=== PATIENT | female | born 1975 | race Caucasian/White ===

== ENCOUNTER 2020-10-08 09:12 | Emergency (ER) | payer MEDICAID, SELFPAY ==
[2020-10-08 09:17] VITALS: BP 125/98; PULSE 105; RESP 18; TEMP 36.8; O2SAT 99; BMI 40.7
--- NOTE | 2020-10-08 09:30 | ECG_ITS ---
Test Reason : CHEASTPAIN Blood Pressure : / mmHG Vent. Rate : 097 BPM Atrial Rate : 097 BPM P-R Int : 164 ms QRS Dur : 074 ms QT Int : 326 ms P-R-T Axes : 049 016 050 degrees QTc Int : 414 ms Artifact in tracing Normal sinus rhythm Low voltage QRS Cannot rule out Anterior infarct , age undetermined Abnormal ECG When compared with ECG of 10-FEB-2020 13:31, Due to poor quality, cannot compare Referred By: Maryjane Leigh Electronically Signed By:WALT HOFF
--- NOTE | 2020-10-08 09:30 | XR_ITS ---
EXAMINATION: XR CHEST CLINICAL INFORMATION: Chest pain. Shortness of breath. COMPARISON: Chest done on 02/10/2020. TECHNIQUE: Frontal view of the chest was obtained. FINDINGS: No significant abnormality is noted involving the heart, lungs, mediastinum, bony thorax or soft tissues. XR/XR chest 1V IMPRESSION: Unremarkable examination.
--- NOTE | 2020-10-08 09:37 | ED.GENADULT ---
HPI - General Adult General Chief complaint: General Medical Stated complaint: sob Time Seen by Provider: 10/08/20 09:18 History of Present Illness HPI narrative: 45-year-old female with a past medical history of CHF, COPD, depression, DM, mitral valve regurg presenting to the ED complaining of chest pressure radiating to left arm and jaw, worsening SOB, diarrhea x today. Also reports being lightheaded this morning, not at present. Denies fever, chills, nausea/vomiting, abdominal pain, LE edema, history of blood clots, sick contacts/recent travel Onset (ago): hour(s) Related Data Previous Rx's Medication Instructions Recorded albuterol sulfate 2 puff INHALATION Q4-6H PRN #6.7 g 10/08/20 albuterol sulfate 5 mg INHALATION Q4H PRN #30 ea 10/08/20 prednisone 40 mg PO DAILY 5 Days #10 tab 10/08/20 Allergies Allergy/AdvReac Type Severity Reaction Status Date / Time hernandez [CHERRIES] Allergy Severe ANGIOEDEMA Unverified 06/02/20 16:38 NSAIDS (Non-Steroidal Allergy Unknown NOT Unverified 06/02/20 16:38 Anti-Inflamma SUPPOSED [NSAIDS (NON-STEROIDAL TO TAKE ANTI-INFLAMMA] DUE TO LIVER DAMAGE IN THE PAST codeine [CODEINE] AdvReac Unknown N/V Unverified 06/02/20 16:38 From COMPAZINE Allergy Unknown LOCK JAW Uncoded 06/02/20 16:38 From TORADOL Allergy Unknown HIVES Uncoded 06/02/20 16:38 From ULTRAM Allergy Unknown SEIZURE Uncoded 06/02/20 16:38 Review of Systems Review of Systems: Constitutional: No Weight loss, No Fever, No Chills, No Night Sweats Cardiovascular: +Chest Pain, +SOB, +Dyspnea on Exertion, No Orthopnea, No Edema, No Palpitations Respiratory: +chronic Cough, No Sputum, +Wheezing, No Smoke Exposure Gastrointestinal: No Nausea, No Vomiting, + Diarrhea, No Constipation, No Abdominal pain, No Hematochezia, No Melena Genitourinary: No irregular bleeding, No Dysuria, No Urinary Frequency, No Hematuria Musculoskeletal: No joint pain, No Myalgias Skin: No Skin Lesions, No rash Neuro: No Weakness, No Numbness, + lightheadedness (resolved), No Headache Yes all other systems are reviewed and are negative [facility] Past Medical History Attestation statement: The following information was validated with the patient. Medical History (Updated 10/08/20 @ 14:49 by JOSE Campos) CHF (congestive heart failure) COPD (chronic obstructive pulmonary disease) Depression Diabetes Mitral valve regurgitation Social History Social History Alcohol intake: never Smoked in Last 30 Days: No Use of substances other than those prescribed or required for medical reasons: No Advance Directives: No Advance Directives Information Provided: No Physical Exam Vital Signs: Vital Signs: Last Vital Signs Temp 98.2 F 10/08/20 10:00 Pulse 89 10/08/20 14:21 Resp 18 10/08/20 10:00 BP 128/89 10/08/20 10:00 Pulse Ox 99 10/08/20 10:00 Body Mass Index 40.7 Const: General: cooperative, no acute distress, alert and awake Nutritional Appearance: underweight Orientation/consciousness: patient oriented x3 Limitations: no limitations HENMT: Head: Yes normal to inspection Ears: hearing grossly normal bilaterally General nose exam: Normal external nose present Face and sinus: Yes normal facial exam Eyes: General: appearance normal, both eyes and all related structures EOM: EOMs intact bilaterally Neck: Neck: Yes normal visual inspection and Yes no meningeal signs Resp: Effort & Inspection: normal respiratory effort Auscultation: wheezes expiratory wheezes and throughout and diminished lung sounds (bibasilar) Cardio: Rate: regular rate Heart sounds: S1 normal heart sound present and S2 normal heart sound present GI: Inspection: Yes normal to inspection Palpation (GI): Soft to palpation, nontender, no guarding and not rigid Skin: Rashes: no rashes Wounds: no wounds Neuro: General: patient oriented x3, tone normal and no meningeal signs Extrem: Other: no LE edema or calf ttp General: Yes normal to inspection Course Course Course Narrative: 1048- no leukocytosis, troponin negative, labs otherwise unremarkable. CXR unremarkable COVID-19 /RSV /negative 1248- on re-evaluation patient reports breathing is improved. Pending DuoNeb treatment and repeat troponin 1448--patient refusing repeat troponin. On re-evaluation still with end expiratory wheeze/coarse lung sounds. Would like to give additional DuoNeb however pt would like to sign out AMA. Risks discussed including . Patient has competency and is A&O x3 is capable making own decisions Medical Decision Making MDM Narrative Medical decision making narrative: 45-year-old female with a past medical history of CHF, COPD, depression, DM, mitral valve regurg presenting to the ED complaining of chest pressure radiating to left arm and jaw, worsening SOB, diarrhea x today. On exam mildly tachycardic, lungs with expiratory wheeze and decreased breath sounds bibasilar, abdomen soft/nontender, no LE edema. Concern for COPD exacerbation vs CHF vs viral syndrome/COVID-19. Rule pneumonia/ACS. Low concern for PE/dissection Low concern for severe sepsis at this time. Plan: EKG, labs, CXR, albuterol, magnesium, Decadron, re-evaluate. Lab Data Result diagrams: 10/08/20 10:02 10/08/20 10:02 Labs: Lab Results 10/08/20 10/08/20 10/08/20 Range/Units 10:01 10:01 10:02 WBC 8.4 (4.8-10.8) X10*3/uL RBC 4.79 (4.20-5.50) X10*6/uL Hgb 12.1 (12.0-16.0) g/dl Hct 38.9 (37-47) % MCV 81.2 (80-98) fL MCH 25.3 L (27.0-33.0) pg MCHC 31.1 (31.0-35.0) g/dl RDW 16.7 H (11.0-16.0) % Plt Count 278 (160-400) X10*3/uL MPV 10.8 (9.4-12.3) fL Immature Gran % (Auto) 0.2 (0.0-0.4) % Neut % (Auto) 66.8 (45-73) % Lymph % (Auto) 25.9 (20-40) % [place] % (Auto) 4.8 (2-11) % Eos % (Auto) 1.8 (0-4) % Baso % (Auto) 0.5 (0-2) % Lymph # (Auto) 2.2 (1.2-4.9) X10*3/uL [place] # (Auto) 0.4 (0.1-1.2) X10*3/uL Eos # (Auto) 0.2 (0.0-0.4) X10*3/uL Baso # (Auto) 0.0 (0.0-0.2) X10*3/uL Abs Immat Gran (auto) 0.02 (0.00-0.03) X10*3/uL Absolute Neuts (auto) 5.6 (2.0-8.3) X10*3/uL Absolute Nucleated RBC 0.000 (0.0-0.012) X10*3/uL Nucleated RBC % (auto) 0.0 (0.0-0.2) /100WBC PT (10.8-13.0) SEC INR (0.9-1.1) APTT (24.1-38.0) SEC Hold Blue Top Sodium (135-145) mmol/L Potassium (3.3-5.1) mmol/l Chloride (96-108) mmol/L Carbon Dioxide (22-29) mmol/L Anion Gap (12-20) BUN (9-16) mg/dL Creatinine (0.5-1.4) mg/dL Estim Creat Clear Calc Estimated GFR Random Glucose (60-115) mg/dL Calcium (8.4-10.2) mg/dL Magnesium (1.6-2.6) mg/dL Ferritin 8 L (10-250) ng/mL Total Bilirubin (0.0-1.0) mg/dL Direct Bilirubin (0.0-0.5) mg/dL AST (5-31) U/L ALT (0-31) U/L Alkaline Phosphatase (39-117) U/L Lactate Dehydrogenase (122-220) U/L Troponin I High Sens (<3.5-17.0) ng/L C-Reactive Protein (< or = 0.50) mg/dL B-Natriuretic Peptide (<100) pg/mL Total Protein (6.5-8.0) g/dL Albumin (3.5-5.0) g/dL Procalcitonin < 0.02 ng/mL Coronavirus (PCR) (Negative) Influenza Type A (PCR) (Negative) Influenza Type B (PCR) (Negative) RSV RNA Qual (PCR) (Negative) 10/08/20 10/08/20 10/08/20 Range/Units 10:02 10:02 10:02 WBC (4.8-10.8) X10*3/uL RBC (4.20-5.50) X10*6/uL Hgb (12.0-16.0) g/dl Hct (37-47) % MCV (80-98) fL MCH (27.0-33.0) pg MCHC (31.0-35.0) g/dl RDW (11.0-16.0) % Plt Count (160-400) X10*3/uL MPV (9.4-12.3) fL Immature Gran % (Auto) (0.0-0.4) % Neut % (Auto) (45-73) % Lymph % (Auto) (20-40) % [place] % (Auto) (2-11) % Eos % (Auto) (0-4) % Baso % (Auto) (0-2) % Lymph # (Auto) (1.2-4.9) X10*3/uL [place] # (Auto) (0.1-1.2) X10*3/uL Eos # (Auto) (0.0-0.4) X10*3/uL Baso # (Auto) (0.0-0.2) X10*3/uL Abs Immat Gran (auto) (0.00-0.03) X10*3/uL Absolute Neuts (auto) (2.0-8.3) X10*3/uL Absolute Nucleated RBC (0.0-0.012) X10*3/uL Nucleated RBC % (auto) (0.0-0.2) /100WBC PT 13.1 H (10.8-13.0) SEC INR 1.1 (0.9-1.1) APTT 31.4 (24.1-38.0) SEC Hold Blue Top SEE NOTE Sodium 136 (135-145) mmol/L Potassium 3.7 (3.3-5.1) mmol/l Chloride 97 (96-108) mmol/L Carbon Dioxide 29 (22-29) mmol/L Anion Gap 14 (12-20) BUN 7 L (9-16) mg/dL Creatinine 0.71 (0.5-1.4) mg/dL Estim Creat Clear Calc 113.1 Estimated GFR > 60 Random Glucose 153 H (60-115) mg/dL Calcium 9.0 (8.4-10.2) mg/dL Magnesium 1.9 (1.6-2.6) mg/dL Ferritin (10-250) ng/mL Total Bilirubin 0.2 (0.0-1.0) mg/dL Direct Bilirubin < 0.2 (0.0-0.5) mg/dL AST 14 (5-31) U/L ALT 9 (0-31) U/L Alkaline Phosphatase 110 (39-117) U/L Lactate Dehydrogenase (122-220) U/L Troponin I High Sens < 3.5 (<3.5-17.0) ng/L C-Reactive Protein (< or = 0.50) mg/dL B-Natriuretic Peptide < 10 (<100) pg/mL Total Protein 7.2 (6.5-8.0) g/dL Albumin 4.0 (3.5-5.0) g/dL Procalcitonin ng/mL Coronavirus (PCR) (Negative) Influenza Type A (PCR) (Negative) Influenza Type B (PCR) (Negative) RSV RNA Qual (PCR) (Negative) 10/08/20 10/08/20 Range/Units 10:02 10:02 WBC (4.8-10.8) X10*3/uL RBC (4.20-5.50) X10*6/uL Hgb (12.0-16.0) g/dl Hct (37-47) % MCV (80-98) fL MCH (27.0-33.0) pg MCHC (31.0-35.0) g/dl RDW (11.0-16.0) % Plt Count (160-400) X10*3/uL MPV (9.4-12.3) fL Immature Gran % (Auto) (0.0-0.4) % Neut % (Auto) (45-73) % Lymph % (Auto) (20-40) % [place] % (Auto) (2-11) % Eos % (Auto) (0-4) % Baso % (Auto) (0-2) % Lymph # (Auto) (1.2-4.9) X10*3/uL [place] # (Auto) (0.1-1.2) X10*3/uL Eos # (Auto) (0.0-0.4) X10*3/uL Baso # (Auto) (0.0-0.2) X10*3/uL Abs Immat Gran (auto) (0.00-0.03) X10*3/uL Absolute Neuts (auto) (2.0-8.3) X10*3/uL Absolute Nucleated RBC (0.0-0.012) X10*3/uL Nucleated RBC % (auto) (0.0-0.2) /100WBC PT (10.8-13.0) SEC INR (0.9-1.1) APTT (24.1-38.0) SEC Hold Blue Top Sodium (135-145) mmol/L Potassium (3.3-5.1) mmol/l Chloride (96-108) mmol/L Carbon Dioxide (22-29) mmol/L Anion Gap (12-20) BUN (9-16) mg/dL Creatinine (0.5-1.4) mg/dL Estim Creat Clear Calc Estimated GFR Random Glucose (60-115) mg/dL Calcium (8.4-10.2) mg/dL Magnesium (1.6-2.6) mg/dL Ferritin (10-250) ng/mL Total Bilirubin (0.0-1.0) mg/dL Direct Bilirubin (0.0-0.5) mg/dL AST (5-31) U/L ALT (0-31) U/L Alkaline Phosphatase (39-117) U/L Lactate Dehydrogenase 124 (122-220) U/L Troponin I High Sens (<3.5-17.0) ng/L C-Reactive Protein 2.02 H (< or = 0.50) mg/dL B-Natriuretic Peptide (<100) pg/mL Total Protein (6.5-8.0) g/dL Albumin (3.5-5.0) g/dL Procalcitonin ng/mL Coronavirus (PCR) NEGATIVE (Negative) Influenza Type A (PCR) NEGATIVE (Negative) Influenza Type B (PCR) NEGATIVE (Negative) RSV RNA Qual (PCR) NEGATIVE (Negative) Discharge Plan Discharge Clinical Impression: COPD (chronic obstructive pulmonary disease) Qualifiers: COPD type: unspecified COPD Qualified Code(s): J44.9 - Chronic obstructive pulmonary disease, unspecified Patient Disposition: Left Against Medical Advice Instructions: COPD (Chronic Obstructive Pulmonary Disease) (ED) Additional Instructions: Your having a COPD exacerbation. Her signing out against medical advice meaning would like to stay in the emergency department longer for breathing treatments and repeat blood work which are refusing. Make sure you take prescribed medications at home including the albuterol, your neb machine, and prednisone. Call your doctor for close follow-up. If her symptoms persist or worsen, you have constant worsening shortness of breath, chest pain, or fever return to the ED immediately Prescriptions: New albuterol sulfate 90 mcg/actuation HFA aerosol inhaler 2 puff inhalation Q4-6H PRN (Reason: shortness of breath or wheezing) Qty: 6.7 RF: 0 albuterol sulfate 2.5 mg/0.5 mL solution for nebulization 5 mg inhalation Q4H PRN (Reason: shortness of breath or wheezing) Qty: 30 RF: 0 prednisone 20 mg tablet 40 mg PO DAILY 5 Days Qty: 10 RF: 0 Referrals: Sridevi Lane MD [Primary Care Provider] - 2 days
[2020-10-08 10:00] VITALS: BP 128/89; PULSE 99; RESP 18; TEMP 36.8; O2SAT 99
[2020-10-08] MEDS: Acetaminophen 325 MG TABLET 650 MG PO (10:04)
[2020-10-08] MEDS: Magnesium Sulfate/H2O 2 GM/50 ML PIGGYBACK IV (10:04)
[2020-10-08] MEDS: Albuterol Sulfate 90 MCG 8 GM INHALER 4 PUFF INHALE (10:05)
[2020-10-08 10:10] LABS: MANUAL DIFF FLAG NO
[2020-10-08 10:16] LABS: Basophils Percent Auto 0.5 % (0-2); Eosinophils Absolute Auto 0.2 X10*3/uL (0.0-0.4); Eosinophils Percent Auto 1.8 % (0-4); Hematocrit 38.9 % (37-47); Hemoglobin 12.1 g/dl (12.0-16.0); Imm Gran Abs Auto 0.02 X10*3/uL (0.00-0.03); Imm Gran Pct Auto 0.2 % (0.0-0.4); Lymphocytes Absolute Auto 2.2 X10*3/uL (1.2-4.9); Lymphocytes Percent Auto 25.9 % (20-40); Mean Corpuscular HGB Conc 31.1 g/dl (31.0-35.0); Mean Corpuscular Hemoglobin 25.3 pg (27.0-33.0); Mean Corpuscular Volume 81.2 fL (80-98); Mean Platelet Volume 10.8 fL (9.4-12.3); Monocytes Absolute Auto 0.4 X10*3/uL (0.1-1.2); Monocytes Percent Auto 4.8 % (2-11); Neutrophils Absolute Auto 5.6 X10*3/uL (2.0-8.3); Neutrophils Percent Auto 66.8 % (45-73); Platelet Count 278 X10*3/uL (160-400); Red Blood Count 4.79 X10*6/uL (4.20-5.50); Red Cell Distribution Width 16.7 % (11.0-16.0); White Blood Count 8.4 X10*3/uL (4.8-10.8)
--- NOTE | 2020-10-08 10:22 | PC.NURSE ---
pt amb to br
[2020-10-08 10:24] LABS: INTERNATIONAL NORM RATIO 1.1 (0.9-1.1); Prothrombin Time 13.1 SEC (10.8-13.0)
[2020-10-08 10:27] LABS: Partial Thromboplastin Time 31.4 SEC (24.1-38.0)
[2020-10-08 10:42] LABS: C Reactive Protein 2.02 mg/dL (< or = 0.50); Lactate Dehydrogenase 124 U/L (122-220)
[2020-10-08 10:44] LABS: Alanine Aminotransferase 9 U/L (0-31); Alkaline Phosphatase 110 U/L (39-117); Anion Gap 14 (12-20); Aspartate Amino Transferase 14 U/L (5-31); Bilirubin Direct < 0.2 mg/dL (0.0-0.5); Bilirubin Total 0.2 mg/dL (0.0-1.0); Blood Urea Nitrogen 7 mg/dL (9-16); Carbon Dioxide 29 mmol/L (22-29); Chloride 97 mmol/L (96-108); Creatinine Clr Calc Pharmacy 113.1; Estimated Glomerular Filt Rate > 60; Glucose Random 153 mg/dL (60-115); Magnesium 1.9 mg/dL (1.6-2.6); Potassium 3.7 mmol/l (3.3-5.1); Sodium 136 mmol/L (135-145); Total Protein 7.2 g/dL (6.5-8.0)
[2020-10-08 10:47] LABS: B Type Natriuretic Peptide < 10 pg/mL (<100); Troponin-I High Sensitivity < 3.5 ng/L (<3.5-17.0)
[2020-10-08 11:01] LABS: Procalcitonin < 0.02 ng/mL
[2020-10-08 11:04] LABS: Ferritin 8 ng/mL (10-250)
[2020-10-08 11:21] LABS: Influenza A PCR NEGATIVE (Negative); Influenza B PCR NEGATIVE (Negative); Resp Syncy Virus RNA Qual PCR NEGATIVE (Negative); SARS COV2 PCR INHOUSE NEGATIVE (Negative)
[2020-10-08] MEDS: LORazepam 1 MG TABLET PO (13:04)
[2020-10-08] MEDS: Albuterol/Iprat 2.5/0.5MG 3 ML AMPUL.NEB INHALE (14:17)
[2020-10-08 14:21] VITALS: PULSE 89; O2SAT 96
--- NOTE | 2020-10-08 14:44 | PC.NURSE ---
pt refusing blood work and requesting to leave. pa aware
== END 2020-10-08 15:07 | disposition left against medical advice (07) ==
PROVIDERS: Physician Assistant; Emergency Provider Internal Medicine; PCP Internal Medicine
DX: R06.02 Shortness of breath (principal); J44.9 Chronic obstructive pulmonary disease, unspecified; R07.89 Other chest pain; Z79.899 Other long term (current) drug therapy; Z20.822 Contact with and (suspected) exposure to COVID-19
CPT/HCPCS: 0241U; 36415; 71045; 80048; 80076; 82728; 83615; 83735; 83880; 84145; 84484; 85025; 85610; 85730; 86140; 93005; 94640; 96365; 96366; 96375; 99284; J1100; J3475

== ENCOUNTER 2021-04-24 10:33 | Inpatient (IN) | payer OTHER, MEDICAID, SELFPAY ==
--- NOTE | 2021-04-24 11:08 | ED_ITS ---
HPI - Psych General Chief Complaint: Psychiatric Symptoms Stated Complaint: si Time Seen by Provider: 04/24/21 11:01 History of Present Illness HPI Narrative: 45-year-old female with a history of bipolar presents today with having suicidal ideation. Patient had plans of jumping in front of a car. Positive history of being on methadone. Last used heroin a week ago. Last used cocaine about a week ago. Patient had a history of bipolar. Did not take her medication the last month. Patient came in asking for help. Denies any alcohol use. Denies any chance of being . Patient received her COVID vaccine approximately 9 days prior no coughing or congestion or upper respiratory symptoms Related Data Previous Rx's Medication Instructions Recorded albuterol sulfate 2.5 mg/0.5 mL 5 mg INHALATION Q4H PRN #30 ea 10/08/20 solution for nebulization albuterol sulfate 90 mcg/actuation 2 puff INHALATION Q4-6H PRN #6.7 g 10/08/20 aerosol inhaler prednisone 20 mg tablet 40 mg PO DAILY 5 Days #10 tab 10/08/20 Allergies Allergy/AdvReac Type Severity Reaction Status Date / Time hernandez [CHERRIES] Allergy Severe ANGIOEDEMA Unverified 06/02/20 16:38 NSAIDS (Non-Steroidal Allergy Unknown NOT Unverified 06/02/20 16:38 Anti-Inflamma SUPPOSED [NSAIDS (NON-STEROIDAL TO TAKE ANTI-INFLAMMA] DUE TO LIVER DAMAGE IN THE PAST codeine [CODEINE] AdvReac Unknown N/V Unverified 06/02/20 16:38 From COMPAZINE Allergy Unknown LOCK JAW Uncoded 06/02/20 16:38 From TORADOL Allergy Unknown HIVES Uncoded 06/02/20 16:38 From ULTRAM Allergy Unknown SEIZURE Uncoded 06/02/20 16:38 Review of Systems Review of Systems: Constitutional: No Weight loss, No Fever, No Chills, No Night Sweats, No Fatigue, No Malaise ENT/Mouth: No Hearing loss, No Ear Pain, No Nasal Congestion, No Sinus Pain, No Hoarseness, No sore throat, No Rhinorrhea, No Swallowing Difficulty Eyes: No Eye Pain, No Swelling, No Redness, No Foreign Body, No Discharge, No Vision Changes Cardiovascular: No Chest Pain, No SOB, No Dyspnea on Exertion, No Orthopnea, No Edema, No Palpitations Respiratory: No Cough, No Sputum, No Wheezing, No Smoke Exposure, No Dyspnea Gastrointestinal: No Nausea, No Vomiting, No Diarrhea, No Constipation, No abdominal Pain, No Hematochezia, No Melena Genitourinary: no irregular bleeding, No Dysuria, No Urinary Frequency, No Hematuria, No Urinary Incontinence, No Urgency, No Flank Pain, No Urinary Flow Changes, No Hesitancy Musculoskeletal: No joint pain, No Myalgias, No Joint Swelling Skin: No Skin Lesions, No rash Neuro: No Weakness, No Numbness, No Paresthesias, No Loss of Consciousness, No Dizziness, No Headache Psych: No Anxiety/Panic, positive Depression, positive suicidal ideation, No Social Issues, Heme/Lymph: No Bruising, No Bleeding,No Lymphadenopathy Endocrine: No Polyuria, No Polydipsia, No Temperature Intolerance Yes all other systems are reviewed and are negative [facility] Past Medical History Attestation statement: The following information was validated with the patient. Medical History CHF (congestive heart failure) COPD (chronic obstructive pulmonary disease) Depression Diabetes Mitral valve regurgitation Social History Social History Alcohol intake: never Substance Use Type: Crack/Cocaine and Heroin Substance Use Frequency: Recent Binge Advance Directives: No Advance Directives Information Provided: No Patient : No Physical Exam Vital Signs: Vital Signs: Last Vital Signs Temp 98.3 F 04/24/21 15:18 Pulse 72 04/24/21 15:18 Resp 20 04/24/21 15:18 BP 114/59 L 04/24/21 15:18 Pulse Ox 98 04/24/21 15:18 Body Mass Index 36.0 Appearance: Alert. Oriented X3. No acute distress. Eyes: Pupils equal, round and reactive to light. ENT: Pharynx normal. Neck: Normal inspection. Neck supple. No lymph nodes noted. No crepitus CVS: Normal heart rate and rhythm. Pulses normal. Normal S1 and S2 Respiratory: No respiratory distress. Breath sounds normal. No Wheezing. No rales Abdomen: Soft and nontender. No rigidity. No distention. good BS x4 Skin: Skin warm and dry. Normal skin color. Normal skin turgor. Extremities: No lower extremity edema. Neurovascular intact to all extremities. No Lacerations. No Rash Neuro: Oriented X 3. No motor deficit. No sensory deficit. Moving all extermities. No slurred speech Course Course Course Narrative: Well-appearing no acute distress. Will get baseline labs. Will get BHN consult. MDM - Psych MDM Narrative Medical decision making narrative: Patient medically cleared awaiting crisis evaluation. Currently in stable condition. Lab Data Result diagrams: 04/24/21 12:23 04/24/21 12:23 Labs: Lab Results 04/24/21 04/24/21 04/24/21 Range/Units 12:23 12:23 12:23 WBC 9.4 (4.8-10.8) X10*3/uL RBC 4.43 (4.20-5.50) X10*6/uL Hgb 11.9 L (12.0-16.0) g/dl Hct 38.3 (37-47) % MCV 86.5 (80-98) fL MCH 26.9 L (27.0-33.0) pg MCHC 31.1 (31.0-35.0) g/dl RDW 15.6 (11.0-16.0) % Plt Count 310 (160-400) X10*3/uL MPV 11.5 (9.4-12.3) fL Immature Gran % (Auto) 0.1 (0.0-0.4) % Neut % (Auto) 60.8 (45-73) % Lymph % (Auto) 32.4 (20-40) % [place] % (Auto) 4.8 (2-11) % Eos % (Auto) 1.6 (0-4) % Baso % (Auto) 0.3 (0-2) % Lymph # (Auto) 3.0 (1.2-4.9) X10*3/uL [place] # (Auto) 0.5 (0.1-1.2) X10*3/uL Eos # (Auto) 0.2 (0.0-0.4) X10*3/uL Baso # (Auto) 0.0 (0.0-0.2) X10*3/uL Abs Immat Gran (auto) 0.01 (0.00-0.03) X10*3/uL Absolute Neuts (auto) 5.7 (2.0-8.3) X10*3/uL Absolute Nucleated RBC 0.000 (0.0-0.012) X10*3/uL Nucleated RBC % (auto) 0.0 (0.0-0.2) /100WBC Sodium 140 (135-145) mmol/L Potassium 4.3 (3.3-5.1) mmol/L Chloride 103 (96-108) mmol/L Carbon Dioxide 28 (22-29) mmol/L Anion Gap 13 (12-20) BUN 8 L (9-16) mg/dL Creatinine 0.72 (0.5-1.4) mg/dL Estim Creat Clear Calc 108.1 Estimated GFR > 60 Random Glucose 96 D (60-115) mg/dL Calcium 8.9 (8.4-10.2) mg/dL Urine Test (NEGATIVE) Urine Opiates Screen (Not Detect) Ur Barbiturates Screen (Not Detect) Ur Phencyclidine Scrn (Not Detect) Ur Amphetamines Screen (Not Detect) U Benzodiazepines Scrn (Not Detect) Urine Cocaine Screen (Not Detect) U Marijuana (THC) Screen (Not Detect) Ethyl Alcohol < 10 mg/dL 04/24/21 04/24/21 Range/Units 12:23 12:23 WBC (4.8-10.8) X10*3/uL RBC (4.20-5.50) X10*6/uL Hgb (12.0-16.0) g/dl Hct (37-47) % MCV (80-98) fL MCH (27.0-33.0) pg MCHC (31.0-35.0) g/dl RDW (11.0-16.0) % Plt Count (160-400) X10*3/uL MPV (9.4-12.3) fL Immature Gran % (Auto) (0.0-0.4) % Neut % (Auto) (45-73) % Lymph % (Auto) (20-40) % [place] % (Auto) (2-11) % Eos % (Auto) (0-4) % Baso % (Auto) (0-2) % Lymph # (Auto) (1.2-4.9) X10*3/uL [place] # (Auto) (0.1-1.2) X10*3/uL Eos # (Auto) (0.0-0.4) X10*3/uL Baso # (Auto) (0.0-0.2) X10*3/uL Abs Immat Gran (auto) (0.00-0.03) X10*3/uL Absolute Neuts (auto) (2.0-8.3) X10*3/uL Absolute Nucleated RBC (0.0-0.012) X10*3/uL Nucleated RBC % (auto) (0.0-0.2) /100WBC Sodium (135-145) mmol/L Potassium (3.3-5.1) mmol/L Chloride (96-108) mmol/L Carbon Dioxide (22-29) mmol/L Anion Gap (12-20) BUN (9-16) mg/dL Creatinine (0.5-1.4) mg/dL Estim Creat Clear Calc Estimated GFR Random Glucose (60-115) mg/dL Calcium (8.4-10.2) mg/dL Urine Test NEGATIVE (NEGATIVE) Urine Opiates Screen Not Detected (Not Detect) Ur Barbiturates Screen Not Detected (Not Detect) Ur Phencyclidine Scrn Not Detected (Not Detect) Ur Amphetamines Screen Not Detected (Not Detect) U Benzodiazepines Scrn Not Detected (Not Detect) Urine Cocaine Screen POSITIVE H (Not Detect) U Marijuana (THC) Screen POSITIVE H (Not Detect) Ethyl Alcohol mg/dL Discharge Plan Discharge Clinical Impression: Suicidal ideation Prescriptions: No Action albuterol sulfate 90 mcg/actuation HFA aerosol inhaler 2 puff inhalation Q4-6H PRN (Reason: shortness of breath or wheezing) Qty: 6.7 RF: 0 albuterol sulfate 2.5 mg/0.5 mL solution for nebulization 5 mg inhalation Q4H PRN (Reason: shortness of breath or wheezing) Qty: 30 RF: 0 prednisone 20 mg tablet 40 mg PO DAILY 5 Days Qty: 10 RF: 0
[2021-04-24 11:13] VITALS: BP 130/54; PULSE 68; RESP 16; TEMP 36.9; O2SAT 96; BMI 36.0
--- NOTE | 2021-04-24 11:23 | PC.NURSE ---
FAXED DOSE VERIFICATION FORM TO [facility] [phone]
[2021-04-24] MEDS: LORazepam 1 MG TABLET PO ×2 (11:44→16:36)
[2021-04-24 12:41] LABS: MANUAL DIFF FLAG NO
[2021-04-24 12:43] LABS: Basophils Percent Auto 0.3 % (0-2); Eosinophils Absolute Auto 0.2 X10*3/uL (0.0-0.4); Eosinophils Percent Auto 1.6 % (0-4); Hematocrit 38.3 % (37-47); Hemoglobin 11.9 g/dl (12.0-16.0); Imm Gran Abs Auto 0.01 X10*3/uL (0.00-0.03); Imm Gran Pct Auto 0.1 % (0.0-0.4); Lymphocytes Percent Auto 32.4 % (20-40); Mean Corpuscular HGB Conc 31.1 g/dl (31.0-35.0); Mean Corpuscular Hemoglobin 26.9 pg (27.0-33.0); Mean Corpuscular Volume 86.5 fL (80-98); Mean Platelet Volume 11.5 fL (9.4-12.3); Monocytes Absolute Auto 0.5 X10*3/uL (0.1-1.2); Monocytes Percent Auto 4.8 % (2-11); Neutrophils Absolute Auto 5.7 X10*3/uL (2.0-8.3); Neutrophils Percent Auto 60.8 % (45-73); Platelet Count 310 X10*3/uL (160-400); Red Blood Count 4.43 X10*6/uL (4.20-5.50); Red Cell Distribution Width 15.6 % (11.0-16.0); White Blood Count 9.4 X10*3/uL (4.8-10.8)
[2021-04-24 12:47] LABS: UPreg QC Valid YES; Urine Pregnancy NEGATIVE (NEGATIVE)
[2021-04-24 13:11] LABS: Ethanol < 10 mg/dL
[2021-04-24 13:12] LABS: Anion Gap 13 (12-20); Blood Urea Nitrogen 8 mg/dL (9-16); Calcium 8.9 mg/dL (8.4-10.2); Carbon Dioxide 28 mmol/L (22-29); Chloride 103 mmol/L (96-108); Creatinine Clr Calc Pharmacy 108.1; Estimated Glomerular Filt Rate > 60; Glucose Random 96 mg/dL (60-115); Potassium 4.3 mmol/L (3.3-5.1); Sodium 140 mmol/L (135-145)
[2021-04-24 13:32] LABS: Amphetamine Screen Urine Not Detected (Not Detect); Barbiturates, Urine Not Detected (Not Detect); Benzodiazepines Screen Urine Not Detected (Not Detect); Cannabinoid Screen Urine POSITIVE (Not Detect); Cocaine Screen Urine POSITIVE (Not Detect); Opiate Screen Urine Not Detected (Not Detect); Phencyclidine Screen Urine Not Detected (Not Detect)
[2021-04-24 15:18] VITALS: BP 114/59; PULSE 72; RESP 20; TEMP 36.8; O2SAT 98
--- NOTE | 2021-04-24 19:29 | MHC.CARE ---
Contacted [facility] triage, no referral received for crisis evaluation. Provided demographics, medical clearance info, and presenting problem by phone. They will call back with an ETA.
--- NOTE | 2021-04-24 20:49 | MHC.CARE ---
[facility] unable to send clinician until the morning. CARE team contacted [facility] crisis triage re: taking over evaluation. Triage will notify insurance. CARE team eval will be completed this evening.
[2021-04-24 22:00] VITALS: BP 116/68; PULSE 74; RESP 16
--- NOTE | 2021-04-24 23:00 | MHC.CARE ---
Attempted to meet with pt. Sleeping, wouldn't wake up, will try again in an hour.
--- NOTE | 2021-04-25 | ECG_ITS ---
Test Reason : MEDICAL CLEAR Blood Pressure : / mmHG Vent. Rate : 057 BPM Atrial Rate : 057 BPM P-R Int : 186 ms QRS Dur : 084 ms QT Int : 460 ms P-R-T Axes : 036 014 039 degrees QTc Int : 447 ms Sinus bradycardia Otherwise normal ECG When compared with ECG of 08-OCT-2020 09:20, Vent. rate has decreased BY 40 BPM Borderline criteria for Inferior infarct are no longer Present ST no longer depressed in Anterolateral leads T wave inversion no longer evident in Anterolateral leads Referred By: Hesham Shin Electronically Signed By:JOVANA HUFF MD
[2021-04-25] MEDS: LORazepam 0.5 MG TABLET 1 MG PO ×4 (00:27→21:28)
--- NOTE | 2021-04-25 00:29 | PC.NURSE ---
pt medicated as per emar for anxiety.
--- NOTE | 2021-04-25 00:54 | MHC.CARE ---
Eval completed. Plan is for inpt psych admission. Pt will remain in ED pending facility placement.
[2021-04-25 02:00] VITALS: BP 128/68; PULSE 81; RESP 16
--- NOTE | 2021-04-25 02:46 | PC.NURSE ---
PT SLEEPING WAKES TO VOICE. RESPIRATIONS EASY, N/L. SKIN W/D. WILL CONTINUE TO MONITOR PT.
[2021-04-25 06:00] VITALS: BP 126/72; PULSE 84; RESP 16
[2021-04-25] MEDS: LORazepam 1 MG TABLET 2 MG PO (06:32)
--- NOTE | 2021-04-25 06:33 | PC.NURSE ---
pt feeling anxious, pt medicated as per emar.
--- NOTE | 2021-04-25 07:39 | PC.NURSE ---
PATIENT CALLED [facility] AND GAVE PHONE TO SANG Cason RN. SANG SPOKE WITH WORKER ON PHONE AND TOOK DOWN DOSE VERIFICATION INFORMATION. SENT TO PHARMACY BY THIS RN.
[2021-04-25 10:11] VITALS: RESP 18
[2021-04-25 10:30] LABS: Influenza A PCR NEGATIVE (Negative); Influenza B PCR NEGATIVE (Negative); Resp Syncy Virus RNA Qual PCR NEGATIVE (Negative); SARS COV2 PCR INHOUSE NEGATIVE (Negative)
--- NOTE | 2021-04-25 10:37 | PM.PSYCN ---
History of Present Illness Date of Service: 04/25/2021 Chief Complaint: si Reason for Consult: Consult was requested by Care Team due to patient reporting active urges to self harm and increased anxiety. Requesting physician: Heidy Jama Sources of Information: patient interviewed, chart reviewed and crisis/core team assessment reviewed Additional Sources of Information: Consulted with Care Team HPI Narrative: Patient is a 45 y.o. female who carries a diagnosis of Bipolar II disorder, borderline personality disorder, and moderate opioid use disorder on MAT (methadone maintenance 85 mg). She self-presented to [facility] ED due to SI with plan, recent attempt to step in front of a moving vehicle yesterday, depression. Precipitating factors include that her PCP has taken her off her psych medications 1 month ago (due to stability?) and she has been feeling worse x 2 weeks. Also reports several friends have from substance overdose. She recently relapsed on opiates and cocaine 5-6 days ago after abstinence of 1.5 years. She has been on methadone maintenance x 4 yrs, denies current withdrawal sx. I evaluated the patient this morning and upon interview, she reports ?I want to ,? has active plan to hang herself if she leaves the hospital. She states her PCP was taking her off her psych meds due to her stability and that she has not had an inpatient psych admission since 2018, however she says ?I felt good because of my medications, what I was on was working fine.? Since being off the meds x 1 month she reports increased sx of bipolar depression including self isolating, feeling ?testy towards people,? poor sleep, and ?I couldn?t get my mind to slow down.? She reports hearing her own voice in her head telling herself to kill herself. Says she is ?javier if I slept 2 hours a night,? can fall asleep but does not stay asleep. Has increased sx of anxiety, ?I feel like everything is closing in on me.? Appetite is low. She has been taking PO Ativan PRN in the ED, says this is helping. However, she continues to feel restless and present with psychomotor agitation. Per pharmacy records, she was on gabapentin 800 mg TID, Vistaril 25 mg BID, remeron 15 mg QHS, and prazosin 3 mg QHS. Says she felt stable on this regimen since 2019. In the milieu, she states she is looking for things around her to self harm with although denies intent, feels safe in the ED. Past Psychiatric History: PPH: -Hx of multiple inpatient psych admissions, last at in 2017. [place] in 2018. -Most recent med management with remeron, prazosin, gabapentin, clonidine, lamictal -Reports she is on gabapentin for nerve damage in her feet Medical Evaluation Reviewed: Yes -PCP is Dr. Sridevi Lane. -past medical history of CHF, COPD, non-insulin dependent DM, mitral valve regurg Personal & Social History: -She shares an apartment with friends [facility] Medical History CHF (congestive heart failure) COPD (chronic obstructive pulmonary disease) Depression Diabetes Mitral valve regurgitation Substance History: -Hx of MAT, detox, and admission at residential substance use programs (last at [facility]). -Tox screen positive for cocaine and marijuana. Diagnostics Vital Signs (24Hr): Vital Signs - 24 hr 04/24/21 11:13 04/24/21 15:18 04/24/21 22:00 Temperature 98.5 F 98.3 F Pulse Rate 68 72 74 Respiratory Rate 16 20 16 Blood Pressure 130/54 L 114/59 L 116/68 Pulse Oximetry 96 98 04/25/21 02:00 04/25/21 06:00 04/25/21 10:11 Temperature Pulse Rate 81 84 Respiratory Rate 16 16 18 Blood Pressure 128/68 126/72 Pulse Oximetry Body Mass Index 36.0 Labs Results: 04/24/21 12:23 04/24/21 12:23 Labs: Laboratory Results - last 48 hr 04/24/21 04/24/21 04/24/21 12:23 12:23 12:23 WBC 9.4 RBC 4.43 Hgb 11.9 L Hct 38.3 MCV 86.5 MCH 26.9 L MCHC 31.1 RDW 15.6 Plt Count 310 MPV 11.5 Immature Gran % (Auto) 0.1 Neut % (Auto) 60.8 Lymph % (Auto) 32.4 [place] % (Auto) 4.8 Eos % (Auto) 1.6 Baso % (Auto) 0.3 Lymph # (Auto) 3.0 [place] # (Auto) 0.5 Eos # (Auto) 0.2 Baso # (Auto) 0.0 Abs Immat Gran (auto) 0.01 Absolute Neuts (auto) 5.7 Absolute Nucleated RBC 0.000 Nucleated RBC % (auto) 0.0 Sodium 140 Potassium 4.3 Chloride 103 Carbon Dioxide 28 Anion Gap 13 BUN 8 L Creatinine 0.72 Estim Creat Clear Calc 108.1 Estimated GFR > 60 Random Glucose 96 D Calcium 8.9 Urine Test Urine Opiates Screen Ur Barbiturates Screen Ur Phencyclidine Scrn Ur Amphetamines Screen U Benzodiazepines Scrn Urine Cocaine Screen U Marijuana (THC) Screen Ethyl Alcohol < 10 04/24/21 04/24/21 12:23 12:23 WBC RBC Hgb Hct MCV MCH MCHC RDW Plt Count MPV Immature Gran % (Auto) Neut % (Auto) Lymph % (Auto) [place] % (Auto) Eos % (Auto) Baso % (Auto) Lymph # (Auto) [place] # (Auto) Eos # (Auto) Baso # (Auto) Abs Immat Gran (auto) Absolute Neuts (auto) Absolute Nucleated RBC Nucleated RBC % (auto) Sodium Potassium Chloride Carbon Dioxide Anion Gap BUN Creatinine Estim Creat Clear Calc Estimated GFR Random Glucose Calcium Urine Test NEGATIVE Urine Opiates Screen Not Detected Ur Barbiturates Screen Not Detected Ur Phencyclidine Scrn Not Detected Ur Amphetamines Screen Not Detected U Benzodiazepines Scrn Not Detected Urine Cocaine Screen POSITIVE H U Marijuana (THC) Screen POSITIVE H Ethyl Alcohol Mental Status Exam Mental Status Exam Narrative: Unkempt appearance, in hospital gown, overweight. Good eye contact, attentive. No abnormal involuntary movements. Presents with psychomotor agitation, guarded but engageable. Non-pressured speech, spontaneous with regular rate and rhythm, normal volume and prosody. No prolonged speech latency or dysarthria. Mood is ?depressed,? affect is irritable. Endorses SI with plan and intent, denies recent SIB or HI upon inquiry. Denies A/VH or delusional thought content. Thoughts are coherent, organized. No known cognitive or memory impairment. Insight/ Judgment fair and adequate. Medications Medications Current Medications Generic Name Dose Route Start Last Admin Trade Name Freq PRN Reason Stop Dose Admin Lorazepam 1 mg 04/25/21 09:40 04/25/21 10:10 Lorazepam 0.5 Mg Tablet PO 1 mg Q6H PRN Administration anxiety Methadone HCl 80 mg 04/25/21 09:00 04/25/21 08:59 Methadone Hcl 1 Mg/0.1 Ml Oral.Conc PO 80 mg DAILY ADRIÁN Administration Allergies Allergies Allergy/AdvReac Type Severity Reaction Status Date / Time hernandez [CHERRIES] Allergy Severe ANGIOEDEMA Unverified 06/02/20 16:38 NSAIDS (Non-Steroidal Allergy Unknown NOT Unverified 06/02/20 16:38 Anti-Inflamma SUPPOSED [NSAIDS (NON-STEROIDAL TO TAKE ANTI-INFLAMMA] DUE TO LIVER DAMAGE IN THE PAST codeine [CODEINE] AdvReac Unknown N/V Unverified 06/02/20 16:38 From COMPAZINE Allergy Unknown LOCK JAW Uncoded 06/02/20 16:38 From TORADOL Allergy Unknown HIVES Uncoded 06/02/20 16:38 From ULTRAM Allergy Unknown SEIZURE Uncoded 06/02/20 16:38 Assessment & Plan Assessment & Plan (1) Suicidal ideation: Status: Acute Code(s): R45.851 - Suicidal ideations (2) Bipolar II disorder: Status: Acute Code(s): F31.81 - Bipolar II disorder Assessment and Plan: Patient is a 45 y.o. female who carries a diagnosis of Bipolar II disorder, borderline personality disorder, and moderate opioid use disorder on MAT (methadone maintenance 85 mg). She self-presented to [facility] ED due to SI, recent attempt to step in front of a moving vehicle yesterday, depression. She is voluntary for an inpatient psych admission and wants to re-start her OP psych meds to address her current urges for self harm, does not feel safe leaving the hospital due to active SI with plan and intent. -Continue monitoring medically. Patient is currently medically cleared. -Will re-start gabapentin 100 mg TID and vistaril 25 mg BID for sx of anxiety, agitation, reviewed with treating provider. -Patient cannot leave AGAINST MEDICAL ADVICE. -Care Team evaluation for bed search. ? Greater than 50% of the session was spent on counseling and/or coordination of care
[2021-04-25] MEDS: Gabapentin 100 MG CAPSULE PO ×2 (14:03→21:28)
--- NOTE | 2021-04-25 22:44 | PC.NURSE ---
Patient in bed appears sleeping, no distress observed/reported, med compliant, VSS, behavior pleasant and appropriate, patient accepted to [facility] awaiting transfer order, patient aware and signed CV, will continue to monitor.
[2021-04-26 00:57] VITALS: BP 106/58; PULSE 74; RESP 18; TEMP 35.7; O2SAT 97
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
[2021-04-26] MEDS: LORazepam 0.5 MG TABLET 1 MG PO (06:28)
[2021-04-26] MEDS: hydrOXYzine HCL 25 MG TABLET PO (08:14)
[2021-04-26] MEDS: Gabapentin 100 MG CAPSULE PO ×3 (08:28→21:03)
[2021-04-26] MEDS: diphenhydrAMINE HCL 25 MG TABLET PO (09:06)
[2021-04-26] MEDS: LORazepam 1 MG TABLET PO (09:06)
[2021-04-26] MEDS: HaloperidoL 0.5 MG TABLET 2.5 MG PO (09:09)
--- NOTE | 2021-04-26 09:46 | P.HPPS_ITS ---
HPI Chief Complaint: Depression Sources of Information: patient interviewed, chart reviewed and crisis/core team assessment reviewed HPI Subjective Notes: Constantino Warning, Conditional Voluntary and 3 Day Narrative: Patient seen on 04/26 Patient is a 45-year-old female who carries a diagnosis of bipolar disorder, PTSD, depression and substance use disorder, currently on methadone who presents for worsening depression with SI and the face of having been discontinued on her medications by outpatient physician. Patient reports that she has not been psychiatrically hospitalized for about 3 years. She also reports sobriety for the past 9 months. Patient says that on her past medication regimen she was doing overall okay and though she would have intermittent depression or passive SI, she was able to keep it at [place] and stay stable. Patient also lost 40 lb due to diet and exercise and has since cured herself of diabetes, coming off metformin and no longer has hypertension. Patient reports that her outpatient psychiatrist said she was doing so well that it was a good time to see how she would do off medications. Patient said that over a 2 month period, she was taken off Remeron, Lamictal, gabapentin, prazosin and Ativan. Patient said that she questioned how quickly she was coming off each of these medications thinking she should remain on at least 1, however she felt convinced to give this a try. Patient said that over the past 3 weeks once all meds were discontinued she started feeling increasingly depressed, isolating herself, barely eating, having much trouble sleeping though tired all the time, difficulty focusing or concentrating and with increasing thoughts of SI. Her depression was compounded by a psychosocial stressor of her grandmother dying 2 months ago and then to of her close friends dying from overdose in the past month. Patient anxiety worsened and she was plagued by worries all the time which also interfered with sleep. Patient said she called her provider on the phone but was told that this was likely just a discontinuation affect and she should stay the course. This past week, to cope with depression anxiety patient relapsed on both heroin and crack cocaine; she denies any alcohol use. Patient has suicidal ideation increased and she went outside to walk into traffic. Patient again called provider, got the it help desk associate a board of education secretary who reportedly did not believe patient was suicidal and discontinued conversation. Patient has the very strong protective factor of her 3 children and called 911 not willing to . She reports continued hopelessness and helplessness but wants to get better. She still has passive SI but no current intention or plans. Patient would like to be restarted on her Lamictal and mirtazapine; she understands her blood pressure is now on the low side so agrees to holding off from prazosin though this has helped her in the past with her nightmares. Patient asks for hydroxyzine 25 mg for anxiety. She was on gabapentin which is also been restarted though at a low dose. Of note, earlier this morning patient's methadone was not fully ordered and she got mad and upset and worried that her medications would continue to be delayed. She banged her head on the wall, which he says is the 1st time she ever did it and which she regrets, but saying she was so mad she had to do something. Patient has induration on her forehead; no loss of consciousness Past Psychiatric History: PPH: -Hx of multiple inpatient psych admissions, last at in 2017. [place] in 2018. -Most recent med management with remeron, prazosin, gabapentin, clonidine, lamictal -Reports she is on gabapentin for nerve damage in her feet Medical Evaluation Reviewed: Yes [facility] Medical History (Updated 04/27/21 @ 10:40 by Chace Willis MD) CHF (congestive heart failure) Chronic post-traumatic stress disorder (PTSD) Cocaine abuse COPD (chronic obstructive pulmonary disease) COPD (chronic obstructive pulmonary disease) Depression Depression Diabetes Mitral valve regurgitation Opioid use disorder Family History: Deferred Social History: Lives on her own Has 3 children Substance History: Cocaine and opiate abuse on methadone; sober for the past 9 months relapsed 1 time last week Trauma History: Patient endorses significant history of trauma but did not explain further Diagnostics Vital Signs (24Hr): Vital Signs - 24 hr 04/25/21 10:11 04/26/21 00:57 Temperature 96.3 F L Pulse Rate 74 Respiratory Rate 18 18 Blood Pressure 106/58 L Pulse Oximetry 97 Body Mass Index 36.0 Labs Results: 04/24/21 12:23 04/24/21 12:23 Labs: Laboratory Results - last 48 hr 04/24/21 04/24/21 04/24/21 12:23 12:23 12:23 WBC 9.4 RBC 4.43 Hgb 11.9 L Hct 38.3 MCV 86.5 MCH 26.9 L MCHC 31.1 RDW 15.6 Plt Count 310 MPV 11.5 Immature Gran % (Auto) 0.1 Neut % (Auto) 60.8 Lymph % (Auto) 32.4 [place] % (Auto) 4.8 Eos % (Auto) 1.6 Baso % (Auto) 0.3 Lymph # (Auto) 3.0 [place] # (Auto) 0.5 Eos # (Auto) 0.2 Baso # (Auto) 0.0 Abs Immat Gran (auto) 0.01 Absolute Neuts (auto) 5.7 Absolute Nucleated RBC 0.000 Nucleated RBC % (auto) 0.0 Sodium 140 Potassium 4.3 Chloride 103 Carbon Dioxide 28 Anion Gap 13 BUN 8 L Creatinine 0.72 Estim Creat Clear Calc 108.1 Estimated GFR > 60 Random Glucose 96 D Calcium 8.9 Urine Test Urine Opiates Screen Ur Barbiturates Screen Ur Phencyclidine Scrn Ur Amphetamines Screen U Benzodiazepines Scrn Urine Cocaine Screen U Marijuana (THC) Screen Ethyl Alcohol < 10 Coronavirus (PCR) Influenza Type A (PCR) Influenza Type B (PCR) RSV RNA Qual (PCR) 04/24/21 04/24/21 04/25/21 12:23 12:23 09:13 WBC RBC Hgb Hct MCV MCH MCHC RDW Plt Count MPV Immature Gran % (Auto) Neut % (Auto) Lymph % (Auto) [place] % (Auto) Eos % (Auto) Baso % (Auto) Lymph # (Auto) [place] # (Auto) Eos # (Auto) Baso # (Auto) Abs Immat Gran (auto) Absolute Neuts (auto) Absolute Nucleated RBC Nucleated RBC % (auto) Sodium Potassium Chloride Carbon Dioxide Anion Gap BUN Creatinine Estim Creat Clear Calc Estimated GFR Random Glucose Calcium Urine Test NEGATIVE Urine Opiates Screen Not Detected Ur Barbiturates Screen Not Detected Ur Phencyclidine Scrn Not Detected Ur Amphetamines Screen Not Detected U Benzodiazepines Scrn Not Detected Urine Cocaine Screen POSITIVE H U Marijuana (THC) Screen POSITIVE H Ethyl Alcohol Coronavirus (PCR) NEGATIVE Influenza Type A (PCR) NEGATIVE Influenza Type B (PCR) NEGATIVE RSV RNA Qual (PCR) NEGATIVE Meds/Allergies Meds Home Medications Acetaminophen (Acetaminophen 325 Mg Tablet) 650 mg PO Q6H PRN PRN Reason: Headache/Pain Mild Scale (1-3) Last Admin: 04/26/21 17:51 Dose: 650 mg Documented by: Al Hydroxide/Mg Hydroxide (Magnesium Hydrox/Alum Hydrox 30 Ml Oral.Susp) 30 ml PO Q6H PRN PRN Reason: Heartburn/Nausea Diphenhydramine HCl (Diphenhydramine Hcl 25 Mg Tablet) 50 mg PO Q4H PRN PRN Reason: agitation Last Admin: 04/27/21 08:57 Dose: 50 mg Documented by: Gabapentin (Gabapentin 100 Mg Capsule) 100 mg PO TID [facility] Last Admin: 04/27/21 08:58 Dose: 100 mg Documented by: Haloperidol (Haloperidol 5 Mg Tablet) 5 mg PO Q4H PRN PRN Reason: agitation Last Admin: 04/27/21 08:57 Dose: 5 mg Documented by: Hydroxyzine HCl (Hydroxyzine Hcl 25 Mg Tablet) 25 mg PO Q6H PRN PRN Reason: mild Anxiety Lamotrigine (Lamotrigine 25 Mg Tablet) 25 mg PO DAILY [facility] Last Admin: 04/27/21 08:57 Dose: 25 mg Documented by: Lorazepam (Lorazepam 1 Mg Tablet) 2 mg PO Q4H PRN PRN Reason: agitation Last Admin: 04/27/21 08:57 Dose: 2 mg Documented by: Lorazepam (Lorazepam 0.5 Mg Tablet) 0.5 mg PO BID PRN PRN Reason: moderate anxiety Last Admin: 04/27/21 06:06 Dose: 0.5 mg Documented by: Magnesium Hydroxide (Milk Of Magnesia 30 Ml Oral.Susp) 30 ml PO DAILY PRN PRN Reason: Constipation Methadone HCl (Methadone Hcl 1 Mg/0.1 Ml Oral.Conc) 85 mg PO DAILY [facility] Last Admin: 04/27/21 08:56 Dose: 85 mg Documented by: Mirtazapine (Mirtazapine 7.5 Mg Tablet) 7.5 mg PO BEDTIME [facility] Last Admin: 04/26/21 21:03 Dose: 7.5 mg Documented by: Allergies Allergies Allergy/AdvReac Type Severity Reaction Status Date / Time hernandez [CHERRIES] Allergy Severe ANGIOEDEMA Unverified 06/02/20 16:38 NSAIDS (Non-Steroidal Allergy Unknown NOT Unverified 06/02/20 16:38 Anti-Inflamma SUPPOSED [NSAIDS (NON-STEROIDAL TO TAKE ANTI-INFLAMMA] DUE TO LIVER DAMAGE IN THE PAST codeine [CODEINE] AdvReac Unknown N/V Unverified 06/02/20 16:38 From COMPAZINE Allergy Unknown LOCK JAW Uncoded 06/02/20 16:38 From TORADOL Allergy Unknown HIVES Uncoded 06/02/20 16:38 From ULTRAM Allergy Unknown SEIZURE Uncoded 06/02/20 16:38 Mental Status Exam Mental Status Exam Narrative: Pt is alert and oriented; behavior is cooperative, friendly; intermittently tearful; patient is not in distress; dressed in casual attire with adequate hygiene; mood is described as depressed and affect downcast and tearful; eye contact appropriate; Speech is normal rate, volume and prosody and not pressured; some psychomotor retardation present; thought process is organized, linear, logical and goal directed. Thought content is on getting back on medications; hopeless feelings and passive SI; otherwise TC relevant to perti nent topics and without any delusional content, paranoid ideations or grandiosity; no HI. There is no evidence of perceptual disturbance. ?Patients insight and judgment are impaired. Assessment & Plan Assessment & Plan (1) Bipolar II disorder: Status: Acute Code(s): F31.81 - Bipolar II disorder (2) Depression: Status: Acute Code(s): F32.9 - Major depressive disorder, single episode, unspecified (3) Chronic post-traumatic stress disorder (PTSD): Status: Acute Code(s): F43.12 - Post-traumatic stress disorder, chronic (4) Opioid use disorder: Status: Acute Code(s): F11.99 - Opioid use, unspecified with unspecified opioid-induced disorder (5) Cocaine abuse: Status: Acute Code(s): F14.10 - Cocaine abuse, uncomplicated (6) COPD (chronic obstructive pulmonary disease): Status: Acute Code(s): J44.9 - Chronic obstructive pulmonary disease, unspecified Assessment and Plan: Patient is a 45-year-old female who carries a diagnosis of bipolar disorder, PTSD, depression and substance use disorder, currently on methadone who presents for worsening depression with SI and the face of having been discontinued on her medications by outpatient physician. Patient reports that she has not been psychiatrically hospitalized for about 3 years and was stable on her past medication regimen of Lamictal, Remeron, prazosin, gabapentin, Ativan. Patient reports that she was tapered off all these medications within a 2 month period and subsequently became depressed and eventually relapsed, 1st time in 9 months. Patient is currently depressed with SI but remains passive and without intent or plans; patient's children remain strong protective factor. Patient questions her bipolar diagnosis and says that she was also diagnosed with borderline personality disorder which she thinks fits much more with her psychiatric history. Patient has PTSD symptoms of nightmares. Will explore further. At this time will leave diagnosis of bipolar 2 since she has carried this diagnosi s; will add depressive disorder unspecified and see if it is possible to rule out MDD versus bipolar depression during this admission. Will admit for safety and medication management. Patient is appropriate for admission and treatment; cannot be handled as an outpatient since she remains depressed with SI needing time to safely get back on medications. Of note, patient reports that she is no longer diabetic and that her most recent A1c is 5.6 down from 11.7 and that she was taken off metformin (intentional weight loss of 40 lb through diet and exercise). However patient says that she is normally on metoprolol 25 mg daily and Lasix 25 mg daily for hypertension. She is confused to better cardiac diagnosis saying that she was at 1st told she had CHF but then it seemed to change to mitral valve regurg. She is not sure she is supposed to be on cardiac medications. Will discuss with hospitalist. Currently blood pressure her and heart rate are within normal limits. Patient also has COPD. Patient reports that she is normally on atorvastatin 20 mg a day however this is not confirmed and med rec. Will get patient's lipid panel and decide from there. Plan: Patient on CV Q 15 minutes checks Medications not fully confirmed, at least not far enough back; will contact nursing to do further med reconciliation Will restart Lamictal 25 mg daily and titrate accordingly Will restart mirtazapine 7.5 mg and titrate to 50 mg; will consider going higher for depression Will restart hydroxyzine 25 mg a a p.r.n. Patient was restarted in ED on gabapentin 100 mg t.i.d. (patient says home dose was 800 mg q.i.d. and for neuropathy) Continue methadone Will had Ativan 0.5 mg b.i.d. p.r.n.. Ceo And President explained to patient that she will not be able to be discharged on this medication and will have to get back on this with her outpatient provider. Ceo And President hesitant to restart Ativan which patient says she was on 1 mg b.i.d.. She has been off this for a month and this medication can interfere with people struggle with PTSD symptoms and substance abuse issues. Reason for continued inpatient stay Substantial Risk for: rapid decompensation
[2021-04-26] MEDS: methADONE HCl 5 MG TABLET PO (11:40)
[2021-04-26] MEDS: Acetaminophen 325 MG TABLET 650 MG PO ×2 (11:47→17:51)
[2021-04-26] MEDS: lamoTRIgine 25 MG TABLET PO (15:12)
[2021-04-26 17:16] VITALS: BP 100/59; PULSE 73; RESP 18; TEMP 36.3; O2SAT 93
[2021-04-26] MEDS: LORazepam 0.5 MG TABLET PO (17:52)
[2021-04-26] MEDS: Mirtazapine 7.5 MG TABLET PO (21:03)
[2021-04-27 06:00] VITALS: BP 116/71; PULSE 76; RESP 12; TEMP 36.3; O2SAT 98
[2021-04-27] MEDS: LORazepam 0.5 MG TABLET PO ×2 (06:06→18:12)
[2021-04-27] MEDS: diphenhydrAMINE HCL 25 MG TABLET 50 MG PO (08:57)
[2021-04-27] MEDS: LORazepam 1 MG TABLET 2 MG PO (08:57)
[2021-04-27] MEDS: HaloperidoL 5 MG TABLET PO (08:57)
[2021-04-27] MEDS: lamoTRIgine 25 MG TABLET PO (08:57)
[2021-04-27] MEDS: Gabapentin 100 MG CAPSULE PO ×3 (08:58→20:52)
--- NOTE | 2021-04-27 13:09 | P.CONIM_ITS ---
History of Present Illness Data of Consult Service Date: 04/27/21 <Negin Dolan NP - Last Filed: 04/27/21 13:59> Requesting physician: Eris Olmedo <Negin Dolan NP - Last Filed: 04/27/21 13:59> Primary Care Provider: Sridevi Lane MD <Negin Dolan NP - Last Filed: 04/27/21 13:59> HPI Reason for consult: Medical consultation <Negin Dolan NP - Last Filed: 04/27/21 13:59> 45-year-old woman with history of CHF, COPD and hyperlipidemia admitted to for [facility]. Medical consultation was placed to to new admission. Patient has no complaints of chest pain, shortness of breath, nausea, vomiting, diarrhea, fever. She has no acute medical complaints. Her vital signs are stable, recent labs within acceptable limits. <Negin Dolan NP - Last Filed: 04/27/21 13:59> Review of Systems Review of Systems: Denies any recent fever chills or decrease in appetite respiratory denies any shortness of breath coverage production cardiovascular denies chest pain gastrointestinal denies any dysphagia abdominal pain nausea vomiting or diarrhea genitourinary denies any dysuria frequency or hematuria musculoskeletal denies any joint pain or swelling neuropsych denies any weakness or seizures all other systems reviewed are negative <Negin Dolan NP - Last Filed: 04/27/21 13:59> [facility] Medical History: Medical History (Updated 05/10/21 @ 00:02 by Khadra Tomlinson) CHF (congestive heart failure) Chronic post-traumatic stress disorder (PTSD) COPD (chronic obstructive pulmonary disease) Depression Diabetes Mitral valve regurgitation Opioid use disorder <Negin Dolan NP - Last Filed: 04/27/21 13:59> Pertinent family history: No cardiac disease <Negin Dolan NP - Last Filed: 04/27/21 13:59> Surgical History: Surgical History (Updated 04/27/21 @ 13:56 by Negin Dolan NP) H/O knee surgery History of appendectomy <Negin Dolan NP - Last Filed: 04/27/21 13:59> Social History: Social History Household Members: Friend(s) Household Members Other:: 4 Housing: House Do you presently have visiting nurse or other home services: No Alcohol intake: never Patient Tobacco Use Status: Current everyday Tobacco user Tobacco use type: Cigarette Cigarettes Per Day: 3 Years Smoked: 10 Smoked in Last 30 Days: Yes e-Cigarette/Vaping Use: Never Used Patient Interested in Nicotine Replacement: No Patient Given Instructions on How to Stop Smoking: Yes Date Education Initiated: 04/26/21 Second Hand Smoke Exposure: Yes Use of substances other than those prescribed or required for medical reasons: Yes Substance Use Type: Crack/Cocaine, Heroin and Marijuana Substance Use Frequency: Daily Last Used Substance: Days (ago) Last Used Substance Other:: a week ago Currently Displaying Signs/Symptoms of Drug Intoxication Withdrawal: No Any prior treatment program specific to substance use: Yes Have you been hit, kicked, punched, or otherwise hurt by someone within the past year? If so, by whom?: No Do you feel safe in your current relationship?: Yes Is there a partner from a previous relationship who is making you feel unsafe now?: No Are you made to feel afraid or neglected: No Spiritual Healthcare Practices: N/A Sabianism Healthcare Practices: bahai Cultural Healthcare Practices: N/A Advance Directives: Yes Advance Directives Information Provided: No Advance Directives on File: No Guardian: No Do you have thoughts of harming others: None Do you have a plan to hurt others: No Plan Recently lost weight without trying: Yes How much weight loss: 2-13 pounds Eating poorly because of decreased appetite: No Nutrition screen score: 3 Nutrition Risks: No Nutritional Risk Patient : No : No Poor oral hygiene: Yes service: No Sexual orientation: Did not discuss <Negin Dolan NP - Last Filed: 04/27/21 13:59> Meds Allergies/Adverse reactions: Allergies Allergy/AdvReac Type Severity Reaction Status Date / Time hernandez [CHERRIES] Allergy Severe ANGIOEDEMA Unverified 06/02/20 16:38 NSAIDS (Non-Steroidal Allergy Unknown NOT Unverified 06/02/20 16:38 Anti-Inflamma SUPPOSED [NSAIDS (NON-STEROIDAL TO TAKE ANTI-INFLAMMA] DUE TO LIVER DAMAGE IN THE PAST codeine [CODEINE] AdvReac Unknown N/V Unverified 06/02/20 16:38 From COMPAZINE Allergy Unknown LOCK JAW Uncoded 06/02/20 16:38 From TORADOL Allergy Unknown HIVES Uncoded 06/02/20 16:38 From ULTRAM Allergy Unknown SEIZURE Uncoded 06/02/20 16:38 <Negin Dolan HEAD CHAR FILTER TANK TENDER - Last Filed: 04/27/21 13:59> Active Medications: Current Medications Generic Name Dose Route Start Last Admin Trade Name Freq PRN Reason Stop Dose Admin Acetaminophen 650 mg 04/25/21 23:22 04/26/21 17:51 Acetaminophen 325 Mg Tablet PO 650 mg Q6H PRN Administration Headache/Pain Mild Scale (1-3) Al Hydroxide/Mg Hydroxide 30 ml 04/25/21 23:22 Magnesium Hydrox/Alum Hydrox 30 Ml Oral.Susp PO Q6H PRN Heartburn/Nausea Diphenhydramine HCl 50 mg 04/26/21 09:49 04/27/21 08:57 Diphenhydramine Hcl 25 Mg Tablet PO 50 mg Q4H PRN Administration agitation Gabapentin 100 mg 04/25/21 15:00 04/27/21 08:58 Gabapentin 100 Mg Capsule PO 100 mg TID ADRIÁN Administration Haloperidol 5 mg 04/26/21 09:49 04/27/21 08:57 Haloperidol 5 Mg Tablet PO 5 mg Q4H PRN Administration agitation Hydroxyzine HCl 25 mg 04/26/21 14:49 Hydroxyzine Hcl 25 Mg Tablet PO Q6H PRN mild Anxiety Lamotrigine 25 mg 04/27/21 09:00 04/27/21 08:57 Lamotrigine 25 Mg Tablet PO 25 mg DAILY ADRIÁN Administration Lorazepam 2 mg 04/26/21 09:49 04/27/21 08:57 Lorazepam 1 Mg Tablet PO 2 mg Q4H PRN Administration agitation Lorazepam 0.5 mg 04/26/21 14:47 04/27/21 06:06 Lorazepam 0.5 Mg Tablet PO 0.5 mg BID PRN Administration moderate anxiety Magnesium Hydroxide 30 ml 04/25/21 23:22 Milk Of Magnesia 30 Ml Oral.Susp PO DAILY PRN Constipation Methadone HCl 85 mg 04/27/21 09:00 04/27/21 08:56 Methadone Hcl 1 Mg/0.1 Ml Oral.Conc PO 85 mg DAILY ADRIÁN Administration Mirtazapine 7.5 mg 04/26/21 21:00 04/26/21 21:03 Mirtazapine 7.5 Mg Tablet PO 7.5 mg BEDTIME ADRIÁN Administration <Negin Dolan NP - Last Filed: 04/27/21 13:59> Physical Exam Vital Signs and Narrative: Vital Signs: Last Vital Signs Temp 97.4 F 04/27/21 06:00 Pulse 76 04/27/21 06:00 Resp 12 04/27/21 06:00 BP 116/71 04/27/21 06:00 Pulse Ox 98 04/27/21 06:00 Body Mass Index 36.0 <Negin Dolan NP - Last Filed: 04/27/21 13:59> Appearing in no acute distress head is normocephalic atraumatic eyes pupils are PERRLA sclera is anicteric mouth throat mucous membranes are intact and moist neck is supple no lymphadenopathy, no JVD noted lung sounds are clear to auscultation heart regular rate rhythm, clear S1, S2 positive bowel sounds, abdomen is soft, nontender neuro patient is alert x3, no focal deficits cranial nerves 2-12 are grossly intact without focal deficits <Negin Dolan NP - Last Filed: 04/27/21 13:59> Results Labs CBC and Chem 7: : 04/24/21 12:23 04/24/21 12:23 <Negin Dolan NP - Last Filed: 04/27/21 13:59> Assessment and Plan (1) COPD (chronic obstructive pulmonary disease): Status: Chronic <Negin Dolan NP - Last Filed: 04/27/21 13:59> 45 year old women admitted to for behavioral chanda. COPD. No excerbation albuterol as needed CHF. No exacerbation please complete med rec to continue her BB and lasix HLD please complete med rec to continue her statin Mental health management as per psychiatric team <Negin Dolan NP - Last Filed: 04/27/21 13:59>
--- NOTE | 2021-04-27 16:53 | HO.PSYCHPN ---
Subjective Subjective Date of Service: 04/27/21 Reason For Visit: Depression Interim History: Patient reports she remains depressed and continues to have intermittent passive SI though no plans or intention. She slept so-so last night time but have feels tired today and has been resting though she did go to to groups. Patient denies any medication side effects. She agrees to continue with current regimen and medication titration. Patient has no complaints and no requests. She has been in good behavioral control today Mental Status Exam Mental Status Exam Narrative: Pt is alert and oriented; behavior is cooperative, friendly; intermittently tearful;? patient is not in distress; dressed in casual attire with adequate hygiene; mood is described as depressed and affect downcast and tearful; eye contact appropriate; Speech is normal rate, volume and prosody and not pressured; some psychomotor retardation present; thought process is organized, linear, logical and goal directed. Thought content is on getting back on medications; hopeless feelings and passive SI; otherwise TC relevant to pertinent topics and without any delusional content, paranoid ideations or grandiosity; no HI. There is no evidence of perceptual disturbance. ?Patients insight and judgment are impaired. Diagnostics Vital Signs (24Hr): Vital Signs - 24 hr 04/26/21 17:16 04/27/21 06:00 Temperature 97.4 F 97.4 F Pulse Rate 73 76 Respiratory Rate 18 12 Blood Pressure 100/59 L 116/71 Pulse Oximetry 93 98 Body Mass Index 36.0 Labs Results: 04/24/21 12:23 04/24/21 12:23 Medications Medications Current Medications Generic Name Dose Route Start Last Admin Trade Name Melvinq PRN Reason Stop Dose Admin Acetaminophen 650 mg 04/25/21 23:22 04/26/21 17:51 Acetaminophen 325 Mg Tablet PO 650 mg Q6H PRN Administration Headache/Pain Mild Scale (1-3) Al Hydroxide/Mg Hydroxide 30 ml 04/25/21 23:22 Magnesium Hydrox/Alum Hydrox 30 Ml Oral.Susp PO Q6H PRN Heartburn/Nausea Diphenhydramine HCl 50 mg 04/26/21 09:49 04/27/21 08:57 Diphenhydramine Hcl 25 Mg Tablet PO 50 mg Q4H PRN Administration agitation Gabapentin 100 mg 04/25/21 15:00 04/27/21 15:02 Gabapentin 100 Mg Capsule PO 100 mg TID ADRIÁN Administration Haloperidol 5 mg 04/26/21 09:49 04/27/21 08:57 Haloperidol 5 Mg Tablet PO 5 mg Q4H PRN Administration agitation Hydroxyzine HCl 25 mg 04/26/21 14:49 Hydroxyzine Hcl 25 Mg Tablet PO Q6H PRN mild Anxiety Lamotrigine 25 mg 04/27/21 09:00 04/27/21 08:57 Lamotrigine 25 Mg Tablet PO 25 mg DAILY ADRIÁN Administration Lorazepam 2 mg 04/26/21 09:49 04/27/21 08:57 Lorazepam 1 Mg Tablet PO 2 mg Q4H PRN Administration agitation Lorazepam 0.5 mg 04/26/21 14:47 04/27/21 06:06 Lorazepam 0.5 Mg Tablet PO 0.5 mg BID PRN Administration moderate anxiety Magnesium Hydroxide 30 ml 04/25/21 23:22 Milk Of Magnesia 30 Ml Oral.Susp PO DAILY PRN Constipation Methadone HCl 85 mg 04/27/21 09:00 04/27/21 08:56 Methadone Hcl 1 Mg/0.1 Ml Oral.Conc PO 85 mg DAILY ADRIÁN Administration Mirtazapine 7.5 mg 04/26/21 21:00 04/26/21 21:03 Mirtazapine 7.5 Mg Tablet PO 7.5 mg BEDTIME ADRIÁN Administration Allergies Allergies Allergy/AdvReac Type Severity Reaction Status Date / Time hernandez [CHERRIES] Allergy Severe ANGIOEDEMA Unverified 06/02/20 16:38 NSAIDS (Non-Steroidal Allergy Unknown NOT Unverified 06/02/20 16:38 Anti-Inflamma SUPPOSED [NSAIDS (NON-STEROIDAL TO TAKE ANTI-INFLAMMA] DUE TO LIVER DAMAGE IN THE PAST codeine [CODEINE] AdvReac Unknown N/V Unverified 06/02/20 16:38 From COMPAZINE Allergy Unknown LOCK JAW Uncoded 06/02/20 16:38 From TORADOL Allergy Unknown HIVES Uncoded 06/02/20 16:38 From ULTRAM Allergy Unknown SEIZURE Uncoded 06/02/20 16:38 Assessment & Plan Assessment & Plan (1) COPD (chronic obstructive pulmonary disease): Status: Acute Code(s): J44.9 - Chronic obstructive pulmonary disease, unspecified Assessment and Plan: Patient is a 45-year-old female who carries a diagnosis of bipolar disorder, PTSD, depression and substance use disorder, currently on methadone who presents for worsening depression with SI and the face of having been discontinued on her medications by outpatient physician.? Patient reports that she has not been psychiatrically hospitalized for about 3 years and was stable on her past medication regimen of Lamictal, Remeron, prazosin, gabapentin, Ativan.? Patient reports that she was tapered off all these medications within a 2 month period and subsequently became depressed and eventually relapsed, 1st time in 9 months.? Patient is currently depressed with SI but remains passive and without intent or plans; patient's children remain strong protective factor.? Patient questions her bipolar diagnosis and says that she was also diagnosed with borderline personality disorder which she thinks fits much more with her psychiatric history.? Patient? has PTSD symptoms of nightmares.? Will explore further.? At this time will leave diagnosis of bipolar 2 since she has carried this diagnosis; will add depressive disorder unspecified and see if it is possible to rule out MDD versus bipolar depression during this? admission. Will admit for safety and medication management.? Patient is appropriate for admission and treatment; cannot be handled as an outpatient since she remains depressed with SI needing time to safely get back on medications. Of note, patient reports that she is no longer diabetic and that her most recent A1c is 5.6 down from 11.7 and that she was taken off metformin (intentional weight loss of 40 lb through diet and exercise).? However patient says that she is normally on metoprolol 25 mg daily and Lasix 25 mg daily for hypertension.? She is confused to better cardiac diagnosis saying that she was at 1st told she had CHF but then it seemed to change to mitral valve regurg.? She is not sure she is supposed to be on cardiac medications. Will discuss with hospitalist. Currently blood pressure her and heart rate are within normal limits.? Patient also has COPD.? Patient reports that she is normally on atorvastatin 20 mg a day however this is not confirmed and med rec.? Will get patient's lipid panel and decide from there. -pharmacy reports patient has not picked up beta-xiomy, Lasix or atorvastatin since August 2020; patient confirms that she has been off these medications for the past 7 months. Consulting with hospitalist about restarting given that blood pressure and heart rate are within normal limits. Ordered lipid panel to assess whether not patient needs atorvastatin Plan: Patient on CV Q 15 minutes checks Will hold off restarting metoprolol and Lasix given that BP and heart rate are within normal limits Lipid panel ordered pending tomorrow blood draw Will assess need for atorvastatin restarted Lamictal 25 mg daily and titrate accordingly restarted mirtazapine 7.5 mg and titrate to 50 mg; will consider going higher for depression restarted hydroxyzine 25 mg a a p.r.n. Patient was restarted in ED on gabapentin 100 mg t.i.d. (patient says home dose was 800 mg q.i.d. and for neuropathy) Continue methadone Will had Ativan 0.5 mg b.i.d. p.r.n..? Bottom Turning Lathe Turner explained to patient that she will not be able to be discharged on this medication and will have to get back on this with her outpatient provider.? Bottom Turning Lathe Turner hesitant to restart Ativan which patient says she was on 1 mg b.i.d..? She has been off this for a month and this medication can interfere with people struggle with PTSD symptoms and substance abuse issues. Greater than 50% of the session was spent on counseling and/or coordination of care Reason for contiued inpatient stay Substantial Risk for: rapid decompensation
[2021-04-27 18:00] VITALS: BP 112/54; PULSE 88; TEMP 36.1
[2021-04-27] MEDS: Mirtazapine 7.5 MG TABLET PO (20:52)
[2021-04-28 06:00] VITALS: BP 119/56; PULSE 84; RESP 18; TEMP 36.3; O2SAT 95
[2021-04-28] MEDS: LORazepam 1 MG TABLET 2 MG PO (06:40)
[2021-04-28] MEDS: Acetaminophen 325 MG TABLET 650 MG PO ×2 (06:40→14:33)
[2021-04-28] MEDS: diphenhydrAMINE HCL 25 MG TABLET 50 MG PO (06:40)
[2021-04-28] MEDS: HaloperidoL 5 MG TABLET PO (06:40)
[2021-04-28] MEDS: Gabapentin 100 MG CAPSULE PO ×3 (08:16→20:22)
[2021-04-28] MEDS: lamoTRIgine 25 MG TABLET PO (08:16)
[2021-04-28] MEDS: LORazepam 0.5 MG TABLET PO (14:33)
--- NOTE | 2021-04-28 17:29 | HO.PSYCHPN ---
Subjective Subjective Date of Service: 04/28/21 Reason For Visit: Depression Interim History: pt reports continued depression and intermittent though frequent SI. She denies any plans or intention and cites children as strongest protective factor, however thoughts are intrusive. She is having hard time sleeping due to intrusive roomate which she feels in compounding her depression. Asking for room change. Pt agrees to increase Remeron. She feels safe on unit. No med side-effects. Pt shared more about hx, how she typically helps others but leaves little room for receiving help herself. She know she needs to change this and is working on it. She disclosed her father committed suicide which is another reason she remains safe knowing the effect on children. Pt is future oriented and shared how she does groups at her methadone clinic which she'd like to do again. She also has a job pending at the [employer] this fall and wants to be stable as she's really looking forward to this. Mental Status Exam Mental Status Exam Narrative: Pt is alert and oriented; behavior is cooperative, friendly; intermittently tearful;? patient is not in distress; dressed in casual attire with adequate hygiene; mood is described as depressed and while affect can be smiling and at ease, several topics trigger transition into becoming downcast and tearful; eye contact appropriate; Speech is normal rate, volume and prosody and not pressured; some psychomotor retardation present; thought process is organized, linear, logical and goal directed. Thought content with intermittent SI, though no plans or intention; also on treatment; fighting off hopeless feelings; otherwise TC relevant to pertinent topics and without any delusional content, paranoid ideations or grandiosity; no HI. There is no evidence of perceptual disturbance. ?Patients insight and judgment are impaired but slowly improving. Diagnostics Vital Signs (24Hr): Vital Signs - 24 hr 04/27/21 18:00 04/28/21 06:00 Temperature 97.0 F 97.4 F Pulse Rate 88 84 Respiratory Rate 18 Blood Pressure 112/54 L 119/56 L Pulse Oximetry 95 Body Mass Index 36.0 Labs Results: 04/24/21 12:23 04/24/21 12:23 Medications Medications Current Medications Generic Name Dose Route Start Last Admin Trade Name Freq PRN Reason Stop Dose Admin Acetaminophen 650 mg 04/25/21 23:22 04/28/21 14:33 Acetaminophen 325 Mg Tablet PO 650 mg Q6H PRN Administration Headache/Pain Mild Scale (1-3) Al Hydroxide/Mg Hydroxide 30 ml 04/25/21 23:22 Magnesium Hydrox/Alum Hydrox 30 Ml Oral.Susp PO Q6H PRN Heartburn/Nausea Diphenhydramine HCl 50 mg 04/26/21 09:49 04/28/21 06:40 Diphenhydramine Hcl 25 Mg Tablet PO 50 mg Q4H PRN Administration agitation Gabapentin 100 mg 04/25/21 15:00 04/28/21 14:33 Gabapentin 100 Mg Capsule PO 100 mg TID ADRIÁN Administration Haloperidol 5 mg 04/26/21 09:49 04/28/21 06:40 Haloperidol 5 Mg Tablet PO 5 mg Q4H PRN Administration agitation Hydroxyzine HCl 25 mg 04/26/21 14:49 Hydroxyzine Hcl 25 Mg Tablet PO Q6H PRN mild Anxiety Lamotrigine 25 mg 04/27/21 09:00 04/28/21 08:16 Lamotrigine 25 Mg Tablet PO 25 mg DAILY ADRIÁN Administration Lorazepam 2 mg 04/26/21 09:49 04/28/21 06:40 Lorazepam 1 Mg Tablet PO 2 mg Q4H PRN Administration agitation Lorazepam 0.5 mg 04/26/21 14:47 04/28/21 14:33 Lorazepam 0.5 Mg Tablet PO 0.5 mg BID PRN Administration moderate anxiety Magnesium Hydroxide 30 ml 04/25/21 23:22 Milk Of Magnesia 30 Ml Oral.Susp PO DAILY PRN Constipation Methadone HCl 85 mg 04/27/21 09:00 04/28/21 08:16 Methadone Hcl 1 Mg/0.1 Ml Oral.Conc PO 85 mg DAILY ADRIÁN Administration Mirtazapine 15 mg 04/28/21 21:00 Mirtazapine 15 Mg Tablet PO BEDTIME ADRIÁN Allergies Allergies Allergy/AdvReac Type Severity Reaction Status Date / Time hernandez [CHERRIES] Allergy Severe ANGIOEDEMA Unverified 06/02/20 16:38 NSAIDS (Non-Steroidal Allergy Unknown NOT Unverified 06/02/20 16:38 Anti-Inflamma SUPPOSED [NSAIDS (NON-STEROIDAL TO TAKE ANTI-INFLAMMA] DUE TO LIVER DAMAGE IN THE PAST codeine [CODEINE] AdvReac Unknown N/V Unverified 06/02/20 16:38 From COMPAZINE Allergy Unknown LOCK JAW Uncoded 06/02/20 16:38 From TORADOL Allergy Unknown HIVES Uncoded 06/02/20 16:38 From ULTRAM Allergy Unknown SEIZURE Uncoded 06/02/20 16:38 Assessment & Plan Assessment & Plan (1) COPD (chronic obstructive pulmonary disease): Status: Acute Code(s): J44.9 - Chronic obstructive pulmonary disease, unspecified Assessment and Plan: Patient is a 45-year-old female who carries a diagnosis of bipolar disorder, PTSD, depression and substance use disorder, currently on methadone who presents for worsening depression with SI and the face of having been discontinued on her medications by outpatient physician.? Patient reports that she has not been psychiatrically hospitalized for about 3 years and was stable on her past medication regimen of Lamictal, Remeron, prazosin, gabapentin, Ativan.? Patient reports that she was tapered off all these medications within a 2 month period and subsequently became depressed and eventually relapsed, 1st time in 9 months.? Patient is currently depressed with SI but remains passive and without intent or plans; patient's children remain strong protective factor.? Patient questions her bipolar diagnosis and says that she was also diagnosed with borderline personality disorder which she thinks fits much more with her psychiatric history.? Patient? has PTSD symptoms of nightmares.? Will explore further.? At this time will leave diagnosis of bipolar 2 since she has carried this diagnosis; will add depressive disorder unspecified and see if it is possible to rule out MDD versus bipolar depression during this? admission. Will admit for safety and medication management.? Patient is appropriate for admission and treatment; cannot be handled as an outpatient since she remains depressed with SI needing time to safely get back on medications. Of note, patient reports that she is no longer diabetic and that her most recent A1c is 5.6 down from 11.7 and that she was taken off metformin (intentional weight loss of 40 lb through diet and exercise).? However patient says that she is normally on metoprolol 25 mg daily and Lasix 25 mg daily for hypertension.? She is confused to better cardiac diagnosis saying that she was at 1st told she had CHF but then it seemed to change to mitral valve regurg.? She is not sure she is supposed to be on cardiac medications. Will discuss with hospitalist. Currently blood pressure her and heart rate are within normal limits.? Patient also has COPD.? Patient reports that she is normally on atorvastatin 20 mg a day however this is not confirmed and med rec.? Will get patient's lipid panel and decide from there. -pharmacy reports patient has not picked up beta-xiomy, Lasix or atorvastatin since August 2020; patient confirms that she has been off these medications for the past 7 months. Thus, since currently hemodynamically stable, will defer to her PCP regarding these meds to which patient says she agrees. Ordered lipid panel to assess whether not patient needs atorvastatin Plan: Patient on CV Q 15 minutes checks Lipid panel ordered pending tomorrow blood draw Will assess need for atorvastatin restarted Lamictal 25 mg daily and titrate accordingly INCREASED mirtazapine 15 mg restarted hydroxyzine 25 mg a a p.r.n. Patient was restarted in ED on gabapentin 100 mg t.i.d. (patient says home dose was 800 mg q.i.d. and for neuropathy) Continue methadone Will had Ativan 0.5 mg b.i.d. p.r.n..? Casting Machine Adjuster explained to patient that she will not be able to be discharged on this medication and will have to get back on this with her outpatient provider.? Casting Machine Adjuster hesitant to restart Ativan which patient says she was on 1 mg b.i.d..? She has been off this for a month and this medication can interfere with people struggle with PTSD symptoms and substance abuse issues. Greater than 50% of the session was spent on counseling and/or coordination of care Reason for contiued inpatient stay Substantial Risk for: rapid decompensation
[2021-04-28 18:00] VITALS: RESP 16
[2021-04-28] MEDS: Mirtazapine 15 MG TABLET PO (20:22)
[2021-04-29 06:00] VITALS: BP 121/74; PULSE 92; RESP 18; TEMP 36.4; O2SAT 96
[2021-04-29] MEDS: LORazepam 1 MG TABLET 2 MG PO ×2 (06:06→20:19)
[2021-04-29] MEDS: diphenhydrAMINE HCL 25 MG TABLET 50 MG PO ×2 (06:08→20:19)
[2021-04-29] MEDS: HaloperidoL 5 MG TABLET PO ×2 (06:08→20:20)
[2021-04-29 08:16] LABS: Cholesterol 177 mg/dL; HDL Cholesterol 34 mg/dL; LDL Cholesterol Calculated 108 mg/dl; Triglycerides 175 mg/dL
[2021-04-29 08:27] LABS: Reflex LDLD? No
[2021-04-29] MEDS: lamoTRIgine 25 MG TABLET PO (08:43)
[2021-04-29] MEDS: Gabapentin 100 MG CAPSULE PO ×3 (08:43→20:17)
--- NOTE | 2021-04-29 11:01 | P.PNPSI_ITS ---
Subjective Subjective Date of Service: 04/29/21 Reason For Visit: Depression Interim History: Patient was seen in rounds today. She has been stable and generally doing well. She did have an outburst yesterday regarding medications but was able settled down and apologize for that afterwards. She has been social and interactive, attending groups. She is eating and sleeping adequately. No complaints were side effects. No changes were made today. Medication Compliance: Yes Side effects from medications: No Review of Systems Review of Systems Yes all other systems are reviewed and are negative Mental Status Exam Mental Status Exam Narrative: In today's visit she is alert, oriented and pleasant. Normal speech. Good eye contact. Appropriate affect. No SI/HI. No signs of psychosis. Cognitively intact. Judgment is intact Diagnostics Vital Signs (24Hr): Vital Signs - 24 hr 04/28/21 18:00 04/29/21 06:00 Temperature 97.6 F Pulse Rate 92 Respiratory Rate 16 18 Blood Pressure 121/74 Pulse Oximetry 96 Body Mass Index 36.0 Labs Results: 04/24/21 12:23 04/24/21 12:23 Labs: Laboratory Results - last 48 hr 04/29/21 07:35 Triglycerides 175 Cholesterol 177 LDL Cholesterol, Calc 108 HDL Cholesterol 34 Medications Medications Current Medications Generic Name Dose Route Start Last Admin Trade Name Freq PRN Reason Stop Dose Admin Acetaminophen 650 mg 04/25/21 23:22 04/28/21 14:33 Acetaminophen 325 Mg Tablet PO 650 mg Q6H PRN Administration Headache/Pain Mild Scale (1-3) Al Hydroxide/Mg Hydroxide 30 ml 04/25/21 23:22 Magnesium Hydrox/Alum Hydrox 30 Ml Oral.Susp PO Q6H PRN Heartburn/Nausea Diphenhydramine HCl 50 mg 04/26/21 09:49 04/29/21 06:08 Diphenhydramine Hcl 25 Mg Tablet PO 50 mg Q4H PRN Administration agitation Gabapentin 100 mg 04/25/21 15:00 04/29/21 08:43 Gabapentin 100 Mg Capsule PO 100 mg TID ADRIÁN Administration Haloperidol 5 mg 04/26/21 09:49 04/29/21 06:08 Haloperidol 5 Mg Tablet PO 5 mg Q4H PRN Administration agitation Hydroxyzine HCl 25 mg 04/26/21 14:49 Hydroxyzine Hcl 25 Mg Tablet PO Q6H PRN mild Anxiety Lamotrigine 25 mg 04/27/21 09:00 04/29/21 08:43 Lamotrigine 25 Mg Tablet PO 25 mg DAILY ADRIÁN Administration Lorazepam 2 mg 04/26/21 09:49 04/29/21 06:06 Lorazepam 1 Mg Tablet PO 2 mg Q4H PRN Administration agitation Lorazepam 0.5 mg 04/26/21 14:47 04/28/21 14:33 Lorazepam 0.5 Mg Tablet PO 0.5 mg BID PRN Administration moderate anxiety Magnesium Hydroxide 30 ml 04/25/21 23:22 Milk Of Magnesia 30 Ml Oral.Susp PO DAILY PRN Constipation Methadone HCl 85 mg 04/29/21 08:00 04/29/21 07:12 Methadone Hcl 1 Mg/0.1 Ml Oral.Conc PO 85 mg DAILY@0800 ADRIÁN Administration Mirtazapine 15 mg 04/28/21 21:00 04/28/21 20:22 Mirtazapine 15 Mg Tablet PO 15 mg BEDTIME ADRIÁN Administration Allergies Allergies Allergy/AdvReac Type Severity Reaction Status Date / Time hernandez [CHERRIES] Allergy Severe ANGIOEDEMA Unverified 06/02/20 16:38 NSAIDS (Non-Steroidal Allergy Unknown NOT Unverified 06/02/20 16:38 Anti-Inflamma SUPPOSED [NSAIDS (NON-STEROIDAL TO TAKE ANTI-INFLAMMA] DUE TO LIVER DAMAGE IN THE PAST codeine [CODEINE] AdvReac Unknown N/V Unverified 06/02/20 16:38 From COMPAZINE Allergy Unknown LOCK JAW Uncoded 06/02/20 16:38 From TORADOL Allergy Unknown HIVES Uncoded 06/02/20 16:38 From ULTRAM Allergy Unknown SEIZURE Uncoded 06/02/20 16:38 Assessment & Plan Assessment & Plan (1) COPD (chronic obstructive pulmonary disease): Status: Acute Code(s): J44.9 - Chronic obstructive pulmonary disease, unspecified Assessment and Plan: Patient is a 45-year-old female who carries a diagnosis of bipolar disorder, PTSD, depression and substance use disorder, currently on methadone who presents for worsening depression with SI and the face of having been discontinued on her medications by outpatient physician.? Patient reports that she has not been psychiatrically hospitalized for about 3 years and was stable on her past medication regimen of Lamictal, Remeron, prazosin, gabapentin, Ativan.? Patient reports that she was tapered off all these medications within a 2 month period and subsequently became depressed and eventually relapsed, 1st time in 9 months.? Patient is currently depressed with SI but remains passive and without intent or plans; patient's children remain strong protective factor.? Patient questions her bipolar diagnosis and says that she was also diagnosed with borderline personality disorder which she thinks fits much more with her psy chiatric history.? Patient? has PTSD symptoms of nightmares.? Will explore further.? At this time will leave diagnosis of bipolar 2 since she has carried this diagnosis; will add depressive disorder unspecified and see if it is possible to rule out MDD versus bipolar depression during this? admission. Continue current regimen and plans re Patient educated on: therapeutic strategies Reason for contiued inpatient stay Substantial Risk for: other
[2021-04-29 14:31] VITALS: BMI 39.7
[2021-04-29] MEDS: LORazepam 0.5 MG TABLET PO (15:20)
[2021-04-29] MEDS: Magnesium Hydrox/Alum Hydrox 30 ML ORAL.SUSP PO (16:21)
[2021-04-29] MEDS: hydrOXYzine HCL 25 MG TABLET PO (18:02)
[2021-04-29 20:04] VITALS: BP 106/53; PULSE 109; RESP 18; TEMP 36.8; O2SAT 95
[2021-04-29] MEDS: Mirtazapine 15 MG TABLET PO (20:17)
[2021-04-30 06:00] VITALS: BP 133/65; PULSE 88; RESP 16; TEMP 36.3; O2SAT 96
[2021-04-30] MEDS: Gabapentin 100 MG CAPSULE PO (08:18)
[2021-04-30] MEDS: lamoTRIgine 25 MG TABLET PO (08:18)
[2021-04-30] MEDS: Magnesium Hydrox/Alum Hydrox 30 ML ORAL.SUSP PO (08:38)
--- NOTE | 2021-04-30 09:09 | P.PNPSI_ITS ---
Subjective Subjective Date of Service: 04/30/21 Reason For Visit: Depression Subjective Notes: Conditional Voluntary Interim History: patient was seen in rounds today. She has been doing better and has been brighter and her affect. She is not eating as much. She is med compliant. She is working on her discharge. Her gabapentin was supposed to be increased which I will do to 300 mg t.i.d.. She denies any side effects. Eating and sleeping adequately. No other changes were made Medication Compliance: Yes Side effects from medications: No Review of Systems Review of Systems Yes all other systems are reviewed and are negative Mental Status Exam Mental Status Exam Narrative: in today's visit she is alert, oriented and pleasant. Normal speech. Good eye contact. Affect is appropriate and contained. No SI. No signs of psychosis. Cognitively intact. Judgment is intact Diagnostics Vital Signs (24Hr): Vital Signs - 24 hr 04/29/21 20:04 04/30/21 06:00 Temperature 98.3 F 97.4 F Pulse Rate 109 H 88 Respiratory Rate 18 16 Blood Pressure 106/53 L 133/65 Pulse Oximetry 95 96 Body Mass Index 39.7 Labs Results: 04/24/21 12:23 04/24/21 12:23 Labs: Laboratory Results - last 48 hr 04/29/21 07:35 Triglycerides 175 Cholesterol 177 LDL Cholesterol, Calc 108 HDL Cholesterol 34 Medications Medications Current Medications Generic Name Dose Route Start Last Admin Trade Name Freq PRN Reason Stop Dose Admin Acetaminophen 650 mg 04/25/21 23:22 04/28/21 14:33 Acetaminophen 325 Mg Tablet PO 650 mg Q6H PRN Administration Headache/Pain Mild Scale (1-3) Al Hydroxide/Mg Hydroxide 30 ml 04/25/21 23:22 04/30/21 08:38 Magnesium Hydrox/Alum Hydrox 30 Ml Oral.Susp PO 30 ml Q6H PRN Administration Heartburn/Nausea Diphenhydramine HCl 50 mg 04/26/21 09:49 04/29/21 20:19 Diphenhydramine Hcl 25 Mg Tablet PO 50 mg Q4H PRN Administration agitation Gabapentin 100 mg 04/25/21 15:00 04/30/21 08:18 Gabapentin 100 Mg Capsule PO 100 mg TID ADRIÁN Administration Haloperidol 5 mg 04/26/21 09:49 04/29/21 20:20 Haloperidol 5 Mg Tablet PO 5 mg Q4H PRN Administration agitation Hydroxyzine HCl 25 mg 04/26/21 14:49 04/29/21 18:02 Hydroxyzine Hcl 25 Mg Tablet PO 25 mg Q6H PRN Administration mild Anxiety Lamotrigine 25 mg 04/27/21 09:00 04/30/21 08:18 Lamotrigine 25 Mg Tablet PO 25 mg DAILY ADRIÁN Administration Lorazepam 2 mg 04/26/21 09:49 04/29/21 20:19 Lorazepam 1 Mg Tablet PO 2 mg Q4H PRN Administration agitation Lorazepam 0.5 mg 04/26/21 14:47 04/29/21 15:20 Lorazepam 0.5 Mg Tablet PO 0.5 mg BID PRN Administration moderate anxiety Magnesium Hydroxide 30 ml 04/25/21 23:22 Milk Of Magnesia 30 Ml Oral.Susp PO DAILY PRN Constipation Methadone HCl 85 mg 04/29/21 08:00 04/30/21 07:34 Methadone Hcl 1 Mg/0.1 Ml Oral.Conc PO 85 mg DAILY@0800 ADRIÁN Administration Mirtazapine 15 mg 04/28/21 21:00 04/29/21 20:17 Mirtazapine 15 Mg Tablet PO 15 mg BEDTIME ADRIÁN Administration Allergies Allergies Allergy/AdvReac Type Severity Reaction Status Date / Time hernandez [CHERRIES] Allergy Severe ANGIOEDEMA Unverified 06/02/20 16:38 NSAIDS (Non-Steroidal Allergy Unknown NOT Unverified 06/02/20 16:38 Anti-Inflamma SUPPOSED [NSAIDS (NON-STEROIDAL TO TAKE ANTI-INFLAMMA] DUE TO LIVER DAMAGE IN THE PAST codeine [CODEINE] AdvReac Unknown N/V Unverified 06/02/20 16:38 From COMPAZINE Allergy Unknown LOCK JAW Uncoded 06/02/20 16:38 From TORADOL Allergy Unknown HIVES Uncoded 06/02/20 16:38 From ULTRAM Allergy Unknown SEIZURE Uncoded 06/02/20 16:38 Assessment & Plan Assessment & Plan (1) COPD (chronic obstructive pulmonary disease): Status: Acute Code(s): J44.9 - Chronic obstructive pulmonary disease, unspecified Assessment and Plan: Patient is a 45-year-old female who carries a diagnosis of bipolar disorder, PTSD, depression and substance use disorder, currently on methadone who presents for worsening depression with SI and the face of having been discontinued on her medications by outpatient physician.? Patient reports that she has not been psychiatrically hospitalized for about 3 years and was stable on her past medication regimen of Lamictal, Remeron, prazosin, gabapentin, Ativan.? Patient reports that she was tapered off all these medications within a 2 month period and subsequently became depressed and eventually relapsed, 1st time in 9 months.? Patient is currently depressed with SI but remains passive and without intent or plans; patient's children remain strong protective factor.? Patient questions her bipolar diagnosis and says that she was also diagnosed with borderline personality disorder which she thinks fits much more with her psychiatric history.? Patient? has PTSD symptoms of nightmares.? Will explore further.? At this time will leave diagnosis of bipolar 2 since she has carried this diagnosis; will add depressive disorder unspecified and see if it is poss ible to rule out MDD versus bipolar depression during this? admission. Continue current regimen and plans Greater than 50% of the session was spent on counseling and/or coordination of care Reason for contiued inpatient stay Substantial Risk for: other
[2021-04-30] MEDS: LORazepam 0.5 MG TABLET PO ×2 (11:28→20:39)
[2021-04-30] MEDS: Acetaminophen 325 MG TABLET 650 MG PO (13:23)
[2021-04-30] MEDS: Gabapentin 300 MG CAPSULE PO ×2 (15:03→20:22)
[2021-04-30 18:00] VITALS: BP 100/56; PULSE 73; RESP 16; TEMP 36.2; O2SAT 95
[2021-04-30] MEDS: Mirtazapine 15 MG TABLET PO ×2 (20:22→20:28)
[2021-05-01 06:00] VITALS: BP 121/64; PULSE 85; RESP 16; TEMP 35.8; O2SAT 95
[2021-05-01] MEDS: LORazepam 0.5 MG TABLET PO ×2 (06:05→13:18)
[2021-05-01] MEDS: Gabapentin 300 MG CAPSULE PO ×3 (07:57→21:27)
[2021-05-01] MEDS: lamoTRIgine 25 MG TABLET PO (07:57)
[2021-05-01] MEDS: Acetaminophen 325 MG TABLET 650 MG PO (08:49)
--- NOTE | 2021-05-01 11:04 | P.PNPSI_ITS ---
Subjective Subjective Date of Service: 05/01/21 Reason For Visit: Depression Interim History: Patient reports that she is doing better. She says her depression is better and that although she still has intermittent SI, patient reports it is passive, not intense and able to be ignored. She says she feels that the medications are working well. She also reports that she is sleeping better and slept well last night; she also tells display card writer that she has not needed any PRNs for 2 days. Patient says she is feeling pretty ready to go home. Mental Status Exam Mental Status Exam Narrative: ?Pt is alert and oriented; behavior is cooperative, friendly, calm; patient is not in distress; dressed in casual attire with adequate hygiene; mood is described as better and affect congruent; eye contact appropriate; Speech is normal rate, volume and prosody and not pressured; no psychomotor retardation present; thought process is organized, linear, logical and goal directed. Though t content on discharge; and with baseline, chronic, intermittent SI, though no plans or intention and able to be ignored; no hopelessness; otherwise TC relevant to pertinent topics and without any delusional content, paranoid ideations or grandiosity; no HI. There is no evidence of perceptual disturbance. ?Patients insight and judgment appear intact. Diagnostics Vital Signs (24Hr): Vital Signs - 24 hr 04/30/21 18:00 05/01/21 06:00 Temperature 97.1 F 96.4 F L Pulse Rate 73 85 Respiratory Rate 16 16 Blood Pressure 100/56 L 121/64 Pulse Oximetry 95 95 Body Mass Index 39.7 Labs Results: 04/24/21 12:23 04/24/21 12:23 Labs: Lipids: WNL Laboratory Results - last 48 hr ? 04/29/21 ? 07:35 Triglycerides ?175 Cholesterol ?177 LDL Cholesterol, Calc ?108 HDL Cholesterol ?34 Medications Medications Current Medications Generic Name Dose Route Start Last Admin Trade Name Freq PRN Reason Stop Dose Admin Acetaminophen 650 mg 04/25/21 23:22 05/01/21 08:49 Acetaminophen 325 Mg Tablet PO 650 mg Q6H PRN Administration Headache/Pain Mild Scale (1-3) Al Hydroxide/Mg Hydroxide 30 ml 04/25/21 23:22 04/30/21 08:38 Magnesium Hydrox/Alum Hydrox 30 Ml Oral.Susp PO 30 ml Q6H PRN Administration Heartburn/Nausea Diphenhydramine HCl 50 mg 04/26/21 09:49 04/29/21 20:19 Diphenhydramine Hcl 25 Mg Tablet PO 50 mg Q4H PRN Administration agitation Gabapentin 300 mg 04/30/21 15:00 05/01/21 07:57 Gabapentin 300 Mg Capsule PO 300 mg TID ADRIÁN Administration Haloperidol 5 mg 04/26/21 09:49 04/29/21 20:20 Haloperidol 5 Mg Tablet PO 5 mg Q4H PRN Administration agitation Hydroxyzine HCl 25 mg 04/26/21 14:49 04/29/21 18:02 Hydroxyzine Hcl 25 Mg Tablet PO 25 mg Q6H PRN Administration mild Anxiety Lamotrigine 25 mg 04/27/21 09:00 05/01/21 07:57 Lamotrigine 25 Mg Tablet PO 25 mg DAILY ADRIÁN Administration Lorazepam 0.5 mg 04/26/21 14:47 05/01/21 06:05 Lorazepam 0.5 Mg Tablet PO 0.5 mg BID PRN Administration moderate anxiety Magnesium Hydroxide 30 ml 04/25/21 23:22 Milk Of Magnesia 30 Ml Oral.Susp PO DAILY PRN Constipation Methadone HCl 85 mg 05/02/21 06:00 Methadone Hcl 1 Mg/0.1 Ml Oral.Conc PO DAILY@0600 ADRIÁN Mirtazapine 15 mg 04/28/21 21:00 04/30/21 20:28 Mirtazapine 15 Mg Tablet PO 15 mg BEDTIME ADRIÁN Administration Allergies Allergies Allergy/AdvReac Type Severity Reaction Status Date / Time hernandez [CHERRIES] Allergy Severe ANGIOEDEMA Unverified 06/02/20 16:38 NSAIDS (Non-Steroidal Allergy Unknown NOT Unverified 06/02/20 16:38 Anti-Inflamma SUPPOSED [NSAIDS (NON-STEROIDAL TO TAKE ANTI-INFLAMMA] DUE TO LIVER DAMAGE IN THE PAST codeine [CODEINE] AdvReac Unknown N/V Unverified 06/02/20 16:38 From COMPAZINE Allergy Unknown LOCK JAW Uncoded 06/02/20 16:38 From TORADOL Allergy Unknown HIVES Uncoded 06/02/20 16:38 From ULTRAM Allergy Unknown SEIZURE Uncoded 06/02/20 16:38 Assessment & Plan Assessment & Plan (1) COPD (chronic obstructive pulmonary disease): Status: Acute Code(s): J44.9 - Chronic obstructive pulmonary disease, unspecified Assessment and Plan: IMPRESSION: Patient is a 45-year-old female who carries a diagnosis of bipolar disorder, PTSD, depression and substance use disorder, currently on methadone who presents for worsening depression with SI and the face of having been discontinued on her medications by outpatient physician.? Patient reports that she has not been psychiatrically hospitalized for about 3 years and was stable on her past medication regimen of Lamictal, Remeron, prazosin, gabapentin, Ativan.? Patient reports that she was tapered off all these medications within a 2 month period and subsequently became depressed and eventually relapsed, 1st time in 9 months.? Patient is currently depressed with SI but remains passive and without intent or plans; patient's children remain strong protective factor.? Patient questions her bipolar diagnosis and says that she was also diagnosed with borderline personality disorder which she thinks fits much more with her psych iatric history.? Patient? has PTSD symptoms of nightmares.? Will explore further.? At this time will leave diagnosis of bipolar 2 since she has carried this diagnosis; will add depressive disorder unspecified and see if it is possible to rule out MDD versus bipolar depression during this? admission. Of note, patient reports that she is no longer diabetic and that her most recent A1c is 5.6 down from 11.7 and that she was taken off metformin (intentional weight loss of 40 lb through diet and exercise).? However patient says that she is normally on metoprolol 25 mg daily and Lasix 25 mg daily for hypertension.? She is confused to better cardiac diagnosis saying that she was at 1st told she had CHF but then it seemed to change to mitral valve regurg.? She is not sure she is supposed to be on cardiac medications. Will discuss with hospitalist. Currently blood pressure her and heart rate are within normal limits.? Patient also has COPD.? Patient reports that she is used to be on atorvastatin 20 mg a day -pharmacy reports patient has not picked up beta-xiomy, Lasix or atorvastatin since August 2020; patient confirms that she has been off these medications for the past 7 months. Thus, since currently hemodynamically stable and off meds for 7 months,, will defer to her outpt PCP regarding these meds to which patient says she agrees. LIPIDS: Wnl; no need for statin Pt's depression abating, SI remains, but passive and at baseline. Will discuss dispo w/ SW and pt further; she needs prescriber Plan: Patient on CV Q 15 minutes checks Lipid panel ordered pending tomorrow blood draw Will assess need for atorvastatin Lamictal 25 mg daily and titrate accordingly INCREASED mirtazapine 15 mg restarted hydroxyzine 25 mg a a p.r.n. Patient was restarted in ED on gabapentin 100 mg t.i.d. (patient says home dose was 800 mg q.i.d. and for neuropathy) Continue methadone Will had Ativan 0.5 mg b.i.d. p.r.n..? Telephone Instrument Supervisor explained to patient that she will not be able to be discharged on this medication and will have to get back on this with her outpatient provider.? Telephone Instrument Supervisor hesitant to restart Ativan which patient says she was on 1 mg b.i.d..? She has been off this for a month and this medication can interfere with people struggle with PTSD symptoms and substance abuse issues. Greater than 50% of the session was spent on counseling and/or coordination of care Reason for contiued inpatient stay Substantial Risk for: other
[2021-05-01] MEDS: Magnesium Hydrox/Alum Hydrox 30 ML ORAL.SUSP PO (16:43)
[2021-05-01 17:52] VITALS: BP 130/59; PULSE 80
[2021-05-01] MEDS: cloNIDine HCL 0.1 MG TABLET PO (17:52)
[2021-05-01 18:00] VITALS: BP 128/58; PULSE 73; RESP 18; TEMP 36.2; O2SAT 97
[2021-05-01] MEDS: Mirtazapine 15 MG TABLET 30 MG PO (21:27)
[2021-05-02 06:00] VITALS: BP 138/83; PULSE 76; RESP 16; TEMP 35.9; O2SAT 97
[2021-05-02] MEDS: Gabapentin 300 MG CAPSULE PO (08:04)
[2021-05-02] MEDS: lamoTRIgine 25 MG TABLET PO (08:04)
--- NOTE | 2021-05-02 10:53 | P.DS_ITS ---
DS: Providers Provider Date of Service: 05/02/21 Date of admission: 04/25/21 23:23 Date of discharge: 05/02/21 Primary care physician: Sridevi Lane MD Attending physician on admission: Chace Willis Consults: 04/25/21 23:22 Consult to Hospitalist Routine Consulting Provider: Hospitalist Reason For Exam: admission Attending physician on discharge: Chace Willis DS: Diagnosis Discharge Diagnosis (1) Bipolar II disorder: Status: Chronic (2) Chronic post-traumatic stress disorder (PTSD): Status: Chronic (3) Opioid use disorder: Status: Chronic (4) Cocaine abuse: Status: Acute (5) COPD (chronic obstructive pulmonary disease): Status: Chronic DS: Medications Discharge Medications Home Medications: Previous Rx's Medication Instructions Recorded albuterol sulfate 2.5 mg/0.5 mL 5 mg INHALATION Q4H PRN #30 ea 10/08/20 solution for nebulization albuterol sulfate 90 mcg/actuation 2 puff INHALATION Q4-6H PRN 30 05/02/21 aerosol inhaler Days #6.7 g clonidine HCl 0.1 mg tablet 0.1 mg PO BID PRN 30 Days #60 tab 05/02/21 gabapentin 300 mg capsule 300 mg PO TID 30 Days #90 cap 05/02/21 lamotrigine 100 mg tablet 100 mg PO DAILY 30 Days #30 tab 05/02/21 (Lamictal) lamotrigine 25 mg tablet See Rx Instructions .ROUTE 05/02/21 .COMPLEX #36 tab methadone 10 mg/mL oral 85 mg PO DAILY@0600 #0 ml 05/02/21 concentrate (Methadose) mirtazapine 30 mg tablet (Remeron) 30 mg PO BEDTIME 30 Days #30 tab 05/02/21 Mental Status Exam Mental Status Exam Narrative: ?Pt is alert and oriented; behavior is cooperative, friendly, calm; patient is not in distress; dressed in casual attire with good hygiene; mood is described as good and affect congruent, bright; eye contact appropriate; Speech is normal rate, volume and prosody and not pressured; no psychomotor retardation present; thought process is organized, linear, logical and goal directed. Thought content on discharge; denies any SI or HI and feels optimistic; TC relevant to pertinent topics and without any delusional content, paranoid ideations or grandiosity; There is no evidence of perceptual disturbance. ?Patients insight and judgment are intact. Data Data Completed and Pending Completed studies during hospitalization [Text1]: 04/25/21 04/29/21 09:13 07:35 Triglycerides 175 Cholesterol 177 LDL Cholesterol, Calc 108 HDL Cholesterol 34 Coronavirus (PCR) NEGATIVE Influenza Type A (PCR) NEGATIVE Influenza Type B (PCR) NEGATIVE RSV RNA Qual (PCR) NEGATIVE DS: Summary Hospital Course Hospital Course: Patient is a 45-year-old female who carries a diagnosis of bipolar disorder, PTSD, depression and substance use disorder, currently on methadone who presents for worsening depression with SI and the face of having been discontinued on her medications by outpatient physician.? Patient reports that she has not been psychiatrically hospitalized for about 3 years and was stable on her past medication regimen of Lamictal, Remeron, prazosin, gabapentin, Ativan.? Patient reports that she was tapered off all these medications within a 2 month period and subsequently became depressed and eventually relapsed, 1st time in 9 months.? Patient is currently depressed with SI but remains passive and without intent or plans; patient's children remain strong protective factor.? Patient questions her bipolar diagnosis and says that she was also diagnosed with borderline personality disorder which she thinks fits much more with her psychiatric history.? Patient? has PTSD symptoms of nightmares.? On admission, patient was agitated banged her head on the wall, something she says she has never done before but felt extremely frustrated. This was superficial and patient sustained a minor induration. Patient was restarted on her mirtazapine and Lamictal saying that on these medications she had done overall well and though she was still have intermittent depression or anxiety, it was under overall control and she was able to function. Patient was also restarted on gabapentin which was left at 300 mg t.i.d., agreed that her outpatient provider could titrated further. Patient said she had trouble sleeping and would often get anxious on the unit and agreed to Ativan 0.5 mg b.i.d. p.r.n. for a short duration, understanding that this would not be continued on discharge. Patient's mood improved and all SI resolved. She was overall in good behavior and impulse control though she would sometimes get mildly agitated if her methadone dose was late from the pharmacy. Patient attended groups, was forthcoming in interviews and interacted appropriately with staff and peers. She approached her psychiatric illness w/ insight and demonstrate good judgment in terms of wanting to pursue treatment. Patient reported she was in a good mood and that all SI remained resolved, saying she was feeling safe, stable, with a noticeably brighter affect, and asked for discharge. She felt optimistic about staying sober and felt medications were helping. Patient was not in imminent risk for harm to self or others and her request for discharge honored. Medically: Of note, patient reports that she is no longer diabetic and that her most recent A1c is 5.6 down from 11.7 and that she was taken off metformin (intentional weight loss of 40 lb through diet and exercise).? She reported she used to be on metoprolol 25 mg daily and Lasix 25 mg daily for hypertension and unsure about her cardiac diagnosis saying her doctor her 1st told her she had CHF but then said she did not but rather had mitral valve regurg.? Currently blood pressure her and heart rate are within normal limits.? She used to be on atorvastatin however fasting lipid panel was within normal limits. Pharmacy reports patient has not picked up beta-xiomy, Lasix or atorvastatin since August 2020 andpatient confirms that she has been off these medications for the past 7 months. Thus, since currently hemodynamically stable and off meds for 7 months,, patient and underwriter agreed to defer to her outpt PCP regarding these meds. Time spent discussing smoking cessation with patient: 3 to 10 minutes Status at Discharge Functional status at discharge: independent ambulation Overall status at discharge: patient is back to baseline Time Spent with Patient Time attestation: Total time spent providing and/or coordinating discharge services: Discharge Plan Discharge Patient Disposition: Home, Self-Care Discharge Diagnosis: Bipolar Disorder, Type II, recurrent, most recent episode depressed in full remission Referrals: Clarita Pacheco (therapy) [Other] - 05/03/21 12:00 pm (This appointment is in-office) Alondra Simmons (psychiatry) [Other] - 06/01/21 10:40 am (This appointment is via Telehealth) Alondra Simmons (psychiatry) [Other] - 06/26/21 9:40 am (This appointment is via Telehealth) [facility] [Other] - 1 Week (The recovery center is open M-F from 9AM-5PM) [facility] [Other] - 1 Week (Please contact Melchor Pagan, Clinical Coordinator, at ext. [phone] to complete a phone intake for DBT group therapy options) [facility] ([facility])/ [facility] [Other] - 1 Week (The [facility] is open Saturday- 12-4PM. Please contact the program ahead of time as there is limited space available due to the pandemic) Sridevi Lane MD [Primary Care Provider] - 05/11/21 1:00 pm (TELEHEALTH VISIT) Discharge Medications: New clonidine HCl 0.1 mg Tablet 0.1 mg PO BID PRN (Reason: mild anxiety) 30 Days Qty: 60 RF: 0 lamotrigine 25 mg Tablet See Rx Instructions .ROUTE .COMPLEX Qty: 36 RF: 0 gabapentin 300 mg Capsule 300 mg PO TID 30 Days Qty: 90 RF: 0 methadone [Methadose] 10 mg/mL Concentrate 85 mg PO DAILY@0600 Qty: 0 RF: 0 mirtazapine [Remeron] 30 mg tablet 30 mg PO BEDTIME 30 Days Qty: 30 RF: 0 lamotrigine [Lamictal] 100 mg tablet 100 mg PO DAILY 30 Days Qty: 30 RF: 0 Continued albuterol sulfate 90 mcg/actuation HFA aerosol inhaler 2 puff inhalation Q4-6H PRN (Reason: shortness of breath or wheezing) 30 Days Qty: 6.7 RF: 0 albuterol sulfate 2.5 mg/0.5 mL solution for nebulization 5 mg inhalation Q4H PRN (Reason: shortness of breath or wheezing) Qty: 30 RF: 0 Discontinued methadone 5 mg/5 mL Syringe 85 mg PO DAILY RF: 0 prednisone 20 mg tablet 40 mg PO DAILY 5 Days Qty: 10 RF: 0 Discharge Orders: Discharge Order (Routine); Ordered 05/02/21 Ordered By: Chace Willis Diet: regular diet Activity on Discharge: As tolerated Stand Alone Forms: Patient Portal Discharge page, Community Support Care Plan Goals: Maintain mood and safe behaviors Take medications as prescribed Continue to pursue sobriety Practice coping skills Continue with outpatient providers and reach out to them as needed Health Concerns: Mood instability and behaviors Sobriety CHF history Plan of Treatment: Follow up with your PCP and psychiatric provider regarding above concerns Take medications as prescribed Assessment: Risk assessment at time of discharge:? Patient was interviewed prior to discharge and found to be fully oriented and without any SI or HI. Patient has insight and demonstrates good judgment in terms of wanting to pursue treatment. Patient is not in imminent risk of harm to self or others and has a safety plan that includes presenting to the closest ER or calling 911 if feeling unsafe.? Patient has been observed closely by nursing and unit staff throughout admission; on day of admission patient became dysregulated and superficially self-harmed but this quickly and fully resolved; otherwise, patient has not engaged in any behaviors that suggest dangerousness to self or others and has demonstrated appropriate behaviors and impulse control. Discharge Date/Time: 05/02/21 11:40
== END 2021-05-02 11:40 | disposition home or self-care (01) | DRG 753 ==
LOC: HO.ED 04-25 21:18 → HO.PM5 04-25 23:38
PROVIDERS: Physician Assistant Medical; Admitting Provider Psychiatry & Neurology Psychiatry; Emergency Provider Emergency Medicine Emergency Medical Services; PCP Internal Medicine; Visit Provider Psychiatry & Neurology Psychiatry
DX: F31.81 Bipolar II disorder (principal); R45.851 Suicidal ideations; F11.20 Opioid dependence, uncomplicated; F14.10 Cocaine abuse, uncomplicated; J44.9 Chronic obstructive pulmonary disease, unspecified; F43.12 Post-traumatic stress disorder, chronic; F17.210 Nicotine dependence, cigarettes, uncomplicated; Z71.6 Tobacco abuse counseling; Z20.822 Contact with and (suspected) exposure to COVID-19; Z88.5 Allergy status to narcotic agent; Z88.6 Allergy status to analgesic agent; Z79.899 Other long term (current) drug therapy
CPT/HCPCS: 0241U; 36415; 80048; 80061; 80307; 81025; 82077; 85025; 93005; 99285; Q0163

== ENCOUNTER 2021-07-25 15:54 | Emergency (ER) | payer MEDICAID, SELFPAY ==
--- NOTE | ~2021-07-25 | CT_ITS ---
EXAMINATION: CT ABDOMEN AND PELVIS WITHOUT CONTRAST CLINICAL INFORMATION: Left flank pain with history of kidney stones COMPARISON: CT abdomen pelvis 10/28/2016 TECHNIQUE: Multidetector volumetric imaging was performed from the superior aspect of the liver through the pubic symphysis. Sagittal and coronal reformatted images were obtained on the technologist's workstation. This CT examination was performed using dose optimization techniques as appropriate, variously including the following: *Automated exposure control *Adjustment of mA and/or kV according to patient size (this includes techniques or standardized protocols for targeted exams where dose is matched to indication/reason for exam; i.e. extremities or head) *Use of iterative reconstruction technique DLP: 970 mGy-cm FINDINGS: LUNG BASES: The visualized lung bases are unremarkable. LIVER, GALLBLADDER, AND BILIARY TREE: The liver is normal in size, shape, and attenuation. No focal hepatic lesion or biliary ductal dilatation is present. The gallbladder is unremarkable with no evidence of radiopaque gallstones, gallbladder wall thickening, or obvious pericholecystic inflammatory changes. PANCREAS: Unremarkable. SPLEEN: Unremarkable. ADRENAL GLANDS: 1.4 cm left adrenal nodules present that measures fat density consistent with a benign adenoma. No significant interval change when compared to the 2017 study. The right adrenal gland is normal. KIDNEYS AND URETERS: The kidneys are normal in size, shape, and attenuation. No hydronephrosis, hydroureter, or calculi seen. No perinephric stranding. BLADDER: Unremarkable. GASTROINTESTINAL TRACT: Colonic diverticular changes are present without diverticulitis. The small and large bowel are unremarkable. The appendix is none seen. ABDOMINAL WALL: No significant hernia is appreciated. LYMPH NODES: Normal. VASCULAR: Unremarkable. PELVIC VISCERA: An anteverted uterus is present. An abnormal adnexal mass or free intraperitoneal fluid is not seen. OSSEOUS STRUCTURES: Mild degenerative changes are present in the spine. There is a disc prosthesis with apparent fusion at L5-S1. 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 CT/CT abdomen pelvis wo con IMPRESSION: A cause for the patient's left flank pain is not found. No renal calculi are detected at this time. Stable 1.4 cm benign adrenal adenoma. Other incidental findings as described above including colonic diverticulosis and fusion at L5-S1.
[2021-07-25 16:04] VITALS: BP 124/74; PULSE 102; RESP 16; TEMP 36.3; O2SAT 97; BMI 36.0
[2021-07-25 16:21] LABS: Appearance Urine CLEAR; Color Urine YELLOW; Glucose Urine UA NEG (NEG); Leukocyte Esterase Urine 1+ (NEG); Nitrite Urine NEG (NEG); UACC Culture Trigger YES; Urine Blood TRACE (NEG); Urine Ketones NEG (NEG); Urine Protein NEG (NEG-TRACE)
[2021-07-25 16:29] LABS: Mucus Urine TRACE /LPF; Squamous Epithelial Cell Urine 3+ /LPF
[2021-07-25 16:30] LABS: Bacteria Urine 1+ /LPF
[2021-07-25 18:00] VITALS: BP 103/70; PULSE 87; RESP 16; TEMP 36.9; O2SAT 96
--- NOTE | 2021-07-25 18:07 | ED_ITS ---
HPI - Female Genitourinary General Chief complaint: Urogenital-Female Stated complaint: abd pain Time Seen by Provider: 07/25/21 18:07 Source: patient Mode of arrival: ambulatory Limitations: no limitations History of Present Illness HPI Narrative: Patient with history of kidney stones last one was 4 years ago had left ureteric stent comes here for pain in left flank area for last 5 days getting worse pain is sharp in character associated with nausea and vomiting no fever no chills no hematuria pain radiating from left flank to left lower abdomen Related Data Previous Rx's Medication Instructions Recorded albuterol sulfate 2.5 mg/0.5 mL 5 mg INHALATION Q4H PRN #30 ea 10/08/20 solution for nebulization albuterol sulfate 90 mcg/actuation 2 puff INHALATION Q4-6H PRN 30 05/02/21 aerosol inhaler Days #6.7 g clonidine HCl 0.1 mg tablet 0.1 mg PO BID PRN 30 Days #60 tab 05/02/21 gabapentin 300 mg capsule 300 mg PO TID 30 Days #90 cap 05/02/21 lamotrigine 100 mg tablet 100 mg PO DAILY 30 Days #30 tab 05/02/21 (Lamictal) lamotrigine 25 mg tablet See Rx Instructions .ROUTE 05/02/21 .COMPLEX #36 tab methadone 10 mg/mL oral 85 mg (8.5 mL) PO DAILY@0600 #0 ml 05/02/21 concentrate (Methadose) mirtazapine 30 mg tablet (Remeron) 30 mg PO BEDTIME 30 Days #30 tab 05/02/21 cyclobenzaprine 10 mg tablet 10 mg PO Q8H #20 tab 07/25/21 nitrofurantoin 100 mg PO BID 7 Days #14 cap 07/25/21 monohydrate/macrocrystals 100 mg capsule (Macrobid) phenazopyridine 200 mg tablet 200 mg PO TID PRN 2 Days #5 tab 07/25/21 (Pyridium) Allergies Allergy/AdvReac Type Severity Reaction Status Date / Time hernandez [CHERRIES] Allergy Severe ANGIOEDEMA Unverified 06/02/20 16:38 NSAIDS (Non-Steroidal Allergy Unknown NOT Unverified 06/02/20 16:38 Anti-Inflamma SUPPOSED [NSAIDS (NON-STEROIDAL TO TAKE ANTI-INFLAMMA] DUE TO LIVER DAMAGE IN THE PAST codeine [CODEINE] AdvReac Unknown N/V Unverified 06/02/20 16:38 From COMPAZINE Allergy Unknown LOCK JAW Uncoded 06/02/20 16:38 From TORADOL Allergy Unknown HIVES Uncoded 06/02/20 16:38 From ULTRAM Allergy Unknown SEIZURE Uncoded 06/02/20 16:38 Review of Systems Review of Systems: Yes all other systems are reviewed and are negative PMFSH Past Medical History Medical History CHF (congestive heart failure) Chronic post-traumatic stress disorder (PTSD) COPD (chronic obstructive pulmonary disease) Depression Diabetes Mitral valve regurgitation Opioid use disorder Surgical History H/O knee surgery History of appendectomy Social History Social History Household Members: Friend(s) Household Members Other:: 4 Housing: House Do you presently have visiting nurse or other home services: No Alcohol intake: never Patient Tobacco Use Status: Current everyday Tobacco user Tobacco use type: Cigarette Cigarettes Per Day: 3 Years Smoked: 10 e-Cigarette/Vaping Use: Never Used Second Hand Smoke Exposure: Yes Substance Use Type: Crack/Cocaine, Heroin and Marijuana Advance Directives: Yes Advance Directives Information Provided: Yes Advance Directives on File: No Patient : No service: No Sexual orientation: Did not discuss Physical Exam Vital Signs: Vital Signs: Last Vital Signs Temp 98.6 F 07/25/21 20:15 Pulse 74 07/25/21 20:15 Resp 18 07/25/21 20:15 BP 108/72 07/25/21 20:15 Pulse Ox 97 07/25/21 20:15 Body Mass Index 36.0 Appearance: Alert. Oriented X3. In mild distress Eyes: No pallor/ icterus ENT: Pharynx normal. Oral Mucosa moist Neck: Normal inspection. Neck supple. CVS: Normal heart rate and rhythm. Pulses normal. Respiratory: No respiratory distress. Equal air entry bilateral, no wheezing/rales/rhonchi Abdomen: Soft and nontender. Bowel sounds are present, no mass palpable, L CVA tenderness++ Skin: Skin warm and dry. Normal skin color. Normal skin turgor. Extremities: No lower extremity edema. No calf tenderness Neuro: Oriented X 3. MDM - Female Genitourinary MDM Narrative Medical decision making narrative: Patient had flank pain CT scan negative for any stones etiology not very clear elective musculoskeletal urine showed nitrite negative requested slightly positive patient has burning sensation when she pees will treat her as UTI although less likely. Will discharge patient home on Macrobid. Pyridium, patient already on methadone Lab Data Attestation: I reviewed the patient's lab results. Result diagrams: 07/25/21 18:45 07/25/21 18:45 Labs: Lab Results 07/25/21 07/25/21 07/25/21 Range/Units 16:09 18:45 18:45 WBC 11.1 H (4.8-10.8) X10*3/uL RBC 5.24 (4.20-5.50) X10*6/uL Hgb 14.2 (12.0-16.0) g/dl Hct 43.8 (37.0-47.0) % MCV 83.6 (80.0-98.0) fL MCH 27.1 (27.0-33.0) pg MCHC 32.4 (31.0-35.0) g/dl RDW 15.6 (11.0-16.0) % Plt Count 279 (160-400) X10*3/uL MPV 11.2 (9.4-12.3) fL Immature Gran % (Auto) 0.3 (0.0-0.4) % Neut % (Auto) 54.4 (45-73) % Lymph % (Auto) 37.7 (20-40) % [place] % (Auto) 5.7 (2-11) % Eos % (Auto) 1.5 (0-4) % Baso % (Auto) 0.4 (0-2) % Lymph # (Auto) 4.2 (1.2-4.9) X10*3/uL [place] # (Auto) 0.6 (0.1-1.2) X10*3/uL Eos # (Auto) 0.2 (0.0-0.4) X10*3/uL Baso # (Auto) 0.0 (0.0-0.2) X10*3/uL Abs Immat Gran (auto) 0.03 (0.00-0.03) X10*3/uL Absolute Neuts (auto) 6.0 (2.0-8.3) x10*3/uL Absolute Nucleated RBC 0.000 (0.0-0.012) X10*3/uL Nucleated RBC % (auto) 0.0 (0.0-0.2) /100WBC Sodium 137 (135-145) mmol/L Potassium 4.2 (3.3-5.1) mmol/L Chloride 100 (96-108) mmol/L Carbon Dioxide 29 (22-29) mmol/L Anion Gap 12 (12-20) BUN 10 (9-16) mg/dL Creatinine 0.77 (0.5-1.4) mg/dL Estim Creat Clear Calc 101.1 Estimated GFR > 60 Random Glucose 109 (60-115) mg/dL Calcium 9.3 (8.4-10.2) mg/dL Urine Color YELLOW Urine Appearance CLEAR Urine pH 6.0 (5.0-8.0) Ur Specific [place] 1.010 (1.005-1.025) Urine Protein NEG (NEG-TRACE) MG/DL Urine Glucose (UA) NEG (NEG) MG/DL Urine Ketones NEG (NEG) MG/DL Urine Blood TRACE (NEG) Urine Nitrite NEG (NEG) Ur Leukocyte Esterase 1+ H (NEG) Urine RBC 1-4 (0) /HPF Urine WBC 1-4 (0-4) /HPF Ur Squamous Epith Cells 3+ /LPF Urine Bacteria 1+ /LPF Urine Mucus TRACE /LPF Urine Yeast TRACE /HPF Discharge Plan Discharge Clinical Impression: Acute flank pain Patient Disposition: Home, Self-Care Instructions: Flank Pain (ED) Additional Instructions: Cause of your left flank pain is not found, the CT scan is negative for stone You might have mild UTI. Take antibiotics as advised Follow-up with your PCP if not better Continue methadone Flexeril for muscle relaxer Prescriptions: New cyclobenzaprine 10 mg tablet 10 mg PO Q8H Qty: 20 RF: 0 phenazopyridine [Pyridium] 200 mg tablet 200 mg PO TID PRN (Reason: pain) 2 Days Qty: 5 RF: 0 nitrofurantoin monohyd/m-cryst [Macrobid] 100 mg capsule 100 mg PO BID 7 Days Qty: 14 RF: 0 No Action clonidine HCl 0.1 mg Tablet 0.1 mg PO BID PRN (Reason: mild anxiety) 30 Days Qty: 60 RF: 0 lamotrigine 25 mg Tablet See Rx Instructions .ROUTE .COMPLEX Qty: 36 RF: 0 gabapentin 300 mg Capsule 300 mg PO TID 30 Days Qty: 90 RF: 0 methadone [Methadose] 10 mg/mL Concentrate 85 mg PO DAILY@0600 Qty: 0 RF: 0 mirtazapine [Remeron] 30 mg tablet 30 mg PO BEDTIME 30 Days Qty: 30 RF: 0 albuterol sulfate 90 mcg/actuation HFA aerosol inhaler 2 puff inhalation Q4-6H PRN (Reason: shortness of breath or wheezing) 30 Days Qty: 6.7 RF: 0 lamotrigine [Lamictal] 100 mg tablet 100 mg PO DAILY 30 Days Qty: 30 RF: 0 albuterol sulfate 2.5 mg/0.5 mL solution for nebulization 5 mg inhalation Q4H PRN (Reason: shortness of breath or wheezing) Qty: 30 RF: 0 Interventions: ED Discharge Assessment Last Done: 07/25/21 20:16 Discharge Date/Time: 07/25/21 20:17
[2021-07-25] MEDS: 0.9 % Sodium Chloride 1,000 ML 999 ML IVCONT (18:43)
[2021-07-25 18:48] LABS: MANUAL DIFF FLAG NO
[2021-07-25 18:49] LABS: Basophils Percent Auto 0.4 % (0-2); Eosinophils Absolute Auto 0.2 X10*3/uL (0.0-0.4); Eosinophils Percent Auto 1.5 % (0-4); Hematocrit 43.8 % (37.0-47.0); Hemoglobin 14.2 g/dl (12.0-16.0); Imm Gran Abs Auto 0.03 X10*3/uL (0.00-0.03); Imm Gran Pct Auto 0.3 % (0.0-0.4); Lymphocytes Absolute Auto 4.2 X10*3/uL (1.2-4.9); Lymphocytes Percent Auto 37.7 % (20-40); Mean Corpuscular HGB Conc 32.4 g/dl (31.0-35.0); Mean Corpuscular Hemoglobin 27.1 pg (27.0-33.0); Mean Corpuscular Volume 83.6 fL (80.0-98.0); Mean Platelet Volume 11.2 fL (9.4-12.3); Monocytes Absolute Auto 0.6 X10*3/uL (0.1-1.2); Monocytes Percent Auto 5.7 % (2-11); Neutrophils Percent Auto 54.4 % (45-73); Platelet Count 279 X10*3/uL (160-400); Red Blood Count 5.24 X10*6/uL (4.20-5.50); Red Cell Distribution Width 15.6 % (11.0-16.0); White Blood Count 11.1 X10*3/uL (4.8-10.8)
[2021-07-25] MEDS: Morphine Sulfate 4 MG/ML CARTRIDGE IVPUSH ×2 (18:49→20:11)
[2021-07-25] MEDS: ondansetron HCL 4 MG/2 ML VIAL IVPUSH (18:49)
[2021-07-25 19:10] LABS: Anion Gap 12 (12-20); Blood Urea Nitrogen 10 mg/dL (9-16); Calcium 9.3 mg/dL (8.4-10.2); Carbon Dioxide 29 mmol/L (22-29); Chloride 100 mmol/L (96-108); Creatinine Clr Calc Pharmacy 101.1; Estimated Glomerular Filt Rate > 60; Glucose Random 109 mg/dL (60-115); Potassium 4.2 mmol/L (3.3-5.1); Sodium 137 mmol/L (135-145)
[2021-07-25] MEDS: Nitrofurantoin Monohyd/M-Cryst 100 MG CAPSULE PO (20:10)
[2021-07-25] MEDS: Phenazopyridine HCL 200 MG TABLET PO (20:10)
[2021-07-25 20:15] VITALS: BP 108/72; PULSE 74; RESP 18; TEMP 37; O2SAT 97
== END 2021-07-25 20:17 | disposition home or self-care (01) ==
PROVIDERS: Emergency Provider Internal Medicine; PCP Internal Medicine
DX: R10.9 Unspecified abdominal pain (principal); R11.2 Nausea with vomiting, unspecified; E11.9 Type 2 diabetes mellitus without complications; F17.200 Nicotine dependence, unspecified, uncomplicated; F11.20 Opioid dependence, uncomplicated
CPT/HCPCS: 36415; 74176; 80048; 81001; 85025; 87086; 96361; 96374; 96375; 96376; 99284; J2270; J2405

== ENCOUNTER 2021-07-29 10:57 | Emergency (ER) | payer MEDICAID, SELFPAY ==
--- NOTE | ~2021-07-29 | CT_ITS ---
EXAMINATION: CT ABDOMEN AND PELVIS WITH CONTRAST CLINICAL INFORMATION: Left-sided flank pain. Vomiting. COMPARISON: CT abdomen pelvis 07/25/2021 TECHNIQUE: Multidetector volumetric images were obtained from the superior aspect of the liver through the pubic symphysis following administration 85 mL of Omnipaque 350 intravenous contrast. Sagittal and coronal reformatted images were obtained on the technologist's workstation. This CT examination was performed using dose optimization techniques as appropriate, variously including the following: *Automated exposure control *Adjustment of mA and/or kV according to patient size (this includes techniques or standardized protocols for targeted exams where dose is matched to indication/reason for exam; i.e. extremities or head) *Use of iterative reconstruction technique DLP: 1099 mGy-cm FINDINGS: Visualized lung bases demonstrate mild dependent atelectasis. The liver demonstrates normal size, contour and attenuation. The gallbladder is normal in appearance. Mild fatty atrophy of the pancreas. The spleen and right adrenal gland are unremarkable. Stable small left adrenal adenoma. Symmetrically sized kidneys. No renal calculi or hydronephrosis of either kidney. Small right renal cyst. The stomach is decompressed. Normal caliber loops of small and large bowel. Minimal colonic diverticulosis without CT evidence to suggest active diverticulitis. Mild colonic stool burden. Surgical changes in the right lower abdomen suggesting prior appendectomy. Normal caliber abdominal aorta. No retroperitoneal lymphadenopathy. The bladder is normal in appearance. Unremarkable CT appearance of the uterus. No gross free pelvic fluid. Shotty bilateral inguinal lymph nodes are unchanged. Similar postsurgical changes at the lumbosacral junction. CT/CT abdomen pelvis w con IMPRESSION: Stable CT imaging from [address] evidence for acute abnormality within the abdomen or pelvis.
[2021-07-29 11:01] VITALS: BP 121/77; PULSE 101; RESP 18; TEMP 37; O2SAT 99; BMI 36.0
--- NOTE | 2021-07-29 11:14 | ED.ABDPAIN ---
HPI - Abdominal Pain General Chief Complaint: Abdominal Pain Stated Complaint: UTI/vomiting Time Seen by Provider: 07/29/21 11:03 Source: patient Mode of arrival: ambulatory Limitations: no limitations History of Present Illness HPI narrative: 45 yo female here with pmh of COPD, PTSD, OUD on maintenance methadone, depression, renal colic here with complaints of left flank pain with radiation to left abdomen/groin x several days. Seen here 07/25 for similar and had labs, UA, CT A/P w/o contrast which showed ?UTI. Sent home on flexeril, macrobid and pyridium. Continued pain. Last night developed vomiting (6 episodes). No diarrhea, urinary symptoms, fevers, chills. Has irregular menses at baseline. Reviewed urine culture which shows mixed contamination. Related Data Previous Rx's Medication Instructions Recorded albuterol sulfate 2.5 mg/0.5 mL 5 mg INHALATION Q4H PRN #30 ea 10/08/20 solution for nebulization albuterol sulfate 90 mcg/actuation 2 puff INHALATION Q4-6H PRN 30 05/02/21 aerosol inhaler Days #6.7 g clonidine HCl 0.1 mg tablet 0.1 mg PO BID PRN 30 Days #60 tab 05/02/21 gabapentin 300 mg capsule 300 mg PO TID 30 Days #90 cap 05/02/21 lamotrigine 100 mg tablet 100 mg PO DAILY 30 Days #30 tab 05/02/21 (Lamictal) lamotrigine 25 mg tablet See Rx Instructions .ROUTE 05/02/21 .COMPLEX #36 tab methadone 10 mg/mL oral 85 mg (8.5 mL) PO DAILY@0600 #0 ml 05/02/21 concentrate (Methadose) mirtazapine 30 mg tablet (Remeron) 30 mg PO BEDTIME 30 Days #30 tab 05/02/21 cyclobenzaprine 10 mg tablet 10 mg PO Q8H #20 tab 07/25/21 nitrofurantoin 100 mg PO BID 7 Days #14 cap 07/25/21 monohydrate/macrocrystals 100 mg capsule (Macrobid) phenazopyridine 200 mg tablet 200 mg PO TID PRN 2 Days #5 tab 07/25/21 (Pyridium) lidocaine 5 % topical patch 1 patch TOPICAL DAILY #15 ea 07/29/21 (Lidoderm) methocarbamol 750 mg tablet 750 mg PO TID PRN #15 tab 07/29/21 Allergies Allergy/AdvReac Type Severity Reaction Status Date / Time hernandez [CHERRIES] Allergy Severe ANGIOEDEMA Verified 07/29/21 11:00 NSAIDS (Non-Steroidal Allergy Unknown NOT Verified 07/29/21 11:00 Anti-Inflamma SUPPOSED [NSAIDS (NON-STEROIDAL TO TAKE ANTI-INFLAMMA] DUE TO LIVER DAMAGE IN THE PAST codeine [CODEINE] AdvReac Unknown N/V Verified 07/29/21 11:00 From COMPAZINE Allergy Unknown LOCK JAW Uncoded 06/02/20 16:38 From TORADOL Allergy Unknown HIVES Uncoded 06/02/20 16:38 From ULTRAM Allergy Unknown SEIZURE Uncoded 06/02/20 16:38 Review of Systems Review of Systems Yes all other systems are reviewed and are negative Constitutional: Reports no additional constitutional complaints, Denies body ache(s), Denies chills, Denies fever(s), Denies headache(s) and Denies weakness Eyes: Reports no additional eye complaints and Denies change in vision Reports system reviewed and no additional complaints, except as documented, Denies dizziness, Denies headache(s), Denies nasal congestion, Denies nasal discharge and Denies neck pain Cardiovascular: Reports no additional cardiovascular complaints, Denies chest pain, Denies leg edema and Denies dyspnea Respiratory: Reports no additional respiratory complaints, Denies cough and Denies dyspnea Gastrointestinal: Reports no additional gastrointestinal complaints, Reports abdominal pain, Denies diarrhea, Reports nausea and Reports vomiting Genitourinary: Reports no additional female genitourinary complaints and Denies urinary incontinence Musculoskeletal: Reports no additional musculoskeletal complaints, Reports back pain, Denies arthralgias, Denies joint swelling, Denies neck pain, Denies numbness and Denies tingling Skin/Breast: Reports system reviewed and no additional complaints, except as docu and Denies rash Reports system reviewed and no additional complaints, except as documented, Denies Abnormal speech present, Denies dizziness, Denies headache(s), Denies numbness, Denies tingling and Denies weakness Physical Exam Vital Signs: Vital Signs: Last Vital Signs Temp 98.2 F 07/29/21 14:57 Pulse 80 07/29/21 14:57 Resp 18 07/29/21 14:57 BP 112/59 L 07/29/21 14:57 Pulse Ox 98 07/29/21 14:57 Body Mass Index 36.0 Const: General: cooperative, healthy appearing, comfortable and no acute distress Orientation/consciousness: patient oriented x3 Limitations: no limitations HENMT: Head: Yes normal to inspection Ears: hearing grossly normal bilaterally General nose exam: Normal external nose present Face and sinus: Yes normal facial exam Mouth: Normal oral and palatal mucosa present Throat: Yes posterior oropharynx normal Eyes: General: appearance normal, both eyes and all related structures Pupils: Equal, round and reactive pupils present Neck: Neck: Yes normal visual inspection Chest: Chest palpation & inspection: normal inspection of the chest Resp: Effort & Inspection: normal respiratory effort Auscultation: clear to auscultation bilaterally Cardio: Rate: regular rate Rhythm: regular rhythm Peripheral pulses: Peripheral pulses 2+ throughout GI: Inspection: Yes normal to inspection Palpation (GI): Soft to palpation and nontender Auscultation: normal bowel sounds : General: Yes CVA tenderness (mod left sided) Back/Spine/Pelvis: Other: Tenderness to lower lumbar soft tissue area with no midline tenderness. +palpable muscle spasm left lumbar Back: CVA tenderness (mod left sided) Skin: General skin exam: no rashes or lesions noted Neuro: General: patient oriented x3, no focal motor deficits and normal sensation to monofilament Cranial nerves: Yes Equal, round and reactive pupils present Cognition (Neuro): normal cognition Speech: No Abnormal speech present Gait exam (Neuro): Normal gait present Motor exam (neuro): 5/5 motor strength present throughout Extrem: General: Yes normal to inspection, Yes no pedal edema and Yes no calf tenderness Course Course Course Narrative: 45 yo female here with left flank pain with radiation to abdomen and groin since Saturday. Seen here 07/25 with unremarkable w/u with exception of mild UTI. Started on macrobid, flexeril, pyridium. Now continued pain more radiating to abdomen with vomiting since yesterday. On exam had mod CVA tenderness, also tenderness over left upper abdomen and left groin and palpable muscle spasm left lumbar soft tissue. Less likely renal colic with negative CT A/P several days ago. ?referred pain from lumbar spine. Urine culture shows contamination from several days ago. Will repeat labs, UA. Place PIV for antiemetic, analgesia, NSB. 1530-labs, UA, CT abdomen and pelvis with contrast are negative, patient is tolerating [facility]. She tells me she still has some mild pain but overall it is improved. Likely musculoskeletal. Reviewed worrisome signs and symptoms and when to return to the emergency department. Comfortable discharge home. MDM - Abdominal Pain MDM Narrative Medical decision making narrative: muscle spasm. pancreatitis Differential Diagnosis Differential diagnosis: Likely abdominal pain, calculus of kidney and renal colic Medical Records Attestation: I reviewed the patient's medical records. Lab Data Attestation: I reviewed the patient's lab results. Result diagrams: 07/29/21 11:48 07/29/21 11:48 Labs: Lab Results 07/29/21 07/29/21 07/29/21 Range/Units 11:48 11:48 11:48 WBC 7.7 (4.8-10.8) X10*3/uL RBC 4.80 (4.20-5.50) X10*6/uL Hgb 13.0 (12.0-16.0) g/dl Hct 40.5 (37.0-47.0) % MCV 84.4 (80.0-98.0) fL MCH 27.1 (27.0-33.0) pg MCHC 32.1 (31.0-35.0) g/dl RDW 15.2 (11.0-16.0) % Plt Count 225 (160-400) X10*3/uL MPV 10.9 (9.4-12.3) fL Immature Gran % (Auto) 0.1 (0.0-0.4) % Neut % (Auto) 54.1 (45-73) % Lymph % (Auto) 37.1 (20-40) % [place] % (Auto) 5.6 (2-11) % Eos % (Auto) 2.6 (0-4) % Baso % (Auto) 0.5 (0-2) % Lymph # (Auto) 2.9 (1.2-4.9) X10*3/uL [place] # (Auto) 0.4 (0.1-1.2) X10*3/uL Eos # (Auto) 0.2 (0.0-0.4) X10*3/uL Baso # (Auto) 0.0 (0.0-0.2) X10*3/uL Abs Immat Gran (auto) 0.01 (0.00-0.03) X10*3/uL Absolute Neuts (auto) 4.2 (2.0-8.3) x10*3/uL Absolute Nucleated RBC 0.000 (0.0-0.012) X10*3/uL Nucleated RBC % (auto) 0.0 (0.0-0.2) /100WBC Sodium 136 (135-145) mmol/L Potassium 3.6 (3.3-5.1) mmol/L Chloride 102 (96-108) mmol/L Carbon Dioxide 27 (22-29) mmol/L Anion Gap 11 L (12-20) BUN 6 L (9-16) mg/dL Creatinine 0.70 (0.5-1.4) mg/dL Estim Creat Clear Calc 111.2 Estimated GFR > 60 Random Glucose 113 (60-115) mg/dL Lactic Acid 1.8 (0.5-2.0) mmol/L Calcium 9.0 (8.4-10.2) mg/dL Total Bilirubin 0.2 (0.0-1.0) mg/dL Direct Bilirubin < 0.2 (0.0-0.5) mg/dL AST 14 (5-31) U/L ALT 9 (0-31) U/L Alkaline Phosphatase 80 D (39-117) U/L Total Protein 6.8 (6.5-8.0) g/dL Albumin 3.8 (3.5-5.0) g/dL Lipase 7 L (8-78) U/L Urine Color Urine Appearance Urine pH (5.0-8.0) Ur Specific [place] (1.005-1.025) Urine Protein (NEG-TRACE) MG/DL Urine Glucose (UA) (NEG) MG/DL Urine Ketones (NEG) MG/DL Urine Blood (NEG) Urine Nitrite (NEG) Ur Leukocyte Esterase (NEG) Urine RBC (0) /HPF Urine WBC (0-4) /HPF Ur Squamous Epith Cells /LPF Urine Bacteria /LPF Urine Test (NEGATIVE) 07/29/21 07/29/21 Range/Units 11:48 11:48 WBC (4.8-10.8) X10*3/uL RBC (4.20-5.50) X10*6/uL Hgb (12.0-16.0) g/dl Hct (37.0-47.0) % MCV (80.0-98.0) fL MCH (27.0-33.0) pg MCHC (31.0-35.0) g/dl RDW (11.0-16.0) % Plt Count (160-400) X10*3/uL MPV (9.4-12.3) fL Immature Gran % (Auto) (0.0-0.4) % Neut % (Auto) (45-73) % Lymph % (Auto) (20-40) % [place]ner % (Auto) (2-11) % Eos % (Auto) (0-4) % Baso % (Auto) (0-2) % Lymph # (Auto) (1.2-4.9) X10*3/uL [place] # (Auto) (0.1-1.2) X10*3/uL Eos # (Auto) (0.0-0.4) X10*3/uL Baso # (Auto) (0.0-0.2) X10*3/uL Abs Immat Gran (auto) (0.00-0.03) X10*3/uL Absolute Neuts (auto) (2.0-8.3) x10*3/uL Absolute Nucleated RBC (0.0-0.012) X10*3/uL Nucleated RBC % (auto) (0.0-0.2) /100WBC Sodium (135-145) mmol/L Potassium (3.3-5.1) mmol/L Chloride (96-108) mmol/L Carbon Dioxide (22-29) mmol/L Anion Gap (12-20) BUN (9-16) mg/dL Creatinine (0.5-1.4) mg/dL Estim Creat Clear Calc Estimated GFR Random Glucose (60-115) mg/dL Lactic Acid (0.5-2.0) mmol/L Calcium (8.4-10.2) mg/dL Total Bilirubin (0.0-1.0) mg/dL Direct Bilirubin (0.0-0.5) mg/dL AST (5-31) U/L ALT (0-31) U/L Alkaline Phosphatase (39-117) U/L Total Protein (6.5-8.0) g/dL Albumin (3.5-5.0) g/dL Lipase (8-78) U/L Urine Color YELLOW Urine Appearance CLEAR Urine pH 6.0 (5.0-8.0) Ur Specific [place] 1.020 (1.005-1.025) Urine Protein NEG (NEG-TRACE) MG/DL Urine Glucose (UA) NEG (NEG) MG/DL Urine Ketones NEG (NEG) MG/DL Urine Blood 2+ H (NEG) Urine Nitrite NEG (NEG) Ur Leukocyte Esterase NEG (NEG) Urine RBC 1-4 (0) /HPF Urine WBC 0 (0-4) /HPF Ur Squamous Epith Cells TRACE /LPF Urine Bacteria NONE /LPF Urine Test NEGATIVE (NEGATIVE) Imaging Data CT scan - abdomen: Attestation: I personally reviewed and interpreted this imaging study as follows: Radiologist's impression: FINDINGS: Visualized lung bases demonstrate mild dependent atelectasis. The liver demonstrates normal size, contour and attenuation. The gallbladder is normal in appearance. Mild fatty atrophy of the pancreas. The spleen and right adrenal gland are unremarkable. Stable small left adrenal adenoma. Symmetrically sized kidneys. No renal calculi or hydronephrosis of either kidney. Small right renal cyst. The stomach is decompressed. Normal caliber loops of small and large bowel. Minimal colonic diverticulosis without CT evidence to suggest active diverticulitis. Mild colonic stool burden. Surgical changes in the right lower abdomen suggesting prior appendectomy. Normal caliber abdominal aorta. No retroperitoneal lymphadenopathy. The bladder is normal in appearance. Unremarkable CT appearance of the uterus. No gross free pelvic fluid. Shotty bilateral inguinal lymph nodes are unchanged. Similar postsurgical changes at the lumbosacral junction. CT/CT abdomen pelvis w con IMPRESSION: Stable CT imaging from [address] evidence for acute abnormality within the abdomen or pelvis.? Discharge Plan Discharge Clinical Impression: Acute left flank pain Patient Disposition: Home, Self-Care Instructions: Flank Pain (ED) Additional Instructions: Your lab work, urine testing and CT scan all look normal. You do have some muscle spasms and a lot of this pain may be related to your back.\ Heat the area Gentle stretching Follow-up with primary care doctor Continue Tylenol Do not mix the Flexeril with the methocarbamol Prescriptions: New lidocaine [Lidoderm] 5 % adhesive patch,medicated 1 patch topical DAILY Qty: 15 RF: 0 methocarbamol 750 mg tablet 750 mg PO TID PRN (Reason: muscle spasm) Qty: 15 RF: 0 No Action clonidine HCl 0.1 mg Tablet 0.1 mg PO BID PRN (Reason: mild anxiety) 30 Days Qty: 60 RF: 0 lamotrigine 25 mg Tablet See Rx Instructions .ROUTE .COMPLEX Qty: 36 RF: 0 gabapentin 300 mg Capsule 300 mg PO TID 30 Days Qty: 90 RF: 0 methadone [Methadose] 10 mg/mL Concentrate 85 mg PO DAILY@0600 Qty: 0 RF: 0 mirtazapine [Remeron] 30 mg tablet 30 mg PO BEDTIME 30 Days Qty: 30 RF: 0 albuterol sulfate 90 mcg/actuation HFA aerosol inhaler 2 puff inhalation Q4-6H PRN (Reason: shortness of breath or wheezing) 30 Days Qty: 6.7 RF: 0 lamotrigine [Lamictal] 100 mg tablet 100 mg PO DAILY 30 Days Qty: 30 RF: 0 albuterol sulfate 2.5 mg/0.5 mL solution for nebulization 5 mg inhalation Q4H PRN (Reason: shortness of breath or wheezing) Qty: 30 RF: 0 cyclobenzaprine 10 mg tablet 10 mg PO Q8H Qty: 20 RF: 0 phenazopyridine [Pyridium] 200 mg tablet 200 mg PO TID PRN (Reason: pain) 2 Days Qty: 5 RF: 0 nitrofurantoin monohyd/m-cryst [Macrobid] 100 mg capsule 100 mg PO BID 7 Days Qty: 14 RF: 0 Referrals: Sridevi Lane MD [Primary Care Provider] - 2 days Interventions: ED Discharge Assessment Last Done: 07/29/21 15:25 Discharge Date/Time: 07/29/21 15:26 [facility] Past Medical History Attestation statement: The following information was validated with the patient. Source: old records reviewed and nursing notes reviewed Medical History CHF (congestive heart failure) Chronic post-traumatic stress disorder (PTSD) COPD (chronic obstructive pulmonary disease) Depression Diabetes Mitral valve regurgitation Opioid use disorder Surgical History H/O knee surgery History of appendectomy Social History Social History Household Members: Friend(s) Household Members Other:: 4 Housing: House Do you presently have visiting nurse or other home services: No Alcohol intake: unknown Patient Tobacco Use Status: Current everyday Tobacco user Tobacco use type: Cigarette Cigarettes Per Day: 3 Years Smoked: 10 e-Cigarette/Vaping Use: Never Used Second Hand Smoke Exposure: Yes Use of substances other than those prescribed or required for medical reasons: No Substance Use Type: Crack/Cocaine, Heroin and Marijuana Advance Directives: No Advance Directives Information Provided: No service: No Sexual orientation: Did not discuss
[2021-07-29] MEDS: Morphine Sulfate 4 MG/ML CARTRIDGE IVPUSH ×2 (11:42→13:39)
[2021-07-29] MEDS: ondansetron HCL 4 MG/2 ML VIAL IVPUSH (11:42)
[2021-07-29] MEDS: 0.9 % Sodium Chloride 1,000 ML 999 ML IV (11:42)
[2021-07-29 11:53] LABS: MANUAL DIFF FLAG NO
--- NOTE | 2021-07-29 11:53 | PC.NURSE ---
floating rn: iv placed, blood labs obtained and sent.
[2021-07-29 11:55] LABS: Appearance Urine CLEAR; Basophils Percent Auto 0.5 % (0-2); Color Urine YELLOW; Eosinophils Absolute Auto 0.2 X10*3/uL (0.0-0.4); Eosinophils Percent Auto 2.6 % (0-4); Glucose Urine UA NEG (NEG); Hematocrit 40.5 % (37.0-47.0); Imm Gran Abs Auto 0.01 X10*3/uL (0.00-0.03); Imm Gran Pct Auto 0.1 % (0.0-0.4); Leukocyte Esterase Urine NEG (NEG); Lymphocytes Absolute Auto 2.9 X10*3/uL (1.2-4.9); Lymphocytes Percent Auto 37.1 % (20-40); Mean Corpuscular HGB Conc 32.1 g/dl (31.0-35.0); Mean Corpuscular Hemoglobin 27.1 pg (27.0-33.0); Mean Corpuscular Volume 84.4 fL (80.0-98.0); Mean Platelet Volume 10.9 fL (9.4-12.3); Monocytes Absolute Auto 0.4 X10*3/uL (0.1-1.2); Monocytes Percent Auto 5.6 % (2-11); Neutrophils Absolute Auto 4.2 x10*3/uL (2.0-8.3); Neutrophils Percent Auto 54.1 % (45-73); Nitrite Urine NEG (NEG); Platelet Count 225 X10*3/uL (160-400); Red Cell Distribution Width 15.2 % (11.0-16.0); UACC Culture Trigger NO; Urine Blood 2+ (NEG); Urine Ketones NEG (NEG); Urine Protein NEG (NEG-TRACE); White Blood Count 7.7 X10*3/uL (4.8-10.8)
[2021-07-29 11:57] LABS: UPreg QC Valid YES; Urine Pregnancy NEGATIVE (NEGATIVE)
[2021-07-29 12:11] LABS: Lactic Acid 1.8 mmol/L (0.5-2.0)
[2021-07-29 12:17] LABS: Alanine Aminotransferase 9 U/L (0-31); Albumin Level 3.8 g/dL (3.5-5.0); Alkaline Phosphatase 80 U/L (39-117); Anion Gap 11 (12-20); Aspartate Amino Transferase 14 U/L (5-31); Bilirubin Direct < 0.2 mg/dL (0.0-0.5); Bilirubin Total 0.2 mg/dL (0.0-1.0); Blood Urea Nitrogen 6 mg/dL (9-16); Carbon Dioxide 27 mmol/L (22-29); Chloride 102 mmol/L (96-108); Creatinine Clr Calc Pharmacy 111.2; Estimated Glomerular Filt Rate > 60; Glucose Random 113 mg/dL (60-115); Lipase 7 U/L (8-78); Potassium 3.6 mmol/L (3.3-5.1); Sodium 136 mmol/L (135-145); Total Protein 6.8 g/dL (6.5-8.0)
[2021-07-29 12:28] LABS: WBC Urine 0 /HPF (0-4)
[2021-07-29 12:29] LABS: Squamous Epithelial Cell Urine TRACE /LPF
[2021-07-29] MEDS: iohexoL 350 MG/ML 100 ML INFUS..BTL IV (14:18)
[2021-07-29 14:57] VITALS: BP 112/59; PULSE 80; RESP 18; TEMP 36.8; O2SAT 98
== END 2021-07-29 15:26 | disposition home or self-care (01) ==
PROVIDERS: Nurse Practitioner Family; Emergency Provider Emergency Medicine Emergency Medical Services; PCP Internal Medicine
DX: R10.30 Lower abdominal pain, unspecified (principal); F17.210 Nicotine dependence, cigarettes, uncomplicated; Z71.6 Tobacco abuse counseling; Z79.899 Other long term (current) drug therapy
CPT/HCPCS: 36415; 74177; 80048; 80076; 81001; 81025; 83605; 83690; 85025; 96361; 96374; 96375; 96376; 99284; J2270; J2405; Q9967

== ENCOUNTER 2021-08-05 16:39 | Emergency (ER) | payer MEDICAID, SELFPAY ==
[2021-08-05 17:38] VITALS: BP 111/63; BP 120/66; PULSE 80; PULSE 85; RESP 16; TEMP 36.1; O2SAT 96; O2SAT 98; BMI 40.3
--- NOTE | 2021-08-05 17:38 | ED_ITS ---
HPI - Psych General Chief Complaint: Psychiatric Symptoms Stated Complaint: CRISIS Time Seen by Provider: 08/05/21 17:12 Source: patient and EMS Mode of arrival: EMS Limitations: no limitations History of Present Illness HPI Narrative: 45 y/o female with history of bipolar II, PTSD, opioid dependence on methadone since 2015, COPD who presents to the ER from home via EMS with worsening depression x1 week with racing thoughts and suicidal thoughts that got worse today. She reports the anniversary of her brother's was yesterday, he 5 years ago from an opioid overdose. She states this time of years [place] hard for her. She was recently hospitalized here in April, was started on multiple medications for depression that she did not continue after discharge because she does not have a psychiatrist or provider who will prescribe them. She states her PCP will give psych meds. She reports increase in sleep. she does not go anywhere but the methadone clinic and back to her house where she sits in her dark room. she has a therapist at the methadone clinic that she talks to once a week, she reports that therapist is worried about her. Patient reports a history of suicide attempt in 2006 where she tried to hang herself. Her boyfriend found her she was unconscious. She has the same plan this time but states she does not want herself. She is desperate to stop the racing thoughts. she denies any auditory or visual hallucinations. No homicidal thoughts. MD complaint: suicidal ideation, feels depressed and anxiety Duration: constant History of same: Yes Relieving factors: none Exacerbating factors: none Context: not taking psychiatric medications and significant life stressor Associated psychiatric symptoms: depression, suicidal ideation and racing thoughts Associated symptoms: headache and other ( Poor p.o. intake) If self harm: admits thoughts of self harm and has plan Related Data Home Medications Medication Instructions Recorded Confirmed methadone 10 mg/mL oral 90 mg PO DAILY@0730 08/05/21 concentrate (Methadose) Previous Rx's Medication Instructions Recorded albuterol sulfate 2.5 mg/0.5 mL 5 mg INHALATION Q4H PRN #30 ea 10/08/20 solution for nebulization albuterol sulfate 90 mcg/actuation 2 puff INHALATION Q4-6H PRN 30 05/02/21 aerosol inhaler Days #6.7 g clonidine HCl 0.1 mg tablet 0.1 mg PO BID PRN 30 Days #60 tab 05/02/21 gabapentin 300 mg capsule 300 mg PO TID 30 Days #90 cap 05/02/21 lamotrigine 100 mg tablet 100 mg PO DAILY 30 Days #30 tab 05/02/21 (Lamictal) lamotrigine 25 mg tablet See Rx Instructions .ROUTE 05/02/21 .COMPLEX #36 tab mirtazapine 30 mg tablet (Remeron) 30 mg PO BEDTIME 30 Days #30 tab 05/02/21 cyclobenzaprine 10 mg tablet 10 mg PO Q8H #20 tab 07/25/21 nitrofurantoin 100 mg PO BID 7 Days #14 cap 07/25/21 monohydrate/macrocrystals 100 mg capsule (Macrobid) phenazopyridine 200 mg tablet 200 mg PO TID PRN 2 Days #5 tab 07/25/21 (Pyridium) lidocaine 5 % topical patch 1 patch TOPICAL DAILY #15 ea 07/29/21 (Lidoderm) methocarbamol 750 mg tablet 750 mg PO TID PRN #15 tab 07/29/21 Allergies Allergy/AdvReac Type Severity Reaction Status Date / Time hernandez [CHERRIES] Allergy Severe ANGIOEDEMA Verified 07/29/21 11:00 NSAIDS (Non-Steroidal Allergy Unknown NOT Verified 07/29/21 11:00 Anti-Inflamma SUPPOSED [NSAIDS (NON-STEROIDAL TO TAKE ANTI-INFLAMMA] DUE TO LIVER DAMAGE IN THE PAST codeine [CODEINE] AdvReac Unknown N/V Verified 07/29/21 11:00 From COMPAZINE Allergy Unknown LOCK JAW Uncoded 06/02/20 16:38 From TORADOL Allergy Unknown HIVES Uncoded 06/02/20 16:38 From ULTRAM Allergy Unknown SEIZURE Uncoded 06/02/20 16:38 PMF Past Medical History Medical History CHF (congestive heart failure) Chronic post-traumatic stress disorder (PTSD) COPD (chronic obstructive pulmonary disease) Depression Diabetes Mitral valve regurgitation Opioid use disorder Surgical History H/O knee surgery History of appendectomy Social History Social History Household Members: Friend(s) Household Members Other:: 4 Housing: House Do you presently have visiting nurse or other home services: No Alcohol intake: unknown Patient Tobacco Use Status: Current everyday Tobacco user Tobacco use type: Cigarette Cigarettes Per Day: 3 Years Smoked: 10 e-Cigarette/Vaping Use: Never Used Second Hand Smoke Exposure: Yes Substance Use Type: Crack/Cocaine, Heroin and Marijuana Advance Directives: No Advance Directives Information Provided: Yes Patient : No service: No Sexual orientation: Did not discuss Physical Exam Vital Signs: Vital Signs: Last Vital Signs Temp 97 F 08/05/21 17:38 Pulse 85 08/05/21 17:38 Resp 16 08/05/21 17:38 BP 111/63 08/05/21 17:38 Pulse Ox 96 08/05/21 17:38 Body Mass Index 40.3 Course Course Course Narrative: 45 y/o female with history of bipolar, depression, COPD, hx suicide attempt in 2006, hx inpatient psych admit in April with similar pres entation presents with worsening depression and SI w/ plan. Will get metabolic workup, utox and have [facility]N see her. Anticipate inpatient level of care. Reevaluation(s) Reevaluation #1: Utox +fentanyl and marijuana. Labs otherwise unremarkable. Medically cleared at this time. Seen by CARE team who is recommending inpatient level of care. Physician observation started at 8:39pm. Patient placed in physician observation because patient is awaiting inpatient psych admission. At the time observation was started patient's vital signs were stable. Patient is alert and oriented. Neuro exam is non-focal. CV: RRR and lungs are clear. Will continue to monitor. MDM - Psych Lab Data Result diagrams: 08/05/21 17:13 08/05/21 17:13 Labs: Lab Results 08/05/21 08/05/21 08/05/21 Range/Units 17:13 17:13 17:13 WBC 9.2 (4.8-10.8) X10*3/uL RBC 4.97 (4.20-5.50) X10*6/uL Hgb 13.5 (12.0-16.0) g/dl Hct 41.4 (37.0-47.0) % MCV 83.3 (80.0-98.0) fL MCH 27.2 (27.0-33.0) pg MCHC 32.6 (31.0-35.0) g/dl RDW 15.4 (11.0-16.0) % Plt Count TNP MPV 12.1 (9.4-12.3) fL Immature Gran % (Auto) 0.3 (0.0-0.4) % Neut % (Auto) 64.9 (45-73) % Lymph % (Auto) 27.3 (20-40) % [place] % (Auto) 5.5 (2-11) % Eos % (Auto) 1.6 (0-4) % Baso % (Auto) 0.4 (0-2) % Lymph # (Auto) 2.5 (1.2-4.9) X10*3/uL [place] # (Auto) 0.5 (0.1-1.2) X10*3/uL Eos # (Auto) 0.2 (0.0-0.4) X10*3/uL Baso # (Auto) 0.0 (0.0-0.2) X10*3/uL Abs Immat Gran (auto) 0.03 (0.00-0.03) X10*3/uL Absolute Neuts (auto) 6.0 (2.0-8.3) x10*3/uL Absolute Nucleated RBC 0.000 (0.0-0.012) X10*3/uL Nucleated RBC % (auto) 0.0 (0.0-0.2) /100WBC Smear Tech's Comments VERIFIED Sodium 133 L (135-145) mmol/L Potassium 4.2 (3.3-5.1) mmol/L Chloride 102 (96-108) mmol/L Carbon Dioxide 21 L (22-29) mmol/L Anion Gap 14 (12-20) BUN 9 (9-16) mg/dL Creatinine 0.74 (0.5-1.4) mg/dL Estim Creat Clear Calc 103.9 Estimated GFR > 60 Random Glucose 136 H (60-115) mg/dL Calcium 8.9 (8.4-10.2) mg/dL Magnesium 1.9 (1.6-2.6) mg/dL Total Bilirubin 0.3 (0.0-1.0) mg/dL Direct Bilirubin < 0.2 (0.0-0.5) mg/dL AST 13 (5-31) U/L ALT 9 (0-31) U/L Alkaline Phosphatase 88 (39-117) U/L Total Protein 7.2 (6.5-8.0) g/dL Albumin 4.0 (3.5-5.0) g/dL Urine Color Urine Appearance Urine pH (5.0-8.0) Ur Specific [place] (1.005-1.025) Urine Protein (NEG-TRACE) MG/DL Urine Glucose (UA) (NEG) MG/DL Urine Ketones (NEG) MG/DL Urine Blood (NEG) Urine Nitrite (NEG) Ur Leukocyte Esterase (NEG) Urine RBC (0) /HPF Urine WBC (0-4) /HPF Ur Squamous Epith Cells /LPF Urine Bacteria /LPF Urine Mucus /LPF Urine Opiates Screen (Not Detect) Urine Fentanyl Screen (Not Detect) Ur Barbiturates Screen (Not Detect) Ur Phencyclidine Scrn (Not Detect) Ur Amphetamines Screen (Not Detect) U Benzodiazepines Scrn (Not Detect) Urine Cocaine Screen (Not Detect) U Marijuana (THC) Screen (Not Detect) Ethyl Alcohol < 10 mg/dL COVID-19 ([facility]) (Negative) COVID-19 Clin Com 08/05/21 08/05/21 08/05/21 Range/Units 17:31 18:17 18:17 WBC (4.8-10.8) X10*3/uL RBC (4.20-5.50) X10*6/uL Hgb (12.0-16.0) g/dl Hct (37.0-47.0) % MCV (80.0-98.0) fL MCH (27.0-33.0) pg MCHC (31.0-35.0) g/dl RDW (11.0-16.0) % Plt Count MPV (9.4-12.3) fL Immature Gran % (Auto) (0.0-0.4) % Neut % (Auto) (45-73) % Lymph % (Auto) (20-40) % [place] % (Auto) (2-11) % Eos % (Auto) (0-4) % Baso % (Auto) (0-2) % Lymph # (Auto) (1.2-4.9) X10*3/uL [place] # (Auto) (0.1-1.2) X10*3/uL Eos # (Auto) (0.0-0.4) X10*3/uL Baso # (Auto) (0.0-0.2) X10*3/uL Abs Immat Gran (auto) (0.00-0.03) X10*3/uL Absolute Neuts (auto) (2.0-8.3) x10*3/uL Absolute Nucleated RBC (0.0-0.012) X10*3/uL Nucleated RBC % (auto) (0.0-0.2) /100WBC Smear Tech's Comments Sodium (135-145) mmol/L Potassium (3.3-5.1) mmol/L Chloride (96-108) mmol/L Carbon Dioxide (22-29) mmol/L Anion Gap (12-20) BUN (9-16) mg/dL Creatinine (0.5-1.4) mg/dL Estim Creat Clear Calc Estimated GFR Random Glucose (60-115) mg/dL Calcium (8.4-10.2) mg/dL Magnesium (1.6-2.6) mg/dL Total Bilirubin (0.0-1.0) mg/dL Direct Bilirubin (0.0-0.5) mg/dL AST (5-31) U/L ALT (0-31) U/L Alkaline Phosphatase (39-117) U/L Total Protein (6.5-8.0) g/dL Albumin (3.5-5.0) g/dL Urine Color YELLOW Urine Appearance HAZY Urine pH 6.0 (5.0-8.0) Ur Specific [place] >= 1.030 H (1.005-1.025) Urine Protein NEG (NEG-TRACE) MG/DL Urine Glucose (UA) NEG (NEG) MG/DL Urine Ketones NEG (NEG) MG/DL Urine Blood 2+ H (NEG) Urine Nitrite NEG (NEG) Ur Leukocyte Esterase NEG (NEG) Urine RBC 5-9 H (0) /HPF Urine WBC 0-2 (0-4) /HPF Ur Squamous Epith Cells 2+ /LPF Urine Bacteria TRACE /LPF Urine Mucus TRACE /LPF Urine Opiates Screen Not Detected (Not Detect) Urine Fentanyl Screen POSITIVE H (Not Detect) Ur Barbiturates Screen Not Detected (Not Detect) Ur Phencyclidine Scrn Not Detected (Not Detect) Ur Amphetamines Screen Not Detected (Not Detect) U Benzodiazepines Scrn Not Detected (Not Detect) Urine Cocaine Screen Not Detected (Not Detect) U Marijuana (THC) Screen POSITIVE H (Not Detect) Ethyl Alcohol mg/dL COVID-19 ([facility]) Negative (Negative) COVID-19 Clin Com See Note Critical Care Time Critical Care Time Critical Care Time: No Discharge Plan Discharge Clinical Impression: Suicidal ideation, Bipolar II disorder Prescriptions: No Action clonidine HCl 0.1 mg Tablet 0.1 mg PO BID PRN (Reason: mild anxiety) 30 Days Qty: 60 RF: 0 lamotrigine 25 mg Tablet See Rx Instructions .ROUTE .COMPLEX Qty: 36 RF: 0 gabapentin 300 mg Capsule 300 mg PO TID 30 Days Qty: 90 RF: 0 mirtazapine [Remeron] 30 mg tablet 30 mg PO BEDTIME 30 Days Qty: 30 RF: 0 albuterol sulfate 90 mcg/actuation HFA aerosol inhaler 2 puff inhalation Q4-6H PRN (Reason: shortness of breath or wheezing) 30 Days Qty: 6.7 RF: 0 lamotrigine [Lamictal] 100 mg tablet 100 mg PO DAILY 30 Days Qty: 30 RF: 0 albuterol sulfate 2.5 mg/0.5 mL solution for nebulization 5 mg inhalation Q4H PRN (Reason: shortness of breath or wheezing) Qty: 30 RF: 0 methadone [Methadose] 10 mg/mL concentrate 90 mg PO DAILY@0730 RF: 0 cyclobenzaprine 10 mg tablet 10 mg PO Q8H Qty: 20 RF: 0 phenazopyridine [Pyridium] 200 mg tablet 200 mg PO TID PRN (Reason: pain) 2 Days Qty: 5 RF: 0 nitrofurantoin monohyd/m-cryst [Macrobid] 100 mg capsule 100 mg PO BID 7 Days Qty: 14 RF: 0 lidocaine [Lidoderm] 5 % adhesive patch,medicated 1 patch topical DAILY Qty: 15 RF: 0 methocarbamol 750 mg tablet 750 mg PO TID PRN (Reason: muscle spasm) Qty: 15 RF: 0
[2021-08-05 17:55] LABS: COVID-19 Test Negative (Negative); IDNOW Serial# 08D9AD1C
[2021-08-05] MEDS: LORazepam 1 MG TABLET PO ×2 (18:14→22:51)
[2021-08-05 18:30] LABS: Appearance Urine HAZY; Color Urine YELLOW; Glucose Urine UA NEG (NEG); Leukocyte Esterase Urine NEG (NEG); Nitrite Urine NEG (NEG); Specific Gravity - Urine >= 1.030 (1.005-1.025); UACC Culture Trigger NO; Urine Blood 2+ (NEG); Urine Ketones NEG (NEG); Urine Protein NEG (NEG-TRACE)
[2021-08-05 18:35] LABS: Ethanol < 10 mg/dL
[2021-08-05 18:41] LABS: Alanine Aminotransferase 9 U/L (0-31); Alkaline Phosphatase 88 U/L (39-117); Anion Gap 14 (12-20); Aspartate Amino Transferase 13 U/L (5-31); Bilirubin Direct < 0.2 mg/dL (0.0-0.5); Bilirubin Total 0.3 mg/dL (0.0-1.0); Blood Urea Nitrogen 9 mg/dL (9-16); Calcium 8.9 mg/dL (8.4-10.2); Carbon Dioxide 21 mmol/L (22-29); Chloride 102 mmol/L (96-108); Creatinine Clr Calc Pharmacy 103.9; Estimated Glomerular Filt Rate > 60; Glucose Random 136 mg/dL (60-115); Magnesium 1.9 mg/dL (1.6-2.6); Potassium 4.2 mmol/L (3.3-5.1); Sodium 133 mmol/L (135-145); Total Protein 7.2 g/dL (6.5-8.0)
[2021-08-05 18:45] LABS: Basophils Percent Auto 0.4 % (0-2); Eosinophils Absolute Auto 0.2 X10*3/uL (0.0-0.4); Eosinophils Percent Auto 1.6 % (0-4); Hematocrit 41.4 % (37.0-47.0); Hemoglobin 13.5 g/dl (12.0-16.0); Imm Gran Abs Auto 0.03 X10*3/uL (0.00-0.03); Imm Gran Pct Auto 0.3 % (0.0-0.4); Lymphocytes Absolute Auto 2.5 X10*3/uL (1.2-4.9); Lymphocytes Percent Auto 27.3 % (20-40); MANUAL DIFF FLAG SCAN; Mean Corpuscular HGB Conc 32.6 g/dl (31.0-35.0); Mean Corpuscular Hemoglobin 27.2 pg (27.0-33.0); Mean Corpuscular Volume 83.3 fL (80.0-98.0); Mean Platelet Volume 12.1 fL (9.4-12.3); Monocytes Absolute Auto 0.5 X10*3/uL (0.1-1.2); Monocytes Percent Auto 5.5 % (2-11); Neutrophils Percent Auto 64.9 % (45-73); PLT CLUMP 1; Red Blood Count 4.97 X10*6/uL (4.20-5.50); Red Cell Distribution Width 15.4 % (11.0-16.0); SCAN SMEAR FLAG 1
[2021-08-05 18:45] LABS: Bacteria Urine TRACE /LPF; Mucus Urine TRACE /LPF; Squamous Epithelial Cell Urine 2+ /LPF; WBC Urine 0-2 /HPF (0-4)
[2021-08-05 18:48] LABS: White Blood Count 9.2 X10*3/uL (4.8-10.8)
[2021-08-05 18:50] LABS: Amphetamine Screen Urine Not Detected (Not Detect); Barbiturates, Urine Not Detected (Not Detect); Benzodiazepines Screen Urine Not Detected (Not Detect); Cannabinoid Screen Urine POSITIVE (Not Detect); Cocaine Screen Urine Not Detected (Not Detect); Fentanyl, urine POSITIVE (Not Detect); Opiate Screen Urine Not Detected (Not Detect); Phencyclidine Screen Urine Not Detected (Not Detect)
[2021-08-05 19:14] LABS: SLIDE REVIEW VERIFIED
[2021-08-05 22:14] VITALS: BP 124/73; PULSE 82; RESP 20; TEMP 36.1; O2SAT 97
--- NOTE | 2021-08-06 05:45 | PC.NURSE ---
Patient slept through the night, no distress observed/reported, behavior appropriate, med rec not done patient is off her medication for over 2 months, patient's disposition is section 12 inpatient bed search per care team, med compliant VSS, will continue to monitor.
[2021-08-06 05:56] VITALS: BP 100/61; PULSE 77; RESP 18; TEMP 36.5; O2SAT 94
--- NOTE | 2021-08-06 06:14 | PC.NURSE ---
Methadone dose verified/faxed to pharmacy/med rec updated/pending providers approval
[2021-08-06] MEDS: methADONE HCl 20 MG/2 ML ORAL.CONC 90 MG PO (06:52)
--- NOTE | 2021-08-06 07:26 | PC.NURSE ---
patient appears to remain at rest at present, respirations are even and unlabored patient appears in no distress
[2021-08-06] MEDS: LORazepam 1 MG TABLET PO ×2 (07:56→18:38)
[2021-08-06 09:32] VITALS: BP 122/80; PULSE 73; RESP 16; TEMP 36.6; O2SAT 95
--- NOTE | 2021-08-06 15:25 | MHC.CARE ---
Pt evaluated by CARE team on 08/05. Disposition for inpatient psychiatric admission, sect 12a signed by t/w and placed in pt's chart. Re-assessed this afternoon, continues to meet medical necessity for admission. Bedsearch exhausted, to be continued tomorrow.
[2021-08-07 00:50] VITALS: RESP 18
--- NOTE | 2021-08-07 05:25 | PC.NURSE ---
Patient slept through the night, no distress observed/reported, remained in her through out the shift, disposition is section 12 inpatient bed search, will continue to monitor.
[2021-08-07 06:17] VITALS: BP 121/74; PULSE 85; RESP 16; TEMP 36.6; O2SAT 96
[2021-08-07] MEDS: LORazepam 1 MG TABLET PO ×2 (06:28→15:57)
--- NOTE | 2021-08-07 07:44 | PC.NURSE ---
patient appeared to remain asleep at beginning of shift respirations are even and unlabored, patient appears in no distress
[2021-08-07] MEDS: methADONE HCl 20 MG/2 ML ORAL.CONC 90 MG PO (08:21)
[2021-08-07 15:46] VITALS: BP 105/64; PULSE 73; RESP 18; TEMP 36.5; O2SAT 94
--- NOTE | 2021-08-07 16:16 | PC.NURSE ---
Pt alert and oriented x4, calm and cooperative. Pt denies pain. Pt ambulating without issues. Pt states she is anxious for the drive for transport, medicated per MD orders. Pt left ER with transport without issues.
== END 2021-08-07 16:18 ==
PROVIDERS: Emergency Medicine; Physician Assistant; Emergency Provider Emergency Medicine Emergency Medical Services
DX: F31.81 Bipolar II disorder (principal); R45.851 Suicidal ideations; R45.1 Restlessness and agitation; Z20.822 Contact with and (suspected) exposure to COVID-19; R51.9 Headache, unspecified; F43.12 Post-traumatic stress disorder, chronic; F11.20 Opioid dependence, uncomplicated; Z91.51 Personal history of suicidal behavior; Z91.19 Patient's noncompliance with other medical treatment and regimen
CPT/HCPCS: 36415; 80048; 80076; 80307; 81001; 82077; 83735; 85025; 87635; 99285

== ENCOUNTER 2021-10-26 14:26 | Inpatient (IN) | payer MEDICAID, OTHER, SELFPAY ==
--- NOTE | ~2021-10-26 | US_ITS ---
EXAMINATION: US SOFT TISSUE CLINICAL INFORMATION: Palpable mass over the left back/flank. COMPARISON: Previous CT of the abdomen and pelvis July 2021 TECHNIQUE: Ultrasound of the soft tissues is performed with high- frequency oneill-scale imaging and color Doppler. FINDINGS: There are 2 solid iso to hypoechoic lesions just deep to the skin in the area of palpable abnormality. These measure 3.5 x 1.3 x 1.8 cm and 1.3 x 1.1 x 1.7 cm. These appear avascular and most likely represent lipomas. US/US soft tiss head and/or neck IMPRESSION: Palpable abnormality likely corresponds to 2 lipomas.
--- NOTE | ~2021-10-26 | XR_ITS ---
EXAMINATION: XR CHEST CLINICAL INFORMATION: SOB. COMPARISON: Chest 10/08/2020 TECHNIQUE: Frontal view of the chest was obtained. FINDINGS: No significant abnormality is noted involving the heart, lungs, mediastinum, bony thorax or soft tissues. XR/XR chest 1V IMPRESSION: Unremarkable chest examination.
[2021-10-26 14:26] VITALS: BP 118/74; PULSE 114; O2SAT 97
[2021-10-26 14:34] VITALS: BP 117/68; PULSE 110; RESP 18; TEMP 36.8; O2SAT 95
[2021-10-26 14:38] VITALS: BP 117/68; PULSE 110; RESP 16; TEMP 36.8; O2SAT 95; BMI 37.8
[2021-10-26 15:15] LABS: Amphetamine Screen Urine Not Detected (Not Detect); Barbiturates, Urine Not Detected (Not Detect); Benzodiazepines Screen Urine Not Detected (Not Detect); Cannabinoid Screen Urine POSITIVE (Not Detect); Cocaine Screen Urine POSITIVE (Not Detect); Fentanyl, urine POSITIVE (Not Detect); Opiate Screen Urine Not Detected (Not Detect); Phencyclidine Screen Urine Not Detected (Not Detect)
[2021-10-26 15:16] LABS: COVID-19 Test Negative (Negative)
--- NOTE | 2021-10-26 15:25 | ECG_ITS ---
Test Reason : med clearance Blood Pressure : / mmHG Vent. Rate : 087 BPM Atrial Rate : 087 BPM P-R Int : 164 ms QRS Dur : 078 ms QT Int : 384 ms P-R-T Axes : 049 007 050 degrees QTc Int : 462 ms Normal sinus rhythm Low voltage QRS Borderline ECG When compared with ECG of 25-APR-2021 23:26, Vent. rate has increased BY 30 BPM Referred By: Heidy Jama Electronically Signed By:Rolando De La Torre
--- NOTE | 2021-10-26 15:26 | ED_ITS ---
HPI - Psych General Chief Complaint: Psychiatric Symptoms <Heidy Jama MD - Last Filed: 10/26/21 15:29> Stated Complaint: CRISIS, SI WITH PLAN <Heidy Jama MD - Last Filed: 10/26/21 15:29> Time Seen by Provider: 10/26/21 23:24 <Heidy Jama MD - Last Filed: 10/26/21 15:29> History of Present Illness HPI Narrative: Patient is 46-year-old female presents today with having suicidal ideations. Patient from home. Has a history of heroin abuse. Has been on methadone treatment. Used cocaine 3 days ago. Feel very anxious had thoughts about killing herself had thoughts about hanging herself had thoughts about taking overdose of Benadryl. No cough no congestion or upper respiratory symptoms no diaphoresis. Very stressed from everything that is going on in life. Financial family and so on. <Heidy Jama MD - Last Filed: 10/26/21 15:29> Related Data Home Medications: Home Medications Medication Instructions Recorded Confirmed methadone 10 mg/mL oral 90 mg PO DAILY 08/05/21 10/27/21 concentrate (Methadose) Previous Rx's Medication Instructions Recorded albuterol sulfate 2.5 mg/0.5 mL 5 mg INHALATION Q4H PRN #30 ea 10/08/20 solution for nebulization albuterol sulfate 90 mcg/actuation 2 puff INHALATION Q4-6H PRN 30 05/02/21 aerosol inhaler Days #6.7 g clonidine HCl 0.1 mg tablet 0.1 mg PO BID PRN 30 Days #60 tab 05/02/21 gabapentin 300 mg capsule 300 mg PO TID 30 Days #90 cap 05/02/21 lamotrigine 100 mg tablet 100 mg PO DAILY 30 Days #30 tab 05/02/21 (Lamictal) lamotrigine 25 mg tablet See Rx Instructions .ROUTE 05/02/21 .COMPLEX #36 tab mirtazapine 30 mg tablet (Remeron) 30 mg PO BEDTIME 30 Days #30 tab 05/02/21 cyclobenzaprine 10 mg tablet 10 mg PO Q8H #20 tab 07/25/21 nitrofurantoin 100 mg PO BID 7 Days #14 cap 07/25/21 monohydrate/macrocrystals 100 mg capsule (Macrobid) phenazopyridine 200 mg tablet 200 mg PO TID PRN 2 Days #5 tab 07/25/21 (Pyridium) lidocaine 5 % topical patch 1 patch TOPICAL DAILY #15 ea 07/29/21 (Lidoderm) methocarbamol 750 mg tablet 750 mg PO TID PRN #15 tab 07/29/21 <Heidy Jama MD - Last Filed: 10/26/21 15:29> Allergies/Adverse Reactions: Allergies Allergy/AdvReac Type Severity Reaction Status Date / Time hernandez [CHERRIES] Allergy Severe ANGIOEDEMA Verified 07/29/21 11:00 NSAIDS (Non-Steroidal Allergy Unknown NOT Verified 07/29/21 11:00 Anti-Inflamma SUPPOSED [NSAIDS (NON-STEROIDAL TO TAKE ANTI-INFLAMMA] DUE TO LIVER DAMAGE IN THE PAST codeine [CODEINE] AdvReac Unknown N/V Verified 07/29/21 11:00 From COMPAZINE Allergy Unknown LOCK JAW Uncoded 06/02/20 16:38 From TORADOL Allergy Unknown HIVES Uncoded 06/02/20 16:38 From ULTRAM Allergy Unknown SEIZURE Uncoded 06/02/20 16:38 <Heidy Jama MD - Last Filed: 10/26/21 15:29> Review of Systems Review of Systems: Positive stressor positive depression positive anxiety positive previous history of polysubstance abuse <Heidy Jama MD - Last Filed: 10/26/21 15:29> Yes all other systems are reviewed and are negative <Heidy Jama MD - Last Filed: 10/26/21 15:29> [facility] [place] Past Medical History Attestation statement: The following information was validated with the patient. <Heidy Jama MD - Last Filed: 10/26/21 15:29> Medical History: Medical History CHF (congestive heart failure) Chronic post-traumatic stress disorder (PTSD) COPD (chronic obstructive pulmonary disease) Depression Diabetes Mitral valve regurgitation Opioid use disorder <Heidy Jama MD - Last Filed: 10/26/21 15:29> Surgical History: Surgical History H/O knee surgery History of appendectomy <Heidy Jama MD - Last Filed: 10/26/21 15:29> Social History Social History: Social History Household Members: Friend(s) Household Members Other:: 4 Housing: House Do you presently have visiting nurse or other home services: No Alcohol intake: former Patient Tobacco Use Status: Current everyday Tobacco user Tobacco use type: Cigarette Cigarettes Per Day: 3 Years Smoked: 10 Smoked in Last 30 Days: Yes e-Cigarette/Vaping Use: Never Used Second Hand Smoke Exposure: Yes Use of substances other than those prescribed or required for medical reasons: Yes Substance Use Type: Crack/Cocaine Substance Use Frequency: Chronic Longstanding Last Used Substance: Days (ago) Any prior treatment program specific to substance use: Yes (current methadone) Advance Directives: No Advance Directives Information Provided: No Patient : No service: No Sexual orientation: Did not discuss <Heidy Jama MD - Last Filed: 10/26/21 15:29> Physical Exam Vital Signs: Vital Signs: Last Vital Signs Temp 98.0 F 10/27/21 02:24 Pulse 73 10/27/21 02:24 Resp 18 10/27/21 02:24 BP 101/54 L 10/27/21 02:24 Pulse Ox 96 10/27/21 02:24 BMI result Body Mass Index 37.8 <Heidy Jama MD - Last Filed: 10/26/21 15:29> Vital Signs: Last Vital Signs Temp 98.0 F 10/27/21 02:24 Pulse 73 10/27/21 02:24 Resp 18 10/27/21 02:24 BP 101/54 L 10/27/21 02:24 Pulse Ox 96 10/27/21 02:24 BMI result Body Mass Index 37.8 <JOSE Andrade - Last Filed: 10/27/21 09:48> Course Course Course Narrative: Patient placed in physician observation. Patient is still suicidal. Patient in no apparent distress, vital signs have been stable, no acute events overnight. Lungs clear to auscultation bilaterally, heart regular rate and rhythm, nonfocal neuro. Patient, cooperative, states she feels that she is getting her menses today, and feels cramps coming on request Tylenol. Possible admission to M3 or M5 today. Will continue to monitor <JOSE Andrade - Last Filed: 10/27/21 09:48> MDM - Psych MDM Narrative Medical decision making narrative: Well-appearing no acute distress. Will get labs. Will monitor carefully. Crisis to evaluate patient. <Heidy Jama MD - Last Filed: 10/26/21 15:29> Lab Data Result diagrams: : 10/26/21 17:58 10/26/21 17:58 <Heidy Jama MD - Last Filed: 10/26/21 15:29> Labs: Lab Results 10/26/21 10/26/21 10/26/21 Range/Units 14:50 14:50 14:50 WBC (4.8-10.8) X10*3/uL RBC (4.20-5.50) X10*6/uL Hgb (12.0-16.0) g/dl Hct (37.0-47.0) % MCV (80.0-98.0) fL MCH (27.0-33.0) pg MCHC (31.0-35.0) g/dl RDW (11.0-16.0) % Plt Count (160-400) X10*3/uL MPV (9.4-12.3) fL Immature Gran % (Auto) (0.0-0.4) % Neut % (Auto) (45-73) % Lymph % (Auto) (20-40) % [place] % (Auto) (2-11) % Eos % (Auto) (0-4) % Baso % (Auto) (0-2) % Lymph # (Auto) (1.2-4.9) X10*3/uL [place] # (Auto) (0.1-1.2) X10*3/uL Eos # (Auto) (0.0-0.4) X10*3/uL Baso # (Auto) (0.0-0.2) X10*3/uL Abs Immat Gran (auto) (0.00-0.03) X10*3/uL Absolute Neuts (auto) (2.0-8.3) x10*3/uL Absolute Nucleated RBC (0.0-0.012) X10*3/uL Nucleated RBC % (auto) (0.0-0.2) /100WBC Sodium (135-145) mmol/L Potassium (3.3-5.1) mmol/L Chloride (96-108) mmol/L Carbon Dioxide (22-29) mmol/L Anion Gap (12-20) BUN (9-16) mg/dL Creatinine (0.5-1.4) mg/dL Estim Creat Clear Calc Estimated GFR Random Glucose (60-115) mg/dL Calcium (8.4-10.2) mg/dL Total Bilirubin (0.0-1.0) mg/dL AST (5-31) U/L ALT (0-31) U/L Alkaline Phosphatase (39-117) U/L Total Protein (6.5-8.0) g/dL Albumin (3.5-5.0) g/dL Urine Color YELLOW Urine Appearance HAZY Urine pH 5.5 (5.0-8.0) Ur Specific [place] >= 1.030 H (1.005-1.025) Urine Protein NEG (NEG-TRACE) MG/DL Urine Glucose (UA) NEG (NEG) MG/DL Urine Ketones NEG (NEG) MG/DL Urine Blood 1+ H (NEG) Urine Nitrite NEG (NEG) Ur Leukocyte Esterase NEG (NEG) Urine RBC 5-9 H (0) /HPF Urine WBC 1-4 (0-4) /HPF Ur Squamous Epith Cells 3+ /LPF Urine Bacteria 2+ /LPF Urine Mucus TRACE /LPF Salicylates (15-30) mg/dL Urine Opiates Screen Not Detected (Not Detect) Urine Fentanyl Screen POSITIVE H (Not Detect) Acetaminophen (<30) mcg/mL Ur Barbiturates Screen Not Detected (Not Detect) Ur Phencyclidine Scrn Not Detected (Not Detect) Ur Amphetamines Screen Not Detected (Not Detect) U Benzodiazepines Scrn Not Detected (Not Detect) Urine Cocaine Screen POSITIVE H (Not Detect) U Marijuana (THC) Screen POSITIVE H (Not Detect) Ethyl Alcohol mg/dL COVID-19 (ANGELLA) Negative (Negative) COVID-19 Clin Com See Note 10/26/21 10/26/21 10/26/21 Range/Units 17:57 17:58 17:58 WBC 11.4 H (4.8-10.8) X10*3/uL RBC 4.64 (4.20-5.50) X10*6/uL Hgb 12.8 (12.0-16.0) g/dl Hct 39.6 (37.0-47.0) % MCV 85.3 (80.0-98.0) fL MCH 27.6 (27.0-33.0) pg MCHC 32.3 (31.0-35.0) g/dl RDW 14.7 (11.0-16.0) % Plt Count 264 (160-400) X10*3/uL MPV 11.4 (9.4-12.3) fL Immature Gran % (Auto) 0.3 (0.0-0.4) % Neut % (Auto) 64.7 (45-73) % Lymph % (Auto) 27.8 (20-40) % [place] % (Auto) 5.8 (2-11) % Eos % (Auto) 1.0 (0-4) % Baso % (Auto) 0.4 (0-2) % Lymph # (Auto) 3.2 (1.2-4.9) X10*3/uL [place] # (Auto) 0.7 (0.1-1.2) X10*3/uL Eos # (Auto) 0.1 (0.0-0.4) X10*3/uL Baso # (Auto) 0.0 (0.0-0.2) X10*3/uL Abs Immat Gran (auto) 0.03 (0.00-0.03) X10*3/uL Absolute Neuts (auto) 7.4 (2.0-8.3) x10*3/uL Absolute Nucleated RBC 0.000 (0.0-0.012) X10*3/uL Nucleated RBC % (auto) 0.0 (0.0-0.2) /100WBC Sodium 137 (135-145) mmol/L Potassium 4.5 (3.3-5.1) mmol/L Chloride 99 (96-108) mmol/L Carbon Dioxide 29 (22-29) mmol/L Anion Gap 14 (12-20) BUN 10 (9-16) mg/dL Creatinine 0.84 (0.5-1.4) mg/dL Estim Creat Clear Calc 94.1 Estimated GFR > 60 Random Glucose 128 H (60-115) mg/dL Calcium 9.0 (8.4-10.2) mg/dL Total Bilirubin 0.2 (0.0-1.0) mg/dL AST 14 (5-31) U/L ALT 9 (0-31) U/L Alkaline Phosphatase 85 (39-117) U/L Total Protein 6.8 (6.5-8.0) g/dL Albumin 3.8 (3.5-5.0) g/dL Urine Color Urine Appearance Urine pH (5.0-8.0) Ur Specific [place] (1.005-1.025) Urine Protein (NEG-TRACE) MG/DL Urine Glucose (UA) (NEG) MG/DL Urine Ketones (NEG) MG/DL Urine Blood (NEG) Urine Nitrite (NEG) Ur Leukocyte Esterase (NEG) Urine RBC (0) /HPF Urine WBC (0-4) /HPF Ur Squamous Epith Cells /LPF Urine Bacteria /LPF Urine Mucus /LPF Salicylates < 5.0 L (15-30) mg/dL Urine Opiates Screen (Not Detect) Urine Fentanyl Screen (Not Detect) Acetaminophen < 1 (<30) mcg/mL Ur Barbiturates Screen (Not Detect) Ur Phencyclidine Scrn (Not Detect) Ur Amphetamines Screen (Not Detect) U Benzodiazepines Scrn (Not Detect) Urine Cocaine Screen (Not Detect) U Marijuana (THC) Screen (Not Detect) Ethyl Alcohol < 10 mg/dL COVID-19 (ANGELLA) (Negative) COVID-19 Clin Com <Heidy Jama MD - Last Filed: 10/26/21 15:29> Lab Results 10/26/21 10/26/21 10/26/21 Range/Units 14:50 14:50 14:50 WBC (4.8-10.8) X10*3/uL RBC (4.20-5.50) X10*6/uL Hgb (12.0-16.0) g/dl Hct (37.0-47.0) % MCV (80.0-98.0) fL MCH (27.0-33.0) pg MCHC (31.0-35.0) g/dl RDW (11.0-16.0) % Plt Count (160-400) X10*3/uL MPV (9.4-12.3) fL Immature Gran % (Auto) (0.0-0.4) % Neut % (Auto) (45-73) % Lymph % (Auto) (20-40) % [place] % (Auto) (2-11) % Eos % (Auto) (0-4) % Baso % (Auto) (0-2) % Lymph # (Auto) (1.2-4.9) X10*3/uL [place] # (Auto) (0.1-1.2) X10*3/uL Eos # (Auto) (0.0-0.4) X10*3/uL Baso # (Auto) (0.0-0.2) X10*3/uL Abs Immat Gran (auto) (0.00-0.03) X10*3/uL Absolute Neuts (auto) (2.0-8.3) x10*3/uL Absolute Nucleated RBC (0.0-0.012) X10*3/uL Nucleated RBC % (auto) (0.0-0.2) /100WBC Sodium (135-145) mmol/L Potassium (3.3-5.1) mmol/L Chloride (96-108) mmol/L Carbon Dioxide (22-29) mmol/L Anion Gap (12-20) BUN (9-16) mg/dL Creatinine (0.5-1.4) mg/dL Estim Creat Clear Calc Estimated GFR Random Glucose (60-115) mg/dL Calcium (8.4-10.2) mg/dL Total Bilirubin (0.0-1.0) mg/dL AST (5-31) U/L ALT (0-31) U/L Alkaline Phosphatase (39-117) U/L Total Protein (6.5-8.0) g/dL Albumin (3.5-5.0) g/dL Urine Color YELLOW Urine Appearance HAZY Urine pH 5.5 (5.0-8.0) Ur Specific [place] >= 1.030 H (1.005-1.025) Urine Protein NEG (NEG-TRACE) MG/DL Urine Glucose (UA) NEG (NEG) MG/DL Urine Ketones NEG (NEG) MG/DL Urine Blood 1+ H (NEG) Urine Nitrite NEG (NEG) Ur Leukocyte Esterase NEG (NEG) Urine RBC 5-9 H (0) /HPF Urine WBC 1-4 (0-4) /HPF Ur Squamous Epith Cells 3+ /LPF Urine Bacteria 2+ /LPF Urine Mucus TRACE /LPF Salicylates (15-30) mg/dL Urine Opiates Screen Not Detected (Not Detect) Urine Fentanyl Screen POSITIVE H (Not Detect) Acetaminophen (<30) mcg/mL Ur Barbiturates Screen Not Detected (Not Detect) Ur Phencyclidine Scrn Not Detected (Not Detect) Ur Amphetamines Screen Not Detected (Not Detect) U Benzodiazepines Scrn Not Detected (Not Detect) Urine Cocaine Screen POSITIVE H (Not Detect) U Marijuana (THC) Screen POSITIVE H (Not Detect) Ethyl Alcohol mg/dL COVID-19 (ANGELLA) Negative (Negative) COVID-19 Clin Com See Note 10/26/21 10/26/21 10/26/21 Range/Units 17:57 17:58 17:58 WBC 11.4 H (4.8-10.8) X10*3/uL RBC 4.64 (4.20-5.50) X10*6/uL Hgb 12.8 (12.0-16.0) g/dl Hct 39.6 (37.0-47.0) % MCV 85.3 (80.0-98.0) fL MCH 27.6 (27.0-33.0) pg MCHC 32.3 (31.0-35.0) g/dl RDW 14.7 (11.0-16.0) % Plt Count 264 (160-400) X10*3/uL MPV 11.4 (9.4-12.3) fL Immature Gran % (Auto) 0.3 (0.0-0.4) % Neut % (Auto) 64.7 (45-73) % Lymph % (Auto) 27.8 (20-40) % [place] % (Auto) 5.8 (2-11) % Eos % (Auto) 1.0 (0-4) % Baso % (Auto) 0.4 (0-2) % Lymph # (Auto) 3.2 (1.2-4.9) X10*3/uL [place] # (Auto) 0.7 (0.1-1.2) X10*3/uL Eos # (Auto) 0.1 (0.0-0.4) X10*3/uL Baso # (Auto) 0.0 (0.0-0.2) X10*3/uL Abs Immat Gran (auto) 0.03 (0.00-0.03) X10*3/uL Absolute Neuts (auto) 7.4 (2.0-8.3) x10*3/uL Absolute Nucleated RBC 0.000 (0.0-0.012) X10*3/uL Nucleated RBC % (auto) 0.0 (0.0-0.2) /100WBC Sodium 137 (135-145) mmol/L Potassium 4.5 (3.3-5.1) mmol/L Chloride 99 (96-108) mmol/L Carbon Dioxide 29 (22-29) mmol/L Anion Gap 14 (12-20) BUN 10 (9-16) mg/dL Creatinine 0.84 (0.5-1.4) mg/dL Estim Creat Clear Calc 94.1 Estimated GFR > 60 Random Glucose 128 H (60-115) mg/dL Calcium 9.0 (8.4-10.2) mg/dL Total Bilirubin 0.2 (0.0-1.0) mg/dL AST 14 (5-31) U/L ALT 9 (0-31) U/L Alkaline Phosphatase 85 (39-117) U/L Total Protein 6.8 (6.5-8.0) g/dL Albumin 3.8 (3.5-5.0) g/dL Urine Color Urine Appearance Urine pH (5.0-8.0) Ur Specific [place] (1.005-1.025) Urine Protein (NEG-TRACE) MG/DL Urine Glucose (UA) (NEG) MG/DL Urine Ketones (NEG) MG/DL Urine Blood (NEG) Urine Nitrite (NEG) Ur Leukocyte Esterase (NEG) Urine RBC (0) /HPF Urine WBC (0-4) /HPF Ur Squamous Epith Cells /LPF Urine Bacteria /LPF Urine Mucus /LPF Salicylates < 5.0 L (15-30) mg/dL Urine Opiates Screen (Not Detect) Urine Fentanyl Screen (Not Detect) Acetaminophen < 1 (<30) mcg/mL Ur Barbiturates Screen (Not Detect) Ur Phencyclidine Scrn (Not Detect) Ur Amphetamines Screen (Not Detect) U Benzodiazepines Scrn (Not Detect) Urine Cocaine Screen (Not Detect) U Marijuana (THC) Screen (Not Detect) Ethyl Alcohol < 10 mg/dL COVID-19 (ANGELLA) (Negative) COVID-19 Clin Com <JOSE Andrade - Last Filed: 10/27/21 09:48> Discharge Plan Discharge Clinical Impression: Suicidal ideation <Heidy Jama MD - Last Filed: 10/26/21 15:29> Prescriptions: No Action clonidine HCl 0.1 mg Tablet 0.1 mg PO BID PRN (Reason: mild anxiety) 30 Days Qty: 60 0RF Protocol: Hold for SBP< HOLD for SBP < : 90 lamotrigine 25 mg Tablet See Rx Instructions .ROUTE .COMPLEX Qty: 36 0RF Rx Instructions: take 1 tab daily for 8 days; then take 2 tabs daily for 14 days. On 05/25/21 start new prescription for 100mg daily gabapentin 300 mg Capsule 300 mg PO TID 30 Days Qty: 90 0RF mirtazapine [Remeron] 30 mg tablet 30 mg PO BEDTIME 30 Days Qty: 30 0RF albuterol sulfate 90 mcg/actuation HFA aerosol inhaler 2 puff inhalation Q4-6H PRN (Reason: shortness of breath or wheezing) 30 Days Qty: 6.7 0RF lamotrigine [Lamictal] 100 mg tablet 100 mg PO DAILY 30 Days Qty: 30 0RF Rx Instructions: START ON 05/25/21 (AFTER HAVING TAKEN 50MG FOR 2 WEEKS) albuterol sulfate 2.5 mg/0.5 mL solution for nebulization 5 mg inhalation Q4H PRN (Reason: shortness of breath or wheezing) Qty: 30 0RF methadone [Methadose] 10 mg/mL concentrate 90 mg PO DAILY 0RF cyclobenzaprine 10 mg tablet 10 mg PO Q8H Qty: 20 0RF phenazopyridine [Pyridium] 200 mg tablet 200 mg PO TID PRN (Reason: pain) 2 Days Qty: 5 0RF nitrofurantoin monohyd/m-cryst [Macrobid] 100 mg capsule 100 mg PO BID 7 Days Qty: 14 0RF Rx Instructions: must administer with a meal/food lidocaine [Lidoderm] 5 % adhesive patch,medicated 1 patch topical DAILY Qty: 15 0RF Rx Instructions: leave on most painful area for up to 12 hrs methocarbamol 750 mg tablet 750 mg PO TID PRN (Reason: muscle spasm) Qty: 15 0RF <Heidy Jama MD - Last Filed: 10/26/21 15:29>
[2021-10-26] MEDS: LORazepam 1 MG TABLET PO ×2 (15:43→23:37)
[2021-10-26 18:01] LABS: MANUAL DIFF FLAG NO
[2021-10-26 18:11] LABS: Appearance Urine HAZY; Color Urine YELLOW; Glucose Urine UA NEG (NEG); Leukocyte Esterase Urine NEG (NEG); Nitrite Urine NEG (NEG); PH 5.5 (5.0-8.0); Specific Gravity - Urine >= 1.030 (1.005-1.025); UACC Culture Trigger NO; Urine Blood 1+ (NEG); Urine Ketones NEG (NEG); Urine Protein NEG (NEG-TRACE)
[2021-10-26 18:13] LABS: Ethanol < 10 mg/dL
[2021-10-26 18:18] LABS: Alanine Aminotransferase 9 U/L (0-31); Albumin Level 3.8 g/dL (3.5-5.0); Alkaline Phosphatase 85 U/L (39-117); Anion Gap 14 (12-20); Aspartate Amino Transferase 14 U/L (5-31); Bilirubin Total 0.2 mg/dL (0.0-1.0); Blood Urea Nitrogen 10 mg/dL (9-16); Carbon Dioxide 29 mmol/L (22-29); Chloride 99 mmol/L (96-108); Creatinine Clr Calc Pharmacy 94.1; Estimated Glomerular Filt Rate > 60; Glucose Random 128 mg/dL (60-115); Potassium 4.5 mmol/L (3.3-5.1); Sodium 137 mmol/L (135-145); Total Protein 6.8 g/dL (6.5-8.0)
[2021-10-26 18:23] LABS: Acetaminophen LAB < 1 mcg/mL (<30); Salicylate < 5.0 mg/dL (15-30)
[2021-10-26 18:28] LABS: Bacteria Urine 2+ /LPF; Mucus Urine TRACE /LPF; Squamous Epithelial Cell Urine 3+ /LPF
[2021-10-26 18:47] LABS: Basophils Percent Auto 0.4 % (0-2); Eosinophils Absolute Auto 0.1 X10*3/uL (0.0-0.4); Hematocrit 39.6 % (37.0-47.0); Hemoglobin 12.8 g/dl (12.0-16.0); Imm Gran Abs Auto 0.03 X10*3/uL (0.00-0.03); Imm Gran Pct Auto 0.3 % (0.0-0.4); Lymphocytes Absolute Auto 3.2 X10*3/uL (1.2-4.9); Lymphocytes Percent Auto 27.8 % (20-40); Mean Corpuscular HGB Conc 32.3 g/dl (31.0-35.0); Mean Corpuscular Hemoglobin 27.6 pg (27.0-33.0); Mean Corpuscular Volume 85.3 fL (80.0-98.0); Mean Platelet Volume 11.4 fL (9.4-12.3); Monocytes Absolute Auto 0.7 X10*3/uL (0.1-1.2); Monocytes Percent Auto 5.8 % (2-11); Neutrophils Absolute Auto 7.4 x10*3/uL (2.0-8.3); Neutrophils Percent Auto 64.7 % (45-73); Platelet Count 264 X10*3/uL (160-400); Red Blood Count 4.64 X10*6/uL (4.20-5.50); Red Cell Distribution Width 14.7 % (11.0-16.0); White Blood Count 11.4 X10*3/uL (4.8-10.8)
[2021-10-27 02:24] VITALS: BP 101/54; PULSE 73; RESP 18; TEMP 36.7; O2SAT 96
--- NOTE | 2021-10-27 05:46 | PC.NURSE ---
Patient slept through the night, no distress observed/reported, behavior appropriate, disposition per care team is inpatient bed search, VSs, will continue.
[2021-10-27] MEDS: LORazepam 1 MG TABLET PO ×3 (07:46→20:09)
--- NOTE | 2021-10-27 07:46 | PC.NURSE ---
Pt requested ativan for increasing anxiety. Is steady on feet. conversive. calm
[2021-10-27] MEDS: methADONE HCl 20 MG/2 ML ORAL.CONC 90 MG PO (08:10)
--- NOTE | 2021-10-27 08:37 | PC.NURSE ---
Pt has been active in department. Talking with staff and other patients. Steady on feet. States ativan and methadone are starting to help her feel less anxious. Still endorses SI. is awaiting placement
[2021-10-27] MEDS: Acetaminophen 325 MG TABLET 650 MG PO (10:00)
[2021-10-27 10:11] LABS: COVID-19 Test Negative (Negative)
--- NOTE | 2021-10-27 11:52 | PC.NURSE ---
NURSE TO NURSE COMPLETED WITH M5 RN. PT AWAKE, ALERT AND ORIENTED X 3. AMBULATORY IN POD. CALMLY ENGAGED WITH STAFF. COLORING WITH ANOTHER PATIENT IN THE POD.
--- NOTE | 2021-10-27 12:17 | PC.NURSE ---
PT REQUESTING ATIVAN PRIOR TO TRANSFER UPSTAIRS. ESTEBAN NOTIFIED AND ORDERED RECEIVED. MEDICATED ORDERED
--- NOTE | 2021-10-27 15:53 | PC.NURSE ---
Care team maría redding patient will be transferred to m3 before 5pm pt aware
--- NOTE | 2021-10-27 16:27 | PC.NURSE ---
Patient is alert and oriented x 4 lung sounds are clear skin ispink warm and dry speaks in full sentences without difficulty admitted to room 322-1. escorted to the unit via wheel chair with staff, security and belongings.
[2021-10-27 16:43] VITALS: BP 110/63; PULSE 78; RESP 16; TEMP 36.4; O2SAT 96
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
[2021-10-27] MEDS: Prazosin HCL 1 MG CAPSULE 2 MG PO (20:07)
[2021-10-27] MEDS: Gabapentin 300 MG CAPSULE PO (20:07)
[2021-10-27] MEDS: cloNIDine HCL 0.1 MG TABLET PO (20:07)
[2021-10-27] MEDS: risperiDONE 0.25 MG TABLET PO (20:08)
[2021-10-27] MEDS: Mirtazapine 15 MG TABLET PO (20:08)
[2021-10-28] MEDS: LORazepam 1 MG TABLET PO ×3 (03:33→12:18)
[2021-10-28] MEDS: methADONE HCl 20 MG/2 ML ORAL.CONC 90 MG PO (05:26)
[2021-10-28 07:56] LABS: Cholesterol 199 mg/dL; HDL Cholesterol 34 mg/dL; LDL Cholesterol Calculated 127 mg/dl; Triglycerides 192 mg/dL
[2021-10-28 08:18] LABS: Thyroid Stimulating Hormone 2.16 uIU/mL (0.32-4.0)
[2021-10-28] MEDS: cloNIDine HCL 0.1 MG TABLET PO ×3 (08:25→20:03)
[2021-10-28] MEDS: lamoTRIgine 25 MG TABLET PO (08:25)
[2021-10-28] MEDS: Gabapentin 300 MG CAPSULE PO ×3 (08:25→20:04)
[2021-10-28 08:28] LABS: Estimated Average Glucose 140 mg/dL; Hemoglobin A1C 150.2479 umol/L; Hemoglobin A1c % 6.5 %
[2021-10-28 08:31] VITALS: BP 122/61; PULSE 74; RESP 18; TEMP 36.6; O2SAT 96
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
[2021-10-28] MEDS: hydrOXYzine HCL 25 MG TABLET PO (18:31)
[2021-10-28] MEDS: risperiDONE 0.25 MG TABLET PO (20:03)
[2021-10-28] MEDS: Mirtazapine 30 MG TABLET PO (20:04)
[2021-10-28] MEDS: Prazosin HCL 1 MG CAPSULE 2 MG PO (20:04)
[2021-10-28 20:09] VITALS: BP 111/57; PULSE 75; RESP 18; TEMP 36.7; O2SAT 95
[2021-10-29] MEDS: LORazepam 1 MG TABLET PO ×3 (05:03→15:38)
[2021-10-29] MEDS: methADONE HCl 20 MG/2 ML ORAL.CONC 90 MG PO (05:26)
[2021-10-29 08:13] VITALS: BP 109/56; PULSE 79; RESP 18; TEMP 36.8; O2SAT 94
[2021-10-29] MEDS: cloNIDine HCL 0.1 MG TABLET PO ×3 (08:23→20:08)
[2021-10-29] MEDS: Gabapentin 300 MG CAPSULE PO ×3 (08:23→20:07)
[2021-10-29] MEDS: hydrOXYzine HCL 25 MG TABLET PO (08:23)
[2021-10-29] MEDS: lamoTRIgine 25 MG TABLET PO (08:24)
--- NOTE | 2021-10-29 12:20 | HO.PSYCHPN ---
Subjective Subjective Date of Service: 10/29/21 Reason For Visit: SI Interim History: Patient seen. DW team. She was seen in the day room making a puzzle. She is dysphoric. She is saying she still wants to and is hopeless. She says she is trying. We discuss what her goals for the admission are. She responds I want resources. I need a therapist. I need a PCP. When I run out of meds I start using drugs then things get worse. Patient reports depression and SI but says she would not hurt herself here. She hasn't been able to follow up with psychiatrist upon DC from [facility] in [place]. 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 Okay grooming. Intermittent eye contact, attentive. No Tics or Tremors. No abnormal involuntary movements. Calm, cooperative, engaged. Non-pressured speech, spontaneous with regular rate and rhythm, normal volume and prosody. No prolonged speech latency or dysarthria. Mood is ?depressed,? affect is tearful at times. Currently denies active SI/SIB/HI upon inquiry. Denies A/VH or delusional thought content. Thoughts are coherent, organized. No known cognitive or memory impairment. Insight/ Judgment fair and adequate. Later she came up to counselor saying she took a sheet and tied it around her neck . No baxter. No SOB. No distress. Will put on 5 minute checks. Diagnostics Vital Signs (24Hr): Vital Signs - 24 hr 10/28/21 20:09 10/29/21 08:13 Temperature 98.1 F 98.2 F Pulse Rate 75 79 Respiratory Rate 18 18 Blood Pressure 111/57 L 109/56 L Pulse Oximetry 95 94 BMI result Body Mass Index 37.8 Labs Results: 10/26/21 17:58 10/26/21 17:58 Labs: Laboratory Results - last 48 hr 10/28/21 10/28/21 07:03 07:03 Estimat Average Glucose 140 Hemoglobin A1c % 6.5 Triglycerides 192 Cholesterol 199 LDL Cholesterol, Calc 127 HDL Cholesterol 34 TSH 2.16 Medications Medications Current Medications Acetaminophen (Acetaminophen 325 Mg Tablet) 650 mg PO Q6H PRN PRN Reason: Headache/Pain Mild Scale (1-3) Al Hydroxide/Mg Hydroxide (Magnesium Hydrox/Alum Hydrox 30 Ml Oral.Susp) 30 ml PO Q6H PRN PRN Reason: Heartburn/Nausea Albuterol Sulfate (Albuterol Sulfate 90 Mcg 8 Gm Inhaler) 2 puff INHALE RQ4H PRN PRN Reason: asthma Clonidine HCl (Clonidine Hcl 0.1 Mg Tablet) 0.1 mg PO TID [facility]; Protocol Last Admin: 10/29/21 08:23 Dose: 0.1 mg Documented by: Gabapentin (Gabapentin 300 Mg Capsule) 300 mg PO TID [facility] Last Admin: 10/29/21 08:23 Dose: 300 mg Documented by: Hydroxyzine HCl (Hydroxyzine Hcl 25 Mg Tablet) 25 mg PO TID PRN PRN Reason: Anxiety Last Admin: 10/29/21 08:23 Dose: 25 mg Documented by: Lamotrigine (Lamotrigine 25 Mg Tablet) 25 mg PO DAILY [facility] Last Admin: 10/29/21 08:24 Dose: 25 mg Documented by: Lorazepam (Lorazepam 1 Mg Tablet) 1 mg PO TID PRN PRN Reason: anxiety, agitation Last Admin: 10/29/21 09:31 Dose: 1 mg Documented by: Magnesium Hydroxide (Milk Of Magnesia 30 Ml Oral.Susp) 30 ml PO DAILY PRN PRN Reason: Constipation Methadone HCl (Methadone Hcl 20 Mg/2 Ml Oral.Conc) 90 mg PO DAILY@0600 [facility] Last Admin: 10/29/21 05:26 Dose: 90 mg Documented by: Mirtazapine (Mirtazapine 30 Mg Tablet) 30 mg PO BEDTIME [facility] Last Admin: 10/28/21 20:04 Dose: 30 mg Documented by: Prazosin HCl (Prazosin Hcl 1 Mg Capsule) 2 mg PO BEDTIME [facility]; Protocol Last Admin: 10/28/21 20:04 Dose: 2 mg Documented by: Risperidone (Risperidone 0.25 Mg Tablet) 0.25 mg PO BEDTIME [facility] Last Admin: 10/28/21 20:03 Dose: 0.25 mg Documented by: Trazodone HCl (Trazodone Hcl 50 Mg Tablet) 50 mg PO BEDTIME PRN PRN Reason: Insomnia Allergies Allergies Allergy/AdvReac Type Severity Reaction Status Date / Time hernandez [CHERRIES] Allergy Severe ANGIOEDEMA Verified 07/29/21 11:00 NSAIDS (Non-Steroidal Allergy Unknown NOT Verified 07/29/21 11:00 Anti-Inflamma SUPPOSED [NSAIDS (NON-STEROIDAL TO TAKE ANTI-INFLAMMA] DUE TO LIVER DAMAGE IN THE PAST codeine [CODEINE] AdvReac Unknown N/V Verified 07/29/21 11:00 From COMPAZINE Allergy Unknown LOCK JAW Uncoded 06/02/20 16:38 From TORADOL Allergy Unknown HIVES Uncoded 06/02/20 16:38 From ULTRAM Allergy Unknown SEIZURE Uncoded 06/02/20 16:38 Assessment & Plan Assessment & Plan (1) Opioid use disorder: Status: Chronic Code(s): F11.99 - Opioid use, unspecified with unspecified opioid-induced disorder (2) Chronic post-traumatic stress disorder (PTSD): Status: Chronic Code(s): F43.12 - Post-traumatic stress disorder, chronic (3) Bipolar II disorder: Status: Chronic Code(s): F31.81 - Bipolar II disorder Plan Pt is a 46 y.o. female who presented to [facility] ED on 10/26/21 due to SI, overdosed on 25 benadryl tabs, and attempted to hang herself with a scarf but says ?it didn?t hold.?? Precipitating factors include recent of her daughter (killed by her bf), financial stress, med nonadherence (unable to obtain refills), lack of OP psych services, and limited social supports.?REcent relapse on crack cocaine. On methadone maintenance. Plan: Pt would like to re-start her previous med regimen, as she says ?when i was on them i was doing good.? Will re-start lamictal at 25 mg, however she had titrated up to 100 mg without side effect, no rash. Reviewed risks and benefits on medications, including risk of SJS on lamictal. She would like help with obtaining a new PCP and OP psych providers. Monitor response to medications. Monitor for safety in the milieu. Discharge on stabilization. Patient seen. Chart reviewed. Discussed with team. Obtain collateral contact info?as needed 10/28/21: Increase Remeron to 30 mg HS 10/29/21: Will start 5 minute checks. I spent minutes with the patient and/or on the patient floor today, greater than?50% of which was spent counseling/coordinating care. Reason for contiued inpatient stay Substantial Risk for: harm to self
--- NOTE | 2021-10-29 13:17 | PC.NURSE ---
12:20 - MHT reported that pt had reported to them that they had tied a sheet around their neck. Pt tearful. I'm so ashamed of myself . No c/o pain, no visible markings or injury, no respiratory distress. Pt reports she was triggered by the noise on the unit. Dr. Li notified at 12:24, and placed patient on 5 minute checks. Nursing restaurant shift supervisor, Tomasa Fajardo notified. RN sat with pt until they settled. Ate lunch. Currently resting in room. Will continue to monitor.
[2021-10-29 15:04] VITALS: BP 104/54; PULSE 77
[2021-10-29 18:00] VITALS: BP 114/71; PULSE 89; RESP 16; TEMP 36.4; O2SAT 98
[2021-10-29] MEDS: Mirtazapine 30 MG TABLET PO (20:07)
[2021-10-29] MEDS: Prazosin HCL 1 MG CAPSULE 2 MG PO (20:08)
[2021-10-29] MEDS: risperiDONE 0.25 MG TABLET PO (20:08)
[2021-10-30 04:14] LABS: Folate 3.5 ng/mL (> or = 4.0); Vitamin B12 253 pg/mL (200-900)
[2021-10-30] MEDS: methADONE HCl 20 MG/2 ML ORAL.CONC 90 MG PO (05:19)
[2021-10-30] MEDS: LORazepam 1 MG TABLET PO ×3 (05:20→16:59)
[2021-10-30 09:00] VITALS: BP 108/62; PULSE 98; RESP 14; TEMP 36.7; O2SAT 98
[2021-10-30] MEDS: lamoTRIgine 25 MG TABLET PO (09:40)
[2021-10-30] MEDS: cloNIDine HCL 0.1 MG TABLET PO ×3 (09:40→20:31)
[2021-10-30] MEDS: Gabapentin 300 MG CAPSULE PO ×3 (09:40→20:31)
[2021-10-30] MEDS: Magnesium Hydrox/Alum Hydrox 30 ML ORAL.SUSP PO (12:59)
[2021-10-30 15:29] VITALS: BP 111/61; PULSE 95; RESP 18; O2SAT 97
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
[2021-10-30 20:15] VITALS: BP 106/53; PULSE 85; RESP 19; TEMP 36.4; O2SAT 97
[2021-10-30] MEDS: Prazosin HCL 1 MG CAPSULE 2 MG PO (20:31)
[2021-10-30] MEDS: Doxepin HCl 10 MG CAPSULE PO (20:31)
[2021-10-30] MEDS: Mirtazapine 30 MG TABLET PO (20:31)
[2021-10-31] MEDS: LORazepam 1 MG TABLET PO ×3 (02:17→17:41)
[2021-10-31] MEDS: methADONE HCl 20 MG/2 ML ORAL.CONC 90 MG PO (05:51)
[2021-10-31] MEDS: Gabapentin 300 MG CAPSULE PO ×3 (08:45→20:41)
[2021-10-31] MEDS: cloNIDine HCL 0.1 MG TABLET PO ×3 (08:46→20:41)
[2021-10-31] MEDS: lamoTRIgine 25 MG TABLET PO (08:46)
[2021-10-31 10:07] VITALS: BP 118/58; PULSE 87; RESP 18; TEMP 36.5; O2SAT 95
[2021-10-31] MEDS: hydrOXYzine HCL 25 MG TABLET PO (10:30)
--- NOTE | 2021-10-31 14:42 | P.PNPSI_ITS ---
Subjective Subjective Date of Service: 10/31/21 Reason For Visit: SI Interim History: pt roused from napping in her bed mid-afternoon. seems irritable. comes to interview room. states she is feeling a bit better than when coming in. close to being back to her usual med regimen, only needs to increase lamictal back to 100 mg daily. agreeable to increase from 25 mg to 50 mg daily as of tomorrow. endorses continued nightmares and insomnia, also agrees to titrate prazosin to 3 mg at bedtime. no other complaints or requests. per staff, sleeping well. general disappointment. reporting lots of deaths in the family. Mental Status Exam Mental Status Exam Narrative: A&O. adequate grooming. Good eye contact, attentive. No Tics or Tremors. No abnormal involuntary movements. Calm, cooperative, engaged. Non-pressured speech, spontaneous. slowed somewhat. normal volume and flattened tone. No prolonged speech latency or dysarthria. Mood is ?depressed,? affect is appropriate, constricted. endorses SI. Denies HI/AVH or delusional thought content. Thoughts are coherent, organized. No known cognitive or memory impairment. Insight/ Judgment fair and adequate. Diagnostics Vital Signs (24Hr): Vital Signs - 24 hr 10/30/21 15:29 10/30/21 20:15 10/31/21 10:07 Temperature 97.6 F 97.7 F Pulse Rate 95 85 87 Respiratory Rate 18 19 18 Blood Pressure 111/61 106/53 L 118/58 L Pulse Oximetry 97 97 95 BMI result Body Mass Index 37.8 Labs Results: 10/26/21 17:58 10/26/21 17:58 Labs: Laboratory Results - last 48 hr 10/28/21 07:03 Vitamin B12 253 Folate 3.5 L Medications Medications Current Medications Acetaminophen (Acetaminophen 325 Mg Tablet) 650 mg PO Q6H PRN PRN Reason: Headache/Pain Mild Scale (1-3) Al Hydroxide/Mg Hydroxide (Magnesium Hydrox/Alum Hydrox 30 Ml Oral.Susp) 30 ml PO Q6H PRN PRN Reason: Heartburn/Nausea Last Admin: 10/30/21 12:59 Dose: 30 ml Documented by: Albuterol Sulfate (Albuterol Sulfate 90 Mcg 8 Gm Inhaler) 2 puff INHALE RQ4H PRN PRN Reason: asthma Clonidine HCl (Clonidine Hcl 0.1 Mg Tablet) 0.1 mg PO TID [facility]; Protocol Last Admin: 10/31/21 08:46 Dose: 0.1 mg Documented by: Doxepin HCl (Doxepin Hcl 10 Mg Capsule) 10 mg PO BEDTIME [facility] Last Admin: 10/30/21 20:31 Dose: 10 mg Documented by: Gabapentin (Gabapentin 300 Mg Capsule) 300 mg PO TID [facility] Last Admin: 10/31/21 08:45 Dose: 300 mg Documented by: Hydroxyzine HCl (Hydroxyzine Hcl 25 Mg Tablet) 25 mg PO TID PRN PRN Reason: Anxiety Last Admin: 10/31/21 10:30 Dose: 25 mg Documented by: Lamotrigine (Lamotrigine 25 Mg Tablet) 50 mg PO DAILY [facility] Lorazepam (Lorazepam 1 Mg Tablet) 1 mg PO TID PRN PRN Reason: anxiety, agitation Last Admin: 10/31/21 10:30 Dose: 1 mg Documented by: Magnesium Hydroxide (Milk Of Magnesia 30 Ml Oral.Susp) 30 ml PO DAILY PRN PRN Reason: Constipation Methadone HCl (Methadone Hcl 20 Mg/2 Ml Oral.Conc) 90 mg PO DAILY@0600 [facility] Last Admin: 10/31/21 05:51 Dose: 90 mg Documented by: Mirtazapine (Mirtazapine 30 Mg Tablet) 30 mg PO BEDTIME [facility] Last Admin: 10/30/21 20:31 Dose: 30 mg Documented by: Prazosin HCl (Prazosin Hcl 1 Mg Capsule) 3 mg PO BEDTIME [facility]; Protocol Trazodone HCl (Trazodone Hcl 50 Mg Tablet) 50 mg PO BEDTIME PRN PRN Reason: Insomnia Allergies Allergies Allergy/AdvReac Type Severity Reaction Status Date / Time hernandez [CHERRIES] Allergy Severe ANGIOEDEMA Verified 07/29/21 11:00 NSAIDS (Non-Steroidal Allergy Unknown NOT Verified 07/29/21 11:00 Anti-Inflamma SUPPOSED [NSAIDS (NON-STEROIDAL TO TAKE ANTI-INFLAMMA] DUE TO LIVER DAMAGE IN THE PAST codeine [CODEINE] AdvReac Unknown N/V Verified 07/29/21 11:00 From COMPAZINE Allergy Unknown LOCK JAW Uncoded 06/02/20 16:38 From TORADOL Allergy Unknown HIVES Uncoded 06/02/20 16:38 From ULTRAM Allergy Unknown SEIZURE Uncoded 06/02/20 16:38 Assessment & Plan Assessment & Plan (1) Opioid use disorder: Status: Chronic Code(s): F11.99 - Opioid use, unspecified with unspecified opioid-induced disorder (2) Chronic post-traumatic stress disorder (PTSD): Status: Chronic Code(s): F43.12 - Post-traumatic stress disorder, chronic (3) Bipolar II disorder: Status: Chronic Code(s): F31.81 - Bipolar II disorder Plan Pt is a 46 y.o. female who presented to [facility] on 10/26/21 due to SI, overdosed on 25 benadryl tabs, and attempted to hang herself with a scarf but says ?it didn?t hold.?? Precipitating factors include recent of her daughter (killed by her bf), financial stress, med nonadherence (unable to obtain ref ills), lack of OP psych services, and limited social supports.?REcent relapse on crack cocaine. On methadone maintenance. Plan: Pt would like to re-start her previous med regimen, as she says ?when i was on them i was doing good.? Will re-start lamictal at 25 mg, however she had titrated up to 100 mg without side effect, no rash. Reviewed risks and benefits on medications, including risk of SJS on lamictal. She would like help with obtaining a new PCP and OP psych providers. Monitor response to medications. Monitor for safety in the milieu. Discharge on stabilization. Patient seen. Chart reviewed. Discussed with team. Obtain collateral contact info?as needed 10/28/21: Increase Remeron to 30 mg HS 10/29/21: Will start 5 minute checks. 10/30: Will start doxepin 10 mg QHS due to reported past benefit for sleep and says remeron has been less sedating since dose increase. Will discontinue r isperdal 0.25 mg QHS due to apparent lack of benefit and pt concerns with wt gain. Will discontinue 5 min checks, as pt is feeling safer today and there have been no incidents of self harm, resume 15 min checks and pt agrees to talk to staff if she is feeling unsafe. 10/31: increased prazosin to 3 mg at bedtime, increased lamictal to 50 mg at bedtime. vitamins for low folate. I spent minutes with the patient and/or on the patient floor today, greater than?50% of which was spent counseling/coordinating care. Reason for contiued inpatient stay Substantial Risk for: inability to function and rapid decompensation
[2021-10-31] MEDS: Multivitamin TABLET 1 TAB PO (16:07)
[2021-10-31] MEDS: Folic Acid 1 MG TABLET PO (16:07)
[2021-10-31] MEDS: Cyanocobalamin (Vitamin B-12) 100 MCG TABLET PO (16:07)
[2021-10-31 18:00] VITALS: BP 118/62; PULSE 80; RESP 18; TEMP 36.6; O2SAT 97
[2021-10-31] MEDS: Acetaminophen 325 MG TABLET 650 MG PO (19:34)
[2021-10-31] MEDS: Doxepin HCl 10 MG CAPSULE PO (20:41)
[2021-10-31] MEDS: Prazosin HCL 1 MG CAPSULE 3 MG PO (20:41)
[2021-10-31] MEDS: Mirtazapine 30 MG TABLET PO (20:41)
[2021-11-01] MEDS: Acetaminophen 325 MG TABLET 650 MG PO ×2 (03:16→20:34)
[2021-11-01] MEDS: LORazepam 1 MG TABLET PO ×3 (03:16→20:41)
[2021-11-01] MEDS: methADONE HCl 20 MG/2 ML ORAL.CONC 90 MG PO (05:10)
[2021-11-01] MEDS: Magnesium Hydrox/Alum Hydrox 30 ML ORAL.SUSP PO (06:17)
[2021-11-01 08:00] VITALS: BP 115/57; PULSE 83; RESP 15; TEMP 37.1; O2SAT 94
[2021-11-01] MEDS: Multivitamin TABLET 1 TAB PO (08:25)
[2021-11-01] MEDS: lamoTRIgine 25 MG TABLET 50 MG PO (08:26)
[2021-11-01] MEDS: cloNIDine HCL 0.1 MG TABLET PO ×2 (08:27→20:34)
[2021-11-01] MEDS: Cyanocobalamin (Vitamin B-12) 100 MCG TABLET PO (08:27)
[2021-11-01] MEDS: Gabapentin 300 MG CAPSULE PO ×3 (08:27→20:35)
[2021-11-01] MEDS: Folic Acid 1 MG TABLET PO (08:27)
[2021-11-01] MEDS: hydrOXYzine HCL 25 MG TABLET PO (08:49)
--- NOTE | 2021-11-01 13:22 | HO.PSYCHPN ---
Subjective Subjective Date of Service: 11/01/21 Reason For Visit: SI Interim History: pt roused from napping in her room. c/o several tender subcutaneous nodules across her left flank, which she describes as new and bothersome. states her mood is better but still depressed. re SI, she reports she is not so suicidal. she is working on getting set up with outpt treaters. agrees to increase prazosin to 4 mg at bedtime tonight due to disrupted sleep. per staff, she has been mostly pleasant with staff. happy with recent room change. anx/dep continue. prazosin and lamictal increased yesterday, vitamins added. declined contact eves. up several times overnight (4-5 times in a 4-5 hour period). Mental Status Exam Mental Status Exam Narrative: A&O. adequate grooming. Good eye contact, attentive. No Tics or Tremors. No abnormal involuntary movements. Calm, cooperative, engaged. Non-pressured speech, spontaneous. slowed somewhat. normal volume and flattened tone. No prolonged speech latency or dysarthria. Mood is ?better, still depressed,? affect is appropriate, constricted. says of SI, not so suicidal. no HI/AVH or delusional thought content expressed. Thoughts are coherent, organized. No known cognitive or memory impairment. Insight/ Judgment fair and adequate. Diagnostics Vital Signs (24Hr): Vital Signs - 24 hr 10/31/21 18:00 11/01/21 08:00 Temperature 97.8 F 98.8 F Pulse Rate 80 83 Respiratory Rate 18 15 Blood Pressure 118/62 115/57 L Pulse Oximetry 97 94 BMI result Body Mass Index 37.8 Labs Results: 10/26/21 17:58 10/26/21 17:58 Medications Medications Current Medications Acetaminophen (Acetaminophen 325 Mg Tablet) 650 mg PO Q6H PRN PRN Reason: Headache/Pain Mild Scale (1-3) Last Admin: 11/01/21 03:16 Dose: 650 mg Documented by: Al Hydroxide/Mg Hydroxide (Magnesium Hydrox/Alum Hydrox 30 Ml Oral.Susp) 30 ml PO Q6H PRN PRN Reason: Heartburn/Nausea Last Admin: 11/01/21 06:17 Dose: 30 ml Documented by: Albuterol Sulfate (Albuterol Sulfate 90 Mcg 8 Gm Inhaler) 2 puff INHALE RQ4H PRN PRN Reason: asthma Clonidine HCl (Clonidine Hcl 0.1 Mg Tablet) 0.1 mg PO TID [facility]; Protocol Last Admin: 11/01/21 08:27 Dose: 0.1 mg Documented by: Cyanocobalamin (Cyanocobalamin (Vitamin B-12) 100 Mcg Tablet) 100 mcg PO DAILY [facility] Last Admin: 11/01/21 08:27 Dose: 100 mcg Documented by: Doxepin HCl (Doxepin Hcl 10 Mg Capsule) 10 mg PO BEDTIME [facility] Last Admin: 10/31/21 20:41 Dose: 10 mg Documented by: Folic Acid (Folic Acid 1 Mg Tablet) 1 mg PO DAILY [facility] Last Admin: 11/01/21 08:27 Dose: 1 mg Documented by: Gabapentin (Gabapentin 300 Mg Capsule) 300 mg PO TID [facility] Last Admin: 11/01/21 08:27 Dose: 300 mg Documented by: Hydroxyzine HCl (Hydroxyzine Hcl 25 Mg Tablet) 25 mg PO TID PRN PRN Reason: Anxiety Last Admin: 11/01/21 08:49 Dose: 25 mg Documented by: Lamotrigine (Lamotrigine 25 Mg Tablet) 50 mg PO DAILY [facility] Last Admin: 11/01/21 08:26 Dose: 50 mg Documented by: Lorazepam (Lorazepam 1 Mg Tablet) 1 mg PO TID PRN PRN Reason: anxiety, agitation Last Admin: 11/01/21 12:03 Dose: 1 mg Documented by: Magnesium Hydroxide (Milk Of Magnesia 30 Ml Oral.Susp) 30 ml PO DAILY PRN PRN Reason: Constipation Methadone HCl (Methadone Hcl 20 Mg/2 Ml Oral.Conc) 90 mg PO DAILY@0600 [facility] Last Admin: 11/01/21 05:10 Dose: 90 mg Documented by: Mirtazapine (Mirtazapine 30 Mg Tablet) 30 mg PO BEDTIME [facility] Last Admin: 10/31/21 20:41 Dose: 30 mg Documented by: Multivitamins/Vitamin C (Multivitamin Tablet) 1 tab PO DAILY [facility] Last Admin: 11/01/21 08:25 Dose: 1 tab Documented by: Prazosin HCl (Prazosin Hcl 1 Mg Capsule) 4 mg PO BEDTIME [facility]; Protocol Trazodone HCl (Trazodone Hcl 50 Mg Tablet) 50 mg PO BEDTIME PRN PRN Reason: Insomnia Allergies Allergies Allergy/AdvReac Type Severity Reaction Status Date / Time hernandez [CHERRIES] Allergy Severe ANGIOEDEMA Verified 07/29/21 11:00 NSAIDS (Non-Steroidal Allergy Unknown NOT Verified 07/29/21 11:00 Anti-Inflamma SUPPOSED [NSAIDS (NON-STEROIDAL TO TAKE ANTI-INFLAMMA] DUE TO LIVER DAMAGE IN THE PAST codeine [CODEINE] AdvReac Unknown N/V Verified 07/29/21 11:00 From COMPAZINE Allergy Unknown LOCK JAW Uncoded 06/02/20 16:38 From TORADOL Allergy Unknown HIVES Uncoded 06/02/20 16:38 From ULTRAM Allergy Unknown SEIZURE Uncoded 06/02/20 16:38 Assessment & Plan Assessment & Plan (1) Opioid use disorder: Status: Chronic Code(s): F11.99 - Opioid use, unspecified with unspecified opioid-induced disorder (2) Chronic post-traumatic stress disorder (PTSD): Status: Chronic Code(s): F43.12 - Post-traumatic stress disorder, chronic (3) Bipolar II disorder: Status: Chronic Code(s): F31.81 - Bipolar II disorder Plan Pt is a 46 y.o. female who presented to [facility] on 10/26/21 due to SI, overdosed on 25 benadryl tabs, and attempted to hang herself with a scarf but says ?it didn?t hold.?? Precipitating factors include recent of her daughter (killed by her bf), financial stress, med nonadherence (unable to obtain refills), lack of OP psych services, and limited social supports.?REcent relapse on crack cocaine. On methadone maintenance. Plan: Pt would like to re-start her previous med regimen, as she says ?when i was on them i was doing good.? Will re-start lamictal at 25 mg, however she had titrated up to 100 mg without side effect, no rash. Reviewed risks and benefits on medications, including risk of SJS on lamictal. She would like help with obtaining a new PCP and OP psych providers. Monitor response to medications. Monitor for safety in the milieu. Discharge on stabilization. Patient seen. Chart reviewed. Discussed with team. Obtain collateral contact info?as needed 10/28/21: Increase Remeron to 30 mg HS 10/29/21: Will start 5 minute checks. 10/30: Will start doxepin 10 mg QHS due to reported past benefit for sleep and says remeron has been less sedating since dose increase. Will discontinue risperdal 0.25 mg QHS due to apparent lack of benefit and pt concerns with wt gain. Will discontinue 5 min checks, as pt is feeling safer today and there have been no incidents of self harm, resume 15 min checks and pt agrees to talk to staff if she is feeling unsafe. 10/31: increased prazosin to 3 mg at bedtime, increased lamictal to 50 mg at bedtime. vitamins for low folate. 11/01: increased prazosin to 4 mg at HS. pt interested in referrals to outpt providers. I spent minutes with the patient and/or on the patient floor today, greater than?50% of which was spent counseling/coordinating care. Reason for contiued inpatient stay Substantial Risk for: inability to function and rapid decompensation
[2021-11-01 17:31] VITALS: BMI 41.3
[2021-11-01 20:32] VITALS: BP 113/60; PULSE 96; TEMP 37.1; O2SAT 95
[2021-11-01] MEDS: Doxepin HCl 10 MG CAPSULE PO (20:34)
[2021-11-01] MEDS: Mirtazapine 30 MG TABLET PO (20:35)
[2021-11-01] MEDS: Prazosin HCL 1 MG CAPSULE 4 MG PO (20:35)
[2021-11-02] MEDS: LORazepam 1 MG TABLET PO ×3 (05:54→18:23)
[2021-11-02] MEDS: methADONE HCl 20 MG/2 ML ORAL.CONC 90 MG PO (05:54)
[2021-11-02 07:00] VITALS: BMI 42.6
[2021-11-02 09:01] VITALS: BP 118/71; PULSE 69; RESP 17; TEMP 36.4; O2SAT 99
[2021-11-02] MEDS: lamoTRIgine 25 MG TABLET 50 MG PO (09:04)
[2021-11-02] MEDS: Cyanocobalamin (Vitamin B-12) 100 MCG TABLET PO (09:04)
[2021-11-02] MEDS: Gabapentin 300 MG CAPSULE PO ×3 (09:04→20:23)
[2021-11-02] MEDS: Multivitamin TABLET 1 TAB PO (09:04)
[2021-11-02] MEDS: cloNIDine HCL 0.1 MG TABLET PO ×2 (09:04→14:55)
[2021-11-02] MEDS: Folic Acid 1 MG TABLET PO (09:04)
[2021-11-02] MEDS: hydrOXYzine HCL 25 MG TABLET PO ×2 (11:11→20:23)
--- NOTE | 2021-11-02 13:17 | P.PNPSI_ITS ---
Subjective Subjective Date of Service: 11/02/21 Reason For Visit: SI Interim History: pt c/o pedal edema, prazosin identified as most likely culprit and DCed. pt agreed to increase HS clonidine as substitute. reports she continues to not sleep well. having nightmares, fleeting SI. depression a little better, however. per staff, c/o nightmares and dep 05/26. anx 06/25. isolative, sleeping during day. fleeting SI. no HI/AVH. poor sleep, eating well. got ativan yesterday at noon for anxiety. up from 0430 this morning on. Mental Status Exam Mental Status Exam Narrative: A&O. adequate grooming. Good eye contact, attentive. No Tics or Tremors. No abnormal involuntary movements. Calm, cooperative, engaged. Non-pressured speech, spontaneous. normal rate, volume, somewhat flattened tone. No prolonged speech latency or dysarthria. Mood is ?a little better,? affect is appropriate, constricted. says of SI, fleeting. no HI/AVH or delusional thought content expressed. Thoughts are coherent, organized. No known cognitive or memory impairment. Insight/ Judgment fair and adequate. Diagnostics Vital Signs (24Hr): Vital Signs - 24 hr 11/01/21 20:32 11/02/21 09:01 Temperature 98.7 F 97.5 F Pulse Rate 96 69 Respiratory Rate 17 Blood Pressure 113/60 118/71 Pulse Oximetry 95 99 BMI result Body Mass Index 41.3 Labs Results: 10/26/21 17:58 10/26/21 17:58 Medications Medications Current Medications Acetaminophen (Acetaminophen 325 Mg Tablet) 650 mg PO Q6H PRN PRN Reason: Headache/Pain Mild Scale (1-3) Last Admin: 11/01/21 20:34 Dose: 650 mg Documented by: Al Hydroxide/Mg Hydroxide (Magnesium Hydrox/Alum Hydrox 30 Ml Oral.Susp) 30 ml PO Q6H PRN PRN Reason: Heartburn/Nausea Last Admin: 11/01/21 06:17 Dose: 30 ml Documented by: Albuterol Sulfate (Albuterol Sulfate 90 Mcg 8 Gm Inhaler) 2 puff INHALE RQ4H PRN PRN Reason: asthma Clonidine HCl (Clonidine Hcl 0.1 Mg Tablet) 0.1 mg PO BID@0900,1500 [facility]; Protocol Clonidine HCl (Clonidine Hcl 0.2 Mg Tablet) 0.4 mg PO BEDTIME [facility]; Protocol Cyanocobalamin (Cyanocobalamin (Vitamin B-12) 100 Mcg Tablet) 100 mcg PO DAILY [facility] Last Admin: 11/02/21 09:04 Dose: 100 mcg Documented by: Doxepin HCl (Doxepin Hcl 10 Mg Capsule) 10 mg PO BEDTIME [facility] Last Admin: 11/01/21 20:34 Dose: 10 mg Documented by: Folic Acid (Folic Acid 1 Mg Tablet) 1 mg PO DAILY [facility] Last Admin: 11/02/21 09:04 Dose: 1 mg Documented by: Gabapentin (Gabapentin 300 Mg Capsule) 300 mg PO TID [facility] Last Admin: 11/02/21 09:04 Dose: 300 mg Documented by: Hydroxyzine HCl (Hydroxyzine Hcl 25 Mg Tablet) 25 mg PO TID PRN PRN Reason: Anxiety Last Admin: 11/02/21 11:11 Dose: 25 mg Documented by: Lamotrigine (Lamotrigine 25 Mg Tablet) 50 mg PO DAILY [facility] Last Admin: 11/02/21 09:04 Dose: 50 mg Documented by: Lorazepam (Lorazepam 1 Mg Tablet) 1 mg PO TID PRN PRN Reason: Anxiety Last Admin: 11/02/21 05:54 Dose: 1 mg Documented by: Magnesium Hydroxide (Milk Of Magnesia 30 Ml Oral.Susp) 30 ml PO DAILY PRN PRN Reason: Constipation Methadone HCl (Methadone Hcl 20 Mg/2 Ml Oral.Conc) 90 mg PO DAILY@0600 [facility] Last Admin: 11/02/21 05:54 Dose: 90 mg Documented by: Mirtazapine (Mirtazapine 30 Mg Tablet) 30 mg PO BEDTIME [facility] Last Admin: 11/01/21 20:35 Dose: 30 mg Documented by: Multivitamins/Vitamin C (Multivitamin Tablet) 1 tab PO DAILY [facility] Last Admin: 11/02/21 09:04 Dose: 1 tab Documented by: Trazodone HCl (Trazodone Hcl 50 Mg Tablet) 50 mg PO BEDTIME PRN PRN Reason: Insomnia Allergies Allergies Allergy/AdvReac Type Severity Reaction Status Date / Time hernandez [CHERRIES] Allergy Severe ANGIOEDEMA Verified 07/29/21 11:00 NSAIDS (Non-Steroidal Allergy Unknown NOT Verified 07/29/21 11:00 Anti-Inflamma SUPPOSED [NSAIDS (NON-STEROIDAL TO TAKE ANTI-INFLAMMA] DUE TO LIVER DAMAGE IN THE PAST codeine [CODEINE] AdvReac Unknown N/V Verified 07/29/21 11:00 From COMPAZINE Allergy Unknown LOCK JAW Uncoded 06/02/20 16:38 From TORADOL Allergy Unknown HIVES Uncoded 06/02/20 16:38 From ULTRAM Allergy Unknown SEIZURE Uncoded 06/02/20 16:38 Assessment & Plan Assessment & Plan (1) Opioid use disorder: Status: Chronic Code(s): F11.99 - Opioid use, unspecified with unspecified opioid-induced disorder (2) Chronic post-traumatic stress disorder (PTSD): Status: Chronic Code(s): F43.12 - Post-traumatic stress disorder, chronic (3) Bipolar II disorder: Status: Chronic Code(s): F31.81 - Bipolar II disorder Plan Pt is a 46 y.o. female who presented to [facility] on 10/26/21 due to SI, overdosed on 25 benadryl tabs, and attempted to hang herself with a scarf but says ?it didn?t hold.?? Precipitating factors include recent of her daughter (killed by her bf), financial stress, med nonadherence (unable to obtain refills), lack of OP psych services, and limited social supports.?REcent relapse on crack cocaine. On methadone maintenance. Plan: Pt would like to re-start her previous med regimen, as she says ?when i was on them i was doing good.? Will re-start lamictal at 25 mg, however she had titrated up to 100 mg without side effect, no rash. Reviewed risks and benefits on medications, including risk of SJS on lamictal. She would like help with obtaining a new PCP and OP psych providers. Monitor response to medications. Monitor for safety in the milieu. Discharge on stabilization. Patient seen. Chart reviewed. Discussed with team. Obtain collateral contact info?as needed 10/28/21: Increase Remeron to 30 mg HS 10/29/21: Will start 5 minute checks. 10/30: Will start doxepin 10 mg QHS due to reported past benefit for sleep and says remeron has been less sedating since dose increase. Will discontinue risperdal 0.25 mg QHS due to apparent lack of benefit and pt concerns with wt gain. Will discontinue 5 min checks, as pt is feeling safer today and there have been no incidents of self harm, resume 15 min checks and pt agrees to talk to staff if she is feeling unsafe. 10/31: increased prazosin to 3 mg at bedtime, increased lamictal to 50 mg at bedtime. vitamins for low folate. 11/01: increased prazosin to 4 mg at HS. pt interested in referrals to outpt providers. 11/02: vickie reyna noted, prazosin DCed. HS clonidine titrated from 0.1 mg to 0.4 mg. I spent minutes with the patient and/or on the patient floor today, greater than?50% of which was spent counseling/coordinating care. Reason for contiued inpatient stay Substantial Risk for: harm to self, inability to function and rapid d ecompensation
[2021-11-02 14:52] VITALS: BP 110/60; PULSE 91
[2021-11-02] MEDS: Acetaminophen 325 MG TABLET 650 MG PO (18:23)
--- NOTE | 2021-11-02 18:37 | PC.NURSE ---
PT requested ativan, when she was told that it was too early for another dose she became upset, went into her room and slammed her door, when staff entered the room pt stated it won't matter I won't be here in 5 minutes pt had sheet wrapped around her neck and was red in the face. Staff were able to remove the sheet, no loss of consciousness, pt able to speak throughout episode. Reddness noted on pt's neck, pt denied pain in her neck and throat. Pt accepted PRN medication, able to take medication without issue. Pt states that she is just tired of living reports grieving the loss of her daughter. Pt continues to endorse SI but denies plan or intent. Provider notified. Pt placed on 1:1 constant observation for safety.
[2021-11-02 20:19] VITALS: BP 106/58; PULSE 83; TEMP 36.4; O2SAT 95
[2021-11-02 20:20] VITALS: BP 109/61; PULSE 85
[2021-11-02] MEDS: Doxepin HCl 10 MG CAPSULE PO (20:23)
[2021-11-02] MEDS: Mirtazapine 30 MG TABLET PO (20:23)
[2021-11-02] MEDS: cloNIDine HCL 0.2 MG TABLET 0.4 MG PO (20:23)
[2021-11-03] MEDS: methADONE HCl 20 MG/2 ML ORAL.CONC 90 MG PO (05:34)
[2021-11-03 08:17] VITALS: BP 128/75; PULSE 75; RESP 16; TEMP 36.6; O2SAT 95
[2021-11-03] MEDS: lamoTRIgine 25 MG TABLET 50 MG PO (08:19)
[2021-11-03] MEDS: Multivitamin TABLET 1 TAB PO (08:19)
[2021-11-03] MEDS: Cyanocobalamin (Vitamin B-12) 100 MCG TABLET PO (08:19)
[2021-11-03] MEDS: Folic Acid 1 MG TABLET PO (08:19)
[2021-11-03] MEDS: cloNIDine HCL 0.1 MG TABLET PO ×2 (08:19→15:59)
[2021-11-03] MEDS: Gabapentin 300 MG CAPSULE PO ×3 (08:19→20:29)
[2021-11-03] MEDS: LORazepam 1 MG TABLET PO ×3 (08:19→20:31)
--- NOTE | 2021-11-03 12:18 | P.PNPSI_ITS ---
Subjective Subjective Date of Service: 11/03/21 Reason For Visit: SI Interim History: pt appears eager to meet with MD. expresses lindsay at perception of having been told yesterday that she sleeps all day (which was not quite the message conveyed, per this gag writer's recollection). later yesterday afternoon she tied a sheet around her neck, staff had to open door within door to access her room. she was red in the face and had a vaishali on her neck from the effort. she denied it was a suicide attempt to MD today, saying it was a self-harm activity. she likened it to others' cutting behaviors. was put on 1:1 after. reports she slept better last night, swelling has decreased in her lower extremities. amenable to increase HS clonidine to 0.5 mg. she asks about DC of 1:1, MD agrees. Mental Status Exam Mental Status Exam Narrative: A&O. adequate grooming. Good eye contact, attentive. No Tics or Tremors. No abnormal involuntary movements. Calm, cooperative, engaged. Non-pressured speech, spontaneous. normal rate, volume, somewhat flattened tone. No prolonged speech latency or dysarthria. affect is appropriate, constricted. no SI. no HI/AVH or delusional thought content expressed. Thoughts are coherent, organized. No known cognitive or memory impairment. Insight/ Judgment fair, but impulsive and self-destructive. Diagnostics Vital Signs (24Hr): Vital Signs - 24 hr 11/02/21 14:52 11/02/21 20:19 11/02/21 20:20 Temperature 97.5 F Pulse Rate 91 83 85 Respiratory Rate Blood Pressure 110/60 106/58 L 109/61 Pulse Oximetry 95 11/03/21 08:17 Temperature 97.9 F Pulse Rate 75 Respiratory Rate 16 Blood Pressure 128/75 Pulse Oximetry 95 BMI result Body Mass Index 42.6 Labs Results: 10/26/21 17:58 10/26/21 17:58 Medications Medications Current Medications Acetaminophen (Acetaminophen 325 Mg Tablet) 650 mg PO Q6H PRN PRN Reason: Headache/Pain Mild Scale (1-3) Last Admin: 11/02/21 18:23 Dose: 650 mg Documented by: Al Hydroxide/Mg Hydroxide (Magnesium Hydrox/Alum Hydrox 30 Ml Oral.Susp) 30 ml PO Q6H PRN PRN Reason: Heartburn/Nausea Last Admin: 11/01/21 06:17 Dose: 30 ml Documented by: Albuterol Sulfate (Albuterol Sulfate 90 Mcg 8 Gm Inhaler) 2 puff INHALE RQ4H PRN PRN Reason: asthma Clonidine HCl (Clonidine Hcl 0.1 Mg Tablet) 0.1 mg PO BID@0900,1500 [facility]; Protocol Last Admin: 11/03/21 08:19 Dose: 0.1 mg Documented by: Clonidine HCl (Clonidine Hcl 0.1 Mg Tablet) 0.5 mg PO BEDTIME [facility]; Protocol Cyanocobalamin (Cyanocobalamin (Vitamin B-12) 100 Mcg Tablet) 100 mcg PO DAILY [facility] Last Admin: 11/03/21 08:19 Dose: 100 mcg Documented by: Doxepin HCl (Doxepin Hcl 10 Mg Capsule) 10 mg PO BEDTIME [facility] Last Admin: 11/02/21 20:23 Dose: 10 mg Documented by: Folic Acid (Folic Acid 1 Mg Tablet) 1 mg PO DAILY [facility] Last Admin: 11/03/21 08:19 Dose: 1 mg Documented by: Gabapentin (Gabapentin 300 Mg Capsule) 300 mg PO TID [facility] Last Admin: 11/03/21 08:19 Dose: 300 mg Documented by: Hydroxyzine HCl (Hydroxyzine Hcl 25 Mg Tablet) 25 mg PO TID PRN PRN Reason: Anxiety Last Admin: 11/02/21 20:23 Dose: 25 mg Documented by: Lamotrigine (Lamotrigine 25 Mg Tablet) 50 mg PO DAILY [facility] Last Admin: 11/03/21 08:19 Dose: 50 mg Documented by: Lorazepam (Lorazepam 1 Mg Tablet) 1 mg PO TID PRN PRN Reason: Anxiety Last Admin: 11/03/21 08:19 Dose: 1 mg Documented by: Magnesium Hydroxide (Milk Of Magnesia 30 Ml Oral.Susp) 30 ml PO DAILY PRN PRN Reason: Constipation Methadone HCl (Methadone Hcl 20 Mg/2 Ml Oral.Conc) 90 mg PO DAILY@0600 [facility] Last Admin: 11/03/21 05:34 Dose: 90 mg Documented by: Mirtazapine (Mirtazapine 30 Mg Tablet) 30 mg PO BEDTIME [facility] Last Admin: 11/02/21 20:23 Dose: 30 mg Documented by: Multivitamins/Vitamin C (Multivitamin Tablet) 1 tab PO DAILY [facility] Last Admin: 11/03/21 08:19 Dose: 1 tab Documented by: Trazodone HCl (Trazodone Hcl 50 Mg Tablet) 50 mg PO BEDTIME PRN PRN Reason: Insomnia Allergies Allergies Allergy/AdvReac Type Severity Reaction Status Date / Time hernandez [CHERRIES] Allergy Severe ANGIOEDEMA Verified 07/29/21 11:00 NSAIDS (Non-Steroidal Allergy Unknown NOT Verified 07/29/21 11:00 Anti-Inflamma SUPPOSED [NSAIDS (NON-STEROIDAL TO TAKE ANTI-INFLAMMA] DUE TO LIVER DAMAGE IN THE PAST codeine [CODEINE] AdvReac Unknown N/V Verified 07/29/21 11:00 From COMPAZINE Allergy Unknown LOCK JAW Uncoded 06/02/20 16:38 From TORADOL Allergy Unknown HIVES Uncoded 06/02/20 16:38 From ULTRAM Allergy Unknown SEIZURE Uncoded 06/02/20 16:38 Assessment & Plan Assessment & Plan (1) Opioid use disorder: Status: Chronic Code(s): F11.99 - Opioid use, unspecified with unspecified opioid-induced disorder (2) Chronic post-traumatic stress disorder (PTSD): Status: Chronic Code(s): F43.12 - Post-traumatic stress disorder, chronic (3) Bipolar II disorder: Status: Chronic Code(s): F31.81 - Bipolar II disorder Plan Pt is a 46 y.o. female who presented to [facility] on 10/26/21 due to SI, overdosed on 25 benadryl tabs, and attempted to hang herself with a scarf but says ?it didn?t hold.?? Precipitating factors include recent of her daughter (killed by her bf), financial stress, med nonadherence (unable to obtain refills), lack of OP psych services, and limited social supports.?REcent relapse on crack cocaine. On methadone maintenance. Plan: Pt would like to re-start her previous med regimen, as she says ?when i was on them i was doing good.? Will re-start lamictal at 25 mg, however she had titrated up to 100 mg without side effect, no rash. Reviewed risks and benefits on medications, including risk of SJS on lamictal. She would like help with obtaining a new PCP and OP psych providers. Monitor response to medications. Monitor for safety in the milieu. Discharge on stabilization. Patient seen. Chart reviewed. Discussed with team. Obtain collateral contact info?as needed 10/28/21: Increase Remeron to 30 mg HS 10/29/21: Will start 5 minute checks. 10/30: Will start doxepin 10 mg QHS due to reported past benefit for sleep and says remeron has been less sedating since dose increase. Will discontinue risperdal 0.25 mg QHS due to apparent lack of benefit and pt concerns with wt gain. Will discontinue 5 min checks, as pt is feeling safer today and there have been no incidents of self harm, resume 15 min checks and pt agrees to talk to staff if she is feeling unsafe. 10/31: increased prazosin to 3 mg at bedtime, increased lamictal to 50 mg at bedtime. vitamins for low folate. 11/01: increased prazosin to 4 mg at HS. pt interested in referrals to outpt providers. 11/02: pedal edema noted, prazosin DCed. HS clonidine titrated from 0.1 mg to 0.4 mg. 11/03: episode of tying sheet around neck yesterday in response to her perception she was told she sleeps all day by this gag writer. safety appears to have returned to baseline, 1:1 instituted yesterday DCed. HS clonidine increased to 0.5 mg. I spent minutes with the patient and/or on the patient floor today, greater than?50% of which was spent counseling/coordinating care. Reason for contiued inpatient stay Substantial Risk for: harm to self, inability to function and rapid decompensati on
[2021-11-03] MEDS: Acetaminophen 325 MG TABLET 650 MG PO ×2 (13:37→20:29)
[2021-11-03 16:02] VITALS: BP 108/67; PULSE 78
[2021-11-03 18:00] VITALS: BP 111/64; PULSE 80; RESP 18; TEMP 36.6; O2SAT 98
[2021-11-03] MEDS: cloNIDine HCL 0.1 MG TABLET 0.5 MG PO (20:28)
[2021-11-03] MEDS: Doxepin HCl 10 MG CAPSULE PO (20:30)
[2021-11-03] MEDS: Mirtazapine 30 MG TABLET PO (20:30)
[2021-11-04] MEDS: methADONE HCl 20 MG/2 ML ORAL.CONC 90 MG PO (05:08)
[2021-11-04] MEDS: LORazepam 1 MG TABLET PO ×3 (05:09→20:28)
[2021-11-04 08:45] VITALS: BP 105/56; PULSE 79; RESP 15; TEMP 36.8; O2SAT 98
[2021-11-04] MEDS: Gabapentin 300 MG CAPSULE PO ×3 (09:01→20:28)
[2021-11-04] MEDS: Cyanocobalamin (Vitamin B-12) 100 MCG TABLET PO (09:01)
[2021-11-04] MEDS: Multivitamin TABLET 1 TAB PO (09:01)
[2021-11-04] MEDS: Folic Acid 1 MG TABLET PO (09:01)
[2021-11-04] MEDS: lamoTRIgine 25 MG TABLET 50 MG PO (09:01)
[2021-11-04 10:22] VITALS: BP 102/66
[2021-11-04] MEDS: cloNIDine HCL 0.1 MG TABLET PO ×2 (10:24→16:33)
--- NOTE | 2021-11-04 13:30 | HO.PSYCHPN ---
Subjective Subjective Date of Service: 11/04/21 Reason For Visit: SI Interim History: pt seeks MD out in [place], appears calm and euthymic. reports she has had no further SIBI or severe mood dysregulation since the other night when she tied sheet around her neck. feels she is getting better, i guess. sleeping well, woke up x2 last night but fell right back to sleep. no nightmares. asks to increase lamictal today; she has been at 50 mg for 4 days, so dosing will be increased to 75 mg as of tomorrow morning. per staff, c/o painful nodules on side. hospitalist yet to see pt. looking forward to DC on saturday. dep 01/23. Mental Status Exam Mental Status Exam Narrative: A&O. adequate grooming. Good eye contact, attentive. No Tics or Tremors. No abnormal involuntary movements. Calm, cooperative, engaged. Non-pressured speech, spontaneous. normal rate, volume, tone. No prolonged speech latency or dysarthria. affect is appropriate, more flexible. no SI/HI/AVH or delusional thought content expressed. Thoughts are coherent, organized. No known cognitive or memory impairment. Insight/ Judgment fair, but impulsive and self-destructive. Diagnostics Vital Signs (24Hr): Vital Signs - 24 hr 11/03/21 16:02 11/03/21 18:00 11/04/21 08:45 Temperature 97.9 F 98.3 F Pulse Rate 78 80 79 Respiratory Rate 18 15 Blood Pressure 108/67 111/64 105/56 L Pulse Oximetry 98 98 11/04/21 10:22 Temperature Pulse Rate Respiratory Rate Blood Pressure 102/66 Pulse Oximetry BMI result Body Mass Index 42.6 Labs Results: 10/26/21 17:58 10/26/21 17:58 Medications Medications Current Medications Acetaminophen (Acetaminophen 325 Mg Tablet) 650 mg PO Q6H PRN PRN Reason: Headache/Pain Mild Scale (1-3) Last Admin: 11/03/21 20:29 Dose: 650 mg Documented by: Al Hydroxide/Mg Hydroxide (Magnesium Hydrox/Alum Hydrox 30 Ml Oral.Susp) 30 ml PO Q6H PRN PRN Reason: Heartburn/Nausea Last Admin: 11/01/21 06:17 Dose: 30 ml Documented by: Albuterol Sulfate (Albuterol Sulfate 90 Mcg 8 Gm Inhaler) 2 puff INHALE RQ4H PRN PRN Reason: asthma Clonidine HCl (Clonidine Hcl 0.1 Mg Tablet) 0.1 mg PO BID@0900,1500 [facility]; Protocol Last Admin: 11/04/21 10:24 Dose: 0.1 mg Documented by: Clonidine HCl (Clonidine Hcl 0.1 Mg Tablet) 0.5 mg PO BEDTIME [facility]; Protocol Last Admin: 11/03/21 20:28 Dose: 0.5 mg Documented by: Cyanocobalamin (Cyanocobalamin (Vitamin B-12) 100 Mcg Tablet) 100 mcg PO DAILY [facility] Last Admin: 11/04/21 09:01 Dose: 100 mcg Documented by: Doxepin HCl (Doxepin Hcl 10 Mg Capsule) 10 mg PO BEDTIME [facility] Last Admin: 11/03/21 20:30 Dose: 10 mg Documented by: Folic Acid (Folic Acid 1 Mg Tablet) 1 mg PO DAILY [facility] Last Admin: 11/04/21 09:01 Dose: 1 mg Documented by: Gabapentin (Gabapentin 300 Mg Capsule) 300 mg PO TID [facility] Last Admin: 11/04/21 09:01 Dose: 300 mg Documented by: Hydroxyzine HCl (Hydroxyzine Hcl 25 Mg Tablet) 25 mg PO TID PRN PRN Reason: Anxiety Last Admin: 11/02/21 20:23 Dose: 25 mg Documented by: Lamotrigine (Lamotrigine 25 Mg Tablet) 75 mg PO DAILY [facility] Lorazepam (Lorazepam 1 Mg Tablet) 1 mg PO TID PRN PRN Reason: Anxiety Last Admin: 11/04/21 12:56 Dose: 1 mg Documented by: Magnesium Hydroxide (Milk Of Magnesia 30 Ml Oral.Susp) 30 ml PO DAILY PRN PRN Reason: Constipation Methadone HCl (Methadone Hcl 20 Mg/2 Ml Oral.Conc) 90 mg PO DAILY@0600 [facility] Last Admin: 11/04/21 05:08 Dose: 90 mg Documented by: Mirtazapine (Mirtazapine 30 Mg Tablet) 30 mg PO BEDTIME [facility] Last Admin: 11/03/21 20:30 Dose: 30 mg Documented by: Multivitamins/Vitamin C (Multivitamin Tablet) 1 tab PO DAILY [facility] Last Admin: 11/04/21 09:01 Dose: 1 tab Documented by: Trazodone HCl (Trazodone Hcl 50 Mg Tablet) 50 mg PO BEDTIME PRN PRN Reason: Insomnia Allergies Allergies Allergy/AdvReac Type Severity Reaction Status Date / Time hernandez [CHERRIES] Allergy Severe ANGIOEDEMA Verified 07/29/21 11:00 NSAIDS (Non-Steroidal Allergy Unknown NOT Verified 07/29/21 11:00 Anti-Inflamma SUPPOSED [NSAIDS (NON-STEROIDAL TO TAKE ANTI-INFLAMMA] DUE TO LIVER DAMAGE IN THE PAST codeine [CODEINE] AdvReac Unknown N/V Verified 07/29/21 11:00 From COMPAZINE Allergy Unknown LOCK JAW Uncoded 06/02/20 16:38 From TORADOL Allergy Unknown HIVES Uncoded 06/02/20 16:38 From ULTRAM Allergy Unknown SEIZURE Uncoded 06/02/20 16:38 Assessment & Plan Assessment & Plan (1) Opioid use disorder: Status: Chronic Code(s): F11.99 - Opioid use, unspecified with unspecified opioid-induced disorder (2) Chronic post-traumatic stress disorder (PTSD): Status: Chronic Code(s): F43.12 - Post-traumatic stress disorder, chronic (3) Bipolar II disorder: Status: Chronic Code(s): F31.81 - Bipolar II disorder Plan Pt is a 46 y.o. female who presented to [facility] on 10/26/21 due to SI, overdosed on 25 benadryl tabs, and attempted to hang herself with a scarf but says ?it didn?t hold.?? Precipitating factors include recent of her daughter (killed by her bf), financial stress, med nonadherence (unable to obtain refills), lack of OP psych services, and limited social supports.?REcent relapse on crack cocaine. On methadone maintenance. Plan: Pt would like to re-start her previous med regimen, as she says ?when i was on them i was doing good.? Will re-start lamictal at 25 mg, however she had titrated up to 100 mg without side effect, no rash. Reviewed risks and benefits on medications, including risk of SJS on lamictal. She would like help with obtaining a new PCP and OP psych providers. Monitor response to medications. Monitor for safety in the milieu. Discharge on stabilization. Patient seen. Chart reviewed. Discussed with team. Obtain collateral contact info?as needed 10/28/21: Increase Remeron to 30 mg HS 10/29/21: Will start 5 minute checks. 10/30: Will start doxepin 10 mg QHS due to reported past benefit for sleep and says remeron has been less sedating since dose increase. Will discontinue risperdal 0.25 mg QHS due to apparent lack of benefit and pt concerns with wt gain. Will discontinue 5 min checks, as pt is feeling safer today and there have been no incidents of self harm, resume 15 min checks and pt agrees to talk to staff if she is feeling unsafe. 10/31: increased prazosin to 3 mg at bedtime, increased lamictal to 50 mg at bedtime. vitamins for low folate. 11/01: increased prazosin to 4 mg at HS. pt interested in referrals to outpt providers. 11/02: pedal edema noted, prazosin DCed. HS clonidine titrated from 0.1 mg to 0.4 mg. 11/03: episode of tying sheet around neck yesterday in response to her perception she was told she sleeps all day by this mortgage or loan underwriter. safety appears to have returned to baseline, 1:1 instituted yesterday DCed. HS clonidine increased to 0.5 mg. 11/04: slept well last NOC, no nightmares. lamictal increased to 75 mg daily as of 11/05. I spent minutes with the patient and/or on the patient floor today, greater than?50% of which was spent counseling/coordinating care. Reason for contiued inpatient stay Substantial Risk for: inability to function and rapid decompensation
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
[2021-11-04 16:34] VITALS: BP 115/58; PULSE 79
[2021-11-04 20:04] VITALS: BP 127/67; PULSE 88; RESP 18; TEMP 36.6; O2SAT 96
[2021-11-04] MEDS: cloNIDine HCL 0.1 MG TABLET 0.5 MG PO (20:26)
[2021-11-04] MEDS: Doxepin HCl 10 MG CAPSULE PO (20:28)
[2021-11-04] MEDS: Mirtazapine 30 MG TABLET PO (20:28)
[2021-11-04] MEDS: Ondansetron ODT 4 MG TAB.RAPDIS TRANSLINGU (20:29)
[2021-11-05] MEDS: LORazepam 1 MG TABLET PO ×3 (05:10→18:37)
[2021-11-05] MEDS: methADONE HCl 20 MG/2 ML ORAL.CONC 90 MG PO (05:10)
[2021-11-05] MEDS: Multivitamin TABLET 1 TAB PO (08:13)
[2021-11-05] MEDS: lamoTRIgine 25 MG TABLET 75 MG PO (08:13)
[2021-11-05] MEDS: Folic Acid 1 MG TABLET PO (08:13)
[2021-11-05] MEDS: Gabapentin 300 MG CAPSULE PO ×3 (08:14→20:00)
[2021-11-05] MEDS: Cyanocobalamin (Vitamin B-12) 100 MCG TABLET PO (08:14)
[2021-11-05] MEDS: cloNIDine HCL 0.1 MG TABLET PO ×2 (08:14→14:53)
[2021-11-05] MEDS: hydrOXYzine HCL 25 MG TABLET PO ×2 (08:16→23:23)
[2021-11-05 08:18] VITALS: BP 121/55; PULSE 73; RESP 20; TEMP 35.6; O2SAT 97
[2021-11-05 14:50] VITALS: BP 99/55; PULSE 79; RESP 18; O2SAT 96
--- NOTE | 2021-11-05 14:55 | P.PNPSI_ITS ---
Subjective Subjective Date of Service: 11/05/21 Reason For Visit: SI Interim History: U/S results reviewed with pt - lipoma. med consult rec of warm compress and tyl for pain reviewed. pt c/o upset stomach over the past couple of days, but improved from prior. slept well last NOC, no nightmares. planning for D/C. per staff, U/S of flank completed. no issues today. nausea resolved. Mental Status Exam Mental Status Exam Narrative: A&O. adequate grooming. Good eye contact, attentive. No Tics or Tremors. No abnormal involuntary movements. Calm, cooperative, engaged. Non-pressured speech, spontaneous. normal rate, volume, tone. No prolonged speech latency or dysarthria. affect is appropriate, more flexible. no SI/HI/AVH or delusional thought content expressed. Thoughts are coherent, organized. No known cognitive or memory impairment. Insight/ Judgment fair, but impulsive. Diagnostics Vital Signs (24Hr): Vital Signs - 24 hr 11/04/21 16:34 11/04/21 20:04 11/05/21 08:18 Temperature 97.9 F 96.1 F L Pulse Rate 79 88 73 Respiratory Rate 18 20 Blood Pressure 115/58 L 127/67 121/55 L Pulse Oximetry 96 97 BMI result Body Mass Index 42.6 Labs Results: 10/26/21 17:58 10/26/21 17:58 Imaging Radiology Impressions: ITS Impressions Head/Neck Ultrasound 11/05/21 10:19 IMPRESSION: Palpable abnormality likely corresponds to 2 lipomas. Medications Medications Current Medications Acetaminophen (Acetaminophen 325 Mg Tablet) 650 mg PO Q6H PRN PRN Reason: Headache/Pain Mild Scale (1-3) Last Admin: 11/03/21 20:29 Dose: 650 mg Documented by: Al Hydroxide/Mg Hydroxide (Magnesium Hydrox/Alum Hydrox 30 Ml Oral.Susp) 30 ml PO Q6H PRN PRN Reason: Heartburn/Nausea Last Admin: 11/01/21 06:17 Dose: 30 ml Documented by: Albuterol Sulfate (Albuterol Sulfate 90 Mcg 8 Gm Inhaler) 2 puff INHALE RQ4H PRN PRN Reason: asthma Clonidine HCl (Clonidine Hcl 0.1 Mg Tablet) 0.1 mg PO BID@0900,1500 [facility]; Protocol Last Admin: 11/05/21 14:53 Dose: 0.1 mg Documented by: Clonidine HCl (Clonidine Hcl 0.1 Mg Tablet) 0.5 mg PO BEDTIME [facility]; Protocol Last Admin: 11/04/21 20:26 Dose: 0.5 mg Documented by: Cyanocobalamin (Cyanocobalamin (Vitamin B-12) 100 Mcg Tablet) 100 mcg PO DAILY [facility] Last Admin: 11/05/21 08:14 Dose: 100 mcg Documented by: Doxepin HCl (Doxepin Hcl 10 Mg Capsule) 10 mg PO BEDTIME [facility] Last Admin: 11/04/21 20:28 Dose: 10 mg Documented by: Folic Acid (Folic Acid 1 Mg Tablet) 1 mg PO DAILY [facility] Last Admin: 11/05/21 08:13 Dose: 1 mg Documented by: Gabapentin (Gabapentin 300 Mg Capsule) 300 mg PO TID [facility] Last Admin: 11/05/21 14:53 Dose: 300 mg Documented by: Hydroxyzine HCl (Hydroxyzine Hcl 25 Mg Tablet) 25 mg PO TID PRN PRN Reason: Anxiety Last Admin: 11/05/21 08:16 Dose: 25 mg Documented by: Lamotrigine (Lamotrigine 25 Mg Tablet) 75 mg PO DAILY [facility] Last Admin: 11/05/21 08:13 Dose: 75 mg Documented by: Lorazepam (Lorazepam 1 Mg Tablet) 1 mg PO TID PRN PRN Reason: Anxiety Last Admin: 11/05/21 11:18 Dose: 1 mg Documented by: Magnesium Hydroxide (Milk Of Magnesia 30 Ml Oral.Susp) 30 ml PO DAILY PRN PRN Reason: Constipation Methadone HCl (Methadone Hcl 20 Mg/2 Ml Oral.Conc) 90 mg PO DAILY@0600 [facility] Last Admin: 11/05/21 05:10 Dose: 90 mg Documented by: Mirtazapine (Mirtazapine 30 Mg Tablet) 30 mg PO BEDTIME [facility] Last Admin: 11/04/21 20:28 Dose: 30 mg Documented by: Multivitamins/Vitamin C (Multivitamin Tablet) 1 tab PO DAILY [facility] Last Admin: 11/05/21 08:13 Dose: 1 tab Documented by: Ondansetron HCl (Ondansetron Odt 4 Mg Tab.Rapdis) 4 mg TRANSLINGU Q6H PRN PRN Reason: Nausea Last Admin: 11/04/21 20:29 Dose: 4 mg Documented by: Trazodone HCl (Trazodone Hcl 50 Mg Tablet) 50 mg PO BEDTIME PRN PRN Reason: Insomnia Allergies Allergies Allergy/AdvReac Type Severity Reaction Status Date / Time hernandez [CHERRIES] Allergy Severe ANGIOEDEMA Verified 07/29/21 11:00 NSAIDS (Non-Steroidal Allergy Unknown NOT Verified 07/29/21 11:00 Anti-Inflamma SUPPOSED [NSAIDS (NON-STEROIDAL TO TAKE ANTI-INFLAMMA] DUE TO LIVER DAMAGE IN THE PAST codeine [CODEINE] AdvReac Unknown N/V Verified 07/29/21 11:00 From COMPAZINE Allergy Unknown LOCK JAW Uncoded 06/02/20 16:38 From TORADOL Allergy Unknown HIVES Uncoded 06/02/20 16:38 From ULTRAM Allergy Unknown SEIZURE Uncoded 06/02/20 16:38 Assessment & Plan Assessment & Plan (1) Flank pain: Status: Acute Code(s): R10.9 - Unspecified abdominal pain Assessment and Plan: 46 year women with 3 small mobile nodules near left flank area. Painful Nodule to left flank obtain us to left flank area likely benign lipoma heat packs tylenol for pain (2) Chronic post-traumatic stress disorder (PTSD): Status: Chronic Code(s): F43.12 - Post-traumatic stress disorder, chronic Plan Pt is a 46 y.o. female who presented to [facility] on 10[place]26/21 due to SI, overdosed on 25 benadryl tabs, and attempted to hang herself with a scarf but says ?it didn?t hold.?? Precipitating factors include recent of her daughter (killed by her bf), financial stress, med nonadherence (unable to obtain refills), lack of OP psych services, and limited social supports.?REcent relapse on crack cocaine. On methadone maintenance. Plan: Pt would like to re-start her previous med regimen, as she says ?when i was on them i was doing good.? Will re-start lamictal at 25 mg, however she had titrated up to 100 mg without side effect, no rash. Reviewed risks and benefits on medications, including risk of SJS on lamictal. She would like help with obtaining a new PCP and OP psych providers. Monitor response to medications. Monitor for safety in the milieu. Discharge on stabilization. Patient seen. Chart reviewed. Discussed with team. Obtain collateral contact info?as needed 2/12/22: Increase Remeron to 30 mg HS 10/29/21: Will start 5 minute checks. 10/30: Will start doxepin 10 mg QHS due to reported past benefit for sleep and says remeron has been less sedating since dose increase. Will discontinue risperdal 0.25 mg QHS due to apparent lack of benefit and pt concerns with wt gain. Will discontinue 5 min checks, as pt is feeling safer today and there have been no incidents of self harm, resume 15 min checks and pt agrees to talk to staff if she is feeling unsafe. 10/31: increased prazosin to 3 mg at bedtime, increased lamictal to 50 mg at bedtime.? vitamins for low folate. 11/01: increased prazosin to 4 mg at HS.? pt interested in referrals to outpt [facility]. 11/02: pedal edema noted, prazosin DCed.? HS clonidine titrated from 0.1 mg to 0.4 mg. 11/03: episode of tying sheet around neck yesterday in response to her perception she was told she sleeps all day by this designer writer.? safety appears to have returned to baseline, 1:1 instituted yesterday DCed.? HS clonidine increased to 0.5 mg. 11/04: slept well last NOC, no nightmares.? lamictal increased to 75 mg daily as of 11/05. 11/05: slept well, no nightmares. nodules are lipomas per U/S read. warm compress, tyl advised. planning for 11/08 discharge I spent minutes with the patient and/or on the patient floor today, greater than?50% of which was spent counseling/coordinating care. Reason for contiued inpatient stay Substantial Risk for: inability to function and rapid decompensation
[2021-11-05 18:00] VITALS: BP 107/59; PULSE 90; RESP 18; TEMP 36.6; O2SAT 95
[2021-11-05] MEDS: Doxepin HCl 10 MG CAPSULE PO (20:00)
[2021-11-05] MEDS: cloNIDine HCL 0.1 MG TABLET 0.5 MG PO (20:00)
[2021-11-05] MEDS: Mirtazapine 30 MG TABLET PO (20:00)
[2021-11-05] MEDS: Acetaminophen 325 MG TABLET 650 MG PO (23:24)
[2021-11-06] MEDS: LORazepam 1 MG TABLET PO ×3 (02:25→16:08)
[2021-11-06] MEDS: methADONE HCl 20 MG/2 ML ORAL.CONC 90 MG PO (05:16)
[2021-11-06 08:03] VITALS: BP 126/59; PULSE 80; RESP 15; TEMP 37.1; O2SAT 95
[2021-11-06] MEDS: Multivitamin TABLET 1 TAB PO (08:04)
[2021-11-06] MEDS: Gabapentin 300 MG CAPSULE PO ×3 (08:04→20:21)
[2021-11-06] MEDS: lamoTRIgine 25 MG TABLET 75 MG PO (08:04)
[2021-11-06] MEDS: cloNIDine HCL 0.1 MG TABLET PO ×2 (08:04→14:03)
[2021-11-06] MEDS: Folic Acid 1 MG TABLET PO (08:05)
[2021-11-06] MEDS: Cyanocobalamin (Vitamin B-12) 100 MCG TABLET PO (08:05)
[2021-11-06 13:52] VITALS: BP 127/59; PULSE 94
[2021-11-06] MEDS: Albuterol Sulfate 90 MCG 8 GM INHALER 2 PUFF INHALE (14:03)
[2021-11-06] MEDS: hydrOXYzine HCL 25 MG TABLET PO ×2 (14:06→22:19)
[2021-11-06 15:29] VITALS: BP 135/81; PULSE 94; RESP 17; TEMP 36.9; O2SAT 96
--- NOTE | 2021-11-06 15:53 | P.PNIM_ITS ---
Subjective Subjective Date of Service: 11/06/21 Review of Systems Follow up leg pain and swelling No fever or chills No drainage to wound Physical Exam Vital Signs: Vital Signs: Last Vital Signs Temp 98.5 F 11/06/21 15:29 Pulse 94 11/06/21 15:29 Resp 17 11/06/21 15:29 BP 135/81 11/06/21 15:29 Pulse Ox 96 11/06/21 15:29 BMI result Body Mass Index 42.6 Appearing in no acute distress lung sounds are clear to auscultation heart regular rate rhythm, clear S1, S2 positive bowel sounds, abdomen is soft, nontender neuro patient is alert x3, no focal deficits Bilateral lower extremities with erythema and edema Objective Data Active Medications Acetaminophen (Acetaminophen 325 Mg Tablet) 650 mg PO Q6H PRN PRN Reason: Headache/Pain Mild Scale (1-3) Last Admin: 11/05/21 23:24 Dose: 650 mg Documented by: LAZARA Al Hydroxide/Mg Hydroxide (Magnesium Hydrox/Alum Hydrox 30 Ml Oral.Susp) 30 ml PO Q6H PRN PRN Reason: Heartburn/Nausea Last Admin: 11/01/21 06:17 Dose: 30 ml Documented by: LAZARA Albuterol Sulfate (Albuterol Sulfate 90 Mcg 8 Gm Inhaler) 2 puff INHALE RQ4H PRN PRN Reason: asthma Last Admin: 11/06/21 14:03 Dose: 2 puff Documented by: HELLEN Clonidine HCl (Clonidine Hcl 0.1 Mg Tablet) 0.1 mg PO BID@0900,1500 [facility]; Protocol Last Admin: 11/06/21 14:03 Dose: 0.1 mg Documented by: HELLEN Clonidine HCl (Clonidine Hcl 0.1 Mg Tablet) 0.5 mg PO BEDTIME [facility]; Protocol Last Admin: 11/05/21 20:00 Dose: 0.5 mg Documented by: LAZARA Cyanocobalamin (Cyanocobalamin (Vitamin B-12) 100 Mcg Tablet) 100 mcg PO DAILY [facility] Last Admin: 11/06/21 08:05 Dose: 100 mcg Documented by: HELLEN Doxepin HCl (Doxepin Hcl 10 Mg Capsule) 10 mg PO BEDTIME [facility] Last Admin: 11/05/21 20:00 Dose: 10 mg Documented by: LAZARA Folic Acid (Folic Acid 1 Mg Tablet) 1 mg PO DAILY [facility] Last Admin: 11/06/21 08:05 Dose: 1 mg Documented by: HELLEN Gabapentin (Gabapentin 300 Mg Capsule) 300 mg PO TID [facility] Last Admin: 11/06/21 14:03 Dose: 300 mg Documented by: HELLEN Hydroxyzine HCl (Hydroxyzine Hcl 25 Mg Tablet) 25 mg PO TID PRN PRN Reason: Anxiety Last Admin: 11/06/21 14:06 Dose: 25 mg Documented by: HELLEN Lamotrigine (Lamotrigine 25 Mg Tablet) 75 mg PO DAILY [facility] Last Admin: 11/06/21 08:04 Dose: 75 mg Documented by: HELLEN Lorazepam (Lorazepam 1 Mg Tablet) 1 mg PO TID PRN PRN Reason: Anxiety Last Admin: 11/06/21 09:25 Dose: 1 mg Documented by: HELLEN Magnesium Hydroxide (Milk Of Magnesia 30 Ml Oral.Susp) 30 ml PO DAILY PRN PRN Reason: Constipation Methadone HCl (Methadone Hcl 20 Mg/2 Ml Oral.Conc) 90 mg PO DAILY@0600 [facility] Last Admin: 11/06/21 05:16 Dose: 90 mg Documented by: LAZARA Mirtazapine (Mirtazapine 30 Mg Tablet) 30 mg PO BEDTIME [facility] Last Admin: 11/05/21 20:00 Dose: 30 mg Documented by: LAZARA Multivitamins/Vitamin C (Multivitamin Tablet) 1 tab PO DAILY [facility] Last Admin: 11/06/21 08:04 Dose: 1 tab Documented by: HELLEN Ondansetron HCl (Ondansetron Odt 4 Mg Tab.Rapdis) 4 mg TRANSLINGU Q6H PRN PRN Reason: Nausea Last Admin: 11/04/21 20:29 Dose: 4 mg Documented by: HELLEN Trazodone HCl (Trazodone Hcl 50 Mg Tablet) 50 mg PO BEDTIME PRN PRN Reason: Insomnia Labs CBC & Chem 7: 10/26/21 17:58 10/26/21 17:58 Assessment and Plan (1) Cellulitis: Status: Acute Plan 46 year old women admitted to . Has complaints of bilateral leg pain, redness and swelling that started 5 days ago Cellulitis Seems likely Will start Doxy and Augmentin Warm compress, elevate extremity may take tylenol for pain blood cx cbc, BMP ID consult SOB CXR Check BNP with hx CHF Quality Stroke Does the patient have a stroke diagnosis?: No VTE Prior VTE?: No VTE Risk Level:: Medical - moderate - high VTE Device Contraindication: Treatment Not Indicated (M3 patient) VTE Drug Contraindication: Treatment Not Indicated (M3 patient )
[2021-11-06] MEDS: Amoxicillin/Potassium Clav 875 MG TABLET PO (16:08)
[2021-11-06 16:20] LABS: Hematocrit 31.2 % (37.0-47.0); Hemoglobin 9.9 g/dl (12.0-16.0); Mean Corpuscular HGB Conc 31.7 g/dl (31.0-35.0); Mean Corpuscular Hemoglobin 27.3 pg (27.0-33.0); Mean Corpuscular Volume 86.2 fL (80.0-98.0); Mean Platelet Volume 11.2 fL (9.4-12.3); Platelet Count 218 X10*3/uL (160-400); Red Blood Count 3.62 X10*6/uL (4.20-5.50); Red Cell Distribution Width 15.2 % (11.0-16.0); White Blood Count 5.6 X10*3/uL (4.8-10.8)
[2021-11-06] MEDS: Milk of Magnesia 30 ML ORAL.SUSP PO (16:29)
--- NOTE | 2021-11-06 16:31 | PC.NURSE ---
around 14:15 patient reported 9/10 BLE pain. Upon assessment +2 pitting edema was noted in bilateral lower extremities, skin was red and shiny BLE, skin was warm to touch on BLE, +2 pulses BLE at posterior tibial and dorsalis pedis, capiliary refill with in normal limits, Vital signs within normal limits. MD was notifed and hospitalist was consulted. Hospitalist assessed patient, new orders received. Results pending.
[2021-11-06 16:40] LABS: Anion Gap 13 (12-20); Blood Urea Nitrogen 13 mg/dL (9-16); Carbon Dioxide 29 mmol/L (22-29); Chloride 96 mmol/L (96-108); Creatinine Clr Calc Pharmacy 122.6; Estimated Glomerular Filt Rate > 60; Glucose Random 235 mg/dL (60-115); Potassium 3.9 mmol/L (3.3-5.1); Sodium 134 mmol/L (135-145)
[2021-11-06 16:42] LABS: B Type Natriuretic Peptide 271 pg/mL (<100)
[2021-11-06 16:48] LABS: Lactic Acid 2.6 mmol/L (0.5-2.0)
--- NOTE | 2021-11-06 16:50 | PC.NURSE ---
Critical lab result recieved from Alondra in the lab ([facility]) of lactic acid 2.6. Negin Dolan [employer] notified of results.
[2021-11-06 17:02] VITALS: BP 130/73; PULSE 84; RESP 17; TEMP 36.8; O2SAT 95
[2021-11-06 17:04] LABS: Erythrocyte Sedimentation Rate 23 MM/HR (0-20)
[2021-11-06 18:00] VITALS: BP 126/64; PULSE 87; RESP 16; TEMP 36.6; O2SAT 97
[2021-11-06 18:16] LABS: Reflex Lactate? Lactic Acid Added
[2021-11-06 19:17] LABS: ~Lactic Acid-LAB USE ONLY 2.3 mmol/L (0.5-2.0)
--- NOTE | 2021-11-06 19:24 | PC.NURSE ---
Critical lab result received from Alondra in the lab ([facility]) of lactic acid 2.3 at 19:17. Ketty Hahn notified of results at 19:19.
[2021-11-06] MEDS: Mirtazapine 30 MG TABLET PO (20:21)
[2021-11-06] MEDS: Doxepin HCl 10 MG CAPSULE PO (20:21)
[2021-11-06] MEDS: cloNIDine HCL 0.1 MG TABLET 0.5 MG PO (20:21)
--- NOTE | 2021-11-06 20:45 | P.PNPSI_ITS ---
Subjective Subjective Date of Service: 11/06/21 Reason For Visit: SI Interim History: pt reports she is planning to leave on saturday and so has a lot on her mind which has been affecting her sleep; she slept somewhat poorly last NOC. that said, she was able to fall back asleep relatively easily each time whe awoke. planning to increase lamictal dosing back to 100 mg daily as of sats a.m. prior to discharge. no nightmares last night, would like to keep regimen as it is. per staff, brighter, planning DC wed. slept 5 hours overnight. 11/06 afternoon received reports from technical staff assistant of tense, painful LE B/L with 2+ PE. medical consult called, various laboratory abnormalities. w/u ongoing. Mental Status Exam Mental Status Exam Narrative: A&O. adequate grooming. Good eye contact, attentive. No Tics or Tremors. No abnormal involuntary movements. Calm, cooperative, engaged. Non-pressured speech, spontaneous. normal rate, volume, tone. No prolonged speech latency or dysarthria. affect is appropriate, more flexible. no SI/HI/AVH or delusional thought content expressed. Thoughts are coherent, organized. No known cognitive or memory impairment. Insight/ Judgment fair, but impulsive. Diagnostics Vital Signs (24Hr): Vital Signs - 24 hr 11/06/21 08:03 11/06/21 13:52 11/06/21 15:29 Temperature 98.7 F 98.5 F Pulse Rate 80 94 94 Respiratory Rate 15 17 Blood Pressure 126/59 L 127/59 L 135/81 Pulse Oximetry 95 96 11/06/21 17:02 11/06/21 18:00 Temperature 98.2 F 97.9 F Pulse Rate 84 87 Respiratory Rate 17 16 Blood Pressure 130/73 126/64 Pulse Oximetry 95 97 BMI result Body Mass Index 42.6 Labs Results: 11/06/21 16:03 11/06/21 16:03 Labs: Laboratory Results - last 48 hr 11/06/21 11/06/21 11/06/21 16:02 16:03 16:03 WBC 5.6 RBC 3.62 L D Hgb 9.9 L D Hct 31.2 L D MCV 86.2 MCH 27.3 MCHC 31.7 RDW 15.2 Plt Count 218 MPV 11.2 Absolute Nucleated RBC 0.000 Nucleated RBC % (auto) 0.0 ESR 23 H Sodium 134 L Potassium 3.9 Chloride 96 Carbon Dioxide 29 Anion Gap 13 BUN 13 Creatinine 0.69 Estim Creat Clear Calc 122.6 Estimated GFR > 60 Random Glucose 235 H Lactic Acid Lactic Acid F/U @ 2Hr Calcium 8.0 L D B-Natriuretic Peptide 11/06/21 11/06/21 11/06/21 16:03 16:04 18:53 WBC RBC Hgb Hct MCV MCH MCHC RDW Plt Count MPV Absolute Nucleated RBC Nucleated RBC % (auto) ESR Sodium Potassium Chloride Carbon Dioxide Anion Gap BUN Creatinine Estim Creat Clear Calc Estimated GFR Random Glucose Lactic Acid 2.6 H* Lactic Acid F/U @ 2Hr 2.3 H* Calcium B-Natriuretic Peptide 271 H Imaging Radiology Impressions: ITS Impressions Head/Neck Ultrasound 11/05/21 10:19 IMPRESSION: Palpable abnormality likely corresponds to 2 lipomas. Chest X-Ray 11/06/21 16:09 IMPRESSION: Unremarkable chest examination. Medications Medications Current Medications Acetaminophen (Acetaminophen 325 Mg Tablet) 650 mg PO Q6H PRN PRN Reason: Headache/Pain Mild Scale (1-3) Last Admin: 11/05/21 23:24 Dose: 650 mg Documented by: Al Hydroxide/Mg Hydroxide (Magnesium Hydrox/Alum Hydrox 30 Ml Oral.Susp) 30 ml PO Q6H PRN PRN Reason: Heartburn/Nausea Last Admin: 11/01/21 06:17 Dose: 30 ml Documented by: Albuterol Sulfate (Albuterol Sulfate 90 Mcg 8 Gm Inhaler) 2 puff INHALE RQ4H PRN PRN Reason: asthma Last Admin: 11/06/21 14:03 Dose: 2 puff Documented by: Amoxicillin/Clavulanate Potassium (Amoxicillin/Potassium Clav 875 Mg Tablet) 875 mg PO Q12H ADRIÁN Last Admin: 11/06/21 16:08 Dose: 875 mg Documented by: Clonidine HCl (Clonidine Hcl 0.1 Mg Tablet) 0.1 mg PO BID@0900,1500 [facility]; Protocol Last Admin: 11/06/21 14:03 Dose: 0.1 mg Documented by: Clonidine HCl (Clonidine Hcl 0.1 Mg Tablet) 0.5 mg PO BEDTIME [facility]; Protocol Last Admin: 11/06/21 20:21 Dose: 0.5 mg Documented by: Cyanocobalamin (Cyanocobalamin (Vitamin B-12) 100 Mcg Tablet) 100 mcg PO DAILY [facility] Last Admin: 11/06/21 08:05 Dose: 100 mcg Documented by: Doxepin HCl (Doxepin Hcl 10 Mg Capsule) 10 mg PO BEDTIME [facility] Last Admin: 11/06/21 20:21 Dose: 10 mg Documented by: Doxycycline Hyclate (Doxycycline Hyclate 100 Mg Tablet) 100 mg PO Q12H [facility] Last Admin: 11/06/21 16:08 Dose: 100 mg Documented by: Folic Acid (Folic Acid 1 Mg Tablet) 1 mg PO DAILY [facility] Last Admin: 11/06/21 08:05 Dose: 1 mg Documented by: Gabapentin (Gabapentin 300 Mg Capsule) 300 mg PO TID [facility] Last Admin: 11/06/21 20:21 Dose: 300 mg Documented by: Hydroxyzine HCl (Hydroxyzine Hcl 25 Mg Tablet) 25 mg PO TID PRN PRN Reason: Anxiety Last Admin: 11/06/21 14:06 Dose: 25 mg Documented by: Lamotrigine (Lamotrigine 25 Mg Tablet) 75 mg PO DAILY [facility] Last Admin: 11/06/21 08:04 Dose: 75 mg Documented by: Magnesium Hydroxide (Milk Of Magnesia 30 Ml Oral.Susp) 30 ml PO DAILY PRN PRN Reason: Constipation Last Admin: 11/06/21 16:29 Dose: 30 ml Documented by: Methadone HCl (Methadone Hcl 20 Mg/2 Ml Oral.Conc) 90 mg PO DAILY@0600 [facility] Last Admin: 11/06/21 05:16 Dose: 90 mg Documented by: Mirtazapine (Mirtazapine 30 Mg Tablet) 30 mg PO BEDTIME [facility] Last Admin: 11/06/21 20:21 Dose: 30 mg Documented by: Multivitamins/Vitamin C (Multivitamin Tablet) 1 tab PO DAILY [facility] Last Admin: 11/06/21 08:04 Dose: 1 tab Documented by: Ondansetron HCl (Ondansetron Odt 4 Mg Tab.Rapdis) 4 mg TRANSLINGU Q6H PRN PRN Reason: Nausea Last Admin: 11/04/21 20:29 Dose: 4 mg Documented by: Trazodone HCl (Trazodone Hcl 50 Mg Tablet) 50 mg PO BEDTIME PRN PRN Reason: Insomnia Allergies Allergies Allergy/AdvReac Type Severity Reaction Status Date / Time hernandez [CHERRIES] Allergy Severe ANGIOEDEMA Verified 07/29/21 11:00 NSAIDS (Non-Steroidal Allergy Unknown NOT Verified 07/29/21 11:00 Anti-Inflamma SUPPOSED [NSAIDS (NON-STEROIDAL TO TAKE ANTI-INFLAMMA] DUE TO LIVER DAMAGE IN THE PAST codeine [CODEINE] AdvReac Unknown N/V Verified 07/29/21 11:00 From COMPAZINE Allergy Unknown LOCK JAW Uncoded 06/02/20 16:38 From TORADOL Allergy Unknown HIVES Uncoded 06/02/20 16:38 From ULTRAM Allergy Unknown SEIZURE Uncoded 06/02/20 16:38 Assessment & Plan Assessment & Plan (1) Chronic post-traumatic stress disorder (PTSD): Status: Chronic Code(s): F43.12 - Post-traumatic stress disorder, chronic Assessment and Plan: Pt is a 46 y.o. female who [place] [facility] [place] due to SI, overdosed on 25 benadryl tabs, and attempted to hang herself with a scarf but says ?it didn?t hold.?? Precipitating factors include recent of her daughter (killed by her bf), financial stress, med nonadherence (unable to obtain refills), lack of OP psych services, and limited social supports.?REcent relapse on crack cocaine. On methadone maintenance. Plan: Pt would like to re-start her previous med regimen, as she says ?when i was on them i was doing good.? Will re-start lamictal at 25 mg, however she had titrated up to 100 mg without side effect, no rash. Reviewed risks and benefits on medications, including risk of SJS on lamictal. She would like help with obtaining a new PCP and OP psych providers. Monitor response to medications. Monitor for safety in the milieu. Discharge on stabilization. Patient seen. Chart reviewed. Discussed with team. Obtain collateral contact info?as needed 10/28/21: Increase Remeron to 30 mg HS 10/29/21: Will start 5 minute checks. 10/30: Will start doxepin 10 mg QHS due to reported past benefit for sleep and says remeron has been less sedating since dose increase. Will discontinue risperdal 0.25 mg QHS due to apparent lack of benefit and pt concerns with wt gain. Will discontinue 5 min checks, as pt is feeling safer today and there have been no incidents of self harm, resume 15 min checks and pt agrees to talk to staff if she is feeling unsafe. 10/31: increased prazosin to 3 mg at bedtime, increased lamictal to 50 mg at bed time.? vitamins for low folate. 11/01: increased prazosin to 4 mg at HS.? pt interested in referrals to outpt providers. 11/02: pedal edema noted, prazosin DCed.? HS clonidine titrated from 0.1 mg to 0. 4 mg. 11/03: episode of tying sheet around neck yesterday in response to her perception she was told she sleeps all day by this instructional writer.? safety appears to have returned to baseline, 1:1 instituted yesterday DCed.? HS clonidine increased to 0.5 mg. 11/04: slept well last NOC, no nightmares.? lamictal increased to 75 mg daily as of 11/05. 11/05: slept well, no nightmares.? nodules are lipomas per [facility] read.? warm compress, tyl advised. 11/06: presumptive cellulitis on LE B/L, antibx started. w/u ongoing. planning for 11/08 discharge (2) Cellulitis: Status: Acute Code(s): L03.90 - Cellulitis, unspecified Assessment and Plan: 46 year old women admitted to M3. Has complaints of bilateral leg pain, redness and swelling that started 5 days ago Cellulitis Seems likely Will start Doxy and Augmentin Warm compress, elevate extremity may take tylenol for pain blood cx cbc, BMP ID consult SOB CXR Check BNP with hx CHF I spent minutes with the patient and/or on the patient floor today, greater than?50% of which was spent counseling/coordinating care. Reason for contiued inpatient stay Substantial Risk for: rapid decompensation
[2021-11-06 20:56] LABS: Reflex Lactate? 2 Y
[2021-11-06 21:48] LABS: ~Lactic Acid-LAB USE ONLY 1.7 mmol/L (0.5-2.0)
[2021-11-07] MEDS: Acetaminophen 325 MG TABLET 650 MG PO (00:37)
[2021-11-07] MEDS: Amoxicillin/Potassium Clav 875 MG TABLET PO (05:01)
[2021-11-07] MEDS: methADONE HCl 20 MG/2 ML ORAL.CONC 90 MG PO (05:02)
[2021-11-07 06:00] VITALS: BP 101/62; PULSE 77; RESP 18; TEMP 36.2; O2SAT 98
[2021-11-07] MEDS: LORazepam 1 MG TABLET PO ×2 (06:31→12:10)
[2021-11-07] MEDS: lamoTRIgine 25 MG TABLET 75 MG PO (08:42)
[2021-11-07] MEDS: Cyanocobalamin (Vitamin B-12) 100 MCG TABLET PO (08:43)
[2021-11-07] MEDS: Gabapentin 300 MG CAPSULE PO (08:43)
[2021-11-07] MEDS: Folic Acid 1 MG TABLET PO (08:43)
[2021-11-07] MEDS: Multivitamin TABLET 1 TAB PO (08:43)
[2021-11-07] MEDS: cloNIDine HCL 0.1 MG TABLET PO (08:44)
[2021-11-07 09:11] LABS: Hematocrit 31.6 % (37.0-47.0); Hemoglobin 10.1 g/dl (12.0-16.0); Mean Corpuscular Hemoglobin 27.9 pg (27.0-33.0); Mean Corpuscular Volume 87.3 fL (80.0-98.0); Platelet Count 213 X10*3/uL (160-400); Red Blood Count 3.62 X10*6/uL (4.20-5.50); Red Cell Distribution Width 15.2 % (11.0-16.0); White Blood Count 5.7 X10*3/uL (4.8-10.8)
[2021-11-07 09:34] LABS: B Type Natriuretic Peptide 317 pg/mL (<100)
[2021-11-07 09:40] LABS: Lactic Acid 2.1 mmol/L (0.5-2.0)
[2021-11-07 09:41] LABS: Anion Gap 10 (12-20); Blood Urea Nitrogen 12 mg/dL (9-16); Calcium 8.6 mg/dL (8.4-10.2); Carbon Dioxide 32 mmol/L (22-29); Chloride 96 mmol/L (96-108); Estimated Glomerular Filt Rate > 60; Glucose Random 151 mg/dL (60-115); Potassium 4.2 mmol/L (3.3-5.1); Sodium 134 mmol/L (135-145)
--- NOTE | 2021-11-07 09:45 | PC.NURSE ---
Addendum entered by Sandy Braga RN 11/07/21 09:50: No new orders added at this time Original Note: Received critical lab value result from [facility], lactic acid level 2.1. Dr. Borjas and Dr. Gonzalez notified.
[2021-11-07 11:07] LABS: Reflex Lactate? Lactic Acid Added
[2021-11-07 12:06] LABS: ~Lactic Acid-LAB USE ONLY 2.1 mmol/L (0.5-2.0)
[2021-11-07] MEDS: Furosemide 20 MG TABLET PO (12:09)
[2021-11-07 13:51] LABS: Reflex Lactate? 2 Y
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
[2021-11-07 22:11] LABS: CRP High Sensitivity 9.3 mg/L
== END 2021-11-07 14:25 | disposition home or self-care (01) | DRG 753 ==
LOC: HO.ED 10-27 10:33 → HO.PADLT16 10-27 15:44
PROVIDERS: Nurse Practitioner Acute Care; Physician Assistant; Admitting Provider Social Worker; Emergency Provider Emergency Medicine Emergency Medical Services; Visit Provider Psychiatry & Neurology Psychiatry
DX: F31.81 Bipolar II disorder (principal); R45.851 Suicidal ideations; L03.116 Cellulitis of left lower limb; Z91.14 Patient's other noncompliance with medication regimen; F43.12 Post-traumatic stress disorder, chronic; J44.9 Chronic obstructive pulmonary disease, unspecified; F11.20 Opioid dependence, uncomplicated; Z20.822 Contact with and (suspected) exposure to COVID-19; F17.210 Nicotine dependence, cigarettes, uncomplicated; Z71.6 Tobacco abuse counseling; Z88.5 Allergy status to narcotic agent; Z88.6 Allergy status to analgesic agent; Z79.899 Other long term (current) drug therapy
CPT/HCPCS: 36415; 71045; 76536; 80048; 80053; 80061; 80143; 80179; 80307; 81001; 82077; 82607; 82746; 83036; 83605; 83880; 84443; 85025; 85027; 85652; 86141; 87040; 87635; 93005; 99285

== ENCOUNTER 2021-11-10 16:57 | Emergency (ER) | payer MEDICAID, SELFPAY ==
--- NOTE | ~2021-11-10 | XR_ITS ---
EXAMINATION: XR CHEST CLINICAL INFORMATION: Shortness of breath and edema. COMPARISON: Chest radiograph dated from 11/06/2021. TECHNIQUE: PA view of the chest was obtained. FINDINGS: Increased central vasculature engorgement and reticulation. No focal consolidation. No pleural effusion or pneumothorax. Unchanged cardiomediastinal silhouette. No acute osseous abnormalities. XR/XR chest 1V IMPRESSION: Findings are most suggestive of interstitial pulmonary edema in the appropriate clinical context. However, an atypical infectious process cannot be entirely excluded. Recommend a follow-up study to ensure adequate resolution.
[2021-11-10 17:05] VITALS: BP 117/68; PULSE 99; RESP 20; TEMP 36.9; O2SAT 93; BMI 39.4
[2021-11-10 20:09] LABS: MANUAL DIFF FLAG NO
[2021-11-10 20:11] LABS: Basophils Percent Auto 0.4 % (0-2); Eosinophils Absolute Auto 0.1 X10*3/uL (0.0-0.4); Eosinophils Percent Auto 1.5 % (0-4); Hematocrit 29.9 % (37.0-47.0); Hemoglobin 9.6 g/dl (12.0-16.0); Imm Gran Abs Auto 0.03 X10*3/uL (0.00-0.03); Imm Gran Pct Auto 0.3 % (0.0-0.4); Lymphocytes Absolute Auto 1.8 X10*3/uL (1.2-4.9); Lymphocytes Percent Auto 19.8 % (20-40); Mean Corpuscular HGB Conc 32.1 g/dl (31.0-35.0); Mean Corpuscular Hemoglobin 27.7 pg (27.0-33.0); Mean Corpuscular Volume 86.4 fL (80.0-98.0); Mean Platelet Volume 10.8 fL (9.4-12.3); Monocytes Absolute Auto 0.6 X10*3/uL (0.1-1.2); Monocytes Percent Auto 6.8 % (2-11); Neutrophils Absolute Auto 6.5 x10*3/uL (2.0-8.3); Neutrophils Percent Auto 71.2 % (45-73); Platelet Count 275 X10*3/uL (160-400); Red Blood Count 3.46 X10*6/uL (4.20-5.50); Red Cell Distribution Width 15.5 % (11.0-16.0); White Blood Count 9.1 X10*3/uL (4.8-10.8)
[2021-11-10 20:24] VITALS: BP 103/66; PULSE 88; RESP 16; TEMP 36.9; O2SAT 95
[2021-11-10 20:30] LABS: COVID-19 Test Negative (Negative)
[2021-11-10 20:31] LABS: Anion Gap 12 (12-20); Blood Urea Nitrogen 12 mg/dL (9-16); Calcium 8.6 mg/dL (8.4-10.2); Carbon Dioxide 29 mmol/L (22-29); Chloride 99 mmol/L (96-108); Creatinine Clr Calc Pharmacy 115.6; Estimated Glomerular Filt Rate > 60; Glucose Random 209 mg/dL (60-115); Potassium 3.7 mmol/L (3.3-5.1); Sodium 136 mmol/L (135-145)
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
[2021-11-10 20:36] LABS: Troponin-I High Sensitivity < 3.5 ng/L (<3.5-17.0)
[2021-11-10] MEDS: Albuterol/Iprat 2.5/0.5MG 3 ML AMPUL.NEB INHALE (20:56)
[2021-11-10] MEDS: Albuterol Sulfate (0.083%) 2.5 MG/3 ML VIAL.NEB 5 MG INHALE (20:56)
[2021-11-10 20:59] VITALS: PULSE 81; RESP 15; O2SAT 94
[2021-11-10 21:05] LABS: B Type Natriuretic Peptide 403 pg/mL (<100)
[2021-11-10] MEDS: Furosemide 40 MG/4 ML VIAL IVPUSH (21:29)
== END 2021-11-10 22:00 | disposition left against medical advice (07) ==
PROVIDERS: Emergency Provider Internal Medicine
DX: J44.1 Chronic obstructive pulmonary disease with (acute) exacerbation (principal); I50.9 Heart failure, unspecified; R06.02 Shortness of breath; F14.90 Cocaine use, unspecified, uncomplicated; F17.210 Nicotine dependence, cigarettes, uncomplicated; Z79.899 Other long term (current) drug therapy; Z20.822 Contact with and (suspected) exposure to COVID-19; Z71.6 Tobacco abuse counseling
CPT/HCPCS: 36415; 71045; 80048; 83880; 84484; 85025; 87635; 94640; 94644; 96374; 99284; J1940

== ENCOUNTER 2021-12-05 13:18 | Emergency (ER) | payer MEDICAID, SELFPAY ==
[2021-12-05 13:27] VITALS: PULSE 95; RESP 18; TEMP 36.6; O2SAT 98; BMI 37.8
--- NOTE | 2021-12-05 17:01 | MHC.CARE ---
CARE Team reached out [facility] intake to inquire whether pt could get an urgent intake appointment as pt has run out of her psychiatric medications. [facility] intake staff reports that pt was a no-show for her appointment in October and did not follow up with them until yesterday when she ran out of her medications. [facility] intake offered to set up an intake appointment for pt as soon as possible and sent CARE Team the information about the upcoming appointment for pt which was then given to pt. CARE Team will fax pt's discharge [facility] intake when pt is discharged today. CARE Team discussed this with ED provider, JOSE Hernández, who is willing to give pt 15 days worth of her most of her medications and several days worth of her other medications. Plan is for pt to be discharged to follow up with [facility]. This plan was discussed and agreed upon by JOSE Hernández, and CARE City Dispatch Supervisor, MARIELLA Joseph.
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
[2021-12-05 17:30] VITALS: BP 117/81; O2SAT 98
== END 2021-12-05 17:50 | disposition home or self-care (01) ==
PROVIDERS: Emergency Provider Emergency Medicine Emergency Medical Services
DX: Z76.0 Encounter for issue of repeat prescription (principal); F31.81 Bipolar II disorder; F43.10 Post-traumatic stress disorder, unspecified; F17.200 Nicotine dependence, unspecified, uncomplicated; F11.20 Opioid dependence, uncomplicated
CPT/HCPCS: 99284

== ENCOUNTER 2022-05-31 09:09 | Inpatient (IN) | payer OTHER, MEDICAID, SELFPAY ==
--- NOTE | 2022-05-31 | ECG_ITS ---
Test Reason : MED CLEARANCE Blood Pressure : / mmHG Vent. Rate : 075 BPM Atrial Rate : 075 BPM P-R Int : 164 ms QRS Dur : 080 ms QT Int : 402 ms P-R-T Axes : 047 009 041 degrees QTc Int : 448 ms Normal sinus rhythm Normal ECG When compared with ECG of 26-OCT-2021 16:52, No significant change was found Referred By: Svetlana Marte Electronically Signed By:RASHMI ALY
--- NOTE | ~2022-05-31 | US_ITS ---
EXAMINATION: US VENOUS ULTRASOUND WITH DOPPLER LOWER EXTREMITY, BILATERAL CLINICAL INFORMATION: Bilateral lower extremity pain and swelling COMPARISON: None TECHNIQUE: Ultrasound of the deep veins is performed from the hip to the calf with compression sonography and color and pulse Doppler assessment. Spectral analysis with color-flow imaging is performed. FINDINGS: RIGHT: There is normal venous compression and respiratory variation and augmented flow. The visualized common femoral vein, superficial femoral vein, profunda femoral vein, popliteal vein, and the trifurcation region shows no evidence of deep venous thrombosis. There is no significant popliteal fossa cyst. LEFT: There is normal venous compression and respiratory variation and augmented flow. The visualized common femoral vein, superficial femoral vein, profunda femoral vein, popliteal vein, and the trifurcation region shows no evidence of deep venous thrombosis. There is no significant popliteal fossa cyst. If the patient's symptoms persist, followup ultrasound in 5 days 7 days might be of value to exclude proximal propagation from a non-visualized calf vein. US/US venous duplex LE BI IMPRESSION: No DVT demonstrated in either lower extremity.
--- NOTE | ~2022-05-31 | US_ITS ---
EXAMINATION: NONINVASIVE ASSESSMENT OF THE ARTERIES OF BOTH LOWER EXTREMITIES Nestor Bermudez MD CLINICAL INFORMATION: Bilateral lower extremity swelling TECHNIQUE: Bilateral lower extremity duplex ultrasound was performed with velocity measurements and waveform analysis in the common femoral arteries, profunda femoris arteries, proximal mid and distal superficial femoral arteries, popliteal arteries and tibial vessels. This study was performed only at rest. COMPARISON: None FINDINGS: Velocities in cm/sec and phasicity as well as the presence of plaque are reported below. Triphasic normal flow is present throughout both lower extremities with normal velocities. Minimal plaque is present RIGHT LEG: Common Femoral: 139 Profunda Femoris: 62 Proximal SFA: 82 Mid SFA: 95 Distal SFA: 88 Popliteal: 71 Tibial: 102 LEFT LEG: Common Femoral: 100 Profunda Femoris: 53 Proximal SFA: 95 Mid SFA: 95 Distal SFA: 83 Popliteal: 78 Tibial: 127 US/US arterial duplex LE BI IMPRESSION: There is no evidence of any hemodynamically significant lower extremity arterial disease by pressure, waveform or duplex Doppler criteria at rest.
--- NOTE | 2022-05-31 09:23 | ED_ITS ---
HPI - Psych General Stated Complaint: CRISIS BLADIMIR ARELLANO W/PLAN PER EMS Time Seen by Provider: 05/31/22 09:13 Source: patient Mode of arrival: EMS Limitations: no limitations History of Present Illness MD complaint: suicidal ideation and feels depressed Onset (ago): day(s) (2) Duration: getting worse History of same: Yes Relieving factors: none Exacerbating factors: other Context: significant life stressor Associated psychiatric symptoms: depression and suicidal ideation Associated symptoms: denies other symptoms Treatments prior to arrival: none If self harm: admits thoughts of self harm and has plan Related Data Home Medications Medication Instructions Recorded Confirmed methadone 10 mg/mL oral 90 mg PO DAILY 08/05/21 10/27/21 concentrate (Methadose) Previous Rx's Medication Instructions Recorded albuterol sulfate 2.5 mg/0.5 mL 5 mg inhalation Q4H PRN shortness 10/08/20 solution for nebulization of breath or wheezing #30 ea albuterol sulfate 90 mcg/actuation 2 puff inhalation Q4-6H PRN 05/02/21 aerosol inhaler shortness of breath or wheezing 30 days #6.7 grams cyclobenzaprine 10 mg tablet 10 mg PO Q8H #20 tabs 07/25/21 amoxicillin 875 mg-potassium 1 tab PO Q12H 5 days #10 tabs 11/07/21 clavulanate 125 mg tablet clonidine HCl 0.1 mg tablet 0.1 mg PO BID@0900,1500 30 days 11/07/21 #60 tabs clonidine HCl 0.1 mg tablet 0.5 mg PO BEDTIME 30 days #150 tabs 11/07/21 cyanocobalamin (vitamin B-12) 100 100 mcg PO DAILY 30 days #30 tabs 11/07/21 mcg tablet (Vitamin B-12) doxepin 10 mg capsule 10 mg PO BEDTIME 30 days #30 caps 11/07/21 doxycycline hyclate 100 mg tablet 100 mg PO Q12H 5 days #10 tabs 11/07/21 folic acid 1 mg tablet 1 mg PO DAILY 30 days #30 tabs 11/07/21 gabapentin 300 mg capsule 300 mg PO TID 30 days #90 caps 11/07/21 lamotrigine 25 mg tablet 100 mg PO DAILY 30 days #120 tabs 11/07/21 lorazepam 1 mg tablet 1 mg PO TID PRN Anxiety 15 days 11/07/21 #45 tabs mirtazapine 30 mg tablet 30 mg PO BEDTIME 30 days #30 tabs 11/07/21 multivitamin (Daily-Amadeo tablet) 1 tab PO DAILY 30 days #30 tabs 11/07/21 furosemide 40 mg tablet (Lasix) 40 mg PO QAM #30 tabs 11/10/21 potassium chloride 10 mEq 10 meq PO DAILY #30 caps 11/10/21 capsule,extended release prednisone 20 mg tablet 40 mg PO DAILY #10 tabs 11/10/21 clonidine HCl 0.1 mg tablet 0.1 mg PO BID 3 days #6 tabs 12/05/21 clonidine HCl 0.1 mg tablet 0.5 mg PO BEDTIME 3 days #15 tabs 12/05/21 doxepin 10 mg capsule 10 mg PO BEDTIME #10 caps 12/05/21 lamotrigine 100 mg tablet 100 mg PO DAILY #10 tabs 12/05/21 lorazepam 1 mg tablet 1 mg PO TID PRN anxiety 3 days #9 12/05/21 tabs mirtazapine 30 mg tablet 30 mg PO BEDTIME #10 tabs 12/05/21 Allergies Allergy/AdvReac Type Severity Reaction Status Date / Time hernandez [CHERRIES] Allergy Severe ANGIOEDEMA Verified 07/29/21 11:00 NSAIDS (Non-Steroidal Allergy Unknown NOT Verified 07/29/21 11:00 Anti-Inflamma SUPPOSED [NSAIDS (NON-STEROIDAL TO TAKE ANTI-INFLAMMA] DUE TO LIVER DAMAGE IN THE PAST codeine [CODEINE] AdvReac Unknown N/V Verified 07/29/21 11:00 From COMPAZINE Allergy Unknown LOCK JAW Uncoded 06/02/20 16:38 From TORADOL Allergy Unknown HIVES Uncoded 06/02/20 16:38 From ULTRAM Allergy Unknown SEIZURE Uncoded 06/02/20 16:38 Review of Systems Review of Systems: Constitutional : No Fever, No Chills ENT/Mouth : No Ear Pain, No Nasal Congestion, No sore throat Eyes: No Eye Pain, No Swelling, No Redness Cardiovascular : No Chest Pain, No SOB Respiratory : No Cough, No Sputum, No Dyspnea Gastrointestinal : No Nausea, No Vomiting, No Diarrhea, No Hematochezia, No Melena Genitourinary : No Dysuria, No Urinary Frequency, No Hematuria Musculoskeletal : No Myalgias Skin : No Skin Lesions, No rash Neuro : No Weakness, No Numbness, No Paresthesias, No Dizziness, No Headache Psych : positive Anxiety, positive Depression, positive SI no HI Heme/Lymph: No Lymphadenopathy Endocrine : No Polyuria, No Polydipsia All other systems reviewed and are negative [facility] Past Medical History Attestation statement: The following information was validated with the patient. Medical History CHF (congestive heart failure) Chronic post-traumatic stress disorder (PTSD) COPD (chronic obstructive pulmonary disease) Depression Diabetes Mitral valve regurgitation Opioid use disorder Surgical History H/O knee surgery History of appendectomy Social History Social History Household Members: None Household Members Other:: 4 Housing: House Do you presently have visiting nurse or other home services: No Alcohol intake: former Patient Tobacco Use Status: Current everyday Tobacco user Tobacco use type: Cigarette Cigarettes Per Day: 3 Years Smoked: 30 e-Cigarette/Vaping Use: Never Used Second Hand Smoke Exposure: No Substance Use Type: Crack/Cocaine, Former Substance User and Marijuana service: Yes Sexual orientation: Straight/Heterosexual Physical Exam Vital Signs: Appearance: Alert. Oriented X3. No acute distress. Eyes: Pupils equal, round and reactive to light. ENT: Pharynx normal. Neck: Normal inspection. Neck supple. CVS: Normal heart rate and rhythm. Pulses normal. Respiratory: No respiratory distress. Breath sounds normal. Abdomen: Soft and nontender. Skin: Skin warm and dry. Normal skin color. Normal skin turgor. both arms small excoriated scabs noted no signs of infection Extremities: No lower extremity edema. No calf ttp Neuro: Oriented X 3. No motor deficit. No sensory deficit. CN 2-12 intact Course Course Course Narrative: Physician observation started at 938am Patient placed in physician observation because the patient needed more time for labs and BHN to assess the need for psych admission. At the time observation was started the patient's vitals were stable, patient is alert and oriented but slightly anxious, Neuro: nonfocal, CV RRR, Lungs clear MDM - Psych MDM Narrative Medical decision making narrative: 46 yo female hx of COPD, CHF, bipolar here with depression and SI has no medical complaints will obtain labs and refer to [facility] Discharge Plan Discharge Clinical Impression: Depression Patient Disposition: Still a Patient Prescriptions: No Action albuterol sulfate 90 mcg/actuation HFA aerosol inhaler 2 puff inhalation Q4-6H PRN (Reason: shortness of breath or wheezing) 30 Days Qty: 6.7 0RF albuterol sulfate 2.5 mg/0.5 mL solution for nebulization 5 mg inhalation Q4H PRN (Reason: shortness of breath or wheezing) Qty: 30 0RF methadone [Methadose] 10 mg/mL concentrate 90 mg PO DAILY doxycycline hyclate 100 mg Tablet 100 mg PO Q12H 5 Days Qty: 10 0RF amoxicillin-pot clavulanate 875-125 mg Tablet 1 tab PO Q12H 5 Days Qty: 10 0RF clonidine HCl 0.1 mg Tablet 0.5 mg PO BEDTIME 30 Days Qty: 150 0RF Protocol: Hold for SBP< HOLD for SBP < : 90 clonidine HCl 0.1 mg Tablet 0.1 mg PO BID@0900,1500 30 Days Qty: 60 0RF Protocol: Hold for SBP< HOLD for SBP < : 90 doxepin 10 mg Capsule 10 mg PO BEDTIME 30 Days Qty: 30 0RF lamotrigine 25 mg Tablet 100 mg PO DAILY 30 Days Qty: 120 0RF multivitamin [Daily-Amadeo] Tablet 1 tab PO DAILY 30 Days Qty: 30 0RF cyanocobalamin (vitamin B-12) [Vitamin B-12] 100 mcg Tablet 100 mcg PO DAILY 30 Days Qty: 30 0RF mirtazapine 30 mg Tablet 30 mg PO BEDTIME 30 Days Qty: 30 0RF folic acid 1 mg Tablet 1 mg PO DAILY 30 Days Qty: 30 0RF lorazepam 1 mg Tablet 1 mg PO TID PRN (Reason: Anxiety) 15 Days Qty: 45 1RF gabapentin 300 mg Capsule 300 mg PO TID 30 Days Qty: 90 0RF furosemide [Lasix] 40 mg tablet 40 mg PO QAM Qty: 30 0RF prednisone 20 mg tablet 40 mg PO DAILY Qty: 10 0RF potassium chloride 10 mEq capsule, extended release 10 meq PO DAILY Qty: 30 0RF clonidine HCl 0.1 mg tablet 0.5 mg PO BEDTIME 3 Days Qty: 15 0RF clonidine HCl 0.1 mg tablet 0.1 mg PO BID 3 Days Qty: 6 0RF doxepin 10 mg capsule 10 mg PO BEDTIME Qty: 10 0RF lamotrigine 100 mg tablet 100 mg PO DAILY Qty: 10 0RF mirtazapine 30 mg tablet 30 mg PO BEDTIME Qty: 10 0RF lorazepam 1 mg tablet 1 mg PO TID PRN (Reason: anxiety) 3 Days Qty: 9 0RF cyclobenzaprine 10 mg tablet 10 mg PO Q8H Qty: 20 0RF
[2022-05-31] MEDS: LORazepam 1 MG TABLET 2 MG PO ×2 (09:56→14:39)
[2022-05-31 10:07] VITALS: BP 110/70; BP 132/74; PULSE 87; PULSE 94; RESP 16; TEMP 36.4; O2SAT 97; O2SAT 99; BMI 37.8
[2022-05-31 10:38] LABS: Amphetamine Screen Urine Not Detected (Not Detect); Barbiturates, Urine Not Detected (Not Detect); Benzodiazepines Screen Urine Not Detected (Not Detect); Cannabinoid Screen Urine POSITIVE (Not Detect); Cocaine Screen Urine Not Detected (Not Detect); Fentanyl, urine POSITIVE (Not Detect); Opiate Screen Urine POSITIVE (Not Detect); Phencyclidine Screen Urine Not Detected (Not Detect)
[2022-05-31 10:44] LABS: COVID-19 Test Negative (Negative); IDNOW Serial# 16C4AD1C
--- NOTE | 2022-05-31 10:52 | MHC.RECOVRN ---
Spoke with Kurt at [facility], pt last received 105 mg methadone on 05/30/22. Rakel Kapoor APRN, aware.
[2022-05-31 10:57] LABS: MANUAL DIFF FLAG NO
[2022-05-31 11:00] LABS: Basophils Percent Auto 0.3 % (0-2); Eosinophils Absolute Auto 0.1 X10*3/uL (0.0-0.4); Eosinophils Percent Auto 0.6 % (0-4); Hematocrit 39.7 % (37.0-47.0); Imm Gran Abs Auto 0.04 X10*3/uL (0.00-0.03); Imm Gran Pct Auto 0.3 % (0.0-0.4); Lymphocytes Absolute Auto 1.7 X10*3/uL (1.2-4.9); Lymphocytes Percent Auto 14.9 % (20-40); Mean Corpuscular HGB Conc 32.7 g/dl (31.0-35.0); Mean Corpuscular Hemoglobin 27.4 pg (27.0-33.0); Mean Corpuscular Volume 83.8 fL (80.0-98.0); Mean Platelet Volume 10.3 fL (9.4-12.3); Monocytes Absolute Auto 0.5 X10*3/uL (0.1-1.2); Monocytes Percent Auto 4.2 % (2-11); Neutrophils Absolute Auto 9.3 x10*3/uL (2.0-8.3); Neutrophils Percent Auto 79.7 % (45-73); Platelet Count 319 X10*3/uL (160-400); Red Blood Count 4.74 X10*6/uL (4.20-5.50); Red Cell Distribution Width 14.7 % (11.0-16.0); White Blood Count 11.7 X10*3/uL (4.8-10.8)
[2022-05-31 11:13] LABS: Alanine Aminotransferase 9 U/L (0-31); Albumin Level 4.1 g/dL (3.5-5.0); Alkaline Phosphatase 104 U/L (39-117); Anion Gap 16 (12-20); Aspartate Amino Transferase 11 U/L (5-31); Bilirubin Direct < 0.2 mg/dL (0.0-0.5); Bilirubin Total 0.3 mg/dL (0.0-1.0); Blood Urea Nitrogen 8 mg/dL (9-16); Calcium 9.2 mg/dL (8.4-10.2); Carbon Dioxide 26 mmol/L (22-29); Chloride 100 mmol/L (96-108); Creatinine Clr Calc Pharmacy 119.7; Estimated Glomerular Filt Rate > 60; Glucose Random 164 mg/dL (60-115); Sodium 138 mmol/L (135-145); Total Protein 7.6 g/dL (6.5-8.0)
[2022-05-31] MEDS: Acetaminophen 325 MG TABLET 650 MG PO (13:35)
[2022-05-31] MEDS: LORazepam 1 MG TABLET PO (19:07)
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
[2022-05-31] MEDS: Prazosin HCL 1 MG CAPSULE 2 MG PO (22:03)
[2022-05-31] MEDS: Doxepin HCl 10 MG CAPSULE PO (22:03)
[2022-05-31] MEDS: Gabapentin 300 MG CAPSULE PO (22:03)
[2022-05-31] MEDS: Mirtazapine 15 MG TABLET PO (22:03)
[2022-05-31] MEDS: cloNIDine HCL 0.1 MG TABLET PO (22:03)
[2022-05-31] MEDS: traZODone HCL 50 MG TABLET PO (22:03)
[2022-06-01] MEDS: LORazepam 1 MG TABLET PO ×3 (06:42→19:50)
[2022-06-01 08:00] VITALS: BP 113/63; PULSE 95; RESP 17; TEMP 36.6; O2SAT 98
[2022-06-01] MEDS: methADONE HCl 20 MG/2 ML ORAL.CONC 105 MG PO (08:06)
[2022-06-01] MEDS: Metoprolol Succinate ER 25 MG TAB.ER.24H PO (08:09)
[2022-06-01] MEDS: Furosemide 40 MG TABLET PO (08:09)
[2022-06-01] MEDS: Gabapentin 300 MG CAPSULE PO ×3 (08:09→19:46)
[2022-06-01 09:23] LABS: Estimated Average Glucose 126 mg/dL
[2022-06-01 09:41] LABS: Cholesterol 206 mg/dL; HDL Cholesterol 36 mg/dL; LDL Cholesterol Calculated 138 mg/dl; Magnesium 1.7 mg/dL (1.6-2.6); Triglycerides 161 mg/dL
[2022-06-01 10:07] LABS: Free T4 (Free Thyroxine) 1.23 ng/dL (0.71-1.85); Thyroid Stimulating Hormone 1.29 uIU/mL (0.32-4.0)
[2022-06-01 10:46] LABS: Folate 7.8 ng/mL (> or = 4.0); Vitamin B12 251 pg/mL (200-900)
[2022-06-01] MEDS: QUEtiapine Fumarate 25 MG TABLET PO (12:37)
[2022-06-01] MEDS: Acetaminophen 325 MG TABLET 650 MG PO (12:37)
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
[2022-06-01 19:38] VITALS: BP 115/69; PULSE 77; RESP 18; O2SAT 97
[2022-06-01] MEDS: Prazosin HCL 1 MG CAPSULE 2 MG PO (19:46)
[2022-06-01] MEDS: cloNIDine HCL 0.1 MG TABLET PO (19:46)
[2022-06-01] MEDS: Doxepin HCl 10 MG CAPSULE PO (19:46)
[2022-06-01] MEDS: Mirtazapine 15 MG TABLET PO (19:46)
[2022-06-01] MEDS: traZODone HCL 50 MG TABLET PO (19:47)
[2022-06-01] MEDS: Bacitracin Oint 14 GM TUBE 1 APPL TOPICAL (19:47)
[2022-06-02] MEDS: methADONE HCl 20 MG/2 ML ORAL.CONC 105 MG PO (06:09)
[2022-06-02] MEDS: LORazepam 1 MG TABLET PO ×3 (06:50→20:21)
[2022-06-02 08:20] VITALS: BP 112/57; PULSE 79; RESP 18; TEMP 36.4; O2SAT 97
[2022-06-02] MEDS: Furosemide 40 MG TABLET PO (08:42)
[2022-06-02] MEDS: Gabapentin 300 MG CAPSULE PO ×3 (08:43→20:21)
[2022-06-02] MEDS: Metoprolol Succinate ER 25 MG TAB.ER.24H PO (08:43)
[2022-06-02] MEDS: QUEtiapine Fumarate 25 MG TABLET PO (10:25)
[2022-06-02] MEDS: Bacitracin Oint 14 GM TUBE 1 APPL TOPICAL ×2 (10:52→20:24)
--- NOTE | 2022-06-02 12:28 | HO.PSYCHPN ---
Subjective Subjective Date of Service: 06/02/22 Reason For Visit: depression, si Subjective Notes: Conditional Voluntary Interim History: Pt reports having racing thoughts. She reports suicidal ideation no plan here on the unit, but having thoughts of hanging herself. She reports fair sleep. She is eating well. No behavioral concerns. she asks to restart lamictal as she reports has been helpful in the past. Medication Compliance: Yes Side effects from medications: No Attending Groups: Yes Review of Systems Review of Systems Constitutional : No Fever, No Chills ENT/Mouth : No Ear Pain, No Nasal Congestion, No sore throat Eyes: No Eye Pain, No Swelling, No Redness Cardiovascular : No Chest Pain, No SOB Respiratory : No Cough, No Sputum, No Dyspnea Gastrointestinal : No Nausea, No Vomiting, No Diarrhea, No Hematochezia, No Melena Genitourinary : No Dysuria, No Urinary Frequency, No Hematuria Musculoskeletal : No Myalgias Skin : No Skin Lesions, No rash Neuro : No Weakness, No Numbness, No Paresthesias, No Dizziness, No Headache Psych : positive Anxiety, positive Depression, positive SI no HI Heme/Lymph: No Lymphadenopathy Endocrine : No Polyuria, No Polydipsia All other systems reviewed and are negative Mental Status Exam Mental Status Exam Narrative: A&O. adequate grooming. Good eye contact, attentive. No Tics or Tremors. No abnormal involuntary movements. largely calm, cooperative, engaged; some periods of tearfulness. Non-pressured speech, spontaneous. normal rate, volume, tone. No prolonged speech latency or dysarthria. affect is appropriate, constricted, min-labile. +SI via hanging. no HI/AVH or delusional thought content. Thoughts are coherent, organized. No known cognitive or memory impairment. Insight/ Judgment fair, but impulsive. Diagnostics Vital Signs (24Hr): Vital Signs - 24 hr 06/03/22 08:55 06/03/22 20:40 Temperature 97.2 F 97.8 F Pulse Rate 75 79 Respiratory Rate 18 16 Blood Pressure 124/60 109/58 L Pulse Oximetry 97 94 Oxygen Delivery Method Room Air Room Air BMI result Body Mass Index 37.8 Labs Results: 05/31/22 10:52 05/31/22 10:52 Medications Medications Current Medications Acetaminophen (Acetaminophen 325 Mg Tablet) 650 mg PO Q6H PRN PRN Reason: Headache/Pain Mild Scale (1-3) Last Admin: 06/04/22 04:02 Dose: 650 mg Al Hydroxide/Mg Hydroxide (Magnesium Hydrox/Alum Hydrox 30 Ml Oral.Susp) 30 ml PO Q6H PRN PRN Reason: Heartburn/Nausea Albuterol Sulfate (Albuterol Sulfate 90 Mcg 8 Gm Inhaler) 2 puff INHALE RQ4H PRN PRN Reason: wheezing Bacitracin (Bacitracin Oint 14 Gm Tube) 1 appl TOPICAL BID ADRIÁN; Protocol Last Admin: 06/03/22 20:48 Dose: 1 appl Clonidine HCl (Clonidine Hcl 0.1 Mg Tablet) 0.1 mg PO BEDTIME ADRIÁN; Protocol Last Admin: 06/03/22 20:40 Dose: 0.1 mg Doxepin HCl (Doxepin Hcl 10 Mg Capsule) 10 mg PO BEDTIME ADRIÁN Last Admin: 06/03/22 20:40 Dose: 10 mg Furosemide (Furosemide 40 Mg Tablet) 40 mg PO DAILY ADRIÁN; Protocol Last Admin: 06/03/22 09:03 Dose: 40 mg Gabapentin (Gabapentin 300 Mg Capsule) 300 mg PO TID ADRIÁN Last Admin: 06/03/22 20:40 Dose: 300 mg Hydroxyzine HCl (Hydroxyzine Hcl 25 Mg Tablet) 25 mg PO Q6H PRN PRN Reason: Anxiety Lamotrigine (Lamotrigine 25 Mg Tablet) 25 mg PO BEDTIME ADRIÁN Last Admin: 06/03/22 20:40 Dose: 25 mg Lorazepam (Lorazepam 1 Mg Tablet) 1 mg PO TID PRN PRN Reason: anxiety Last Admin: 06/04/22 06:38 Dose: 1 mg Magnesium Hydroxide (Milk Of Magnesia 30 Ml Oral.Susp) 30 ml PO DAILY PRN PRN Reason: Constipation Methadone HCl (Methadone Hcl 20 Mg/2 Ml Oral.Conc) 105 mg PO DAILY@0600 ADRIÁN Last Admin: 06/04/22 05:44 Dose: 105 mg Metoprolol Succinate (Metoprolol Succinate Er 25 Mg Tab.Er.24h) 25 mg PO DAILY ADRIÁN; Protocol Last Admin: 06/03/22 09:03 Dose: 25 mg Mirtazapine (Mirtazapine 15 Mg Tablet) 15 mg PO BEDTIME ADRIÁN Last Admin: 06/03/22 20:40 Dose: 15 mg Prazosin HCl (Prazosin Hcl 1 Mg Capsule) 2 mg PO BEDTIME ADRIÁN; Protocol Last Admin: 06/03/22 20:39 Dose: 2 mg Quetiapine Fumarate (Quetiapine Fumarate 25 Mg Tablet) 25 mg PO Q4H PRN PRN Reason: severe anxiety Last Admin: 06/03/22 09:03 Dose: 25 mg Risperidone (Risperidone 1 Mg Tablet) 1 mg PO BID ADRIÁN Last Admin: 06/03/22 20:40 Dose: 1 mg Trazodone HCl (Trazodone Hcl 50 Mg Tablet) 50 mg PO BEDTIME PRN PRN Reason: Insomnia Last Admin: 06/03/22 20:40 Dose: 50 mg Allergies Allergies Allergy/AdvReac Type Severity Reaction Status Date / Time hernandez [CHERRIES] Allergy Severe Angioedema Verified 06/01/22 10:41 NSAIDS (Non-Steroidal Allergy Unknown NOT Verified 07/29/21 11:00 Anti-Inflamma SUPPOSED [NSAIDS (NON-STEROIDAL TO TAKE ANTI-INFLAMMA] DUE TO LIVER DAMAGE IN THE PAST ketorolac [From Toradol] Allergy Hives Verified 06/01/22 10:41 codeine [CODEINE] AdvReac Unknown Nausea and Verified 06/01/22 10:41 Vomiting prochlorperazine AdvReac lockjaw Verified 06/01/22 10:41 [From Compazine] tramadol [From Ultram] AdvReac Seizure Verified 06/01/22 10:41 Assessment & Plan Assessment & Plan (1) Depression: Qualifiers: Depression Type: unspecified Qualified Code(s): F32.A - Depression, unspecified Status: Acute Code(s): F32.A - Depression, unspecified (2) Suicidal ideation: Status: Acute Code(s): R45.851 - Suicidal ideations (3) Opioid use disorder: Status: Chronic Code(s): F11.99 - Opioid use, unspecified with unspecified opioid-induced disorder (4) Chronic post-traumatic stress disorder (PTSD): Status: Chronic Code(s): F43.12 - Post-traumatic stress disorder, chronic Plan restart prior meds regimen. investigate substance abuse Tx options. search for alternative housing options. stabilize inpatient, discharge once stabilized. 06/02 continue current tx. I spent minutes with the patient and/or on the patient floor today, greater than?50% of which was spent counseling/coordinating care. Reason for contiued inpatient stay Substantial Risk for: harm to self
[2022-06-02] MEDS: Acetaminophen 325 MG TABLET 650 MG PO (13:00)
[2022-06-02 18:00] VITALS: BP 106/63; PULSE 84; RESP 18; TEMP 36.4; O2SAT 95
[2022-06-02] MEDS: Mirtazapine 15 MG TABLET PO (20:20)
[2022-06-02] MEDS: cloNIDine HCL 0.1 MG TABLET PO (20:20)
[2022-06-02] MEDS: Prazosin HCL 1 MG CAPSULE 2 MG PO (20:21)
[2022-06-02] MEDS: traZODone HCL 50 MG TABLET PO (20:21)
[2022-06-02] MEDS: Doxepin HCl 10 MG CAPSULE PO (23:30)
[2022-06-03] MEDS: methADONE HCl 20 MG/2 ML ORAL.CONC 105 MG PO (05:52)
[2022-06-03] MEDS: LORazepam 1 MG TABLET PO ×3 (06:17→19:12)
--- NOTE | 2022-06-03 07:00 | P.PNPSI_ITS ---
Subjective Subjective Date of Service: 06/03/22 Reason For Visit: depression, si Subjective Notes: Conditional Voluntary Interim History: Pt continues to report racing thoughts, sleep is better. She continues to report SI no plan or intent here but states that continues to have thoughts of hanging herself. She denies VH/AH. we discussed restarting lamictal and risperidone for racing thoughts. Medication Compliance: Yes Review of Systems Review of Systems Constitutional : No Fever, No Chills ENT/Mouth : No Ear Pain, No Nasal Congestion, No sore throat Eyes: No Eye Pain, No Swelling, No Redness Cardiovascular : No Chest Pain, No SOB Respiratory : No Cough, No Sputum, No Dyspnea Gastrointestinal : No Nausea, No Vomiting, No Diarrhea, No Hematochezia, No Rusty na Genitourinary : No Dysuria, No Urinary Frequency, No Hematuria Musculoskeletal : No Myalgias Skin : No Skin Lesions, No rash Neuro : No Weakness, No Numbness, No Paresthesias, No Dizziness, No Headache Psych : positive Anxiety, positive Depression, positive SI no HI Heme/Lymph: No Lymphadenopathy Endocrine : No Polyuria, No Polydipsia All other systems reviewed and are negative Mental Status Exam Mental Status Exam Narrative: A&O. adequate grooming. Good eye contact, attentive. No Tics or Tremors. No abnormal involuntary movements. largely calm, cooperative, engaged; some periods of tearfulness. Non-pressured speech, spontaneous. normal rate, volume, tone. No prolonged speech latency or dysarthria. affect is appropriate, constricted, min-labile. +SI via hanging. no HI/AVH or delusional thought content. Thoughts are coherent, organized. No known cognitive or memory impairment. Insight/ Judgment fair, but impulsive. Diagnostics Vital Signs (24Hr): Vital Signs - 24 hr 06/03/22 08:55 06/03/22 20:40 Temperature 97.2 F 97.8 F Pulse Rate 75 79 Respiratory Rate 18 16 Blood Pressure 124/60 109/58 L Pulse Oximetry 97 94 Oxygen Delivery Method Room Air Room Air BMI result Body Mass Index 37.8 Labs Results: 05/31/22 10:52 05/31/22 10:52 Medications Medications Current Medications Acetaminophen (Acetaminophen 325 Mg Tablet) 650 mg PO Q6H PRN PRN Reason: Headache/Pain Mild Scale (1-3) Last Admin: 06/04/22 04:02 Dose: 650 mg Al Hydroxide/Mg Hydroxide (Magnesium Hydrox/Alum Hydrox 30 Ml Oral.Susp) 30 ml PO Q6H PRN PRN Reason: Heartburn/Nausea Albuterol Sulfate (Albuterol Sulfate 90 Mcg 8 Gm Inhaler) 2 puff INHALE RQ4H PRN PRN Reason: wheezing Bacitracin (Bacitracin Oint 14 Gm Tube) 1 appl TOPICAL BID ADRIÁN; Protocol Last Admin: 06/03/22 20:48 Dose: 1 appl Clonidine HCl (Clonidine Hcl 0.1 Mg Tablet) 0.1 mg PO BEDTIME ADRIÁN; Protocol Last Admin: 06/03/22 20:40 Dose: 0.1 mg Doxepin HCl (Doxepin Hcl 10 Mg Capsule) 10 mg PO BEDTIME ADRIÁN Last Admin: 06/03/22 20:40 Dose: 10 mg Furosemide (Furosemide 40 Mg Tablet) 40 mg PO DAILY ADRIÁN; Protocol Last Admin: 06/03/22 09:03 Dose: 40 mg Gabapentin (Gabapentin 300 Mg Capsule) 300 mg PO TID ADRIÁN Last Admin: 06/03/22 20:40 Dose: 300 mg Hydroxyzine HCl (Hydroxyzine Hcl 25 Mg Tablet) 25 mg PO Q6H PRN PRN Reason: Anxiety Lamotrigine (Lamotrigine 25 Mg Tablet) 25 mg PO BEDTIME ADRIÁN Last Admin: 06/03/22 20:40 Dose: 25 mg Lorazepam (Lorazepam 1 Mg Tablet) 1 mg PO TID PRN PRN Reason: anxiety Last Admin: 06/04/22 06:38 Dose: 1 mg Magnesium Hydroxide (Milk Of Magnesia 30 Ml Oral.Susp) 30 ml PO DAILY PRN PRN Reason: Constipation Methadone HCl (Methadone Hcl 20 Mg/2 Ml Oral.Conc) 105 mg PO DAILY@0600 ADRIÁN Last Admin: 06/04/22 05:44 Dose: 105 mg Metoprolol Succinate (Metoprolol Succinate Er 25 Mg Tab.Er.24h) 25 mg PO DAILY ADRIÁN; Protocol Last Admin: 06/03/22 09:03 Dose: 25 mg Mirtazapine (Mirtazapine 15 Mg Tablet) 15 mg PO BEDTIME ADRIÁN Last Admin: 06/03/22 20:40 Dose: 15 mg Prazosin HCl (Prazosin Hcl 1 Mg Capsule) 2 mg PO BEDTIME ADRIÁN; Protocol Last Admin: 06/03/22 20:39 Dose: 2 mg Quetiapine Fumarate (Quetiapine Fumarate 25 Mg Tablet) 25 mg PO Q4H PRN PRN Reason: severe anxiety Last Admin: 06/03/22 09:03 Dose: 25 mg Risperidone (Risperidone 1 Mg Tablet) 1 mg PO BID ADRIÁN Last Admin: 06/03/22 20:40 Dose: 1 mg Trazodone HCl (Trazodone Hcl 50 Mg Tablet) 50 mg PO BEDTIME PRN PRN Reason: Insomnia Last Admin: 06/03/22 20:40 Dose: 50 mg Allergies Allergies Allergy/AdvReac Type Severity Reaction Status Date / Time hernandez [CHERRIES] Allergy Severe Angioedema Verified 06/01/22 10:41 NSAIDS (Non-Steroidal Allergy Unknown NOT Verified 07/29/21 11:00 Anti-Inflamma SUPPOSED [NSAIDS (NON-STEROIDAL TO TAKE ANTI-INFLAMMA] DUE TO LIVER DAMAGE IN THE PAST ketorolac [From Toradol] Allergy Hives Verified 06/01/22 10:41 codeine [CODEINE] AdvReac Unknown Nausea and Verified 06/01/22 10:41 Vomiting prochlorperazine AdvReac lockjaw Verified 06/01/22 10:41 [From Compazine] tramadol [From Ultram] AdvReac Seizure Verified 06/01/22 10:41 Assessment & Plan Assessment & Plan (1) Depression: Qualifiers: Depression Type: unspecified Qualified Code(s): F32.A - Depression, unspecified Status: Acute Code(s): F32.A - Depression, unspecified (2) Suicidal ideation: Status: Acute Code(s): R45.851 - Suicidal ideations (3) Opioid use disorder: Status: Chronic Code(s): F11.99 - Opioid use, unspecified with unspecified opioid-induced disorder (4) Chronic post-traumatic stress disorder (PTSD): Status: Chronic Code(s): F43.12 - Post-traumatic stress disorder, chronic Plan restart prior meds regimen. investigate substance abuse Tx options. search for alternative housing options. stabilize inpatient, discharge once stabilized. 06/02 continue current tx. 06/03 start lamictal 25mg po daily and risperidone for ruminations/racing thoughts, which pt reports was helpful in the past. I spent minutes with the patient and/or on the patient floor today, greater than?50% of which was spent counseling/coordinating care. Reason for contiued inpatient stay Substantial Risk for: harm to self
[2022-06-03 08:55] VITALS: BP 124/60; PULSE 75; RESP 18; TEMP 36.2; O2SAT 97
[2022-06-03] MEDS: Gabapentin 300 MG CAPSULE PO ×3 (09:03→20:40)
[2022-06-03] MEDS: Furosemide 40 MG TABLET PO (09:03)
[2022-06-03] MEDS: Metoprolol Succinate ER 25 MG TAB.ER.24H PO (09:03)
[2022-06-03] MEDS: QUEtiapine Fumarate 25 MG TABLET PO (09:03)
[2022-06-03] MEDS: risperiDONE 1 MG TABLET PO ×2 (14:38→20:40)
[2022-06-03] MEDS: Prazosin HCL 1 MG CAPSULE 2 MG PO (20:39)
[2022-06-03 20:40] VITALS: BP 109/58; PULSE 79; RESP 16; TEMP 36.6; O2SAT 94
[2022-06-03] MEDS: cloNIDine HCL 0.1 MG TABLET PO (20:40)
[2022-06-03] MEDS: traZODone HCL 50 MG TABLET PO (20:40)
[2022-06-03] MEDS: Mirtazapine 15 MG TABLET PO (20:40)
[2022-06-03] MEDS: lamoTRIgine 25 MG TABLET PO (20:40)
[2022-06-03] MEDS: Doxepin HCl 10 MG CAPSULE PO (20:40)
[2022-06-03] MEDS: Bacitracin Oint 14 GM TUBE 1 APPL TOPICAL (20:48)
[2022-06-04] MEDS: Acetaminophen 325 MG TABLET 650 MG PO ×2 (04:02→18:08)
[2022-06-04] MEDS: methADONE HCl 20 MG/2 ML ORAL.CONC 105 MG PO (05:44)
[2022-06-04 06:00] VITALS: BP 126/62; PULSE 70; RESP 16; TEMP 36.6; O2SAT 95
[2022-06-04] MEDS: LORazepam 1 MG TABLET PO ×3 (06:38→18:08)
[2022-06-04] MEDS: risperiDONE 1 MG TABLET PO ×2 (08:11→20:29)
[2022-06-04] MEDS: Gabapentin 300 MG CAPSULE PO ×3 (08:12→20:29)
[2022-06-04] MEDS: Furosemide 40 MG TABLET PO (08:12)
[2022-06-04] MEDS: Metoprolol Succinate ER 25 MG TAB.ER.24H PO (08:12)
[2022-06-04] MEDS: Bacitracin Oint 14 GM TUBE 1 APPL TOPICAL (08:14)
--- NOTE | 2022-06-04 16:04 | HO.PSYCHPN ---
Subjective Subjective Date of Service: 06/04/22 Reason For Visit: depression, si Interim History: c/o insomnia and racing thoughts, gets tearful when thinking about her living situation and that she can't go back there for her safety and that she has nowhere else to go. states she is working with SW on other options. agrees to increase prazosin to 3 mg at HS for insomnia. per staff, increased anxiety and irritation. +SI, but can let staff know if she is feeling unsafe. slept eves and overnight. Mental Status Exam Mental Status Exam Narrative: A&O. adequate grooming. Good eye contact, attentive. No Tics or Tremors. No abnormal involuntary movements. largely calm, cooperative, engaged; some periods of tearfulness. Non-pressured speech, spontaneous. normal rate, volume, tone. No prolonged speech latency or dysarthria. affect is appropriate, constricted, min-labile. no SI/HI/AVH expressed, no delusional thought content. Thoughts are coherent, organized. No known cognitive or memory impairment. Insight/ Judgment fair, but impulsive. Diagnostics Vital Signs (24Hr): Vital Signs - 24 hr 06/03/22 20:40 06/04/22 06:00 Temperature 97.8 F 97.8 F Pulse Rate 79 70 Respiratory Rate 16 16 Blood Pressure 109/58 L 126/62 Pulse Oximetry 94 95 Oxygen Delivery Method Room Air Room Air BMI result Body Mass Index 37.8 Labs Results: 05/31/22 10:52 05/31/22 10:52 Medications Medications Current Medications Acetaminophen (Acetaminophen 325 Mg Tablet) 650 mg PO Q6H PRN PRN Reason: Headache/Pain Mild Scale (1-3) Last Admin: 06/04/22 04:02 Dose: 650 mg Al Hydroxide/Mg Hydroxide (Magnesium Hydrox/Alum Hydrox 30 Ml Oral.Susp) 30 ml PO Q6H PRN PRN Reason: Heartburn/Nausea Albuterol Sulfate (Albuterol Sulfate 90 Mcg 8 Gm Inhaler) 2 puff INHALE RQ4H PRN PRN Reason: wheezing Bacitracin (Bacitracin Oint 14 Gm Tube) 1 appl TOPICAL BID ADRIÁN; Protocol Last Admin: 06/04/22 08:14 Dose: 1 appl Clonidine HCl (Clonidine Hcl 0.1 Mg Tablet) 0.1 mg PO BEDTIME ADRIÁN; Protocol Last Admin: 06/03/22 20:40 Dose: 0.1 mg Doxepin HCl (Doxepin Hcl 10 Mg Capsule) 10 mg PO BEDTIME ADRIÁN Last Admin: 06/03/22 20:40 Dose: 10 mg Furosemide (Furosemide 40 Mg Tablet) 40 mg PO DAILY ADRIÁN; Protocol Last Admin: 06/04/22 08:12 Dose: 40 mg Gabapentin (Gabapentin 300 Mg Capsule) 300 mg PO TID ADRIÁN Last Admin: 06/04/22 08:12 Dose: 300 mg Hydroxyzine HCl (Hydroxyzine Hcl 25 Mg Tablet) 25 mg PO Q6H PRN PRN Reason: Anxiety Lamotrigine (Lamotrigine 25 Mg Tablet) 25 mg PO BEDTIME ADRIÁN Last Admin: 06/03/22 20:40 Dose: 25 mg Lorazepam (Lorazepam 1 Mg Tablet) 1 mg PO TID PRN PRN Reason: anxiety Last Admin: 06/04/22 12:45 Dose: 1 mg Magnesium Hydroxide (Milk Of Magnesia 30 Ml Oral.Susp) 30 ml PO DAILY PRN PRN Reason: Constipation Methadone HCl (Methadone Hcl 20 Mg/2 Ml Oral.Conc) 105 mg PO DAILY@0600 ADRIÁN Last Admin: 06/04/22 05:44 Dose: 105 mg Metoprolol Succinate (Metoprolol Succinate Er 25 Mg Tab.Er.24h) 25 mg PO DAILY ADRIÁN; Protocol Last Admin: 06/04/22 08:12 Dose: 25 mg Mirtazapine (Mirtazapine 15 Mg Tablet) 15 mg PO BEDTIME ADRIÁN Last Admin: 06/03/22 20:40 Dose: 15 mg Prazosin HCl (Prazosin Hcl 1 Mg Capsule) 3 mg PO BEDTIME ADRIÁN; Protocol Quetiapine Fumarate (Quetiapine Fumarate 25 Mg Tablet) 25 mg PO Q4H PRN PRN Reason: severe anxiety Last Admin: 06/03/22 09:03 Dose: 25 mg Risperidone (Risperidone 1 Mg Tablet) 1 mg PO BID ADRIÁN Last Admin: 06/04/22 08:11 Dose: 1 mg Trazodone HCl (Trazodone Hcl 50 Mg Tablet) 50 mg PO BEDTIME PRN PRN Reason: Insomnia Last Admin: 06/03/22 20:40 Dose: 50 mg Allergies Allergies Allergy/AdvReac Type Severity Reaction Status Date / Time hernandez [CHERRIES] Allergy Severe Angioedema Verified 06/01/22 10:41 NSAIDS (Non-Steroidal Allergy Unknown NOT Verified 07/29/21 11:00 Anti-Inflamma SUPPOSED [NSAIDS (NON-STEROIDAL TO TAKE ANTI-INFLAMMA] DUE TO LIVER DAMAGE IN THE PAST ketorolac [From Toradol] Allergy Hives Verified 06/01/22 10:41 codeine [CODEINE] AdvReac Unknown Nausea and Verified 06/01/22 10:41 Vomiting prochlorperazine AdvReac lockjaw Verified 06/01/22 10:41 [From Compazine] tramadol [From Ultram] AdvReac Seizure Verified 06/01/22 10:41 Assessment & Plan Assessment & Plan (1) Depression: Qualifiers: Depression Type: unspecified Qualified Code(s): F32.A - Depression, unspecified Status: Acute Code(s): F32.A - Depression, unspecified (2) Suicidal ideation: Status: Acute Code(s): R45.851 - Suicidal ideations (3) Opioid use disorder: Status: Chronic Code(s): F11.99 - Opioid use, unspecified with unspecified opioid-induced disorder (4) Chronic post-traumatic stress disorder (PTSD): Status: Chronic Code(s): F43.12 - Post-traumatic stress disorder, chronic Plan restart prior meds regimen. investigate substance abuse Tx options. search for alternative housing options. stabilize inpatient, discharge once stabilized. 06/02 continue current tx. 06/03 start lamictal 25mg po daily and risperidone for ruminations/racing thoughts, which pt reports was helpful in the past. 06/04: increase HS prazosin to 3 mg for insomnia/racing thoughts. I spent ___20___ minutes with the patient and/or on the patient floor today, greater than?50% of which was spent counseling/coordinating care. Reason for contiued inpatient stay Substantial Risk for: harm to self, inability to function and rapid decompensation
[2022-06-04] MEDS: QUEtiapine Fumarate 25 MG TABLET PO (16:14)
[2022-06-04 20:25] VITALS: BP 129/65; PULSE 85; RESP 16; TEMP 36.5; O2SAT 95
[2022-06-04] MEDS: Prazosin HCL 1 MG CAPSULE 3 MG PO (20:27)
[2022-06-04] MEDS: Doxepin HCl 10 MG CAPSULE PO (20:28)
[2022-06-04] MEDS: lamoTRIgine 25 MG TABLET PO (20:28)
[2022-06-04] MEDS: traZODone HCL 50 MG TABLET PO (20:29)
[2022-06-04] MEDS: Mirtazapine 15 MG TABLET PO (20:29)
[2022-06-04] MEDS: cloNIDine HCL 0.1 MG TABLET PO (20:29)
[2022-06-05] MEDS: LORazepam 1 MG TABLET PO ×3 (02:46→18:00)
[2022-06-05] MEDS: methADONE HCl 20 MG/2 ML ORAL.CONC 105 MG PO (05:31)
[2022-06-05 08:17] VITALS: BP 114/54; PULSE 89; RESP 17; TEMP 36.6; O2SAT 95
[2022-06-05] MEDS: Gabapentin 300 MG CAPSULE PO ×3 (08:26→20:55)
[2022-06-05] MEDS: QUEtiapine Fumarate 25 MG TABLET PO ×3 (08:27→20:55)
[2022-06-05] MEDS: risperiDONE 1 MG TABLET PO ×2 (08:27→20:54)
[2022-06-05] MEDS: Metoprolol Succinate ER 25 MG TAB.ER.24H PO (08:33)
[2022-06-05] MEDS: Furosemide 40 MG TABLET PO (08:33)
[2022-06-05 14:10] VITALS: BP 138/87; PULSE 118; RESP 20; TEMP 36.4; O2SAT 98
[2022-06-05] MEDS: hydrOXYzine HCL 25 MG TABLET PO (15:24)
--- NOTE | 2022-06-05 16:01 | HO.PSYCHPN ---
Subjective Subjective Date of Service: 06/05/22 Reason For Visit: depression, si Interim History: same presentation as past two days. calm, then tearful. focused on housing insecurity. much of discussion around trying to get into [facility]. per staff, high anx/dep re dispo. appetite good. social. eves isolative, napping. no SI/HI/AVH. taking meds. eating well. up once in the night, slept about 6 hours total. Mental Status Exam Mental Status Exam Narrative: A&O. adequate grooming. Good eye contact, attentive. No Tics or Tremors. No abnormal involuntary movements. largely calm, cooperative, engaged; some periods of tearfulness. Non-pressured speech, spontaneous. normal rate, volume, tone. No prolonged speech latency or dysarthria. affect is appropriate, constricted, min-labile. no SI/HI/AVH expressed, no delusional thought content. Thoughts are coherent, organized. No known cognitive or memory impairment. Insight/ Judgment fair, but impulsive. Diagnostics Vital Signs (24Hr): Vital Signs - 24 hr 06/04/22 20:25 06/05/22 08:17 Temperature 97.7 F 97.9 F Pulse Rate 85 89 Respiratory Rate 16 17 Blood Pressure 129/65 114/54 L Pulse Oximetry 95 95 Oxygen Delivery Method Room Air Room Air BMI result Body Mass Index 37.8 Labs Results: 05/31/22 10:52 05/31/22 10:52 Medications Medications Current Medications Acetaminophen (Acetaminophen 325 Mg Tablet) 650 mg PO Q6H PRN PRN Reason: Headache/Pain Mild Scale (1-3) Last Admin: 06/04/22 18:08 Dose: 650 mg Al Hydroxide/Mg Hydroxide (Magnesium Hydrox/Alum Hydrox 30 Ml Oral.Susp) 30 ml PO Q6H PRN PRN Reason: Heartburn/Nausea Albuterol Sulfate (Albuterol Sulfate 90 Mcg 8 Gm Inhaler) 2 puff INHALE RQ4H PRN PRN Reason: wheezing Bacitracin (Bacitracin Oint 14 Gm Tube) 1 appl TOPICAL BID ADRIÁN; Protocol Last Admin: 06/05/22 08:56 Dose: Not Given Clonidine HCl (Clonidine Hcl 0.1 Mg Tablet) 0.1 mg PO BEDTIME ADRIÁN; Protocol Last Admin: 06/04/22 20:29 Dose: 0.1 mg Doxepin HCl (Doxepin Hcl 10 Mg Capsule) 10 mg PO BEDTIME ADRIÁN Last Admin: 06/04/22 20:28 Dose: 10 mg Furosemide (Furosemide 40 Mg Tablet) 40 mg PO DAILY ADRIÁN; Protocol Last Admin: 06/05/22 08:33 Dose: 40 mg Gabapentin (Gabapentin 300 Mg Capsule) 300 mg PO TID ADRIÁN Last Admin: 06/05/22 15:24 Dose: 300 mg Hydroxyzine HCl (Hydroxyzine Hcl 25 Mg Tablet) 25 mg PO Q6H PRN PRN Reason: Anxiety Last Admin: 06/05/22 15:24 Dose: 25 mg Lamotrigine (Lamotrigine 25 Mg Tablet) 25 mg PO BEDTIME ADRIÁN Last Admin: 06/04/22 20:28 Dose: 25 mg Lorazepam (Lorazepam 1 Mg Tablet) 1 mg PO TID PRN PRN Reason: anxiety Last Admin: 06/05/22 12:20 Dose: 1 mg Magnesium Hydroxide (Milk Of Magnesia 30 Ml Oral.Susp) 30 ml PO DAILY PRN PRN Reason: Constipation Methadone HCl (Methadone Hcl 20 Mg/2 Ml Oral.Conc) 105 mg PO DAILY@0600 ADRIÁN Last Admin: 06/05/22 05:31 Dose: 105 mg Metoprolol Succinate (Metoprolol Succinate Er 25 Mg Tab.Er.24h) 25 mg PO DAILY ADRIÁN; Protocol Last Admin: 06/05/22 08:33 Dose: 25 mg Mirtazapine (Mirtazapine 15 Mg Tablet) 15 mg PO BEDTIME ADRIÁN Last Admin: 06/04/22 20:29 Dose: 15 mg Prazosin HCl (Prazosin Hcl 1 Mg Capsule) 3 mg PO BEDTIME ADRIÁN; Protocol Last Admin: 06/04/22 20:27 Dose: 3 mg Quetiapine Fumarate (Quetiapine Fumarate 25 Mg Tablet) 25 mg PO Q4H PRN PRN Reason: severe anxiety Last Admin: 06/05/22 14:09 Dose: 25 mg Risperidone (Risperidone 1 Mg Tablet) 1 mg PO BID ADRIÁN Last Admin: 06/05/22 08:27 Dose: 1 mg Trazodone HCl (Trazodone Hcl 50 Mg Tablet) 50 mg PO BEDTIME PRN PRN Reason: Insomnia Last Admin: 06/04/22 20:29 Dose: 50 mg Allergies Allergies Allergy/AdvReac Type Severity Reaction Status Date / Time hernandez [CHERRIES] Allergy Severe Angioedema Verified 06/01/22 10:41 NSAIDS (Non-Steroidal Allergy Unknown NOT Verified 07/29/21 11:00 Anti-Inflamma SUPPOSED [NSAIDS (NON-STEROIDAL TO TAKE ANTI-INFLAMMA] DUE TO LIVER DAMAGE IN THE PAST ketorolac [From Toradol] Allergy Hives Verified 06/01/22 10:41 codeine [CODEINE] AdvReac Unknown Nausea and Verified 06/01/22 10:41 Vomiting prochlorperazine AdvReac lockjaw Verified 06/01/22 10:41 [From Compazine] tramadol [From Ultram] AdvReac Seizure Verified 06/01/22 10:41 Assessment & Plan Assessment & Plan (1) Depression: Qualifiers: Depression Type: unspecified Qualified Code(s): F32.A - Depression, unspecified Status: Acute Code(s): F32.A - Depression, unspecified (2) Suicidal ideation: Status: Acute Code(s): R45.851 - Suicidal ideations (3) Opioid use disorder: Status: Chronic Code(s): F11.99 - Opioid use, unspecified with unspecified opioid-induced disorder (4) Chronic post-traumatic stress disorder (PTSD): Status: Chronic Code(s): F43.12 - Post-traumatic stress disorder, chronic Plan restart prior meds regimen. investigate substance abuse Tx options. search for alternative housing options. stabilize inpatient, discharge once stabilized. 06/02 continue current tx. 06/03 start lamictal 25mg po daily and risperidone for ruminations/racing thoughts, which pt reports was helpful in the past. 06/04: increase HS prazosin to 3 mg for insomnia/racing thoughts. 06/05: slept better. engaged in applications to [employer] continue current regimen. I spent ___20___ minutes with the patient and/or on the patient floor today, greater than?50% of which was spent counseling/coordinating care. Reason for contiued inpatient stay Substantial Risk for: harm to self, inability to function and rapid decompensation
[2022-06-05 18:00] VITALS: BP 118/60; PULSE 77; RESP 18; TEMP 36.6; O2SAT 95
[2022-06-05] MEDS: Acetaminophen 325 MG TABLET 650 MG PO (18:00)
[2022-06-05] MEDS: Magnesium Hydrox/Alum Hydrox 30 ML ORAL.SUSP PO (18:26)
[2022-06-05 19:11] LABS: D Dimer High Sensitivity 220 NG/ML
[2022-06-05] MEDS: lamoTRIgine 25 MG TABLET PO (20:54)
[2022-06-05] MEDS: Prazosin HCL 1 MG CAPSULE 3 MG PO (20:54)
[2022-06-05] MEDS: cloNIDine HCL 0.1 MG TABLET PO (20:54)
[2022-06-05] MEDS: Doxepin HCl 10 MG CAPSULE PO (20:54)
[2022-06-05] MEDS: Mirtazapine 15 MG TABLET PO (20:54)
[2022-06-05] MEDS: traZODone HCL 50 MG TABLET PO (20:55)
[2022-06-06] MEDS: LORazepam 1 MG TABLET PO ×3 (02:53→17:45)
[2022-06-06] MEDS: methADONE HCl 20 MG/2 ML ORAL.CONC 105 MG PO (05:43)
[2022-06-06] MEDS: Furosemide 40 MG TABLET PO (08:41)
[2022-06-06] MEDS: Gabapentin 300 MG CAPSULE PO ×3 (08:41→21:08)
[2022-06-06] MEDS: risperiDONE 1 MG TABLET PO ×2 (08:42→21:08)
[2022-06-06] MEDS: Metoprolol Succinate ER 25 MG TAB.ER.24H PO (08:42)
[2022-06-06 09:25] VITALS: BP 118/62; PULSE 95; RESP 14; TEMP 36.6; O2SAT 93
[2022-06-06] MEDS: Magnesium Hydrox/Alum Hydrox 30 ML ORAL.SUSP PO (12:58)
[2022-06-06] MEDS: QUEtiapine Fumarate 25 MG TABLET PO ×2 (15:14→21:08)
--- NOTE | 2022-06-06 15:16 | P.PNPSI_ITS ---
Subjective Subjective Date of Service: 06/06/22 Reason For Visit: depression, si Interim History: calm, cooperative. seen with SW. c/o poor sleep, agreeable to increase prazosin to 4 mg tonight. spoke with brother and can stay with him once she gets discharged, not planned for saturday. per staff, anx 9, dep 6. anxious re housing. calling friends to see if she can stay with them. appetite OK. slept better. no SI. no AVH. ativan at 0300. U/S NEG for DVT. Mental Status Exam Mental Status Exam Narrative: A&O. adequate grooming. Good eye contact, attentive. No Tics or Tremors. No abnormal involuntary movements. largely calm, cooperative, engaged. Non- pressured speech, spontaneous. normal rate, volume, tone. No prolonged speech latency or dysarthria. affect is appropriate, constricted, non-labile. no SI/HI/AVH expressed, no delusional thought content. Thoughts are coherent, organized. No known cognitive or memory impairment. Insight/ Judgment fair, but impulsive. Diagnostics Vital Signs (24Hr): Vital Signs - 24 hr 06/05/22 18:00 06/06/22 09:25 Temperature 97.8 F 97.8 F Pulse Rate 77 95 Respiratory Rate 18 14 Blood Pressure 118/60 118/62 Pulse Oximetry 95 93 Oxygen Delivery Method Room Air Room Air BMI result Body Mass Index 37.8 Labs Results: 05/31/22 10:52 05/31/22 10:52 Labs: Laboratory Results - last 48 hr 06/05/22 18:37 D-Dimer High Sensitivty 220 Imaging Radiology Impressions: ITS Impressions Duplex Scan Lower Extremity Artery 06/05/22 20:00 IMPRESSION: There is no evidence of any hemodynamically significant lower extremity arterial disease by pressure, waveform or duplex Doppler criteria at rest. Venous Duplex 06/05/22 20:00 IMPRESSION: No DVT demonstrated in either lower extremity. Medications Medications Current Medications Acetaminophen (Acetaminophen 325 Mg Tablet) 650 mg PO Q6H PRN PRN Reason: Headache/Pain Mild Scale (1-3) Last Admin: 06/05/22 18:00 Dose: 650 mg Al Hydroxide/Mg Hydroxide (Magnesium Hydrox/Alum Hydrox 30 Ml Oral.Susp) 30 ml PO Q6H PRN PRN Reason: Heartburn/Nausea Last Admin: 06/06/22 12:58 Dose: 30 ml Albuterol Sulfate (Albuterol Sulfate 90 Mcg 8 Gm Inhaler) 2 puff INHALE RQ4H PRN PRN Reason: wheezing Bacitracin (Bacitracin Oint 14 Gm Tube) 1 appl TOPICAL BID ADRIÁN; Protocol Last Admin: 06/06/22 08:43 Dose: Not Given Clonidine HCl (Clonidine Hcl 0.1 Mg Tablet) 0.1 mg PO BEDTIME ADRIÁN; Protocol Last Admin: 06/05/22 20:54 Dose: 0.1 mg Doxepin HCl (Doxepin Hcl 10 Mg Capsule) 10 mg PO BEDTIME ADRIÁN Last Admin: 06/05/22 20:54 Dose: 10 mg Furosemide (Furosemide 40 Mg Tablet) 40 mg PO DAILY ADRIÁN; Protocol Last Admin: 06/06/22 08:41 Dose: 40 mg Gabapentin (Gabapentin 300 Mg Capsule) 300 mg PO TID ADRIÁN Last Admin: 06/06/22 15:12 Dose: 300 mg Hydroxyzine HCl (Hydroxyzine Hcl 25 Mg Tablet) 25 mg PO Q6H PRN PRN Reason: Anxiety Last Admin: 06/05/22 15:24 Dose: 25 mg Lamotrigine (Lamotrigine 25 Mg Tablet) 25 mg PO BEDTIME ADRIÁN Last Admin: 06/05/22 20:54 Dose: 25 mg Lorazepam (Lorazepam 1 Mg Tablet) 1 mg PO TID PRN PRN Reason: Anxiety Last Admin: 06/06/22 10:37 Dose: 1 mg Magnesium Hydroxide (Milk Of Magnesia 30 Ml Oral.Susp) 30 ml PO DAILY PRN PRN Reason: Constipation Methadone HCl (Methadone Hcl 20 Mg/2 Ml Oral.Conc) 105 mg PO DAILY@0600 ADRIÁN Last Admin: 06/06/22 05:43 Dose: 105 mg Metoprolol Succinate (Metoprolol Succinate Er 25 Mg Tab.Er.24h) 25 mg PO DAILY ADRIÁN; Protocol Last Admin: 06/06/22 08:42 Dose: 25 mg Mirtazapine (Mirtazapine 15 Mg Tablet) 15 mg PO BEDTIME ADRIÁN Last Admin: 06/05/22 20:54 Dose: 15 mg Prazosin HCl (Prazosin Hcl 1 Mg Capsule) 4 mg PO BEDTIME ADRIÁN; Protocol Quetiapine Fumarate (Quetiapine Fumarate 25 Mg Tablet) 25 mg PO Q4H PRN PRN Reason: severe anxiety Last Admin: 06/06/22 15:14 Dose: 25 mg Risperidone (Risperidone 1 Mg Tablet) 1 mg PO BID ADRIÁN Last Admin: 06/06/22 08:42 Dose: 1 mg Trazodone HCl (Trazodone Hcl 50 Mg Tablet) 50 mg PO BEDTIME PRN PRN Reason: Insomnia Last Admin: 06/05/22 20:55 Dose: 50 mg Allergies Allergies Allergy/AdvReac Type Severity Reaction Status Date / Time hernandez [CHERRIES] Allergy Severe Angioedema Verified 06/01/22 10:41 NSAIDS (Non-Steroidal Allergy Unknown NOT Verified 07/29/21 11:00 Anti-Inflamma SUPPOSED [NSAIDS (NON-STEROIDAL TO TAKE ANTI-INFLAMMA] DUE TO LIVER DAMAGE IN THE PAST ketorolac [From Toradol] Allergy Hives Verified 06/01/22 10:41 codeine [CODEINE] AdvReac Unknown Nausea and Verified 06/01/22 10:41 Vomiting prochlorperazine AdvReac lockjaw Verified 06/01/22 10:41 [From Compazine] tramadol [From Ultram] AdvReac Seizure Verified 06/01/22 10:41 Assessment & Plan Assessment & Plan (1) Depression: Qualifiers: Depression Type: unspecified Qualified Code(s): F32.A - Depression, unspecified Status: Acute Code(s): F32.A - Depression, unspecified (2) Suicidal ideation: Status: Acute Code(s): R45.851 - Suicidal ideations (3) Opioid use disorder: Status: Chronic Code(s): F11.99 - Opioid use, unspecified with unspecified opioid-induced disorder (4) Chronic post-traumatic stress disorder (PTSD): Status: Chronic Code(s): F43.12 - Post-traumatic stress disorder, chronic Plan restart prior meds regimen. investigate substance abuse Tx options. search for alternative housing options. stabilize inpatient, discharge once stabilized. 06/02 continue current tx. 06/03 start lamictal 25mg po daily and risperidone for ruminations/racing thoughts, which pt reports was helpful in the past. 06/04: increase HS prazosin to 3 mg for insomnia/racing thoughts. 06/05: slept better. engaged in applications to [employer] continue current regimen. 06/06: poor sleep again last night, prazosin increased to 4 mg as of this evening. can stay with brother after discharge saturday. I spent ___25___ minutes with the patient and/or on the patient floor today, greater than?50% of which was spent counseling/coordinating care. Reason for contiued inpatient stay Substantial Risk for: inability to function and rapid decompensation
[2022-06-06 21:00] VITALS: BP 138/78; PULSE 96; RESP 18; TEMP 36.4; O2SAT 95
[2022-06-06] MEDS: Mirtazapine 15 MG TABLET PO (21:08)
[2022-06-06] MEDS: cloNIDine HCL 0.1 MG TABLET PO (21:08)
[2022-06-06] MEDS: traZODone HCL 50 MG TABLET PO (21:08)
[2022-06-06] MEDS: lamoTRIgine 25 MG TABLET PO (21:08)
[2022-06-06] MEDS: Prazosin HCL 1 MG CAPSULE 4 MG PO (21:08)
[2022-06-06] MEDS: Doxepin HCl 10 MG CAPSULE PO (21:08)
[2022-06-07] MEDS: methADONE HCl 20 MG/2 ML ORAL.CONC 105 MG PO (06:10)
[2022-06-07] MEDS: LORazepam 1 MG TABLET PO ×3 (06:51→18:47)
[2022-06-07 07:00] VITALS: BMI 43.4
[2022-06-07 08:40] VITALS: BP 110/62; PULSE 90; RESP 20; TEMP 36.6; O2SAT 96
[2022-06-07] MEDS: Metoprolol Succinate ER 25 MG TAB.ER.24H PO (08:52)
[2022-06-07] MEDS: Gabapentin 300 MG CAPSULE PO ×3 (08:52→20:44)
[2022-06-07] MEDS: risperiDONE 1 MG TABLET PO ×2 (08:53→20:44)
[2022-06-07 10:34] VITALS: BP 104/69; PULSE 95; RESP 20; O2SAT 96
--- NOTE | 2022-06-07 10:35 | PC.NURSE ---
Furosemide held secondary to low Bp - E Cory notified and in agreement.
[2022-06-07] MEDS: Magnesium Hydrox/Alum Hydrox 30 ML ORAL.SUSP PO (11:17)
[2022-06-07] MEDS: Bacitracin Oint 14 GM TUBE 1 APPL TOPICAL (11:17)
--- NOTE | 2022-06-07 12:01 | PC.NURSE ---
Patient measured for TEDS stockings- size not available in house per marketing sales supervisor. Provider notified.
--- NOTE | 2022-06-07 16:34 | HO.PSYCHPN ---
Subjective Subjective Date of Service: 06/07/22 Reason For Visit: depression, si Subjective Notes: Conditional Voluntary Interim History: Pt reports feeling so much better. She reports relief knowing that she can return to her brother's house. She reports sleeping and eating well. She denies SI/HI. No VH/AH. No concerns with medications. No behavioral concerns. Medication Compliance: Yes Side effects from medications: No Review of Systems Review of Systems Constitutional : No Fever, No Chills ENT/Mouth : No Ear Pain, No Nasal Congestion, No sore throat Eyes: No Eye Pain, No Swelling, No Redness Cardiovascular : No Chest Pain, No SOB Respiratory : No Cough, No Sputum, No Dyspnea Gastrointestinal : No Nausea, No Vomiting, No Diarrhea, No Hematochezia, No Melena Genitourinary : No Dysuria, No Urinary Frequency, No Hematuria Musculoskeletal : No Myalgias Skin : No Skin Lesions, No rash Neuro : No Weakness, No Numbness, No Paresthesias, No Dizziness, No Headache Psych : positive Anxiety, positive Depression, positive SI no HI Heme/Lymph: No Lymphadenopathy Endocrine : No Polyuria, No Polydipsia All other systems reviewed and are negative Mental Status Exam Mental Status Exam Narrative: A&O. adequate grooming. Good eye contact, attentive. No Tics or Tremors. No abnormal involuntary movements. largely calm, cooperative, engaged. Non-pressured speech, spontaneous. normal rate, volume, tone. No prolonged speech latency or dysarthria. affect is appropriate, constricted, non-labile. no SI/HI/AVH expressed, no delusional thought content. Thoughts are coherent, organized. No known cognitive or memory impairment. Insight/ Judgment fair, but impulsive. Diagnostics Vital Signs (24Hr): Vital Signs - 24 hr 06/06/22 21:00 06/07/22 08:40 06/07/22 10:34 Temperature 97.6 F 97.8 F Pulse Rate 96 90 95 Respiratory Rate 18 20 20 Blood Pressure 138/78 110/62 104/69 Pulse Oximetry 95 96 96 Oxygen Delivery Method Room Air Room Air Room Air BMI result Body Mass Index 43.4 Labs Results: 05/31/22 10:52 05/31/22 10:52 Labs: Laboratory Results - last 48 hr 06/05/22 18:37 D-Dimer High Sensitivty 220 Imaging Radiology Impressions: ITS Impressions Duplex Scan Lower Extremity Artery 06/05/22 20:00 IMPRESSION: There is no evidence of any hemodynamically significant lower extremity arterial disease by pressure, waveform or duplex Doppler criteria at rest. Venous Duplex 06/05/22 20:00 IMPRESSION: No DVT demonstrated in either lower extremity. Medications Medications Current Medications Acetaminophen (Acetaminophen 325 Mg Tablet) 650 mg PO Q6H PRN PRN Reason: Headache/Pain Mild Scale (1-3) Last Admin: 06/05/22 18:00 Dose: 650 mg Al Hydroxide/Mg Hydroxide (Magnesium Hydrox/Alum Hydrox 30 Ml Oral.Susp) 30 ml PO Q6H PRN PRN Reason: Heartburn/Nausea Last Admin: 06/07/22 11:17 Dose: 30 ml Albuterol Sulfate (Albuterol Sulfate 90 Mcg 8 Gm Inhaler) 2 puff INHALE RQ4H PRN PRN Reason: wheezing Bacitracin (Bacitracin Oint 14 Gm Tube) 1 appl TOPICAL BID ADRIÁN; Protocol Last Admin: 06/07/22 11:17 Dose: 1 appl Clonidine HCl (Clonidine Hcl 0.1 Mg Tablet) 0.1 mg PO BEDTIME ADRIÁN; Protocol Last Admin: 06/06/22 21:08 Dose: 0.1 mg Doxepin HCl (Doxepin Hcl 10 Mg Capsule) 10 mg PO BEDTIME ADRIÁN Last Admin: 06/06/22 21:08 Dose: 10 mg Furosemide (Furosemide 40 Mg Tablet) 40 mg PO DAILY ADRIÁN; Protocol Last Admin: 06/07/22 10:34 Dose: Not Given Gabapentin (Gabapentin 300 Mg Capsule) 300 mg PO TID ADRIÁN Last Admin: 06/07/22 15:00 Dose: 300 mg Hydroxyzine HCl (Hydroxyzine Hcl 25 Mg Tablet) 25 mg PO Q6H PRN PRN Reason: Anxiety Last Admin: 06/05/22 15:24 Dose: 25 mg Lamotrigine (Lamotrigine 25 Mg Tablet) 25 mg PO BEDTIME ADRIÁN Last Admin: 06/06/22 21:08 Dose: 25 mg Lorazepam (Lorazepam 1 Mg Tablet) 1 mg PO TID PRN PRN Reason: Anxiety Last Admin: 06/07/22 13:32 Dose: 1 mg Magnesium Hydroxide (Milk Of Magnesia 30 Ml Oral.Susp) 30 ml PO DAILY PRN PRN Reason: Constipation Methadone HCl (Methadone Hcl 20 Mg/2 Ml Oral.Conc) 105 mg PO DAILY@0600 [facility] Last Admin: 06/07/22 06:10 Dose: 105 mg Metoprolol Succinate (Metoprolol Succinate Er 25 Mg Tab.Er.24h) 25 mg PO DAILY [facility]; Protocol Last Admin: 06/07/22 08:52 Dose: 25 mg Mirtazapine (Mirtazapine 15 Mg Tablet) 15 mg PO BEDTIME ADRIÁN Last Admin: 06/06/22 21:08 Dose: 15 mg Prazosin HCl (Prazosin Hcl 1 Mg Capsule) 4 mg PO BEDTIME [facility]; Protocol Last Admin: 06/06/22 21:08 Dose: 4 mg Quetiapine Fumarate (Quetiapine Fumarate 25 Mg Tablet) 25 mg PO Q4H PRN PRN Reason: severe anxiety Last Admin: 06/06/22 21:08 Dose: 25 mg Risperidone (Risperidone 1 Mg Tablet) 1 mg PO BID [facility] Last Admin: 06/07/22 08:53 Dose: 1 mg Trazodone HCl (Trazodone Hcl 50 Mg Tablet) 50 mg PO BEDTIME PRN PRN Reason: Insomnia Last Admin: 06/06/22 21:08 Dose: 50 mg Allergies Allergies Allergy/AdvReac Type Severity Reaction Status Date / Time hernandez [CHERRIES] Allergy Severe Angioedema Verified 06/01/22 10:41 NSAIDS (Non-Steroidal Allergy Unknown NOT Verified 07/29/21 11:00 Anti-Inflamma SUPPOSED [NSAIDS (NON-STEROIDAL TO TAKE ANTI-INFLAMMA] DUE TO LIVER DAMAGE IN THE PAST ketorolac [From Toradol] Allergy Hives Verified 06/01/22 10:41 codeine [CODEINE] AdvReac Unknown Nausea and Verified 06/01/22 10:41 Vomiting prochlorperazine AdvReac lockjaw Verified 06/01/22 10:41 [From Compazine] tramadol [From Ultram] AdvReac Seizure Verified 06/01/22 10:41 Assessment & Plan Assessment & Plan (1) Depression: Qualifiers: Depression Type: unspecified Qualified Code(s): F32.A - Depression, unspecified Status: Acute Code(s): F32.A - Depression, unspecified (2) Suicidal ideation: Status: Acute Code(s): R45.851 - Suicidal ideations (3) Opioid use disorder: Status: Chronic Code(s): F11.99 - Opioid use, unspecified with unspecified opioid-induced disorder (4) Chronic post-traumatic stress disorder (PTSD): Status: Chronic Code(s): F43.12 - Post-traumatic stress disorder, chronic Plan restart prior meds regimen. investigate substance abuse Tx options. search for alternative housing options. stabilize inpatient, discharge once stabilized. 06/02 continue current tx. 06/03 start lamictal 25mg po daily and risperidone for ruminations/racing thoughts, which pt reports was helpful in the past. 06/04: increase HS prazosin to 3 mg for insomnia/racing thoughts. 06/05: slept better. engaged in applications to [employer] continue current regimen. 06/06: poor sleep again last night, prazosin increased to 4 mg as of this evening. can stay with brother after discharge saturday. 06/07 continue current medications. BP low- encouraged fluids. no dizziness. no ortho VS. I spent minutes with the patient and/or on the patient floor today, greater than?50% of which was spent counseling/coordinating care. Reason for contiued inpatient stay Substantial Risk for: stable for discharge
[2022-06-07 20:27] VITALS: BP 125/83; PULSE 89; RESP 18; TEMP 36.3; O2SAT 97
[2022-06-07] MEDS: lamoTRIgine 25 MG TABLET PO (20:44)
[2022-06-07] MEDS: Mirtazapine 15 MG TABLET PO (20:44)
[2022-06-07] MEDS: Doxepin HCl 10 MG CAPSULE PO (20:44)
[2022-06-07] MEDS: traZODone HCL 50 MG TABLET PO (20:45)
[2022-06-07] MEDS: QUEtiapine Fumarate 25 MG TABLET PO (20:45)
[2022-06-07] MEDS: Prazosin HCL 1 MG CAPSULE 4 MG PO (20:45)
[2022-06-07] MEDS: cloNIDine HCL 0.1 MG TABLET PO (20:45)
[2022-06-08] MEDS: methADONE HCl 20 MG/2 ML ORAL.CONC 105 MG PO (05:43)
[2022-06-08] MEDS: Nicotine Polacrilex 2 MG GUM 4 MG BUCCAL ×2 (05:57→10:50)
[2022-06-08] MEDS: LORazepam 1 MG TABLET PO (07:00)
[2022-06-08 08:20] VITALS: BP 120/58; PULSE 89; RESP 20; TEMP 36.6; O2SAT 97
[2022-06-08] MEDS: Furosemide 40 MG TABLET PO (08:26)
[2022-06-08] MEDS: Metoprolol Succinate ER 25 MG TAB.ER.24H PO (08:26)
[2022-06-08] MEDS: Gabapentin 300 MG CAPSULE PO (08:27)
[2022-06-08] MEDS: risperiDONE 1 MG TABLET PO (08:27)
--- NOTE | 2022-06-08 10:35 | PC.NURSE ---
Patient alert, oriented x3. Denies SI/HI, denies AH/VH. Reports she feels ready for discharge, is happy about the plan to move in with her brother. Reviewed belongings with patient, and valuables- no concerns reported. Affect bright, gait steady.
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
== END 2022-06-08 12:20 | disposition home or self-care (01) | DRG 755 ==
LOC: HO.ED 15:30 → HO.PADLT16 18:26
PROVIDERS: Registered Nurse; Admitting Provider Psychiatry & Neurology Psychiatry; Emergency Provider Emergency Medicine; Visit Provider Psychiatry & Neurology Psychiatry
DX: F43.29 Adjustment disorder with other symptoms (principal); R45.851 Suicidal ideations; I50.9 Heart failure, unspecified; E11.9 Type 2 diabetes mellitus without complications; F11.20 Opioid dependence, uncomplicated; F43.12 Post-traumatic stress disorder, chronic; J44.9 Chronic obstructive pulmonary disease, unspecified; I34.0 Nonrheumatic mitral (valve) insufficiency; Z20.822 Contact with and (suspected) exposure to COVID-19; Z87.891 Personal history of nicotine dependence; Z88.5 Allergy status to narcotic agent; Z88.6 Allergy status to analgesic agent; Z88.8 Allergy status to other drugs, medicaments and biological substances; Z79.899 Other long term (current) drug therapy
CPT/HCPCS: 36415; 80048; 80061; 80076; 80307; 82607; 82746; 83036; 83735; 84439; 84443; 85025; 85379; 87635; 93005; 93925; 93970; 99285

== ENCOUNTER 2025-06-22 16:20 | Inpatient (IN) | payer OTHER, SELFPAY ==
--- OUTSIDE RECORDS SUMMARY | 2025-06-21 12:05 | XMS_ITS | Encounter Summary ---
Author Organization [facility] Address [address] [place] [address] Care Team Providers Care Mixer Slagman Name Role Phone Chris Velasquez MD Primary Care Provider [phone] Reason for Visit * Reason Comments Suicidal Hallucinations Encounter Details Date Type Department Care Team (Late st Contact Info) Description 06/21/2025 12:05 PM EDT - 06/22/2025 4:00 PM EDT Emergency [facility] Emergency [address] [place] [id number] Rhoda Flanagan DO [address] [place] [address] Carina Rodriguez MD [address] [place] [address] Suicidal ideation (Primary Dx) [facility] Social History Tobacco Use Types Packs/Day Years Used Date Smoking Tobacco: Every Day Cigarettes Smokeless Tobacco: Never Alcohol Use Standard Drinks/Week Comments Never 0 (1 standard drink = 0.6 oz pur e alcohol) Food Risk Answer Date Recorded Within the past 12 months we worried whether our food would run out before we got money to buy more. Patient declined 025 Within the past 12 months th e food we bought just didn't last and we didn't have money to get more. Patient declined 09/2024 Interpersonal Safety Answer Date Record ed Physical Abuse Unrecognized value 03/14/2025 Verbal Abuse Unrecognized value 03/14/2025 Comments Unknown Sex and Gender Information Value Date Recorded Sex Assigned at Female 09/15/2024 5:21 PM EST Legal Sex Female 10:12 PM EST Gender Identity Female 09/15/2024 5:21 PM EST Sexual Orientation Straight 09/15/2024 5: 21 PM EST documented as of this encounter Last Filed Vital Signs Vital Sign Reading Time Taken Comments Blood Pressure 127/78 06/22/2025 11:30 AM EDT Pulse 70 06/22/2025 11:30 AM EDT Temperature 36.8 C (98.3 F) 06/22/2025 11:30 AM EDT Respiratory Rate 20 06/22/2025 11:30 AM EDT Oxygen Saturation 100% 06/22/2025 11:30 AM EDT Inhaled Oxygen Concentration - - Weight 106 kg (233 lb) 06/21/2025 12:08 PM EDT Height 162.6 cm (5' 4 ) 06/21/2025 12:08 PM EDT Body Mass Index 39.99 06/21/2025 12:08 PM EDT documented in this encounter Functional Status * Calculated C-SSRS Risk Score (Lifetime/Recent) Answer Date of Assessment Author High Risk 06/22/2025 8:15 AM EDT Akiko Allen RN * [place] Suicide Severity Rating Scale (Screener/Recent Self-Report) Question Answer Date of Assessment Author 1. Wish to be (Past 1 Month) Yes 8:15 AM EDT Akiko Allen RN 2. Non-Specific Active Suici rachel Thoughts (Past 1 Month) Yes 06/22/2025 8:15 AM EDT Jackie Allen RN 3. Active Suicidal Ideation with any Methods (Not Plan) Without Intent to Act (Past 1 Month) Yes 06/22/2025 8:15 AM EDT Akiko Staples RN 4. Active Suicidal Ideation with Some Intent to Act, Without Specific Plan (Past 1 Month) Yes 06/22/2025 8:15 AM EDT Akiko Staples RN 5. Active Suicidal Ideation with Specific Plan and Intent (Past 1 Month) Yes 06/22/2025 8:15 AM EDT Akiko Allen RN 6. Suicidal Behavior (Lifetime) Yes 8:15 AM EDT Akiko Allen RN 6. Suicidal Behavior (3 Months) Yes 8:15 AM EDT Akiko Allen RN documented as of this encounter Medications at Time of Discharge apixaban (ELIQUIS) 5 mg tablet Take 1 tablet (5 mg total) by mouth 1 (one) time each day. 90 each 1 02/18/2025 5 clonazePAM (KlonoPIN) 1 mg tablet 09/05/2024 fluticasone propionate (FLONASE) 50 mcg/actuation nasal spray Administer 2 sprays into each nostril 1 (one) time each day. Shake gently. Before first use, prime pump. After use, clean tip and replace cap. 16 g 11 02/18/2025 gabapentin (NEURONTIN) 600 mg tablet Take 1 tablet (600 mg total) by mouth 4 (four) times a day. 03/03/2025 hydrOXYzine pamoate (VISTARIL) 50 mg capsule Take 1 capsule (50 mg total) by mouth 2 (two) times a day if needed for anxiety. 01/08/2025 insulin glargine,hum.rec.a nlog (Basaglar KwikPen U-100 Insulin) 100 unit/mL (3 mL) injection penIndications:Abida betes mellitus type 2, insulin dependent ([facility] V24, [facility] V28) Inject 50 Units under the skin at bedtime. 03/16/2025 insulin lispro (HumaLOG KwikPen) 100 unit/mL injection pen Inject 5 units subcu at 3 times a day. 15 mL 2 02/18/2025 6 lamoTRIgine (LaMICtal) 100 mg tablet Take 1 tablet (100 mg total) by mouth 2 (two) times a day. 02/12/2025 methadone (DOLOPHINE) 10 mg/mL concentrated solution Take 15.5 mL (155 mg total) by mouth 1 (one) time each day. metoprolol succinate (TOPROL-XL) 25 mg 24 hr tablet Take 1 tablet (25 mg total) by mouth 1 (one) time each day. 90 each 1 02/18/2025 5 mirtazapine (REMERON) 15 mg tablet Take 1 tablet (15 mg total) by mouth at bedtime. prazosin (MINIPRESS) 2 mg capsule Take 1 capsule (2 mg total) by mouth at bedtime. 01/02/2025 Vraylar 1.5 mg capsule Take 1 capsule (1.5 mg total) by mouth 1 (one) time each day. 05/28/2025 documented as of this encounter Discharge Disposition Disposition Code Departure Means Destination Comment [facility] M 5 documented in this encounter Progress Notes * Phuong Gauthier LCSW - 06/22/2025 11:14 AM EDT BED FOUND- Patient accepted to [facility], by Dr. Chace Redman. ETA to be determined. * Carina Rodriguez MD - 06/22/2025 8:47 AM EDT Irma Lopez This patient's care was signed out to me by the offgoing provider. Please see her/his note for further details regarding initial presentation, history of present illness, physical exam, and medical decision making. At time of signout, the following was pending: inpatient psychiatric placement ED Course as of 06/22/25 0847 Mon Jun 21, 2025 1505 Sodium(!): 130 [JM] 1505 Methadone Screen, Urine(!): Positive [JM] 1505 Cannabinoid (THC) Screen, Ur(!): Positive [JM] Tue Jun 22, 2025 0817 No acute needs during my shift. Patient's care was handed over to the oncoming provider. [EK] ED Course User Index [EK] Carina Rodriguez MD [JM] Rhoda Flanagan DO Clinical Impressions as of 06/22/25 0847 Suicidal ideation No orders to display Labs Reviewed COMPREHENSIVE METABOLIC PANEL - Abnormal Result Value Sodium 130 (*) Potassium 4.1 Chloride 94 (*) CO2 29 Anion Gap 7 Glucose 382 (*) BUN 10 Creatinine 0.78 eGFR 92 BUN/Creatinine Ratio 12.8 Calcium 9.4 AST (SGOT) 14 ALT (SGPT) 20 Alkaline Phosphatase 149 (*) Total Protein 7.5 Albumin 3.4 Total Bilirubin 0.3 ACETAMINOPHEN LEVEL - Abnormal Acetaminophen Level <2.0 (*) DRUG ABUSE SCREEN 8A PANEL, URINE - Abnormal Amphetamine Screen, Ur Negative Barbiturate Screen, Ur Negative Benzodiazepine Screen, Ur Negative Cocaine Screen, Ur Negative Opiate Screen, Ur Negative Cannabinoid (THC) Screen, Ur Positive (*) Oxycodone Screen, Ur Negative Fentanyl, Ur Negative Narrative: Assay cutoffs: Amphetamines 1000 ng/mL Barbiturates 200 ng/mL Benzodiazepines 200 ng/mL Cocaine 300 ng/mL Fentanyl 1 ng/mL Opiates 300 ng/mL Oxycodone 100 ng/mL THC 50 ng/mL Semi-quantitative assay for screening purposes only. Unconfirmed screening result should not be used for non-medical purposes. *ALTERNATE METHOD CONFIRMATION DONE UPON REQUEST ONLY* METHADONE SCREEN, URINE - Abnormal Methadone Screen, Urine Positive (*) CBC WITH AUTO DIFFERENTIAL - Abnormal WBC 10.7 RBC 5.20 (*) Hemoglobin 14.4 Hematocrit 43.8 MCV 84.2 MCH 27.7 MCHC 32.9 RDW 13.2 Platelets 306 MPV 10.6 NRBC 0.0 NRBC Absolute 0.00 Neutrophils Relative 58.8 Lymphocytes Relative 32.1 Monocytes Relative 6.6 Eosinophils Relative 1.6 Basophils Relative 0.5 Immature Granulocytes Relative 0.4 Neutrophils Absolute 6.27 Lymphocytes Absolute 3.42 Monocytes Absolute 0.70 Eosinophils Absolute 0.17 Basophils Absolute 0.05 Immature Granulocytes Absolute 0.04 (*) PROTHROMBIN TIME WITH INR - Abnormal Protime 15.0 (*) INR 1.2 POCT GLUCOSE, BLOOD - Abnormal Glucose POCT 343 (*) POCT GLUCOSE, BLOOD - Abnormal Glucose POCT 250 (*) ETHANOL - Normal Ethanol Level <3 SALICYLATE LEVEL - Normal Salicylate Level 3.4 BUPRENORPHINE SCREEN, URINE - Normal Buprenorphine Screen Urine Negative Narrative: Assay cutoff 5 ng/mL Semi-quantitative assay for screening purposes only. Unconfirmed screening result should not be used for non-medical purposes. *ALTERNATE METHOD CONFIRMATION DONE UPON REQUEST ONLY* PHENCYCLIDINE, URINE - Normal PCP Scrn, Ur Negative ACTIVATED PARTIAL THROMBOPLASTIN TIME - Normal aPTT 34.8 CBC AND DIFFERENTIAL Narrative: The following orders were created for panel order CBC and differential. Procedure Abnormality Status --------- ------ CBC auto differential[[id number]] Abnormal Final result Please view results for these tests on the individual orders. URINALYSIS WITH REFLEX MICROSCOPIC Narrative: The following orders were created for panel order Urinalysis with reflex microscopic. Procedure Abnormality Status --------- ------ Urinalysis with reflex ...[[id number]] Please view results for these tests on the individual orders. URINALYSIS WITH REFLEX MICROSCOPIC POCT GLUCOSE, BLOOD POCT GLUCOSE, BLOOD POCT GLUCOSE, BLOOD POCT GLUCOSE, BLOOD POCT GLUCOSE, BLOOD POCT GLUCOSE, BLOOD Clinical Impression(s): Final diagnoses: [R40.985] Suicidal ideation Data Unavailable Previous Medications APIXABAN (ELIQUIS) 5 MG TABLET Take 1 tablet (5 mg total) by mouth 1 (one) time each day. CLONAZEPAM (KLONOPIN) 1 MG TABLET FLUTICASONE PROPIONATE (FLONASE) 50 MCG/ACTUATION NASAL SPRAY Administer 2 sprays into each nostril1 (one) time each day. Shake gently. Before first use, prime pump. After use, clean tip and replacecap. GABAPENTIN (NEURONTIN) 600 MG TABLET Take 1 tablet (600 mg total) by mouth 4 (four) times a day. HYDROXYZINE PAMOATE (VISTARIL) 50 MG CAPSULE Take 1 capsule (50 mg total) by mouth 2 (two) times a day if needed for anxiety. INSULIN GLARGINE,HUM.REC.ANLOG (BASAGLAR KWIKPEN U-100 INSULIN) 100 UNIT/ML (3 ML) INJECTION PEN Inject 50 Units under the skin at bedtime. INSULIN LISPRO (HUMALOG KWIKPEN) 100 UNIT/ML INJECTION PEN Inject 5 units subcu at 3 times a day. LAMOTRIGINE (LAMICTAL) 100 MG TABLET Take 1 tablet (100 mg total) by mouth 2 (two) times a day. METHADONE (DOLOPHINE) 10 MG/ML CONCENTRATED SOLUTION Take 15.5 mL (155 mg total) by mouth 1 (one) time each day. METOPROLOL SUCCINATE (TOPROL-XL) 25 MG 24 HR TABLET Take 1 tablet (25 mg total) by mouth 1 (one) time each day. MIRTAZAPINE (REMERON) 15 MG TABLET Take 1 tablet (15 mg total) by mouth at bedtime. PRAZOSIN (MINIPRESS) 2 MG CAPSULE Take 1 capsule (2 mg total) by mouth at bedtime. VRAYLAR 1.5 MG CAPSULE Take 1 capsule (1.5 mg total) by mouth 1 (one) time each day. ED Medication Administration from 06/21/2025 1158 to 06/22/2025 0847 Date/Time Order Dose Route Action Action by 06/21/2025 1456 EDT clonazePAM (KlonoPIN) tablet 1 mg 1 mg oral Given Guy, A 06/21/2025 1936 EDT clonazePAM (KlonoPIN) tablet 1 mg 1 mg oral Given Guy, A 06/21/2025 1655 EDT cariprazine (VRAYLAR) capsule 1.5 mg 1.5 mg oral Given Guy, A 06/21/2025 1456 EDT gabapentin (NEURONTIN) capsule 600 mg 600 mg oral Given Guy, A 06/21/2025 1851 EDT gabapentin (NEURONTIN) capsule 600 mg 600 mg oral Not Given Alejandro, K 06/22/2025 0029 EDT gabapentin (NEURONTIN) capsule 600 mg 600 mg oral Not Given Jase Bravo 06/22/2025 0456 EDT gabapentin (NEURONTIN) capsule 600 mg 600 mg oral Given Jase Bravo 06/21/2025 1505 EDT acetaminophen (TYLENOL) tablet 650 mg 650 mg oral Given Guy, A 06/21/2025 1654 EDT apixaban (ELIQUIS) tablet 5 mg 5 mg oral Given Guy, A 06/21/2025 1536 EDT gabapentin (NEURONTIN) capsule 600 mg -- oral Canceled Entry Jase Flanagan 06/21/2025 2140 EDT lamoTRIgine (LaMICtal) tablet 100 mg 100 mg oral Given Jase Bravo 06/21/2025 1653 EDT metoprolol succinate (TOPROL-XL) 24 Hour tablet 25 mg 25 mg oral Given Guy, A 06/21/2025 214 EDT mirtazapine (REMERON JORDAN-TAB) disintegrating tablet 15 mg 15 mg oral Given Jase Bravo 06/21/2025 213 EDT prazosin (MINIPRESS) capsule 2 mg 2 mg oral Given Jase Bravo 06/21/2025 2140 EDT insulin glargine (LANTUS) injection 40 Units 40 Units subcutaneous Given Jase Bravo 06/21/2025 1742 EDT insulin lispro injection 5 Units 5 Units subcutaneous Given Guy, A 06/22/2025 0812 EDT insulin lispro injection 5 Units 5 Units subcutaneous Not Given Alejandro, K 06/21/2025 1743 EDT insulin lispro injection 1-6 Units 4 Units subcutaneous Given Guy, A 06/22/2025 0812 EDT insulin lispro injection 1-6 Units 2 Units subcutaneous Given Alejandro, K 06/22/2025 0457 EDT clonazePAM (KlonoPIN) tablet 1 mg 1 mg oral Given Jase Bravo * Nila Butts NP - 06/21/2025 2:39 PM EDT Psychiatry Initial Intake Ms. Lopez is a 49-year-old female history of COPD, pulmonary embolism on Eliquis, type 2 diabetes, hypertension and history of opioid use disorder currently on methadone, as well as psychiatric disorder who presents to the emergency department today with complaint of suicidal ideation and visual hallucinations. Patient states she has been off of all medications for several days. Has been unable to sleep for the past 4 days. She has been experiencing visual and auditory hallucinations of an man who is speaking to her and telling her to harm herself. States that she tied a sheet around her neck the other night because it makes the voices go away . She reports previous attempt to hang herself in 2008 during which time she had to be revived . She states she lives with her brother and [id number]. However does not want to be here anymore . States she tried to contact her psychiatristDr. Gallo today however was unsuccessful. Therefore she spoke to a [facility] specialist via phone who directed her to the emergency department for further evaluation. Patient presented via walk-in patientself-presented via walk-in. She reports recent sobriety of 7 months for which she is currently on methadone. Subjective 06/21/2025 I tied the steph around my neck, I can't keep living like this HPI: Ms Lopez reports increasing stressors include living with brother and [id number] in [place] I can't be seen leaving so I have to stay in the house Saturday through Saturday. I can only leave to get my methadone Reports increasing anxiety panic attacks Patient reports thoughts The man he is following me, he is out there Additional historical information includes: reports I am not going to lie, I missed some of my medications Record Review: moderate Duration: 30 minutes Current Medications: Scheduled Meds: MEDSSCHEDULED[1] Continuous Infusions: MEDSCONTINUOUS[2] PRN Meds: MEDSPRN[3] Stressors: : living with my family Past Psychiatric History: Previous therapy: yes Previous psychiatric treatment and medication trials: yes - multiple including lamotrigine, recently stopped prazosin Previous psychiatric hospitalizations: yes - multiple Previous diagnoses: yes - bipolar Previous suicide attempts: yes - overdose in the past History of violence: no Currently in treatment with dr Gallo. 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 to steady nerves,get rid of a hangover or get the day started: no Use of OTC medications: Tylenol Psychiatric Review Of Systems: Sleep: yes Not sleeping for several days Appetite changes: yes Weight changes: no Energy: no Interest/pleasure/anhedonia: yes Somatic symptoms: yes My knee hurts Anxiety/panic: yes panic attacks Guilty/hopeless: yes Self-injurious behavior/risky behavior: no Any drugs: no Alcohol: no Mental Status Exam: General Observations Appearance and Build: older than stated age, overweight , unkempt, and anxious appearing Demeanor: Reoccupied looking at door the man is following me Eye Contact: vaires Activity: Agitated Speech: normal pitch, normal volume, and clear Behavior: restless and fidgety and restless Mood: anxious Affect: anxious Thought Process: disorganized and poor concentration Thought Content: Delusions: none reported Other: none reported Self Abuse: suicidal (assess lethality if present): reports I put the steph on my neck I can't keep living like this Aggressive: none reported Cognition: Impairment of: attention/concentration Intelligence Estimate: average Sensorium/Orientation: person, place, time/date, and situation Perception: Hallucinations: auditory and visual per reports Other: none reported Insight/Judgment: fair Suicidal intentions: yes - I don't know Suicidal plan: yes - I don't know Impulsive behaviors evident Physical/Somatic Complaints The patient lists: pain Functioning in Relationships: Spouse/partner: denies Peers: denies Employers: denies Objective: Seclusion/Restraint in last 24 hours: No Blood pressure 120/89, pulse 110, temperature 37 ??C (98.6 ??F), temperature source Oral, resp. rate 19, height 1.626 m (64 ), weight 106 kg (233 lb), SpO2 97%. Lab Results: Results for orders placed or performed during the hospital encounter of 06/21/25 Drug abuse screen 8a panel, urine Collection Time: 06/21/25 12:32 PM Result Value Ref Range Amphetamine Screen, Ur Negative Negative Barbiturate Screen, Ur Negative Negative Benzodiazepine Screen, Ur Negative Negative Cocaine Screen, Ur Negative Negative Opiate Screen, Ur Negative Negative Cannabinoid (THC) Screen, Ur Positive (A) Negative Oxycodone Screen, Ur Negative Negative Fentanyl, Ur Negative Negative Buprenorphine screen, urine Collection Time: 06/21/25 12:32 PM Result Value Ref Range Buprenorphine Screen Urine Negative Negative Phencyclidine, urine Collection Time: 06/21/25 12:32 PM Result Value Ref Range PCP Scrn, Ur Negative Negative Methadone, urine Collection Time: 06/21/25 12:32 PM Result Value Ref Range Methadone Screen, Urine Positive (A) Negative Chowdhury urine culture tube Collection Time: 06/21/25 12:32 PM Result Value Ref Range Extra Tube Hold for add-ons. [place] top urine tube Collection Time: 06/21/25 12:32 PM Result Value Ref Range Extra Tube Hold for add-ons. Comprehensive metabolic panel Collection Time: 06/21/25 1:20 PM Result Value Ref Range Sodium 130 (L) 133 - 145 mmol/L Potassium 4.1 3.5 - 5.5 mmol/L Chloride 94 (L) 96 - 110 mmol/L CO2 29 21 - 32 mmol/L Anion Gap 7 3 - 11 Glucose 382 (H) 70 - 100 mg/dL BUN 10 5 - 25 mg/dL Creatinine 0.78 0.50 - 1.10 mg/dL eGFR 92 >=60 mL/min/1.73m2 BUN/Creatinine Ratio 12.8 Calcium 9.4 8.5 - 10.5 mg/dL AST (SGOT) 14 10 - 42 unit/L ALT (SGPT) 20 10 - 60 unit/L Alkaline Phosphatase 149 (H) 42 - 121 unit/L Total Protein 7.5 6.0 - 8.0 g/dL Albumin 3.4 3.2 - 5.0 g/dL Total Bilirubin 0.3 0.0 - 1.4 mg/dL Ethanol Collection Time: 06/21/25 1:20 PM Result Value Ref Range Ethanol Level <3 0 - 10 mg/dL Acetaminophen level Collection Time: 06/21/25 1:20 PM Result Value Ref Range Acetaminophen Level <2.0 (L) 10.0 - 30.0 mcg/mL Salicylate level Collection Time: 06/21/25 1:20 PM Result Value Ref Range Salicylate Level 3.4 2.0 - 29.0 mg/dL CBC auto differential Collection Time: 06/21/25 1:20 PM Result Value Ref Range WBC 10.7 4.8 - 10.8 K/mcL RBC 5.20 (H) 3.80 - 4.80 M/mcL Hemoglobin 14.4 11.5 - 16.0 g/dL Hematocrit 43.8 35.0 - 47.0 % MCV 84.2 79.0 - 98.0 FL MCH 27.7 27.0 - 32.0 pcg MCHC 32.9 32.0 - 37.0 g/dL RDW 13.2 11.0 - 15.0 % Platelets 306 130 - 400 K/mcL MPV 10.6 7.0 - 11.0 FL NRBC 0.0 <1.0 % NRBC Absolute 0.00 <0.10 K/mcL Neutrophils Relative 58.8 % Lymphocytes Relative 32.1 % Monocytes Relative 6.6 % Eosinophils Relative 1.6 % Basophils Relative 0.5 % Immature Granulocytes Relative 0.4 % Neutrophils Absolute 6.27 1.50 - 7.00 K/mcL Lymphocytes Absolute 3.42 1.00 - 5.00 K/mcL Monocytes Absolute 0.70 0.20 - 1.00 K/mcL Eosinophils Absolute 0.17 0.00 - 0.50 K/mcL Basophils Absolute 0.05 0.00 - 0.20 K/mcL Immature Granulocytes Absolute 0.04 (H) 0.00 - 0.03 K/mcL 12-Lead ECG Collection Time: 06/21/25 2:39 PM Result Value Ref Range Ventricular Rate ECG 80 BPM Atrial Rate 80 BPM P-R Interval 162 ms QRS Duration 82 ms Q-T Interval 398 ms QTc 459 ms P Wave [place] 32 degrees R [place] -5 degrees T [place] 35 degrees ECG Interpretation Normal sinus rhythm Low voltage QRS Inferior infarct , age undetermined Abnormal ECG When compared with ECG of 12-MAR-2025 16:17, Inferior infarct is now Present Medications: Current Medications[4] Diagnosis/Assessment/Plan: Bipolar disorder Anxiety Suicidal ideation 1) Review of current home medication list, orders entered for clonazepam 1 mg Tid Mirtazapine 15 mg at bedtime Vraylar 1.5 mg daily Gabapentin 600 mg QID 2) Collaborate with for inpatient psychiatric hospitalization for patient safety. Mood stabilization and medication management Nila Butts NP [1] cariprazine, 1.5 mg, oral, Daily clonazePAM, 1 mg, oral, TID gabapentin, 600 mg, oral, q6h ADRIÁN mirtazapine, 15 mg, oral, Nightly [2] [3] PRN medications: acetaminophen [4] Current Facility-Administered Medications Medication Dose Route Frequency Provider Last Rate Last Admin acetaminophen (TYLENOL) tablet 650 mg 650 mg oral q6h PRN Nila Butts NP cariprazine (VRAYLAR) capsule 1.5 mg 1.5 mg oral Daily Nila Butts NP clonazePAM (KlonoPIN) tablet 1 mg 1 mg oral TID Nila Butts NP gabapentin (NEURONTIN) capsule 600 mg 600 mg oral q6h ADRIÁN Nila Butts NP mirtazapine (REMERON) tablet 15 mg 15 mg oral Nightly Nila Butts NP Current Outpatient Medications Medication Sig Dispense Refill apixaban (ELIQUIS) 5 mg tablet Take 1 tablet (5 mg total) by mouth 1 (one) time each day. 90 each 1 clonazePAM (KlonoPIN) 1 mg tablet gabapentin (NEURONTIN) 600 mg tablet Take 1 tablet (600 mg total) by mouth 4 (four) times a day. methadone (DOLOPHINE) 10 mg/mL concentrated solution Take 15.5 mL (155 mg total) by mouth 1 (one) time each day. metoprolol succinate (TOPROL-XL) 25 mg 24 hr tablet Take 1 tablet (25 mg total) by mouth 1 (one) time each day. 90 each 1 mirtazapine (REMERON) 15 mg tablet Take 1 tablet (15 mg total) by mouth at bedtime. Vraylar 1.5 mg capsule Take 1 capsule (1.5 mg total) by mouth 1 (one) time each day. fluticasone propionate (FLONASE) 50 mcg/actuation nasal spray Administer 2 sprays into each nostril1 (one) time each day. Shake gently. Before first use, prime pump. After use, clean tip and replacecap. (Patient not taking: Reported on 06/21/2025) 16 g 11 hydrOXYzine pamoate (VISTARIL) 50 mg capsule Take 1 capsule (50 mg total) by mouth 2 (two) times a day if needed for anxiety. (Patient not taking: Reported on 06/21/2025) insulin glargine,hum.rec.anlog (Basaglar KwikPen U-100 Insulin) 100 unit/mL (3 mL) injection pen Inject 50 Units under the skin at bedtime. (Patient not taking: Reported on 06/21/2025) insulin lispro (HumaLOG KwikPen) 100 unit/mL injection pen Inject 5 units subcu at 3 times a day. (Patient not taking: Reported on 06/21/2025) 15 mL 2 lamoTRIgine (LaMICtal) 100 mg tablet Take 1 tablet (100 mg total) by mouth 2 (two) times a day. (Patient not taking: Reported on 06/21/2025) prazosin (MINIPRESS) 2 mg capsule Take 1 capsule (2 mg total) by mouth at bedtime. (Patient not taking: Reported on 06/21/2025) * Caridad Guy RN - 06/21/2025 1:32 PM EDT Med Rec. Completed. Made provider aware. [address] [place] [address] Pharmacy * Akiko Allen RN - 06/21/2025 1:30 PM EDT States last methadone at [facility] clinic was Wed, states gets 6 take home bottles. States already took her methadone today States has been clean x 7 mo. [facility] called-they state pt last dosed at clinic on 06/16/25 at 0607, received 155 ( one hundred fifty five ) mg. Pt received take home bottles for -06/22/25. * Keyla Dumont RN - 06/21/2025 12:02 PM EDT Patient states yesterday she was going to jump off of bridge because someone is following her and hearing voices telling her to leave. Reports she chased someone last night away from her house. Patient saying stop it and I didn't say anything while looking behind her but no other people around the patient. Patient asked this nurse if there was a person sitting behind her but there wasn't. * Rhoda Flanagan DO - 06/21/2025 11:58 AM EDT HPI Chief Complaint Patient presents with Suicidal Hallucinations Ms. Lopez is a 49-year-old female history of COPD, pulmonary embolism on Eliquis, type 2 diabetes, hypertension and history of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 [facility] AST (SGOT) 14 10 - 42 unit/L LAB CHEMISTRY METHOD 06/21/2025 2:14 PM [facility] ALT (SGPT) 20 10 - 60 unit/L LAB CHEMISTRY METHOD 06/21/2025 2:14 PM [facility] Alkaline Phosphatase 149(H) 42 - 121 unit/L LAB CHEMISTRY METHOD 06/21/2025 2:14 PM [facility] Total Protein 7.5 6.0 - 8.0 g/dL LAB CHEMISTRY METHOD 06/21/2025 2:14 PM [facility] Albumin 3.4 3.2 - 5.0 g/dL LAB CHEMISTRY METHOD 06/21/2025 2:14 PM [facility] Total Bilirubin 0.3 0.0 - 1.4 mg/dL LAB CHEMISTRY METHOD 06/21/2025 2:14 PM [facility] Blood Venous blood specimen / Unknown Venipuncture / Unknown 06/21/2025 1:20 PM EDT 06/21/2025 1:46 PM EDT us Rhoda Flanagan DO LAB BLOOD ORDERABLES Final Re sult [facility] [address] [place] [address], * Largo top urine tube (06/21/2025 12:32 PM EDT) Extra Tube Hold for add-ons. 06/21/2025 2:01 PM EDT [facility] Comment:Auto resulted. Urine Urine specimen obtained by clean catch procedure / Unknown Non-blood Collection / Unknown 06/21/2025 12:32 PM EDT 06/21/2025 12:53 PM EDT [facility] URINE ORDERABLES Final Re sult Performing Organization Address [facility]/ZIP Co de Phone Number [facility] [address] [place] [address], [place] [phone] * Chowdhury urine culture tube (06/21/2025 12:32 PM EDT) Extra Tube Hold for add-ons. 06/21/2025 2:01 PM EDT [facility] Comment:Auto resulted. Urine Urine specimen obtained by clean catch procedure / Unknown Non-blood Collection / Unknown 06/21/2025 12:32 PM EDT 06/21/2025 12:53 PM EDT [facility] URINE ORDERABLES Final Re sult Performing Organization Address [facility] Co de Phone Number [facility] [address] [place] [address], [place] [phone] * (ABNORMAL) Methadone, urine (06/21/2025 12:32 PM EDT) Methadone Screen, Urine Positive (A) Negative LAB CHEMISTRY METHOD 06/21/2025 1:21 PM EDT [facility] Comment: Assay cutoff 300 ng/mL Semi-quantitative assay for screening purposes only. Unconfirmed screening result should not be used for non-medical purposes. *ALTERNATE METHOD CONFIRMATION DONE UPON REQUEST ONLY* Urine Urine specimen obtained by clean catch procedure / Unknown Non-blood Collection / Unknown 06/21/2025 12:32 PM EDT 06/21/2025 12:53 PM EDT [facility] URINE ORDERABLES Final Re sult Performing Organization Address [facility]/ZIP Co de Phone Number [facility] [address] [place] [address], [place] [phone] * Phencyclidine, urine (06/21/2025 12:32 PM EDT) PCP Scrn, Ur Negative Negative LAB CHEMISTRY METHOD 06/21/2025 1:21 PM EDT [facility] Comment: Assay cutoff 25 ng/mL Semi-quantitative assay for screening purposes only. Unconfirmed screening result should not be used for non-medical purposes. *ALTERNATE METHOD CONFIRMATION DONE UPON REQUEST ONLY* Urine Urine specimen obtained by clean catch procedure / Unknown Non-blood Collection / Unknown 06/21/2025 12:32 PM EDT 06/21/2025 12:53 PM EDT [facility] URINE ORDERABLES Final Re sult Performing Organization Address City/[facility]/ZIP Co de Phone Number [facility] [address] [place] [address], [place] [phone] * Buprenorphine screen, urine (06/21/2025 12:32 PM EDT) Buprenorphine Screen Urine Negative Negative LAB CHEMISTRY METHOD 06/21/2025 1:21 PM EDT [facility] Urine Urine specimen obtained by clean catch procedure / Unknown Non-blood Collection / Unknown 06/21/2025 12:32 PM EDT 06/21/2025 12:53 PM EDT Narrative [facility] - 06/21/2025 1:21 PM EDT Assay cutoff 5 ng/mL Semi-quantitative assay for screening purposes only. Unconfirmed screening result should not be used for non-medical purposes. *ALTERNATE METHOD CONFIRMATION DONE UPON REQUEST ONLY* us Rhoda Mersier DO LAB URINE ORDERABLES Final Re sult [facility] [address] [place] [address], * (ABNORMAL) Drug abuse screen 8a panel, urine (06/21/2025 12:32 PM EDT) Amphetamine Screen, Ur Negative Negative LAB CHEMISTRY METHOD 1:21 PM EDT [facility] Comment:Certain OTC medicati ons containing ephedrine, phenylephrine, pseudoephedrine and phenylpropanolamine can cause false positive results. Barbiturate Screen, Ur Negative Negative LAB CHEMISTRY METHOD 1:21 PM EDT [facility] Benzodiazepine Screen, Ur Negative Negative LAB CHEMISTRY METHOD 1:21 PM EDT [facility] Cocaine Screen, Ur Negative Negative LAB CHEMISTRY METHOD 1:21 PM EDT [facility] Opiate Screen, Ur Negative Negative LAB CHEMISTRY METHOD 1:21 PM EDT [facility] Cannabinoid (THC) Screen, Ur Positive(A ) Negative LAB CHEMISTRY METHOD 1:21 PM EDT [facility] Comment:Specimens from patie nts taking pantoprazole sodium (Protonix) have been shown to produce false positive results. Oxycodone Screen, Ur Negative Negative LAB CHEMISTRY METHOD 1:21 PM EDT [facility] Fentanyl, Ur Negative Negative LAB CHEMISTRY METHOD 1:21 PM T [facility] Urine Urine specimen obtained by clean catch procedure / Unknown Non-blood Collection / Unknown 06/21/2025 12:32 PM EDT 06/21/2025 12:53 PM EDT Narrative [facility] - 06/21/2025 1:21 PM EDT Assay cutoffs: Amphetamines 1000 ng/mL Barbiturates 200 ng/mL Benzodiazepines 200 ng/mL Cocaine 300 ng/mL Fentanyl 1 ng/mL Opiates 300 ng/mL Oxycodone 100 ng/mL THC 50 ng/mL Semi-quantitative assay for screening purposes only. Unconfirmed screening result should not be used for non-medical purposes. *ALTERNATE METHOD CONFIRMATION DONE UPON REQUEST ONLY* us Rhoda Mannyalyson DO LAB URINE ORDERABLES Final Re sult [facility] [address] [place] [address], [place] [phone] * (ABNORMAL) Urinalysis with reflex microscopic (06/21/2025 9:03 AM EDT) Specific Agate Urine 1.039(H) 1.003 - 1.030 LAB URINALYSIS - AUTOMATED METHOD 06/22/2025 9:20 AM [facility] pH, Urine 5.5 5.0 - 8.0 pH LAB URINALYSIS - AUTOMATED METHOD 06/22/2025 9:20 AM [facility] Leukocytes, Urine Negative Negative LAB URINALYSIS - AUTOMATED METHOD 06/22/2025 9:20 AM [facility] Nitrite, Urine Negative Negative LAB URINALYSIS - AUTOMATED METHOD 06/22/2025 9:20 AM [facility] Protein, Urine Trace <=Trace mg/dL LAB URINALYSIS - AUTOMATED METHOD 06/22/2025 9:20 AM [facility] Glucose, Urine >=1000(A) Negative mg/dL LAB URINALYSIS - AUTOMATED METHOD 06/22/2025 9:20 AM [facility] Ketones, Urine Negative Negative mg/dL LAB URINALYSIS - AUTOMATED METHOD 06/22/2025 9:20 AM [facility] Urobilinogen , Urine 0.2 0.2 - 1.0 mg/dL LAB URINALYSIS - AUTOMATED METHOD 06/22/2025 9:20 AM EDT [facility] Bilirubin, Urine Negative Negative LAB URINALYSIS - AUTOMATED METHOD 06/22/2025 9:20 AM EDT [facility] Blood, Urine Negative Negative LAB URINALYSIS - AUTOMATED METHOD 06/22/2025 9:20 AM EDT [facility] Urine Urine specimen obtained by clean catch procedure / Unknown Non-blood Collection / Unknown 06/21/2025 9:03 AM EDT 06/22/2025 9:10 AM EDT us Carina Rodriguez MD LAB URINE ORDERABLES Final Res ult [facility] [address] [place] [address], documented in this encounter Visit Diagnoses Diagnosis Suicidal ideation- Primary documented in this encounter Administered Medications Active Administered Medications - up to 3 most recent administrations Medication Order MAR Action Action Date Dose Rate Site acetaminophen (TYLENOL) tablet 650 mg 650 mg, oral, Every 6 hours PRN, mild pain, moderate pain, Starting on Sat06/21/25 at 1439 Given 06/22/2025 11:16 AM EDT 650 mg Given 06/21/2025 3:05 PM EDT 650 mg cariprazine (VRAYLAR) capsule 1.5 mg 1.5 mg, oral, Daily, First dose on Sat06/21/25 at 1500 Given 06/22/2025 10:25 AM EDT 1.5 mg Given 06/21/2025 4:55 PM EDT 1.5 mg clonazePAM (KlonoPIN) tablet 1 mg 1 mg, oral, 3 times daily PRN, anxiety, Starting on Sat06/22/25 at 0438, For 2 days, Hazardous Medication Intact: - Single pair of ASTM standard [id number] certified gloves - Eye/face protection if vomit or potential to spit up Manipulated: - Double pair of ASTM standard [id number] certified gloves - Eye/face protection if vomit or potential to spit up - Staff at reproductive risk must also wear a hazardous gown - Crushing must be performed in sealed closed pouch - Splitting/cutting should be performed by pharmacy, if possible Given 06/22/2025 12:39 PM EDT 1 mg Given 06/22/2025 4:57 AM EDT 1 mg dextrose (D50W) 50% injection 12.5 g 12.5 g, intravenous, Every 15 min PRN, low blood sugar, moderate hypoglycemia *Patient is Unconscious, NPO, unable to swallow: BG 54 - 69 mg/dl*, Starting on Sat06/21/25 at 1536 dextrose (D50W) 50% injection 25 g 25 g, intravenous, Every 15 min PRN, low blood sugar, severe hypoglycemia *Patient is Unconscious, NPO, unable to swallow: BG LESS than 54 mg/dL*, Starting on Sat06/21/25 at 1536 dextrose 15 gram/60 mL oral solution 15 g 15 g, oral, Every 15 min PRN, low blood sugar, hypoglycemia *Patient conscious AND able to drink and swallow safely*, Starting on Sat06/21/25 at 1536 dextrose 15 gram/60 mL oral solution 15 g 15 g, oral, Every 15 min PRN, low blood sugar, hypoglycemia *Patient conscious AND able to drink and swallow safely*, Starting on Sat06/21/25 at 1559 dextrose 15 gram/60 mL oral solution 30 g 30 g, oral, Every 15 min PRN, low blood sugar, hypoglycemia *Patient conscious AND able to drink and swallow safely*, Starting on Sat06/21/25 at 1536 gabapentin (NEURONTIN) capsule 600 mg 600 mg, oral, Every 6 hours scheduled, First dose on Sat06/21/25 at 1440 Given 06/22/2025 11:17 AM EDT 600 mg Given 06/22/2025 4:56 AM EDT 600 mg Given 06/21/2025 2:56 PM EDT 600 mg glucagon HCL injection 1 mg 1 mg, intramuscular, Once as needed, low blood sugar, severe hypoglycemia, Starting on Sat06/21/25 at 1536, For 1 dose insulin glargine (LANTUS) injection 40 Units 40 Units, subcutaneous, Nightly, First dose on Sat06/21/25 at 2100, For 5 days, Notify provider: -If patient is currently or will become NPO -If TPN was or will be interrupted or discontinued -For approval to hold long acting insulin Given 06/21/2025 9:40 PM EDT 40 Units Left Lower Abdomen insulin lispro injection 1-6 Units 1-6 Units, subcutaneous, 3 times daily with meals, First dose on Sat06/21/25 at 1700, Indication: Total Daily Dose (TDD) LESS than 40 units Correction Scale: Low Dose Administer with meal and/or mealtime dose of insulin to correct high blood glucose If mealtime insulin dose not given (e.g. patient NPO or not eating), still administer correction factor for high blood glucose Given 06/22/2025 12:14 PM EDT 2 Units Right Upper Arm (Alex k) Given 06/22/2025 8:12 AM EDT 2 Units Le ft Upper Arm (Back) Given 06/21/2025 5:43 PM EDT 4 Units Le ft Upper Arm (Back) insulin lispro injection 5 Units 5 Units, subcutaneous, 3 times daily with meals, First dose on Sat06/21/25 at 1700, For 5 days, Mealtime Insulin - Administer with meal --- -Do NOT give if patient NPO or expected to eat LESS than 50% of meal -If pre-meal glucose LESS than OR equal to 70 mg/dL- treat hypoglycemia and notify provider Given 06/22/2025 12:14 PM EDT 5 Units Right Upper Arm (Back) Given 06/21/2025 5:42 PM EDT 5 Units Le ft Upper Arm (Back) lamoTRIgine (LaMICtal) tablet 100 mg 100 mg, oral, 2 times daily, First dose on Sat06/21/25 at 2100, For 5 days Given 06/22/2025 10:25 AM EDT 100 mg Given 06/21/2025 9:40 PM EDT 100 mg methadone (METHADOSE) dispersible tablet 160 mg 160 mg, oral, Daily, First dose on Sat06/22/25 at 0900, For 5 days, Disperse total dose in ~120 mL of water, orange juice, or other acidic fruit beverage prior to administration; if insoluble excipients remain and do not entirely dissolve, add a small amount of liquid to cup and administer remaining mixture. Do not chew or swallow tablet before dispersing in liquid. Given 06/22/2025 10:25 AM EDT 160 mg metoprolol succinate (TOPROL-XL) 24 Hour tablet 25 mg 25 mg, oral, Daily, First dose on Sat06/21/25 at 1536, For 5 days, Do not crush or chew. Given 06/22/2025 10:25 AM EDT 25 mg Given 06/21/2025 4:53 PM EDT 25 mg mirtazapine (REMERON JORDAN-TAB) disintegrating tablet 15 mg 15 mg, oral, Nightly, First dose on Sat06/21/25 at 2100, For 5 days Given 06/21/2025 9:40 PM EDT 15 mg prazosin (MINIPRESS) capsule 2 mg 2 mg, oral, Nightly, First dose on Sat06/21/25 at 2100, For 5 days Given 06/21/2025 9:39 PM EDT 2 mg Inactive Administered Medications - up to 3 most recent administrations Medication Order MAR Action Action Date Dose Rate Site apixaban (ELIQUIS) tablet 5 mg 5 mg, oral, Once, On Sat06/21/25 at 1536, For 1 dose, Indication: VTE/PE Treatment Given 06/21/2025 4:54 PM EDT 5 mg clonazePAM (KlonoPIN) tablet 1 mg 1 mg, oral, 3 times daily, First dose on Sat06/21/25 at 1440, Hazardous Medication Intact: - Single pair of ASTM standard [id number] certified gloves - Eye/face protection if vomit or potential to spit up Manipulated: - Double pair of ASTM standard [id number] certified gloves - Eye/face protection if vomit or potential to spit up - Staff at reproductive risk must also wear a hazardous gown - Crushing must be performed in sealed closed pouch - Splitting/cutting should be performed by pharmacy, if possible Given 06/21/2025 7:36 PM EDT 1 mg Given 06/21/2025 2:56 PM EDT 1 mg documented in this encounter Historical Medications * This list may reflect changes made after this encounter. Vraylar 1.5 mg capsule Take 1 capsule (1.5 mg total) by mouth 1 (one) time each day. 05/28/2025 added in this encounter Active and Recently Administered Medications Times are shown in EDT. Scheduled Medication Order 06/20/2025 06/21/2025 06/22/2025 apixaban (ELIQUIS) tablet 5 mg (COMPLETED) 5 mg, oral, Once, On Sat06/21/25 at 1536, For 1 dose, Indication: VTE/PE Treatment 1654 (Given - Provider: Caridad Guy RN - Comment: Not available at the time) cariprazine (VRAYLAR) capsule 1.5 mg 1.5 mg, oral, Daily, First dose on Sat06/21/25 at 1500 1655 (Given - Provider: Caridad Guy RN - Comment: Waiting for med to be brought down by pharmacy.) 1025 (Given - Provider: Akiko Allen RN - Comment: pt was asleep) clonazePAM (KlonoPIN) tablet 1 mg (CANCELED) 1 mg, oral, 3 times daily, First dose on Sat06/21/25 at 1440, Hazardous Medication Intact: - Single pair of ASTM standard [id number] certified gloves - Eye/face protection if vomit or potential to spit up Manipulated: - Double pair of ASTM standard [id number] certified gloves - Eye/face protection if vomit or potential to spit up - Staff at reproductive risk must also wear a hazardous gown - Crushing must be performed in sealed closed pouch - Splitting/cutting should be performed by pharmacy, if possible 1456 (Given - Provider: Caridad Guy RN)1936 (Given - Provider: Caridad Guy RN) gabapentin (NEURONTIN) capsule 600 mg 600 mg, oral, Every 6 hours scheduled, First dose on Sat06/21/25 at 1440 1456 (Given - Provider: Caridad Guy RN)1851 (Not Given - Provider: Akiko Allen RN - Reason: Other - Comment: 3 hours since last dose) 0029 (Not Given - Provider: Bhumi Bravo RN - Reason: Patient/Resident/Agent refused - education provided - Comment: pt sleeping)0456 (Given - Provider: Bhumi Bravo RN)1117 (Given - Provider: Akiko Allen RN)1730 (Due - Provider: Bhumi Bravo RN)2330 (Due - Provider: Bhumi Bravo RN) insulin glargine (LANTUS) injection 40 Units 40 Units, subcutaneous, Nightly, First dose on Sat06/21/25 at 2100, For 5 days, Notify provider: -If patient is currently or will become NPO -If TPN was or will be interrupted or discontinued -For approval to hold long acting insulin 2139 (Given - Provider: Bhumi Bravo RN) 2100 (Due) insulin lispro injection 1-6 Units 1-6 Units, subcutaneous, 3 times daily with meals, First dose on Sat06/21/25 at 1700, Indication: Total Daily Dose (TDD) LESS than 40 units Correction Scale: Low Dose Administer with meal and/or mealtime dose of insulin to correct high blood glucose If mealtime insulin dose not given (e.g. patient NPO or not eating), still administer correction factor for high blood glucose 1743 (Given - Provider: Caridad Guy RN - Comment: POC [phone]) 0812 (Given - Provider: Akiko Allen RN)1214 (Given - Provider: Akiko Allen RN)1700 (Due) insulin lispro injection 5 Units 5 Units, subcutaneous, 3 times daily with meals, First dose on Sat06/21/25 at 1700, For 5 days, Mealtime Insulin - Administer with meal ------ -Do NOT give if patient NPO or expected to eat LESS than 50% of meal -If pre-meal glucose LESS than OR equal to 70 mg/dL- treat hypoglycemia and notify provider 1742 (Given - Provider: Caridad Guy RN) 0812 (Not Given - Provider: Akiko Allen RN - Reason: Other - Comment: pt declined bkfst, coverage for bs given, meal insulin held)1214 (Given - Provider: Akiko Allen RN)1700 (Due) lamoTRIgine (LaMICtal) tablet 100 mg 100 mg, oral, 2 times daily, First dose on Sat06/21/25 at 2100, For 5 days 2139 (Given - Provider: Bhumi Bravo RN) 1025 (Given - Provider: Akiko Allen RN - Comment: pt was asleep)2099 (Due) methadone (METHADOSE) dispersible tablet 160 mg 160 mg, oral, Daily, First dose on Sat06/22/25 at 0900, For 5 days, Disperse total dose in ~120 mL of water, orange juice, or other acidic fruit beverage prior to administration; if insoluble excipients remain and do not entirely dissolve, add a small amount of liquid to cup and administer remaining mixture. Do not chew or swallow tablet before dispersing in liquid. 1025 (Given - Provid er: Akiko Allen RN - Comment: pt was asleep) metoprolol succinate (TOPROL-XL) 24 Hour tablet 25 mg 25 mg, oral, Daily, First dose on Sat06/21/25 at 1536, For 5 days, Do not crush or chew. 1653 (Given - Provider: Caridad Guy RN - Comment: Not available at the time) 1025 (Given - Provider: Akiko Allen RN - Comment: pt was asleep) mirtazapine (REMERON JORDAN-TAB) disintegrating tablet 15 mg 15 mg, oral, Nightly, First dose on Sat06/21/25 at 2100, For 5 days 2139 (Given - Provider: Bhumi Bravo RN) 2099 (Due) prazosin (MINIPRESS) capsule 2 mg 2 mg, oral, Nightly, First dose on Sat06/21/25 at 2100, For 5 days 2138 (Given - Provider: Bhumi Bravo RN) 2099 (Due) PRN Medication Order 06/20/2025 06/21/2025 06/22/2025 acetaminophen (TYLENOL) tablet 650 mg 650 mg, oral, Every 6 hours PRN, mild pain, moderate pain, Starting on Sat06/21/25 at 1439 1505 (Given - Provider: Caridad Guy, KASSY) 1116 (Given - Provider: Akiko Allen, KASSY) clonazePAM (KlonoPIN) tablet 1 mg 1 mg, oral, 3 times daily PRN, anxiety, Starting on Sat06/22/25 at 0438, For 2 days, Hazardous Medication Intact: - Single pair of ASTM standard [id number] certified gloves - Eye/face protection if vomit or potential to spit up Manipulated: - Double pair of ASTM standard [id number] certified gloves - Eye/face protection if vomit or potential to spit up - Staff at reproductive risk must also wear a hazardous gown - Crushing must be performed in sealed closed pouch - Splitting/cutting should be performed by pharmacy, if possible 5500 (Given - Provid er: Bhumi Bravo RN)6409 (Given - Provider: Akiko Allen, KASSY) dextrose (D50W) 50% injection 12.5 g 12.5 g, intravenous, Every 15 min PRN, low blood sugar, moderate hypoglycemia *Patient is Unconscious, NPO, unable to swallow: BG 54 - 69 mg/dl*, Starting on Sat06/21/25 at 1536 dextrose (D50W) 50% injection 25 g 25 g, intravenous, Every 15 min PRN, low blood sugar, severe hypoglycemia *Patient is Unconscious, NPO, unable to swallow: BG LESS than 54 mg/dL*, Starting on Sat06/21/25 at 1536 dextrose 15 gram/60 mL oral solution 15 g 15 g, oral, Every 15 min PRN, low blood sugar, hypoglycemia *Patient conscious AND able to drink and swallow safely*, Starting on Sat06/21/25 at 1536 dextrose 15 gram/60 mL oral solution 15 g 15 g, oral, Every 15 min PRN, low blood sugar, hypoglycemia *Patient conscious AND able to drink and swallow safely*, Starting on Sat06/21/25 at 1559 dextrose 15 gram/60 mL oral solution 30 g 30 g, oral, Every 15 min PRN, low blood sugar, hypoglycemia *Patient conscious AND able to drink and swallow safely*, Starting on Sat06/21/25 at 1536 glucagon HCL injection 1 mg 1 mg, intramuscular, Once as needed, low blood sugar, severe hypoglycemia, Starting on Sat6/25 at 1536, For 1 dose documented in this encounter Orders Medications Ordered That Conrad ht Not Have Been Administered Count Last Ordered Date First Ordered Date clonazePAM (KlonoPIN) tablet 1 mg 1 025 dextrose (D50W) 50% injection 12.5 g 1 02/2025 dextrose (D50W) 50% injection 25 g 1 2024 dextrose 15 gram/60 mL oral solution 15 g 2 06/21/2025 dextrose 15 gram/60 mL oral solution 30 g 1 06/21/2025 gabapentin (NEURONTIN) capsule 600 mg 1 02/2025 glucagon HCL injection 1 mg 1 06/21/2025 methadone (DOLOPHINE) tablet 30 mg 1 2024 methadone (METHADOSE) disper sible tablet 120 mg 2 06/21/2025 methadone (METHADOSE) disper sible tablet 160 mg 1 06/21/2025 mirtazapine (REMERON) tablet 15 mg 1 2024 Diet Count Last Ordered Date First Orde red Date ADULT DIET 1 06/21/2025 Nursing Count Last Ordered Date First Orde red Date NOTIFY PROVIDER - INDICATE REASON 3 025 NOTIFY PROVIDER - VITAL SIGNS 1 06/21/2025 [id number] 1 06/21/2025 VITAL SIGNS 1 06/21/2025 Consult Count Last Ordered Date First Orde red Date IP CONSULT TO POWER SEWING MACHINE OPERATOR 1 06/21/2025 Precaution Count Last Ordered Date First Orde red Date SUICIDE PRECAUTIONS 1 06/21/2025 Privilege Level Count Last Ordered Date First O rdered Date PATIENT PLATE WORKER HELPER 1:1 1 06/21/2025 documented in this encounter Care Teams Mixer Slagman Relationship Specialty Start Date End Date Chris Velasquez MD [address] [place] [id number] PCP - General Internal Medicine 06/28/22 documented as of this encounter
[2025-06-22 17:20] VITALS: BP 133/67; PULSE 80; RESP 20; TEMP 36.7; O2SAT 93
[2025-06-22 17:21] VITALS: BMI 39.8
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
--- OUTSIDE RECORDS SUMMARY | 2025-06-22 18:54 | XMS_ITS ---
Author Name [facility] Organization Unknown Care Team Organization Name Specialty Phone Email Start Date End Da te [facility] Chris Velasquez Primary Care 11/21/2022 024 [facility] NULL Primary Care 07/24/2022 05/04/2024
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
--- OUTSIDE RECORDS SUMMARY | 2025-06-22 18:54 | XMS_ITS | Clinical Summary ---
Author Organization [address] [facility] Address [address] [place] [address] Phone Care Team Providers Care Digital Solutions Architect Name Role Phone Chris Velasquez MD Primary Care Provider [phone] Allergies Active Allergy Reactions Criticality Noted Date Comments Carisoprodol Hives 06/30/2022 Codeine Unknown,Hives,[place] And Vomiting 06/28/2022 Patient has tolerated hydromorphone in the past. Ketorolac Rash Low 08/17/2024 Nsaids (Non-Steroidal Anti-Inflammatory Drug) Hives,Unknown 06/28/2022 Prochlorperazine Unknown 06/28/2022 Other Reaction(s): jaw lock Lock jaw Tramadol Hives,Unknown 06/28/2022 Patient has tolerated hydromorphone in the past. Medications clonazePAM (KlonoPIN) 1 mg tablet 4 Active hydrOXYzine pamoate (VISTARIL) 50 mg capsule Take 1 capsule (50 mg total) by mouth 2 (two) times a day if needed for anxiety. 5 Active lamoTRIgine (LaMICtal) 100 mg tablet Take 1 tablet (100 mg total) by mouth 2 (two) times a day. 5 Active methadone (DOLOPHINE) 10 mg/mL concentrated solution Take 15.5 mL (155 mg total) by mouth 1 (one) time each day. Active mirtazapine (REMERON) 15 mg tablet Take 1 tablet (15 mg total) by mouth at bedtime. Active prazosin (MINIPRESS) 2 mg capsule Take 1 capsule (2 mg total) by mouth at bedtime. 5 Active apixaban (ELIQUIS) 5 mg tablet Take 1 tablet (5 mg total) by mouth 1 (one) time each day. 90 each 1 5 08/17/20 25 Active fluticasone propionate (FLONASE) 50 mcg/actuation nasal spray Administer 2 sprays into each nostril 1 (one) time each day. Shake gently. Before first use, prime pump. After use, clean tip and replace cap. 16 g 11 5 Active Additional Information Patient not taking.Reported on 06/21/2025 metoprolol succinate (TOPROL-XL) 25 mg 24 hr tablet Take 1 tablet (25 mg total) by mouth 1 (one) time each day. 90 each 1 5 08/17/20 25 Active insulin lispro (HumaLOG KwikPen) 100 unit/mL injection pen Inject 5 units subcu at 3 times a day. 15 mL 2 5 02/19/20 26 Active Additional Information Patient not taking.Reported on 06/21/2025 gabapentin (NEURONTIN) 600 mg tablet Take 1 tablet (600 mg total) by mouth 4 (four) times a day. 5 Active insulin glargine,hum.rec .anlog (Basaglar KwikPen U-100 Insulin) 100 unit/mL (3 mL) injection penIndications:D iabetes mellitus type 2, insulin dependent ([facility] V24, [facility] V28) Inject 50 Units under the skin at bedtime. 5 Active Additional Information Patient not taking.Reported on 06/21/2025 Vraylar 1.5 mg capsule Take 1 capsule (1.5 mg total) by mouth 1 (one) time each day. 5 Active Active Problems Problem Noted Date Diagnosed Date Cellulitis of forehead 03/13/2025 Encounters Date Type Department Care Team Description 06/21/2025 12:05 PM EDT - 06/22/2025 4:00 PM EDT Emergency [facility] Emergency [address] [place] [phone] Rhoda Flanagan DO Kokkinos, Erika, MD Suicidal ideation (Primary Dx) Discharge Disposition: [facility] 06/16/2025 Telephone [facility] [address] [place] [address] Chris Velasquez MD 04/27/2025 11:04 AM EDT - 04/27/2025 12:31 PM EDT Emergency [facility] Emergency [address] [place] [phone] Bryant Winter MD Lesion of skin of breast (Primary Dx) Discharge Disposition: Home or Self Care 04/09/2025 Telephone Internal Medicine - [place] [address] [facility] [address] [place] [phone] Chris Velasquez MD from Last 3 Months Surgical History Surgery Date Site/Laterality Comments TUBAL LIGATION PROCEDURE:TUBAL LIGATION APPENDECTOMY PROCEDURE:APPENDECTOMY LUMBAR FUSION PROCEDURE:LUMBAR FUSION;COMMENT:L5-S1 Medical History Medical History Date Comments Primary hypertension 06/28/2022 DX:Primary hypertension Chronic congestive heart margarita lure ([facility] V24, [facility] V28) 06/28/2022 DX:Chronic congestive heart failure (HCC) Varicose veins of both lower extremities 06/28/2022 DX:Varicose veins of both lo wer extremities Type 2 diabetes mellitus wit h diabetic neuropathy, without long-term current use of insulin ([facility] V24, [facility] V28) 06/28/2022 DX:Type 2 diabetes mellitus with diabetic neuropathy, without long-term current use of insulin ([facility]) Class 2 severe obesity due t o excess calories with serious comorbidity and body mass index (BMI) of 35.0 to 35.9 in adult 06/28/2022 DX:Class 2 severe obesity du e to excess calories with serious comorbidity and body mass index (BMI) of 35.0 to 35.9 in adult ([facility]) Bipolar 1 disorder, mixed, m oderate ([facility] V24, [facility] V28) 06/28/2022 DX:Bipolar 1 disorder, mixe d, moderate ([facility]) Anxiety disorder 06/28/2022 DX:Anxiety diso rder COPD (chronic obstructive pu lmonary disease) ([facility] V24, [facility] V28) DX:COPD (chronic o bstructive pulmonary disease) ([facility]) Diabetes mellitus ([facility] V 24, [facility] V28) DX:Diabetes mellitus ([facility]) Hypertension DX:Hypertension Chronic diastolic CHF (conge stive heart failure) ([facility] V24, [facility] V28) DX:Chronic diastolic CHF (co ngestive heart failure) ([facility]) Obesity DX:Obesity Chronic edema DX:Chronic edema ;COMMENT:lower extremity Polysubstance abuse ([facility] V24, [facility] V28) DX:Polysubstance abuse ([facility]);COMMENT:etoh, opiate, coke, THC Dyslipidemia DX:Dyslipidemia B12 deficiency DX:B12 deficienc y GERD (gastroesophageal reflux disease) DX:GERD (gastroesophageal reflux disease) Anxiety DX:Anxiety PTSD (post-traumatic stress disorder) DX:PTSD (post-traumatic stress disorder) Axillary abscess DX:Axillary abs cess Pulmonary embolism ([facility] V24, [facility] V28) Hyperlipidemia Family History Medical History Relation Name Comments Depression Father Suicide Attempts Father Relation Name Status Comments Father Social History Tobacco Use Types Packs/Day Years [...] Orientation Straight 09/15/2024 5: 21 PM EST Obstetrics History Last Filed Vital Signs Vital Sign Reading [...] Mass Index 39.99 06/21/2025 12:08 PM EDT Plan of Treatment Health Maintenance Due Date Last Done Comments Breast Cancer Screening 1973 Colorectal Cancer Screening: Colonoscopy 1973 Diabetes: Annual Foot Exam 1983 Diabetes: Annual Retina Eye Exam 1983 DTaP,Tdap,and Td Vaccines (1 - Tdap) 1992 Hepatitis A Vaccines (1 of 2 - Risk 2-dose series) 1992 Hepatitis B Vaccines (1 of 3 - 19+ 3-dose series) 1992 Cervical Cancer Screening: Pap Smear 1994 Pneumococcal Vaccine: 50+ Years (2 of 2 - PCV) 03/01/2006 03/01/2005 Diabetes: Annual Urine Albumin-Creatinine Ratio (uACR) 08/25/2022 HIV Screening 08/25/2022 Hepatitis C Screening 08/25/2022 Zoster Vaccines (1 of 2) 2023 Depression Screening 09/16/2024 COVID-19 Vaccine ( - 2024- season) 2025 01/06/2022, 04/16/2021 Influenza Vaccine (#1) 2025 9, 07/09/2015, 07/16/2012, Additional history exists Diabetes: Blood Sugar Control Test (HGBA1C) 09/11/2025 03/12/2025, 07/02/2022 Social Influencers of Health Screening 03/16/2026 03/16/2025 Diabetes: Annual GFR (Glomerular Filtration Rate) 06/22/2026 06/22/2025, 06/21/2025, 03/16/2025, Additional history exists Hypertension/CHF/CAD Annual BMP Blood Test 06/22/2026 06/22/2025, 06/21/2025, 03/16/2025, Additional history exists Cholesterol Screening (Lipid Panel) 07/02/2027 07/02/2022 RSV Immunization Adult Patients (1 - 1-dose 75+ series) 2048 HIB Vaccines Aged Out No longer eligi ble based on patient's age to complete this topic HPV Vaccines Aged Out No longer eligi ble based on patient's age to complete this topic IPV Vaccines Aged Out No longer eligi ble based on patient's age to complete this topic MMR Vaccines Aged Out No longer eligi ble based on patient's age to complete this topic Meningococcal ACWY Vaccine Aged Out N o longer eligible based on patient's age to complete this topic Meningococcal B Vaccine Aged Out No l onger eligible based on patient's age to complete this topic RSV Immunization Patients Under 20 months Aged Out No longer eligible based on patient's age to complete this topic Varicella Vaccines Aged Out No longer eligible based on patient's age to complete this topic Procedures Procedure Name Priority Date/Time Associated Diagnosis [...] AUTO DIFFERENTIAL STAT 06/21/2025 1:20 PM EDT SALICYLATE LEVEL STAT 06/21/2025 1:20 PM EDT ACETAMINOPHEN LEVEL STAT 06/21/2025 1 :20 PM EDT ETHANOL STAT 06/21/2025 1:20 PM EDT COMPREHENSIVE METABOLIC PANEL STAT 06/21/2025 1:20 PM EDT CBC AND DIFFERENTIAL STAT 06/21/2025 1:20 PM EDT TIGER TOP URINE TUBE Routine 06/21/2025 12:32 PM EDT CHOWDHURY URINE CULTURE TUBE Routine 06/21/20 12:32 PM EDT EXTRA TUBES Routine 06/21/2025 12:32 PM EDT METHADONE SCREEN, URINE STAT 06/21/20 12:32 PM EDT PHENCYCLIDINE, URINE STAT 06/21/2025 12:32 PM EDT BUPRENORPHINE SCREEN, URINE STAT 06/21/2025 12:32 PM EDT DRUG ABUSE SCREEN 8A PANEL, URINE STAT 06/21/2025 12:32 PM EDT URINALYSIS WITH REFLEX MICROSCOPIC STAT 06/21/2025 9:03 AM EDT URINALYSIS WITH REFLEX MICROSCOPIC STAT 06/21/2025 9:03 AM EDT HEMOGLOBIN A1C Add-On 03/12/2025 2:24 PM EDT from Last 3 Months or Most Recently Relevant to Health Maintenance Results * (ABNORMAL) Basic metabolic panel (06/22/2025 12:14 PM EDT) Sodium 133 133 - 145 mmol/L LAB CHEMISTRY METHOD 06/22/2025 1:11 PM EDT [facility] Potassium 4.3 3.5 - 5.5 mmol/L LAB CHEMISTRY METHOD 06/22/2025 1:11 PM EDT [facility] Comment:Hemolysis present Chloride 97 96 - 110 mmol/L LAB CHEMISTRY METHOD 06/22/2025 1:11 PM EDT [facility] CO2 30 21 - 32 mmol/L LAB CHEMISTRY METHOD 06/22/2025 1:11 PM EDT [facility] Anion Gap 6 3 - 11 LAB CHEMISTRY METHOD 06/22/2025 1:11 PM EDT [facility] Glucose 223(H) 70 - 100 mg/dL LAB CHEMISTRY METHOD 06/22/2025 1:11 PM EDT [facility] BUN 10 5 - 25 mg/dL LAB CHEMISTRY METHOD 06/22/2025 1:11 PM EDT [facility] Creatinine 0.58 0.50 - 1.10 mg/dL LAB CHEMISTRY METHOD 06/22/2025 1:11 PM EDT [facility] eGFR 110 >=60 mL/min/1. 73m2 LAB CHEMISTRY METHOD 06/22/2025 1:11 PM T [facility] Comment:Calculation based on the Chronic Kidney Disease Epidemiology Collaboration (CKD-EPI) equation refit without adjustment for race. BUN/Creatinine Ratio 17.2 LAB CHEMISTRY METHOD 06/22/2025 1:11 PM EDT [facility] Calcium 8.8 8.5 - 10.5 mg/dL LAB CHEMISTRY METHOD 06/22/2025 1:11 PM [facility] Blood Venous blood specimen / Unknown Venipuncture / Unknown 06/22/2025 12:14 PM EDT 06/22/2025 12:30 PM EDT Rhoda Flanagan DO LAB BLOOD ORDERABLES Final Re sult [facility] [address] [place] [address], * (ABNORMAL) POCT Glucose, blood (06/22/2025 12:04 PM EDT) Only the most recent of3 resultswithin the time period is included. Glucose POCT 223(H) 70 - 100 mg/dL 06/22/2025 12:07 PM EDT [facility] Blood Capillary blood specimen / Unknown 06/22/2025 12:04 PM EDT 06/22/2025 12:13 PM EDT [facility] POINT OF CARE TE ST DOCKED DEVICE UNSOLICITED RESULTS Final Result Performing Organization Address [facility]/ZIP Co de Phone Number [facility] [address] [place] [address], [place] [phone] * Activated Partial Thromboplastin Time - STAT (06/21/2025 6:25 PM EDT) aPTT 34.8 24.1 - 39.3 sec LAB COAGULATION METHOD 06/21/2025 6:50 PM EDT [facility] Blood Venous blood specimen / Unknown Venipuncture / Unknown 06/21/2025 6:25 PM EDT 06/21/2025 6:29 PM EDT [facility] LAB BLOOD ORDERABLES Final Re sult Performing Organization Address [facility]/ZIP Co de Phone Number [facility] [address] [place] [address], [place] [phone] * (ABNORMAL) Prothrombin Time with INR - STAT (06/21/2025 6:25 PM EDT) Protime 15.0(H) 10.6 - 13.9 sec LAB COAGULATION METHOD 06/21/2025 6:50 PM EDT [facility] INR 1.2 LAB COAGULATION METHOD 06/21/2025 6:50 PM EDT [facility] Blood Venous blood specimen / Unknown Venipuncture / Unknown 06/21/2025 6:25 PM EDT 06/21/2025 6:29 PM EDT [facility] LAB BLOOD ORDERABLES Final Re sult [facility] [address] [place] [address], [place] [phone] * 12-Lead ECG (06/21/2025 2:39 PM EDT) [facility] Ventricular Rate ECG 80 BPM GEMUSE Atrial Rate 80 BPM GEMUSE P-R Interval 162 ms GEMUSE QRS Duration 82 ms GEMUSE Q-T Interval 398 ms GEMUSE QTc 459 ms GEMUSE P Wave [place] 32 degrees GEMUSE R [place] -5 degrees GEMUSE T [place] 35 degrees GEMUSE ECG Interpretation Normal sinus rhythm Low voltage QRS When compared with ECG of 12-MAR-2025 16:17, No significant change was found Confirmed by NAVID MCDERMOTT ([id number]) on 06/22/2025 8:04:40 AM GEMUSE 06/21/2025 2:39 PM EDT 06/22/2025 8:04 AM EDT Rhoda Flanagan DO ECG ORDERABLES Final Result GEMUSE * (ABNORMAL) CBC auto differential (06/21/2025 1:20 PM EDT) [facility] WBC 10.7 4.8 - 10.8 K/mcL LAB HEMETOLOGY METHOD 06/21/2025 1:50 PM EDT [facility] RBC 5.20(H) 3.80 - 4.80 M/mcL LAB HEMETOLOGY METHOD 06/21/2025 1:50 PM EDT [facility] Hemoglobin 14.4 11.5 - 16.0 g/dL LAB HEMETOLOGY METHOD 06/21/2025 1:50 PM EDT [facility] Hematocrit 43.8 35.0 - 47.0 % LAB HEMETOLOGY METHOD 06/21/2025 1:50 PM EDT [facility] MCV 84.2 79.0 - 98.0 FL LAB HEMETOLOGY METHOD 06/21/2025 1:50 PM EDT [facility] MCH 27.7 27.0 - 32.0 pcg LAB HEMETOLOGY METHOD 06/21/2025 1:50 PM EDT [facility] MCHC 32.9 32.0 - 37.0 g/dL LAB HEMETOLOGY METHOD 06/21/2025 1:50 PM EDT [facility] RDW 13.2 11.0 - 15.0 % LAB HEMETOLOGY METHOD 06/21/2025 1:50 PM EDT [facility] Platelets 306 130 - 400 K/mcL LAB HEMETOLOGY METHOD 06/21/2025 1:50 PM EDT [facility] MPV 10.6 7.0 - 11.0 FL LAB HEMETOLOGY METHOD 06/21[facility]2025 [facility] NRBC 0.0 <1.0 % LAB HEMETOLOGY METHOD 06/21/2025 1:50 PM EDT [facility] NRBC Absolute 0.00 <0.10 K/mcL LAB HEMETOLOGY METHOD 06/21/2025 1:[facility] Neutrophils Relative 58.8 % LAB HEMETOLOGY METHOD 06/21/2025 1:50 PM [facility] Lymphocytes Relative 32.1 % LAB HEMETOLOGY METHOD 06/21/2025 1:50 PM [facility] Monocytes Relative 6.6 % LAB HEMETOLOGY METHOD 06/21/2025 1:50 PM EDT [facility] Eosinophils Relative 1.6 % LAB HEMETOLOGY METHOD 06/21/2025 1:50 PM EDT [facility] Basophils Relative 0.5 % LAB HEMETOLOGY METHOD 06/21/2025 1:50 [facility] Immature Granulocytes Relative 0.4 % LAB HEMETOLOGY METHOD 06/21/2025 1:50 PM EDT [facility] Neutrophils Absolute 6.27 1.50 - 7.00 K/mcL LAB HEMETOLOGY METHOD 06/21/2025 1:50 PM EDT [facility] Lymphocytes Absolute 3.42 1.00 - 5.00 K/mcL LAB HEMETOLOGY METHOD 06/21/2025 1:50 PM EDT [facility] Monocytes Absolute 0.70 0.20 - 1.00 K/mcL LAB HEMETOLOGY METHOD 06/21/2025 1:50 PM EDT [facility] Eosinophils Absolute 0.17 0.00 - 0.50 K/[facility] LAB HEMETOLOGY METHOD 06/21/2025 1:50 PM EDT [facility] Basophils Absolute 0.05 0.00 - 0.20 K/mcL LAB HEMETOLOGY METHOD 06/21/2025 1:50 PM EDT [facility] Immature Granulocytes Absolute 0.04(H) 0.00 - 0.03 K/mcL LAB HEMETOLOGY METHOD 06/21/2025 1:50 PM EDT [facility] Blood Venous blood specimen / Unknown Venipuncture / Unknown 06/21/2025 1:20 PM EDT 06/21/2025 1:46 PM EDT Rhoda Flanagan DO LAB BLOOD ORDERABLES Final Re sult [facility] [address] [place] [address], * Ethanol (06/21/2025 1:20 PM EDT) Ethanol Level <3 0 - 10 mg/dL LAB CHEMISTRY METHOD 06/21/2025 2:12 PM EDT [facility] Blood Venous blood specimen / Unknown Venipuncture / Unknown 06/21/2025 1:20 PM EDT 06/21/2025 1:46 PM EDT [facility] LAB BLOOD ORDERABLES Final Re sult Performing Organization Address [facility]/ZIP Co de Phone Number [facility] [address] [place] [address], [place] [phone] * (ABNORMAL) Acetaminophen level (06/21/2025 1:20 PM EDT) Acetaminophen Level <2.0(L) 10.0 - 30.0 mcg/mL LAB CHEMISTRY METHOD 06/21/2025 2:14 PM EDT [facility] Blood Venous blood specimen / Unknown Venipuncture / Unknown 06/21/2025 1:20 PM EDT 06/21/2025 1:46 PM EDT [facility] LAB BLOOD ORDERABLES Final Re sult Performing Organization Address [facility] Co de Phone Number [facility] [address] [place] [address], [place] [phone] * Salicylate level (06/21/2025 1:20 PM EDT) Salicylate Level 3.4 2.0 - 29.0 mg/dL LAB CHEMISTRY METHOD 06/21/2025 2:12 PM EDT [facility] Blood Venous blood specimen / Unknown Venipuncture / Unknown 06/21/2025 1:20 PM EDT 06/21/2025 1:46 PM EDT [facility] LAB BLOOD ORDERABLES Final Re sult Performing Organization Address City/[facility]/ZIP Co de Phone Number [facility] [address] [place] [address], [place] [phone] * (ABNORMAL) Comprehensive metabolic panel (06/21/2025 1:20 PM EDT) Sodium 130(L) 133 - 145 mmol/L LAB [...] 73m2 LAB CHEMISTRY METHOD 06/21/2025 2:14 PM [facility] Comment:Calculation based on the Chronic Kidney Disease Epidemiology Collaboration (CKD-EPI) equation refit without adjustment for race. BUN/Creatinine Ratio 12.8 LAB CHEMISTRY METHOD 06/21/2025 2:14 PM [facility] Calcium 9.4 8.5 - 10.5 [...] unit/L LAB CHEMISTRY METHOD 06/21/2025 2:14 PM EDT [facility] Total Protein 7.5 6.0 - 8.0 g/dL LAB CHEMISTRY METHOD 06/21/2025 2:14 PM EDT [facility] Albumin 3.4 3.2 - 5.0 g/dL LAB CHEMISTRY METHOD 06/21/2025 2:14 PM EDT [facility] Total Bilirubin 0.3 0.0 - 1.4 mg/dL LAB CHEMISTRY METHOD 06/21/2025 2:14 PM EDT [facility] Blood Venous blood specimen / Unknown Venipuncture / Unknown 06/21/2025 1:20 PM EDT 06/21/2025 1:46 PM EDT [facility] LAB BLOOD ORDERABLES Final Re sult Performing Organization Address City/[facility]/ZIP Co de Phone Number [facility] [address] [place] [address], [place] [phone] * Chowdhury urine culture tube (06/21/2025 12:32 PM EDT) Extra Tube Hold for add-ons. 06/21/2025 2:01 PM EDT [facility] Comment:Auto resulted. Urine Urine specimen obtained by clean catch procedure / Unknown Non-blood Collection / Unknown 06/21/2025 12:32 PM EDT 06/21/2025 12:53 PM EDT [facility] URINE ORDERABLES Final Re sult [facility] [address] [place] [address], [place] [phone] * Jennings top urine tube (06/21/2025 12:32 PM EDT) Extra Tube Hold for add-ons. 06/21/2025 2:01 PM EDT [facility] Comment:Auto resulted. Urine Urine specimen obtained by clean catch procedure / Unknown Non-blood Collection / Unknown 06/21/2025 12:32 PM EDT 06/21/2025 12:53 PM EDT us Rhoda Flanagan DO LAB URINE ORDERABLES Final Re sult [facility] [address] [place] [address], [place] [phone] * (ABNORMAL) Drug abuse screen 8a panel, urine (06/21/2025 12:32 PM EDT) Amphetamine Screen, Ur Negative Negative LAB CHEMISTRY METHOD 1:21 PM EDT [facility] Comment:Certain OTC medicati ons containing ephedrine, phenylephrine, pseudoephedrine and phenylpropanolamine can cause false positive results. Barbiturate Screen, Ur Negative Negative LAB CHEMISTRY METHOD 1:21 PM EDT [facility] Benzodiazepine Screen, Ur Negative Negative LAB CHEMISTRY METHOD 1:21 PM EDT [facility] Cocaine Screen, Ur Negative Negative LAB CHEMISTRY METHOD 1:21 PM [facility] Opiate Screen, Ur Negative Negative LAB CHEMISTRY METHOD 1:21 PM T [facility] Cannabinoid (THC) Screen, Ur Positive(A ) Negative LAB CHEMISTRY METHOD 1:21 PM T [facility] Comment:Specimens from patie nts taking pantoprazole sodium (Protonix) have been shown to produce false positive results. Oxycodone Screen, Ur Negative Negative LAB CHEMISTRY METHOD 1:21 PM EDT [facility] Fentanyl, Ur Negative Negative LAB CHEMISTRY METHOD 1:21 PM EDT [facility] Urine Urine specimen obtained by clean catch procedure / Unknown Non-blood Collection / Unknown 06/21/2025 12:32 PM EDT 06/21/2025 12:53 PM EDT [facility] - 06/21/2025 1:21 PM EDT Assay cutoffs: Amphetamines 1000 ng/mL Barbiturates 200 ng/mL Benzodiazepines 200 ng/mL Cocaine 300 ng/mL Fentanyl 1 ng/mL Opiates 300 ng/mL Oxycodone 100 ng/mL THC 50 ng/mL Semi-quantitative assay for screening purposes only. Unconfirmed screening result should not be used for non-medical purposes. *ALTERNATE METHOD CONFIRMATION DONE UPON REQUEST ONLY* [facility] URINE ORDERABLES Final Re sult Performing Organization Address [facility] de Phone Number [facility] [address] [place] [address], [place] [phone] * Buprenorphine screen, urine (06/21/2025 12:32 PM EDT) Buprenorphine Screen Urine Negative Negative LAB CHEMISTRY METHOD 06/21/2025 1:21 PM EDT [facility] Urine Urine specimen obtained by clean catch procedure / Unknown Non-blood Collection / Unknown 06/21/2025 12:32 PM EDT 06/21/2025 12:53 PM EDT [facility] - 06/21/2025 1:21 PM EDT Assay cutoff 5 ng/mL Semi-quantitative assay for screening purposes only. Unconfirmed screening result should not be used for non-medical purposes. *ALTERNATE METHOD CONFIRMATION DONE UPON REQUEST ONLY* [facility] URINE ORDERABLES Final Re sult Performing Organization Address [facility] Co de Phone Number [facility] [address] [place] [address], [place] [phone] * (ABNORMAL) Methadone, urine (06/21/2025 12:32 PM EDT) Methadone Screen, Urine Positive (A) Negative LAB CHEMISTRY METHOD 06/21/2025 1:21 PM EDT [facility] Comment: Assay cutoff 300 ng/mL Semi-quantitative assay for screening purposes only. Unconfirmed screening result should not be used for non-medical purposes. *ALTERNATE METHOD CONFIRMATION DONE UPON REQUEST ONLY* Urine Urine specimen obtained by clean catch procedure / Unknown Non-blood Collection / Unknown 06/21/2025 12:32 PM EDT 06/21/2025 12:53 PM EDT [facility] URINE ORDERABLES Final Re sult Performing Organization Address [facility]/ZIP Co de Phone Number [facility] [address] [place] [address], [place] [phone] * Phencyclidine, urine (06/21/2025 12:32 PM EDT) [facility] PCP Scrn, Ur Negative Negative LAB CHEMISTRY METHOD 06/21/2025 1:21 PM EDT [facility] Comment: Assay cutoff 25 ng/mL Semi-quantitative assay for screening purposes only. Unconfirmed screening result should not be used for non-medical purposes. *ALTERNATE METHOD CONFIRMATION DONE UPON REQUEST ONLY* Urine Urine specimen obtained by clean catch procedure / Unknown Non-blood Collection / Unknown 06/21/2025 12:32 PM EDT 06/21/2025 12:53 PM EDT [facility] LAB URINE ORDERABLES Final Re sult Performing Organization Address [facility]/ZIP Co de Phone Number [facility] [address] [place] [address], [place] [phone] * (ABNORMAL) Urinalysis with reflex microscopic (06/21/2025 9:03 AM EDT) [facility] Specific [place] Urine 1.039(H) 1.003 - 1.030 LAB URINALYSIS - AUTOMATED METHOD 06/22/2025 9:20 AM EDT [facility] pH, Urine 5.5 5.0 [...] 06/22/2025 9:20 AM [facility] Bilirubin, Urine Negative Negative LAB URINALYSIS - AUTOMATED METHOD 06/22/2025 9:20 AM [facility] Blood, Urine Negative Negative LAB URINALYSIS - AUTOMATED METHOD 06/22/2025 9:20 AM [facility] Urine Urine specimen obtained by clean catch procedure / Unknown Non-blood Collection / Unknown 06/21/2025 9:03 AM EDT 06/22/2025 9:10 AM EDT us Carina Rodriguez MD LAB URINE ORDERABLES Final Res ult [facility] [address] [place] [address], * (ABNORMAL) Hemoglobin A1c (03/12/2025 2:24 PM EDT) Hemoglobin A1C 12.3(H) <6.5 % LAB CHEMISTRY METHOD 03/14/2025 1:46 PM EDT [facility] Mean Bld Glu Estim. 306 mg/dL LAB CHEMISTRY METHOD 03/14/2025 1:46 PM EDT [facility] Blood Venous blood specimen / Unknown Venipuncture / Unknown 03/12/2025 2:24 PM EDT 03/12/2025 2:45 PM EDT us Gagan Fall MD LAB BLOOD ORDERABLES Final Result [facility] [address] [place] [address], [place] [phone] from Last 3 Months or Most Recently Relevant to Health Maintenance Insurance [facility] [employer] Advance Directives * Full Code - Confirmed (Latest Code Status on File) Date Activated Date Inactivated Comments 03/12/2025 10:41 PM 03/16/2025 5:[address] atus was ascertained in the following way: Code status discussion: discussion with patient To update the patient's code status, place a code status order. Do not modify or discontinue any currently active code status orders. Care Teams Digital Solutions Architect Relationship Specialty Start Date End Date Chris Velasquez MD [address] [place] [id number] PCP - General Internal Medicine 06/28/22
--- OUTSIDE RECORDS SUMMARY | 2025-06-22 18:54 | XMS_ITS | Clinical Summary ---
Author Organization [facility] Address [address] [place] [address] Care Team Providers Care Vest Baster Name Role Phone Unavailable Primary Care Provider Unavailabl e Allergies Active Allergy Reactions Criticality Noted Date Comments Carisoprodol 06/30/2022 Anna 06/30/2022 Codeine 06/30/2022 Nsaids 06/30/2022 Prochlorperazine 06/30/2022 Tramadol 06/30/2022 Medications Medication Sig Dispensed Refills Start Date End Date Status methadone (DOLOPHINE) 10 MG/ML solutionIndications :Opioid Dependence Take 105 mg by mouth daily. 0 Active Ferrous Sulfate 90 (18 Fe) MG TABSIndications:Iro n Deficiency Take 1 tablet by mouth. 0 06/28/2022 Active doxepin (SINEquan) 10 MG capsuleIndications: Anxiety Take 10 mg by mouth. 0 Acti ve furosemide (LASIX) 40 MG tabletIndications:E jose Take 40 mg by mouth. 0 Acti ve gabapentin (NEURONTIN) 300 MG capsuleIndications: Peripheral Neuropathy Take 300 mg by mouth 3 (three) times a day. 0 Active lamoTRIgine (LaMICtal) 25 MG tabletIndications:D epressive Phase Bipolar Mood Disorder Take 25 mg by mouth every night at bedtime. 0 Active LORazepam (ATIVAN) 1 MG tabletIndications:A nxiety Take 1 mg by mouth 3 (three) times a day as needed. 0 Active metoprolol succinate (TOPROL-XL) 24 hr tablet 25 mgIndications:Hyper tension Take 25 mg by mouth daily. 0 Active mirtazapine (REMERON) 15 MG tabletIndications:M ajor Depressive Disorder Take 15 mg by mouth every night at bedtime. 0 Active prazosin (MINIPRESS) 1 MG capsuleIndications: Nightmares Take 5 mg by mouth every night at bedtime. 0 Active risperiDONE (RisperDAL) 1 MG tabletIndications:M ixed Bipolar Affective Disorder Take 1 mg by mouth 2 (two) times a day. 0 Active traZODone (DESYREL) 50 MG tabletIndications:I nsomnia Take 25 mg by mouth every night at bedtime. 0 Active albuterol (PROVENTIL) (2.5 MG/3ML) 0.083% nebulizer solutionIndications :Bronchospasm Take 3 mL (2.5 mg total) by nebulization every 6 (six) hours as needed for wheezing or shortness of breath. 75 mL 0 07/03/2022 Active nicotine polacrilex (NICORETTE) 2 MG gumIndications:Tello melissa Dependence Use as directed 1 each (2 mg total) in the mouth or throat every hour as needed for smoking cessation (Nicotine craving). 100 each 0 07/03/2022 Active Active Problems Problem Noted Date Diagnosed Date Bipolar 2 disorder, major depressive episode Family History Medical History Relation Name Comments Depression Father Suicide Attempts Father Relation Name Status Comments Father Social History Tobacco Use Types Packs/Day Years Used Date Smoking Tobacco: Every Day Cigarettes 0.3 Smokeless Tobacco: Never Tobacco Cessation:Ready to Q uit: Yes Alcohol Use Standard Drinks/Week Comments Never 0 (1 standard drink = 0.6 oz pur e alcohol) Sex and Gender Information Value Date Recorded Sex Assigned at Not on file Gender Identity Not on file Sexual Orientation Not on file Job Start Date Occupation Industry Not on file Not on file Not on file Last Filed Vital Signs Vital Sign Reading Time Taken Comments Blood Pressure 125/72 07/03/2022 10:58 AM EDT Pulse 88 07/03/2022 10:58 AM EDT Temperature 36.3 C (97.3 F) 07/03/2022 7:14 AM EDT Respiratory Rate 18 07/03/2022 7:14 AM EDT Oxygen Saturation 97% 07/03/2022 10:58 AM EDT Inhaled Oxygen Concentration - - Weight 115.7 kg (255 lb) 06/30/2022 11:00 AM EDT Height 162.6 cm (5' 4 ) 06/30/2022 11:00 AM EDT Body Mass Index 43.77 06/30/2022 11:00 AM EDT Plan of Treatment Not on file Advance Directives For more information, please contact: [phone] Latest Code Status on File Code Status Date Activated Date Inactivated Comments Full Code 06/30/2022 10:02 AM 07/03/2022 8:18 PM Th is code status was ascertained in the following way: per unit protocol.
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
[2025-06-22 19:55] VITALS: BP 108/54
[2025-06-22 20:00] VITALS: BP 108/54; PULSE 77; RESP 17; TEMP 36.2; O2SAT 94
[2025-06-22 20:10] LABS: Glucose, Whole Blood 394 mg/dL (60-115)
--- NOTE | 2025-06-22 21:50 | HE.PHANOTE ---
Methadone verified 155 mg daily [facility] dose 06/22/25@0600
[2025-06-22] MEDS: Insulin Glargine,Hum.rec.anlog 100 UNIT/ML 10 ML VIAL 40 UNIT SUBCUT (22:51)
[2025-06-23] MEDS: methADONE HCl 20 MG/2 ML ORAL.CONC 155 MG PO (06:08)
[2025-06-23 07:50] LABS: Glucose, Whole Blood 303 mg/dL (60-115)
[2025-06-23 08:00] VITALS: BP 127/60; PULSE 91; RESP 20; TEMP 36.4; O2SAT 92
[2025-06-23] MEDS: Metoprolol Succinate ER 25 MG TAB.ER.24H PO (08:09)
--- NOTE | 2025-06-23 08:19 | HO.PM.IMCN ---
History of Present Illness Data of Consult Service Date: 06/23/25 Primary Care Provider: Gloria Velasquez MD [facility] Reason for consult: Medical management 49-year-old female with a past medical history of COPD, pulmonary embolism on Eliquis, type 2 diabetes, hypertension, congestive heart failure, diabetes, she will hyperlipidemia, GERD, PTSD, diabetic neuropathy and a history of opioid use disorder on methadone, bipolar 1 disorder, anxiety who presented to [facility] ED with reports of suicidal ideation and auditory hallucinations. While in the ED she attempted to try a sheet around her neck and was placed on observation and suicidal precautions. Patient reported that she had been off her meds for 4 days. On exam she reports her last A1c that is remembers was over 11. She reports sporadic outpatient care for her diabetes. Her current A1c is 12.2. Blood sugars are greater than 300. She otherwise feels well, denies any shortness of breath, dizziness lightheadedness or any other concerning symptoms Review of Systems Review of Systems: Denies any shortness of breath, chest pain, palpitations, headaches, dysuria, abdominal pain or discomfort, nausea, vomiting or diarrhea. [facility] Medical History CHF (congestive heart failure) Chronic post-traumatic stress disorder (PTSD) COPD (chronic obstructive pulmonary disease) Depression Diabetes Mitral valve regurgitation Opioid use disorder Surgical History H/O knee surgery History of appendectomy Social History Household Members: Family and Other Household Members Other:: brother and sister in law Housing: House Do you presently have visiting nurse or other home services: No Alcohol intake: former Patient Tobacco Use Status: Current everyday Tobacco user Tobacco use type: Cigarette Cigarette Packs Per Day: 0.5 Cigarettes Per Day: 10.0 Years Smoked: 30 Smoked in Last 30 Days: Yes e-Cigarette/Vaping Use: Never Used Patient Interested in Nicotine Replacement: No Patient Given Instructions on How to Stop Smoking: No Second Hand Smoke Exposure: Yes Substance Use Type: Crack/Cocaine and Heroin Currently Displaying Signs/Symptoms of Drug Intoxication Withdrawal: No Have you been hit, kicked, punched, or otherwise hurt by someone within the past year? If so, by whom?: No Do you feel safe in your current relationship?: No Current Relationship Is there a partner from a previous relationship who is making you feel unsafe now?: No Are you made to feel afraid or neglected: No Spiritual Healthcare Practices: None Catholic Healthcare Practices: None Cultural Healthcare Practices: None Advance Directives: No Advance Directives Information Provided: No Do you have thoughts of harming others: None Do you have a plan to hurt others: No Plan Recently lost weight without trying: Unsure How much weight loss: Not applicable Eating poorly because of decreased appetite: No Nutrition screen score: 2 Nutrition Risks: No Nutritional Risk Patient : No : No Poor oral hygiene: No service: No Sexual orientation: Don't Know Meds Allergies Allergy/AdvReac Type Severity Reaction Status Date / Time hernandez (CHERRIES) Allergy Severe Angioedema Verified 06/01/22 10:41 NSAIDS (Non-Steroidal Allergy Unknown NOT Verified 07/29/21 11:00 Anti-Inflamma (NSAIDS SUPPOSED (NON-STEROIDAL ANTI-INFLAMMA) TO TAKE DUE TO LIVER DAMAGE IN THE PAST carisoprodol (From Soma) Allergy Unknown Verified 06/22/25 17:18 ketorolac (From Toradol) Allergy Hives Verified 06/01/22 10:41 codeine (CODEINE) AdvReac Unknown Nausea and Verified 06/01/22 10:41 Vomiting prochlorperazine (From AdvReac lockjaw Verified 06/01/22 10:41 Compazine) tramadol (From Ultram) AdvReac Seizure Verified 06/01/22 10:41 Active Medications: Current Medications Acetaminophen (Acetaminophen 325 Mg Tablet) 650 mg PO Q6H PRN PRN Reason: Headache/Pain, Scale 1-10 Al Hydroxide/Mg Hydroxide (Magnesium Hydrox/Alum Hydrox 30 Ml Oral.Susp) 30 ml PO Q6H PRN PRN Reason: Heartburn/Nausea Albuterol Sulfate (Albuterol Sulfate 90 Mcg 8 Gm Inhaler) 2 puff INHALE Q4H PRN PRN Reason: shortness of breath or wheezing Albuterol Sulfate (Albuterol Sulfate (0.083%) 2.5 Mg/3 Ml Vial.Neb) 5 mg INHALE Q4H PRN PRN Reason: shortness of breath or wheezing Bacitracin (Bacitracin Oint 14 Gm Tube) 1 appl TOPICAL BID [facility]; Protocol Last Admin: 10/07/25 20:50 Dose: 1 appl Clonazepam (Clonazepam 1 Mg Tablet) 1 mg PO TID PRN PRN Reason: Anxiety Dextrose (Dextrose 50 % 25 Gm/50 Ml Syringe) 25 gm IVPUSH Q15M PRN; Protocol PRN Reason: per Hypoglycemia Standing Ord. Furosemide (Furosemide 40 Mg Tablet) 40 mg PO DAILY [facility]; Protocol Last Admin: 06/23/25 08:08 Dose: 40 mg Gabapentin (Gabapentin 600 Mg Tablet) 600 mg PO QID [facility] Last Admin: 06/23/25 08:08 Dose: 600 mg Glucose (Glucose Gel 15 Gm Gel..Gram.) 15 gm PO Q15M PRN; Protocol PRN Reason: per Hypoglycemia Standing Ord. Hydroxyzine HCl (Hydroxyzine Hcl 25 Mg Tablet) 25 mg PO Q6H PRN PRN Reason: mild anxiety Insulin Glargine (Insulin Glargine,Hum.Rec.Anlog 100 Unit/Ml 10 Ml Vial) 40 unit SUBCUT BEDTIME [facility] Last Admin: 06/22/25 22:51 Dose: 40 unit Insulin Human Lispro (Insulin Lispro 100 Unit/Ml 3 Ml Vial) 0 unit SUBCUT QIDACHS [facility]; Protocol Last Admin: 06/23/25 08:06 Dose: 8 unit Lamotrigine (Lamotrigine 25 Mg Tablet) 25 mg PO BID [facility] Last Admin: 06/23/25 08:09 Dose: 25 mg Magnesium Hydroxide (Milk Of Magnesia 30 Ml Oral.Susp) 30 ml PO DAILY PRN PRN Reason: Constipation Methadone HCl (Methadone Hcl 20 Mg/2 Ml Oral.Conc) 155 mg PO DAILY@0600 [facility] Last Admin: 06/23/25 06:08 Dose: 155 mg Metoprolol Succinate (Metoprolol Succinate Er 25 Mg Tab.Er.24h) 25 mg PO DAILY [facility]; Protocol Last Admin: 06/23/25 08:09 Dose: 25 mg Mirtazapine (Mirtazapine 15 Mg Tablet) 15 mg PO BEDTIME [facility] Last Admin: 06/22/25 19:56 Dose: 15 mg Nicotine (Nicotine 21 Mg Patch.Td24) 21 mg TRANSDERMA DAILY PRN PRN Reason: nicotine craving Nicotine Polacrilex (Nicotine Polacrilex 2 Mg Gum) 2 mg BUCCAL Q2H PRN PRN Reason: Nicotine Cravings Olanzapine (Olanzapine 5 Mg Tablet) 5 mg PO TID PRN PRN Reason: agitation Prazosin HCl (Prazosin Hcl 1 Mg Capsule) 3 mg PO BEDTIME [facility]; Protocol Last Admin: 06/22/25 19:55 Dose: 3 mg Trazodone HCl (Trazodone Hcl 50 Mg Tablet) 50 mg PO BEDTIME MRX1 PRN PRN Reason: Insomnia Home Medications ?Medication ?Instructions ?Recorded ?Confirmed ?Last Taken ?Type gabapentin 300 mg capsule 600 mg PO TID 06/22/25 06/22/25 06/22/25 21:00 History methadone 10 mg/mL oral 155 mg PO DAILY@0600 06/22/25 06/22/25 06/22/25 06:00 History concentrate (Methadose) prazosin 1 mg capsule 3 mg PO BEDTIME 06/22/25 06/22/25 06/22/25 21:00 History trazodone 50 mg tablet 50 mg PO BEDTIME PRN Insomnia 06/22/25 06/22/25 Unknown History clonazepam 1 mg PO TID PRN Anxiety 06/23/25 06/23/25 Unknown History Physical Exam Vital Signs and Narrative: Vital Signs: Last Vital Signs Temp 97.5 F 06/23/25 08:00 Pulse 91 06/23/25 08:00 Resp 20 06/23/25 08:00 BP 127/60 06/23/25 08:00 Pulse Ox 92 06/23/25 08:00 O2 Del Method Room Air 06/23/25 08:00 BMI result Body Mass Index 39.8 CONST: Alert and oriented, in NAD. Well nourished HEENT: Normocephalic, atraumatic, MMM, Eyes clear, Neck supple RESP: Lungs clear, RRR even and regular HEART:,RRR, S1, S2. No edema GI:Abdomen Soft NT, ND. + BS times four :Deferred SKIN: Warm dry and intact, multiple picked areas on her face, arms NEURO:CN II-XII Intact bilaterally, Sensation intact. Speech clear PSYCH: Normal affect Results Labs 06/23/25 08:05 Labs: Laboratory Results - last 24 hr 06/22/25 06/23/25 20:05 07:45 POC Glucose 394 H* 303 H Assessment and Plan (1) Uncontrolled type 2 diabetes mellitus with hyperglycemia: Status: Acute Plan 49-year-old female with a past medical history listed below admitted after presenting to [facility] ED with suicidal ideations auditory hallucinations, she had been offered medicine for 5 days now admitted for behavioral stabilization. Bipolar 2 disorder/PTSD/SI/Substance use disorder on methadone Treatment per psychiatric team History of pulmonary embolism Continue Eliquis-diagnosed 2023 at [facility], no notes available COPD Albuterol as needed Type 2 diabetes with diabetic neuropathy Continue with Lantus this 40 mg at h.s. as well as sliding scale insulin Patient needs follow up with endocrinology as they are not available inpatient Would recommend Trulicity as an outpatient Patient's A1c is elevated at 12.2 Start metformin 500 mg b.i.d. Hypertension/CHF/HLD Continue Lasix and metoprolol Start atorvastatin due to ADA recommendations Check LFTs and lipids in 6 weeks Thank you for allowing me to participate in the care of this patient. Will follow as needed, please notify medical provider with any changes in condition or concerns.
[2025-06-23 08:23] LABS: Hemoglobin A1C 391.6345 umol/L; Total Hemoglobin (HGBA1C) 3580.5814 umol/L
[2025-06-23 08:35] LABS: Alanine Aminotransferase 12 U/L (0-31); Albumin Level 3.8 g/dL (3.5-5.0); Alkaline Phosphatase 126 U/L (39-117); Anion Gap 12 (12-20); Aspartate Amino Transferase 21 U/L (5-31); Blood Urea Nitrogen 11 mg/dL (9-16); Calcium 8.7 mg/dL (8.4-10.2); Carbon Dioxide 30 mmol/L (22-29); Chloride 98 mmol/L (96-108); Cholesterol 218 mg/dL (<200); Creatinine Clr Calc Pharmacy 128.9; Estimated Glomerular Filt Rate > 60; HDL Cholesterol 30 mg/dL (>40); Potassium 3.9 mmol/L (3.3-5.1); Sodium 136 mmol/L (135-145); Total Protein 7.0 g/dL (6.5-8.0); Triglycerides 202 mg/dL (<150)
[2025-06-23 08:52] LABS: Free T4 (Free Thyroxine) 1.15 ng/dL (0.71-1.85); Thyroid Stimulating Hormone 1.09 uIU/mL (0.32-4.0)
--- NOTE | 2025-06-23 09:53 | HO.PSYCHPN ---
Subjective Subjective Date of Service: 06/23/25 Reason For Visit: SI and AH Interim History: Met with patient; discussed with team; reviewed chart Patient reports he is feeling better back on medications; denies any SI or AVH. Patient said that she has been sober for 7 months doing well, in good mood for quite awhile so she wanted to see if perhaps she did not need to be on psychiatric medications. Patient stopped them and for 5 days she became very dysregulated, not sleeping at all and for the 1st time having auditory and visual hallucinations. Discussed read titration of Lamictal, risks/side effects and patient agrees to proposed titration schedule; patient has been on Lamictal for years and no history of rash. Also discussed skin picking disorder which patient says is due to anxiety. Discussed N-acetylcysteine which she would like to try Mental Status Exam Mental Status Exam Narrative: Pt is alert and oriented; behavior is cooperative, friendly and calm; patient is not in distress; dressed in casual attire with unkempt hair but adequate hygiene; various scabs on neck, face and arms from skin picking; mood is described as better and affect congruent; eye contact appropriate; Speech is normal rate, volume and prosody and not pressured; no psychomotor agitation/retardation present; thought process is organized and goal directed; Thought content is on tx; otherwise pertinent to relevant topics and without any delusional content, paranoid ideations or grandiosity; denies any SI/HI. Denies AVH and there is no evidence of perceptual disturbance. Patients insight and judgment appear intact. Diagnostics Vital Signs (24Hr): Vital Signs - 24 hr 06/22/25 17:20 06/22/25 19:55 06/22/25 20:00 Temperature 98.1 F 97.2 F Pulse Rate 80 77 Respiratory Rate 20 17 Blood Pressure 133/67 108/54 L 108/54 L Pulse Oximetry 93 94 Oxygen Delivery Method Room Air Room Air 06/23/25 08:00 Temperature 97.5 F Pulse Rate 91 Respiratory Rate 20 Blood Pressure 127/60 Pulse Oximetry 92 Oxygen Delivery Method Room Air BMI result Body Mass Index 39.8 Labs 06/23/25 08:05 Labs: Laboratory Results - last 48 hr 06/22/25 06/23/25 06/23/25 20:05 07:45 08:05 Sodium 136 Potassium 3.9 Chloride 98 Carbon Dioxide 30 H Anion Gap 12 BUN 11 Creatinine 0.61 Estim Creat Clear Calc 128.9 Estimated GFR > 60 POC Glucose 394 H* 303 H Random Glucose 331 H Estimat Average Glucose 303 Hemoglobin A1c % 12.2 H Calcium 8.7 Total Bilirubin 0.2 AST 21 ALT 12 Alkaline Phosphatase 126 H Total Protein 7.0 Albumin 3.8 Triglycerides 202 H Cholesterol 218 H LDL Cholesterol, Calc 148 H HDL Cholesterol 30 L TSH 1.09 Free T4 1.15 Medications Medications Current Medications Acetaminophen (Acetaminophen 325 Mg Tablet) 650 mg PO Q6H PRN PRN Reason: Headache/Pain, Scale 1-10 Al Hydroxide/Mg Hydroxide (Magnesium Hydrox/Alum Hydrox 30 Ml Oral.Susp) 30 ml PO Q6H PRN PRN Reason: Heartburn/Nausea Albuterol Sulfate (Albuterol Sulfate 90 Mcg 8 Gm Inhaler) 2 puff INHALE Q4H PRN PRN Reason: shortness of breath or wheezing Albuterol Sulfate (Albuterol Sulfate (0.083%) 2.5 Mg/3 Ml Vial.Neb) 5 mg INHALE Q4H PRN PRN Reason: shortness of breath or wheezing Bacitracin (Bacitracin Oint 14 Gm Tube) 1 appl TOPICAL BID [facility]; Protocol Last Admin: 06/23/25 08:58 Dose: 1 appl Clonazepam (Clonazepam 1 Mg Tablet) 1 mg PO TID PRN PRN Reason: Anxiety Last Admin: 06/23/25 08:23 Dose: 1 mg Dextrose (Dextrose 50 % 25 Gm/50 Ml Syringe) 25 gm IVPUSH Q15M PRN; Protocol PRN Reason: per Hypoglycemia Standing Ord. Furosemide (Furosemide 40 Mg Tablet) 40 mg PO DAILY [facility]; Protocol Last Admin: 06/23/25 08:08 Dose: 40 mg Gabapentin (Gabapentin 600 Mg Tablet) 600 mg PO QID [facility] Last Admin: 06/23/25 08:08 Dose: 600 mg Glucose (Glucose Gel 15 Gm Gel..Gram.) 15 gm PO Q15M PRN; Protocol PRN Reason: per Hypoglycemia Standing Ord. Hydroxyzine HCl (Hydroxyzine Hcl 25 Mg Tablet) 25 mg PO Q6H PRN PRN Reason: mild anxiety Insulin Glargine (Insulin Glargine,Hum.Rec.Anlog 100 Unit/Ml 10 Ml Vial) 40 unit SUBCUT BEDTIME [facility] Last Admin: 06/22/25 22:51 Dose: 40 unit Insulin Human Lispro (Insulin Lispro 100 Unit/Ml 3 Ml Vial) 0 unit SUBCUT QIDACHS [facility]; Protocol Last Admin: 06/23/25 08:06 Dose: 8 unit Lamotrigine (Lamotrigine 25 Mg Tablet) 25 mg PO BID [facility] Last Admin: 06/23/25 08:09 Dose: 25 mg Magnesium Hydroxide (Milk Of Magnesia 30 Ml Oral.Susp) 30 ml PO DAILY PRN PRN Reason: Constipation Methadone HCl (Methadone Hcl 20 Mg/2 Ml Oral.Conc) 155 mg PO DAILY@0600 [facility] Last Admin: 06/23/25 06:08 Dose: 155 mg Metoprolol Succinate (Metoprolol Succinate Er 25 Mg Tab.Er.24h) 25 mg PO DAILY [facility]; Protocol Last Admin: 06/23/25 08:09 Dose: 25 mg Mirtazapine (Mirtazapine 15 Mg Tablet) 15 mg PO BEDTIME [facility] Last Admin: 06/22/25 19:56 Dose: 15 mg Nicotine (Nicotine 21 Mg Patch.Td24) 21 mg TRANSDERMA DAILY PRN PRN Reason: nicotine craving Nicotine Polacrilex (Nicotine Polacrilex 2 Mg Gum) 2 mg BUCCAL Q2H PRN PRN Reason: Nicotine Cravings Olanzapine (Olanzapine 5 Mg Tablet) 5 mg PO TID PRN PRN Reason: agitation Prazosin HCl (Prazosin Hcl 1 Mg Capsule) 3 mg PO BEDTIME [facility]; Protocol Last Admin: 06/22/25 19:55 Dose: 3 mg Trazodone HCl (Trazodone Hcl 50 Mg Tablet) 50 mg PO BEDTIME MRX1 PRN PRN Reason: Insomnia Allergies Allergies Allergy/AdvReac Type Severity Reaction Status Date / Time hernandez (CHERRIES) Allergy Severe Angioedema Verified 06/01/22 10:41 NSAIDS (Non-Steroidal Allergy Unknown NOT Verified 07/29/21 11:00 Anti-Inflamma (NSAIDS SUPPOSED (NON-STEROIDAL ANTI-INFLAMMA) TO TAKE DUE TO LIVER DAMAGE IN THE PAST carisoprodol (From Soma) Allergy Unknown Verified 06/22/25 17:18 ketorolac (From Toradol) Allergy Hives Verified 06/01/22 10:41 codeine (CODEINE) AdvReac Unknown Nausea and Verified 06/01/22 10:41 Vomiting prochlorperazine (From AdvReac lockjaw Verified 06/01/22 10:41 Compazine) tramadol (From Ultram) AdvReac Seizure Verified 06/01/22 10:41 Assessment & Plan Assessment & Plan (1) Bipolar II disorder: Status: Chronic Code(s): F31.81 - Bipolar II disorder (2) Chronic post-traumatic stress disorder (PTSD): Status: Chronic Code(s): F43.12 - Post-traumatic stress disorder, chronic (3) Opioid use disorder: Status: Chronic Code(s): F11.99 - Opioid use, unspecified with unspecified opioid-induced disorder (4) COPD (chronic obstructive pulmonary disease): Status: Chronic Code(s): J44.9 - Chronic obstructive pulmonary disease, unspecified (5) HTN (hypertension): Status: Acute Code(s): I10 - Essential (primary) hypertension Plan COPD, pulmonary embolism on Eliquis, type 2 diabetes, hypertension, congestive heart failure, diabetes, she will hyperlipidemia, GERD, PTSD, diabetic neuropathy and a history of opioid use disorder on methadone, bipolar 1 disorder, anxiety Hospital course: 06/23 Patient reports he is feeling better back on medications; denies any SI or AVH. Patient said that she has been sober for 7 months doing well, in good mood for quite awhile so she wanted to see if perhaps she did not need to be on psychiatric medications. Patient stopped them and for 5 days she became very dysregulated, not sleeping at all and for the 1st time having auditory and visual hallucinations. Discussed read titration of Lamictal, risks/side effects and patient agrees to proposed titration schedule; patient has been on Lamictal for years and no history of rash. Also discussed skin picking disorder which patient says is due to anxiety. Discussed N-acetylcysteine which she would like to try-will see if insurance covers -recommendation for read titrating Lamictal after patient has been off for 5 days is generally 25 mg for 2 days, 50 mg for 2 days, 100 mg for 2 days and then back to 100 mg b.i.d.; Lamictal was restarted in the emergency room at [facility] and after today, will have been on 50 mg for 3-4 days. Plan: CV Q 15 minute checks Increase Lamictal to 50 mg b.i.d. for 2-3 days; will continue to titrate Continue Remeron 15 mg q.h.s. Continue prazosin 3 mg q.h.s. Will see if N-acetylcysteine is covered by insurance Patient educated on: diagnosis, medication risk/benefits, substance abuse, therapeutic strategies and medical condition Informed Consent: understands Reason for continued inpatient stay Substantial Risk for: rapid decompensation Time Spent With Patient Time: Total time managing care of this patient today ____ minutes.
[2025-06-23 11:48] LABS: Glucose, Whole Blood 302 mg/dL (60-115)
[2025-06-23 16:50] LABS: Glucose, Whole Blood 343 mg/dL (60-115)
[2025-06-23 20:00] VITALS: BP 124/57; PULSE 89; RESP 20; TEMP 36.4; O2SAT 96
[2025-06-23 20:02] VITALS: BP 124/57
[2025-06-23 20:31] LABS: Glucose, Whole Blood 283 mg/dL (60-115)
[2025-06-23] MEDS: Insulin Glargine,Hum.rec.anlog 100 UNIT/ML 10 ML VIAL 40 UNIT SUBCUT (20:36)
[2025-06-24] MEDS: methADONE HCl 20 MG/2 ML ORAL.CONC 155 MG PO (06:09)
[2025-06-24 07:46] LABS: Glucose, Whole Blood 331 mg/dL (60-115)
[2025-06-24 08:15] VITALS: BP 122/80; PULSE 97; RESP 20; TEMP 36.8; O2SAT 92
[2025-06-24] MEDS: Metoprolol Succinate ER 25 MG TAB.ER.24H PO (08:17)
--- NOTE | 2025-06-24 09:21 | HO.PSYCHPN ---
Subjective Subjective Date of Service: 06/24/25 Reason For Visit: SI and AH Subjective Notes: Conditional Voluntary Interim History: Patient found light in her bed. She notes that her mood is ?good. ? She has been experiencing anxiety which has been a consistent issue but currently manageable.. Her anxiety is mild at the moment. She denies SI/HI/AH/VH. Medication Compliance: Yes Side effects from medications: No Attending Groups: Intermittent Review of Systems Acute medical concerns: No Review of Systems Review of Systems Yes all other systems are reviewed and are negative Mental Status Exam Mental Status Exam Narrative: Appearance: Casually dressed, adequate hygiene, unkempt hair, various scabs on neck, face, and arms from skin picking; Behavior: Calm and cooperative throughout the interview. Eye contact is appropriate, and there are no signs of psychomotor agitation or retardation Speech: Normal volume and prosody Thought process: Logical and goal-directed Thought content: On treatment; otherwise pertinent to relevant topics Mood: Calm Affect: Constricted SI:denies HI:denies VH/AH:none Delusions: None Insight/judgment: Fair insight and judgment Memory/cog: Alert, oriented x 4. grossly intact to conversational testing Diagnostics Vital Signs (24Hr): Vital Signs - 24 hr 06/23/25 20:00 06/23/25 20:02 06/24/25 08:15 Temperature 97.6 F 98.2 F Pulse Rate 89 97 Respiratory Rate 20 20 Blood Pressure 124/57 L 124/57 L 122/80 Pulse Oximetry 96 92 Oxygen Delivery Method Room Air Room Air BMI result Body Mass Index 39.8 Labs 06/23/25 08:05 Labs: Laboratory Results - last 48 hr 06/22/25 06/23/25 06/23/25 20:05 07:45 08:05 Sodium 136 Potassium 3.9 Chloride 98 Carbon Dioxide 30 H Anion Gap 12 BUN 11 Creatinine 0.61 Estim Creat Clear Calc 128.9 Estimated GFR > 60 POC Glucose 394 H* 303 H Random Glucose 331 H Estimat Average Glucose 303 Hemoglobin A1c % 12.2 H Calcium 8.7 Total Bilirubin 0.2 AST 21 ALT 12 Alkaline Phosphatase 126 H Total Protein 7.0 Albumin 3.8 Triglycerides 202 H Cholesterol 218 H LDL Cholesterol, Calc 148 H HDL Cholesterol 30 L TSH 1.09 Free T4 1.15 06/23/25 06/23/25 06/23/25 11:45 16:45 20:27 Sodium Potassium Chloride Carbon Dioxide Anion Gap BUN Creatinine Estim Creat Clear Calc Estimated GFR POC Glucose 302 H 343 H 283 H Random Glucose Estimat Average Glucose Hemoglobin A1c % Calcium Total Bilirubin AST ALT Alkaline Phosphatase Total Protein Albumin Triglycerides Cholesterol LDL Cholesterol, Calc HDL Cholesterol TSH Free T4 06/24/25 07:42 Sodium Potassium Chloride Carbon Dioxide Anion Gap BUN Creatinine Estim Creat Clear Calc Estimated GFR POC Glucose 331 H Random Glucose Estimat Average Glucose Hemoglobin A1c % Calcium Total Bilirubin AST ALT Alkaline Phosphatase Total Protein Albumin Triglycerides Cholesterol LDL Cholesterol, Calc HDL Cholesterol TSH Free T4 Medications Medications Current Medications Acetaminophen (Acetaminophen 325 Mg Tablet) 650 mg PO Q6H PRN PRN Reason: Headache/Pain, Scale 1-10 Last Admin: 06/24/25 08:18 Dose: 650 mg Al Hydroxide/Mg Hydroxide (Magnesium Hydrox/Alum Hydrox 30 Ml Oral.Susp) 30 ml PO Q6H PRN PRN Reason: Heartburn/Nausea Albuterol Sulfate (Albuterol Sulfate 90 Mcg 8 Gm Inhaler) 2 puff INHALE Q4H PRN PRN Reason: shortness of breath or wheezing Albuterol Sulfate (Albuterol Sulfate (0.083%) 2.5 Mg/3 Ml Vial.Neb) 5 mg INHALE Q4H PRN PRN Reason: shortness of breath or wheezing Apixaban (Apixaban 5 Mg Tablet) 5 mg PO DAILY [facility] Last Admin: 06/24/25 08:17 Dose: 5 mg Atorvastatin Calcium (Atorvastatin Calcium 10 Mg Tablet) 10 mg PO BEDTIME [facility] Last Admin: 06/23/25 20:04 Dose: 10 mg Bacitracin (Bacitracin Oint 14 Gm Tube) 1 appl TOPICAL BID [facility]; Protocol Last Admin: 06/24/25 08:19 Dose: Not Given Clonazepam (Clonazepam 1 Mg Tablet) 1 mg PO TID PRN PRN Reason: Anxiety Last Admin: 06/24/25 06:13 Dose: 1 mg Dextrose (Dextrose 50 % 25 Gm/50 Ml Syringe) 25 gm IVPUSH Q15M PRN; Protocol PRN Reason: per Hypoglycemia Standing Ord. Furosemide (Furosemide 40 Mg Tablet) 40 mg PO DAILY [facility]; Protocol Last Admin: 06/24/25 08:16 Dose: 40 mg Gabapentin (Gabapentin 600 Mg Tablet) 600 mg PO QID [facility] Last Admin: 06/24/25 08:16 Dose: 600 mg Glucose (Glucose Gel 15 Gm Gel..Gram.) 15 gm PO Q15M PRN; Protocol PRN Reason: per Hypoglycemia Standing Ord. Hydroxyzine HCl (Hydroxyzine Hcl 25 Mg Tablet) 25 mg PO Q6H PRN PRN Reason: mild anxiety Last Admin: 06/23/25 16:28 Dose: 25 mg Insulin Glargine (Insulin Glargine,Hum.Rec.Anlog 100 Unit/Ml 10 Ml Vial) 40 unit SUBCUT BEDTIME [facility] Last Admin: 06/23/25 20:36 Dose: 40 unit Insulin Human Lispro (Insulin Lispro 100 Unit/Ml 3 Ml Vial) 0 unit SUBCUT QIDACHS [facility]; Protocol Last Admin: 06/24/25 08:11 Dose: 8 unit Lamotrigine (Lamotrigine 25 Mg Tablet) 50 mg PO BID [facility] Last Admin: 06/24/25 08:17 Dose: 50 mg Magnesium Hydroxide (Milk Of Magnesia 30 Ml Oral.Susp) 30 ml PO DAILY PRN PRN Reason: Constipation Metformin HCl (Metformin Hcl 500 Mg Tablet) 500 mg PO BIDWM [facility] Last Admin: 06/24/25 08:16 Dose: 500 mg Methadone HCl (Methadone Hcl 20 Mg/2 Ml Oral.Conc) 155 mg PO DAILY@0600 [facility] Last Admin: 06/24/25 06:09 Dose: 155 mg Metoprolol Succinate (Metoprolol Succinate Er 25 Mg Tab.Er.24h) 25 mg PO DAILY [facility]; Protocol Last Admin: 06/24/25 08:17 Dose: 25 mg Mirtazapine (Mirtazapine 15 Mg Tablet) 15 mg PO BEDTIME [facility] Last Admin: 06/23/25 20:03 Dose: 15 mg Nicotine (Nicotine 21 Mg Patch.Td24) 21 mg TRANSDERMA DAILY PRN PRN Reason: nicotine craving Nicotine Polacrilex (Nicotine Polacrilex 2 Mg Gum) 2 mg BUCCAL Q2H PRN PRN Reason: Nicotine Cravings Olanzapine (Olanzapine 5 Mg Tablet) 5 mg PO TID PRN PRN Reason: agitation Prazosin HCl (Prazosin Hcl 1 Mg Capsule) 3 mg PO BEDTIME [facility]; Protocol Last Admin: 06/23/25 20:02 Dose: 3 mg Trazodone HCl (Trazodone Hcl 50 Mg Tablet) 50 mg PO BEDTIME MRX1 PRN PRN Reason: Insomnia Allergies Allergies Allergy/AdvReac Type Severity Reaction Status Date / Time hernandez (CHERRIES) Allergy Severe Angioedema Verified 06/01/22 10:41 NSAIDS (Non-Steroidal Allergy Unknown NOT Verified 07/29/21 11:00 Anti-Inflamma (NSAIDS SUPPOSED (NON-STEROIDAL ANTI-INFLAMMA) TO TAKE DUE TO LIVER DAMAGE IN THE PAST carisoprodol (From Soma) Allergy Unknown Verified 06/22/25 17:18 ketorolac (From Toradol) Allergy Hives Verified 06/01/22 10:41 codeine (CODEINE) AdvReac Unknown Nausea and Verified 06/01/22 10:41 Vomiting prochlorperazine (From AdvReac lockjaw Verified 06/01/22 10:41 Compazine) tramadol (From Ultram) AdvReac Seizure Verified 06/01/22 10:41 Assessment & Plan Assessment & Plan (1) Bipolar II disorder: Status: Chronic Code(s): F31.81 - Bipolar II disorder (2) Opioid use disorder: Status: Chronic Code(s): F11.99 - Opioid use, unspecified with unspecified opioid-induced disorder (3) Chronic post-traumatic stress disorder (PTSD): Status: Chronic Code(s): F43.12 - Post-traumatic stress disorder, chronic (4) COPD (chronic obstructive pulmonary disease): Status: Chronic Code(s): J44.9 - Chronic obstructive pulmonary disease, unspecified (5) HTN (hypertension): Status: Acute Code(s): I10 - Essential (primary) hypertension Plan Plan COPD, pulmonary embolism on Eliquis, type 2 diabetes, hypertension, congestive heart failure, diabetes, she will hyperlipidemia, GERD, PTSD, diabetic neuropathy and a history of opioid use disorder on methadone, bipolar 1 disorder, anxiety Hospital course: 06/23 Patient reports he is feeling better back on medications; denies any SI or AVH. Patient said that she has been sober for 7 months doing well, in good mood for quite awhile so she wanted to see if perhaps she did not need to be on psychiatric medications. Patient stopped them and for 5 days she became very dysregulated, not sleeping at all and for the 1st time having auditory and visual hallucinations. Discussed read titration of Lamictal, risks/side effects and patient agrees to proposed titration schedule; patient has been on Lamictal for years and no history of rash. Also discussed skin picking disorder which patient says is due to anxiety. Discussed N-acetylcysteine which she would like to try-will see if insurance covers -recommendation for read titrating Lamictal after patient has been off for 5 days is generally 25 mg for 2 days, 50 mg for 2 days, 100 mg for 2 days and then back to 100 mg b.i.d.; Lamictal was restarted in the emergency room at [facility] and after today, will have been on 50 mg for 3-4 days. 06/24: Patient found light in her bed. She notes that her mood is ?good. ? She has been experiencing anxiety which has been a consistent issue but currently manageable.. Her anxiety is mild at the moment. She denies SI/HI/AH/VH. Continue current treatment regimen. Plan: CV Q 15 minute checks Increase Lamictal to 50 mg b.i.d. for 2-3 days; will continue to titrate Continue Remeron 15 mg q.h.s. Continue prazosin 3 mg q.h.s. Will see if N-acetylcysteine is covered by insurance Reason for continued inpatient stay Substantial Risk for: rapid decompensation Time Spent With Patient Time: Total time managing care of this patient today ____ minutes.
[2025-06-24 11:50] LABS: Glucose, Whole Blood 261 mg/dL (60-115)
[2025-06-24 17:12] LABS: Glucose, Whole Blood 343 mg/dL (60-115)
[2025-06-24 19:51] VITALS: BP 131/70; PULSE 98; RESP 18; TEMP 36.8; O2SAT 98
[2025-06-24 20:31] LABS: Glucose, Whole Blood 229 mg/dL (60-115)
[2025-06-24] MEDS: Insulin Glargine,Hum.rec.anlog 100 UNIT/ML 10 ML VIAL 40 UNIT SUBCUT (20:51)
[2025-06-25] MEDS: methADONE HCl 20 MG/2 ML ORAL.CONC 155 MG PO (05:58)
[2025-06-25 07:54] LABS: Glucose, Whole Blood 430 mg/dL (60-115)
[2025-06-25 08:00] VITALS: BP 127/60; PULSE 93; RESP 16; TEMP 36.4; O2SAT 92
--- NOTE | 2025-06-25 08:17 | P.PNIM_ITS ---
Subjective Subjective Date of Service: 06/25/25 Interval History: Patient's blood sugars continue to be elevated, fasting blood sugar was 430 this morning. Patient reports that her previous home dosing of Lantus was 50 units. She is out of bed ambulating, denies any shortness of breath, chest pain or any other concerning symptoms. Review of Systems Denies any shortness of breath, chest pain, palpitations, dizziness, lightheadedness, headaches, dysuria, abdominal pain or discomfort, nausea, vomiting or diarrhea. Physical Exam 2 Vital Signs: Vital Signs: Last Vital Signs Temp 98.2 F 06/24/25 19:51 Pulse 98 06/24/25 19:51 Resp 18 06/24/25 19:51 BP 131/70 06/24/25 19:51 Pulse Ox 98 06/24/25 19:51 O2 Del Method Room Air 06/24/25 19:51 BMI result Body Mass Index 39.8 Appearance: Alert. Oriented X3. No acute distress. Eyes: Pupils equal, round and reactive to light. ENT: Pharynx normal. Neck: Normal inspection. Neck supple. CVS: Normal heart rate and rhythm. Pulses normal. Respiratory: No respiratory distress. Breath sounds normal. Abdomen: Soft and nontender. Skin: Skin warm and dry. Normal skin color. Normal skin turgor. both arms small excoriated scabs noted no signs of infection Extremities: No lower extremity edema. No calf ttp Neuro: Oriented X 3. No motor deficit. No sensory deficit. CN 2-12 intact Objective Data Active Medications Acetaminophen (Acetaminophen 325 Mg Tablet) 650 mg PO Q6H PRN PRN Reason: Headache/Pain, Scale 1-10 Last Admin: 06/24/25 08:18 Dose: 650 mg Documented By: MELODY Al Hydroxide/Mg Hydroxide (Magnesium Hydrox/Alum Hydrox 30 Ml Oral.Susp) 30 ml PO Q6H PRN PRN Reason: Heartburn/Nausea Albuterol Sulfate (Albuterol Sulfate 90 Mcg 8 Gm Inhaler) 2 puff INHALE Q4H PRN PRN Reason: shortness of breath or wheezing Albuterol Sulfate (Albuterol Sulfate (0.083%) 2.5 Mg/3 Ml Vial.Neb) 5 mg INHALE Q4H PRN PRN Reason: shortness of breath or wheezing Apixaban (Apixaban 5 Mg Tablet) 5 mg PO DAILY [facility] Last Admin: 06/24/25 08:17 Dose: 5 mg Documented By: MELODY Atorvastatin Calcium (Atorvastatin Calcium 10 Mg Tablet) 10 mg PO BEDTIME [facility] Last Admin: 06/24/25 20:49 Dose: 10 mg Documented By: DANIELLE Bacitracin (Bacitracin Oint 14 Gm Tube) 1 appl TOPICAL BID [facility]; Protocol Last Admin: 06/25/25 02:17 Dose: Not Given Documented By: DANIELLE Non-Admin Reason: Patient Refused Clonazepam (Clonazepam 1 Mg Tablet) 1 mg PO TID PRN PRN Reason: Anxiety Last Admin: 06/25/25 06:01 Dose: 1 mg Documented By: DANIELLE Dextrose (Dextrose 50 % 25 Gm/50 Ml Syringe) 25 gm IVPUSH Q15M PRN; Protocol PRN Reason: per Hypoglycemia Standing Ord. Furosemide (Furosemide 40 Mg Tablet) 40 mg PO DAILY [facility]; Protocol Last Admin: 06/24/25 08:16 Dose: 40 mg Documented By: MELODY Gabapentin (Gabapentin 600 Mg Tablet) 600 mg PO QID [facility] Last Admin: 06/24/25 20:48 Dose: 600 mg Documented By: DANIELLE Glucose (Glucose Gel 15 Gm Gel..Gram.) 15 gm PO Q15M PRN; Protocol PRN Reason: per Hypoglycemia Standing Ord. Hydroxyzine HCl (Hydroxyzine Hcl 25 Mg Tablet) 25 mg PO Q6H PRN PRN Reason: mild anxiety Last Admin: 06/24/25 17:53 Dose: 25 mg Documented By: MELODY Insulin Glargine (Insulin Glargine,Hum.Rec.Anlog 100 Unit/Ml 10 Ml Vial) 40 unit SUBCUT BEDTIME [facility] Last Admin: 06/24/25 20:51 Dose: 40 unit Documented By: DANIELLE Insulin Human Lispro (Insulin Lispro 100 Unit/Ml 3 Ml Vial) 0 unit SUBCUT QIDACHS [facility]; Protocol Last Admin: 06/25/25 08:01 Dose: 10 unit Documented By: BELKIS Lamotrigine (Lamotrigine 25 Mg Tablet) 50 mg PO BID [facility] Last Admin: 06/24/25 20:49 Dose: 50 mg Documented By: DANIELLE Magnesium Hydroxide (Milk Of Magnesia 30 Ml Oral.Susp) 30 ml PO DAILY PRN PRN Reason: Constipation Metformin HCl (Metformin Hcl 500 Mg Tablet) 500 mg PO BIDWM [facility] Last Admin: 06/24/25 17:22 Dose: 500 mg Documented By: MELODY Methadone HCl (Methadone Hcl 20 Mg/2 Ml Oral.Conc) 155 mg PO DAILY@0600 [facility] Last Admin: 06/25/25 05:58 Dose: 155 mg Documented By: DANIELLE Co-signed By: NEETU Metoprolol Succinate (Metoprolol Succinate Er 25 Mg Tab.Er.24h) 25 mg PO DAILY [facility]; Protocol Last Admin: 06/24/25 08:17 Dose: 25 mg Documented By: MELODY Mirtazapine (Mirtazapine 15 Mg Tablet) 15 mg PO BEDTIME [facility] Last Admin: 06/24/25 20:48 Dose: 15 mg Documented By: DANIELLE Nicotine (Nicotine 21 Mg Patch.Td24) 21 mg TRANSDERMA DAILY PRN PRN Reason: nicotine craving Nicotine Polacrilex (Nicotine Polacrilex 2 Mg Gum) 2 mg BUCCAL Q2H PRN PRN Reason: Nicotine Cravings Olanzapine (Olanzapine 5 Mg Tablet) 5 mg PO TID PRN PRN Reason: agitation Prazosin HCl (Prazosin Hcl 1 Mg Capsule) 3 mg PO BEDTIME [facility]; Protocol Last Admin: 06/24/25 20:48 Dose: 3 mg Documented By: DANIELLE Trazodone HCl (Trazodone Hcl 50 Mg Tablet) 50 mg PO BEDTIME MRX1 PRN PRN Reason: Insomnia Labs 06/23/25 08:05 Labs: Laboratory Results - last 24 hr 06/24/25 06/24/25 06/24/25 11:47 17:06 20:28 POC Glucose 261 H 343 H 229 H 06/25/25 07:47 POC Glucose 430 H* Assessment and Plan (1) Uncontrolled type 2 diabetes mellitus with hyperglycemia: Status: Acute Plan 49-year-old female with a past medical history listed below admitted after presenting to [facility] ED with suicidal ideations auditory hallucinations, she had been offered medicine for 5 days now admitted for behavioral stabilization. Bipolar 2 disorder/PTSD/SI/Substance use disorder on methadone Treatment per psychiatric team Type 2 diabetes with diabetic neuropathy and hyperglycemia Increase Lantus to 50 units at h.s. as well as sliding scale insulin Patient needs follow up with endocrinology as they are not available inpatient Would recommend Trulicity as an outpatient Patient's A1c is elevated at 12.2 Continue metformin 500 mg b.i.d. History of pulmonary embolism Continue Eliquis-diagnosed 2023 at [facility], no notes available COPD Albuterol as needed Hypertension/CHF/HLD Continue Lasix and metoprolol Start atorvastatin due to ADA recommendations Check LFTs and lipids in 6 weeks Thank you for allowing me to participate in the care of this patient. Will follow as needed, please notify medical provider with any changes in condition or concerns. Quality Stroke Does the patient have a stroke diagnosis?: No VTE Prior VTE?: Yes VTE Risk Level:: Medical - low VTE Device Contraindication: Treatment Not Indicated VTE Drug Contraindication: N/A - Med Ordered
[2025-06-25 08:53] VITALS: BP 127/60
[2025-06-25 08:54] VITALS: BP 127/60; PULSE 93
[2025-06-25] MEDS: Metoprolol Succinate ER 25 MG TAB.ER.24H PO (08:54)
--- NOTE | 2025-06-25 10:11 | P.PNPSI_ITS ---
Subjective Subjective Date of Service: 06/25/25 Reason For Visit: SI and AH Interim History: Met with patient; discussed with team Patient reports she remains overall in better mood though said she is feeling emotionally reactive and several times said she is about to freak out over various milieu events; however patient able to remain in control. Agrees with continued titration of Lamictal. Denies any AVH or SI and feels like she is returning to baseline Mental Status Exam Mental Status Exam Narrative: Pt is alert and oriented; behavior is can be loud in prone to emotional reactivity but overall cooperative, friendly and calm; patient is not in distress; dressed in casual attire with unkempt hair but adequate hygiene; various scabs on neck, face and arms from skin picking; mood is described as good and affect congruent; eye contact appropriate; Speech is normal rate, volume and prosody and not pressured; no psychomotor agitation/retardation present; thought process is organized and goal directed; Thought content is on tx; otherwise pertinent to relevant topics and without any delusional content, paranoid ideations or grandiosity; denies any SI/HI. Denies AVH and there is no evidence of perceptual disturbance. Patients insight and judgment impaired but improving and getting close to baseline Diagnostics Vital Signs (24Hr): Vital Signs - 24 hr 06/24/25 19:51 06/25/25 08:00 06/25/25 08:53 Temperature 98.2 F 97.5 F Pulse Rate 98 93 Respiratory Rate 18 16 Blood Pressure 131/70 127/60 127/60 Pulse Oximetry 98 92 Oxygen Delivery Method Room Air Room Air 06/25/25 08:54 Temperature Pulse Rate 93 Respiratory Rate Blood Pressure 127/60 Pulse Oximetry Oxygen Delivery Method BMI result Body Mass Index 39.8 Labs 06/23/25 08:05 Labs: Laboratory Results - last 48 hr 06/23/25 06/23/25 06/23/25 11:45 16:45 20:27 POC Glucose 302 H 343 H 283 H 06/24/25 06/24/25 06/24/25 07:42 11:47 17:06 POC Glucose 331 H 261 H 343 H 06/24/25 06/25/25 20:28 07:47 POC Glucose 229 H 430 H* Medications Medications Current Medications Acetaminophen (Acetaminophen 325 Mg Tablet) 650 mg PO Q6H PRN PRN Reason: Headache/Pain, Scale 1-10 Last Admin: 10/10/25 08:59 Dose: 650 mg Al Hydroxide/Mg Hydroxide (Magnesium Hydrox/Alum Hydrox 30 Ml Oral.Susp) 30 ml PO Q6H PRN PRN Reason: Heartburn/Nausea Albuterol Sulfate (Albuterol Sulfate 90 Mcg 8 Gm Inhaler) 2 puff INHALE Q4H PRN PRN Reason: shortness of breath or wheezing Albuterol Sulfate (Albuterol Sulfate (0.083%) 2.5 Mg/3 Ml Vial.Neb) 5 mg INHALE Q4H PRN PRN Reason: shortness of breath or wheezing Apixaban (Apixaban 5 Mg Tablet) 5 mg PO DAILY [facility] Last Admin: 06/25/25 08:53 Dose: 5 mg Atorvastatin Calcium (Atorvastatin Calcium 10 Mg Tablet) 10 mg PO BEDTIME ADRI[facility]N Last Admin: 06/24/25 20:49 Dose: 10 mg Bacitracin (Bacitracin Oint 14 Gm Tube) 1 appl TOPICAL BID [facility]RI[facility]N; Protocol Last Admin: 06/25/25 08:55 Dose: 1 appl Clonazepam (Clonazepam 1 Mg Tablet) 1 mg PO TID PRN PRN Reason: Anxiety Last Admin: 06/25/25 06:01 Dose: 1 mg Dextrose (Dextrose 50 % 25 Gm/50 Ml Syringe) 25 gm IVPUSH Q15M PRN; Protocol PRN Reason: per Hypoglycemia Standing Ord. Furosemide (Furosemide 40 Mg Tablet) 40 mg PO DAILY ADRI[facility]N; Protocol Last Admin: 06/25/25 08:53 Dose: 40 mg Gabapentin (Gabapentin 600 Mg Tablet) 600 mg PO QID [facility]N Last Admin: 06/25/25 08:54 Dose: 600 mg Glucose (Glucose Gel 15 Gm Gel..Gram.) 15 gm PO Q15M PRN; Protocol PRN Reason: per Hypoglycemia Standing Ord. Hydroxyzine HCl (Hydroxyzine Hcl 25 Mg Tablet) 25 mg PO Q6H PRN PRN Reason: mild anxiety Last Admin: 06/24/25 17:53 Dose: 25 mg Insulin Glargine (Insulin Glargine,Hum.Rec.Anlog 100 Unit/Ml 10 Ml Vial) 40 unit SUBCUT BEDTIME [facility]RI[facility]N Last Admin: 06/24/25 20:51 Dose: 40 unit Insulin Human Lispro (Insulin Lispro 100 Unit/Ml 3 Ml Vial) 0 unit SUBCUT QIDACHS ADRI[facility]N; Protocol Last Admin: 06/25/25 08:01 Dose: 10 unit Lamotrigine (Lamotrigine 25 Mg Tablet) 50 mg PO BID [facility] Last Admin: 06/25/25 08:53 Dose: 50 mg Magnesium Hydroxide (Milk Of Magnesia 30 Ml Oral.Susp) 30 ml PO DAILY PRN PRN Reason: Constipation Metformin HCl (Metformin Hcl 500 Mg Tablet) 500 mg PO BIDWM [facility] Last Admin: 06/25/25 08:53 Dose: 500 mg Methadone HCl (Methadone Hcl 20 Mg/2 Ml Oral.Conc) 155 mg PO DAILY@0600 [facility] Last Admin: 06/25/25 05:58 Dose: 155 mg Metoprolol Succinate (Metoprolol Succinate Er 25 Mg Tab.Er.24h) 25 mg PO DAILY [facility]; Protocol Last Admin: 06/25/25 08:54 Dose: 25 mg Mirtazapine (Mirtazapine 15 Mg Tablet) 15 mg PO BEDTIME [facility] Last Admin: 06/24/25 20:48 Dose: 15 mg Nicotine (Nicotine 21 Mg Patch.Td24) 21 mg TRANSDERMA DAILY PRN PRN Reason: nicotine craving Nicotine Polacrilex (Nicotine Polacrilex 2 Mg Gum) 2 mg BUCCAL Q2H PRN PRN Reason: Nicotine Cravings Olanzapine (Olanzapine 5 Mg Tablet) 5 mg PO TID PRN PRN Reason: agitation Prazosin HCl (Prazosin Hcl 1 Mg Capsule) 3 mg PO BEDTIME [facility]; Protocol Last Admin: 06/24/25 20:48 Dose: 3 mg Trazodone HCl (Trazodone Hcl 50 Mg Tablet) 50 mg PO BEDTIME MRX1 PRN PRN Reason: Insomnia Allergies Allergies Allergy/AdvReac Type Severity Reaction Status Date / Time hernandez (CHERRIES) Allergy Severe Angioedema Verified 06/01/22 10:41 NSAIDS (Non-Steroidal Allergy Unknown NOT Verified 07/29/21 11:00 Anti-Inflamma (NSAIDS SUPPOSED (NON-STEROIDAL ANTI-INFLAMMA) TO TAKE DUE TO LIVER DAMAGE IN THE PAST carisoprodol (From Soma) Allergy Unknown Verified 06/22/25 17:18 ketorolac (From Toradol) Allergy Hives Verified 06/01/22 10:41 codeine (CODEINE) AdvReac Unknown Nausea and Verified 06/01/22 10:41 Vomiting prochlorperazine (From AdvReac lockjaw Verified 06/01/22 10:41 Compazine) tramadol (From Ultram) AdvReac Seizure Verified 06/01/22 10:41 Assessment & Plan Assessment & Plan (1) Bipolar II disorder: Status: Chronic Code(s): F31.81 - Bipolar II disorder (2) Opioid use disorder: Status: Chronic Code(s): F11.99 - Opioid use, unspecified with unspecified opioid-induced disorder (3) Chronic post-traumatic stress disorder (PTSD): Status: Chronic Code(s): F43.12 - Post-traumatic stress disorder, chronic (4) COPD (chronic obstructive pulmonary disease): Status: Chronic Code(s): J44.9 - Chronic obstructive pulmonary disease, unspecified (5) HTN (hypertension): Status: Acute Code(s): I10 - Essential (primary) hypertension Plan Plan COPD, pulmonary embolism on Eliquis, type 2 diabetes, hypertension, congestive heart failure, diabetes, she will hyperlipidemia, GERD, PTSD, diabetic neuropathy and a history of opioid use disorder on methadone, bipolar 1 disorder, anxiety Hospital course: 06/23 Patient reports he is feeling better back on medications; denies any SI or AVH. Patient said that she has been sober for 7 months doing well, in good mood for quite awhile so she wanted to see if perhaps she did not need to be on psychiatric medications. Patient stopped them and for 5 days she became very dysregulated, not sleeping at all and for the 1st time having auditory and visual hallucinations. Discussed read titration of Lamictal, risks/side effects and patient agrees to proposed titration schedule; patient has been on Lamictal for years and no history of rash. Also discussed skin picking disorder which patient says is due to anxiety. Discussed N-acetylcysteine which she would like to try-will see if insurance covers -recommendation for read titrating Lamictal after patient has been off for 5 days is generally 25 mg for 2 days, 50 mg for 2 days, 100 mg for 2 days and then back to 100 mg b.i.d.; Lamictal was restarted in the emergency room at [facility] and after today, will have been on 50 mg for 3-4 days. 06/24: Patient found light in her bed. She notes that her mood is ?good. ? She has been experiencing anxiety which has been a consistent issue but currently manageable.. Her anxiety is mild at the moment. She denies SI/HI/AH/VH. Continue current treatment regimen. 06/25; patient continues to stabilize; seems to be prone to emotional reactivity but has been able to keep herself in control. Agrees to continue titration of Lamictal; discussed skin picking disorder and patient understands N- acetylcysteine not covered. Discussed therapeutic approaches to urges to picks can which she will try -slightly swollen left knee post strenuous exercise about a week ago; hospitalist JOSE examined and patient did not want x-ray Plan: CV Q 15 minute checks Increase Lamictal to 50 mg b.i.d. for 2-3 days; will continue to titrate Continue Remeron 15 mg q.h.s. Continue prazosin 3 mg q.h.s. Will see if N-acetylcysteine is covered by insurance Patient educated on: diagnosis, medication risk/benefits, therapeutic strategies and medical condition Informed Consent: understands Reason for continued inpatient stay Substantial Risk for: rapid decompensation Time Spent With Patient Time: Total time managing care of this patient today ____ minutes.
[2025-06-25 12:12] LABS: Glucose, Whole Blood 321 mg/dL (60-115)
[2025-06-25 17:42] LABS: Glucose, Whole Blood 308 mg/dL (60-115)
[2025-06-25 20:00] VITALS: BP 108/69; PULSE 82; TEMP 36.4; O2SAT 93
[2025-06-25 20:23] VITALS: BP 108/69
[2025-06-25] MEDS: Insulin Glargine,Hum.rec.anlog 100 UNIT/ML 10 ML VIAL 50 UNIT SUBCUT (20:28)
[2025-06-26 01:11] LABS: Glucose, Whole Blood 267 mg/dL (60-115)
[2025-06-26] MEDS: methADONE HCl 20 MG/2 ML ORAL.CONC 155 MG PO (05:56)
[2025-06-26 08:00] VITALS: BP 126/66; PULSE 88; RESP 18; TEMP 36.6; O2SAT 92
[2025-06-26 08:03] LABS: Glucose, Whole Blood 372 mg/dL (60-115)
[2025-06-26] MEDS: Metoprolol Succinate ER 25 MG TAB.ER.24H PO (08:31)
--- NOTE | 2025-06-26 11:53 | HO.PSYCHPN ---
Subjective Subjective Date of Service: 06/26/25 Reason For Visit: SI and AH Interim History: Met with patient; discussed with team Patient reports mood remains overall better and wants to discuss dispo for sometime next week. Leasing Manager discussed elevated sugars and her consistent eating of carbs; she knows that this is a problem and understands the consequences if she does not get this under control. She says she will work on eating better during this admission and will see her child specialist on discharge Mental Status Exam Mental Status Exam Narrative: Pt is alert and oriented; behavior is cooperative, friendly and calm; prone to emotional reactivity but staying in behavioral and impulse control; patient is not in distress; dressed in casual attire with unkempt hair but adequate hygiene; various scabs on neck, face and arms from skin picking; mood is described as good and affect congruent; eye contact appropriate; Speech is normal rate, volume and prosody and not pressured; no psychomotor agitation/retardation present; thought process is organized and goal directed; Thought content is on tx; otherwise pertinent to relevant topics and without any delusional content, paranoid ideations or grandiosity; denies any SI/HI. Denies AVH and there is no evidence of perceptual disturbance. Patients insight and judgment ifair Diagnostics Vital Signs (24Hr): Vital Signs - 24 hr 06/25/25 20:00 06/25/25 20:23 06/26/25 08:00 Temperature 97.5 F 98 F Pulse Rate 82 88 Respiratory Rate 18 Blood Pressure 108/69 108/69 126/66 Pulse Oximetry 93 92 Oxygen Delivery Method Room Air Room Air BMI result Body Mass Index 39.8 Labs 06/23/25 08:05 Labs: Laboratory Results - last 48 hr 06/24/25 06/24/25 06/25/25 17:06 20:28 07:47 POC Glucose 343 H 229 H 430 H* 06/25/25 06/25/25 06/25/25 12:09 17:38 20:09 POC Glucose 321 H 308 H 267 H 06/26/25 07:59 POC Glucose 372 H* Medications Medications Current Medications Acetaminophen (Acetaminophen 325 Mg Tablet) 650 mg PO Q6H PRN PRN Reason: Headache/Pain, Scale 1-10 Last Admin: 06/26/25 07:52 Dose: 650 mg Al Hydroxide/Mg Hydroxide (Magnesium Hydrox/Alum Hydrox 30 Ml Oral.Susp) 30 ml PO Q6H PRN PRN Reason: Heartburn/Nausea Albuterol Sulfate (Albuterol Sulfate 90 Mcg 8 Gm Inhaler) 2 puff INHALE Q4H PRN PRN Reason: shortness of breath or wheezing Albuterol Sulfate (Albuterol Sulfate (0.083%) 2.5 Mg/3 Ml Vial.Neb) 5 mg INHALE Q4H PRN PRN Reason: shortness of breath or wheezing Apixaban (Apixaban 5 Mg Tablet) 5 mg PO DAILY [facility] Last Admin: 06/26/25 08:31 Dose: 5 mg Atorvastatin Calcium (Atorvastatin Calcium 10 Mg Tablet) 10 mg PO BEDTIME ADRIÁN Last Admin: 06/25/25 20:23 Dose: 10 mg Bacitracin (Bacitracin Oint 14 Gm Tube) 1 appl TOPICAL BID [facility]; Protocol Last Admin: 06/26/25 08:30 Dose: 1 appl Clonazepam (Clonazepam 1 Mg Tablet) 1 mg PO TID PRN PRN Reason: Anxiety Last Admin: 06/26/25 05:34 Dose: 1 mg Dextrose (Dextrose 50 % 25 Gm/50 Ml Syringe) 25 gm IVPUSH Q15M PRN; Protocol PRN Reason: per Hypoglycemia Standing Ord. Furosemide (Furosemide 40 Mg Tablet) 40 mg PO DAILY [facility]; Protocol Last Admin: 06/26/25 08:32 Dose: 40 mg Gabapentin (Gabapentin 600 Mg Tablet) 600 mg PO QID ADRI[facility]N Last Admin: 06/26/25 08:32 Dose: 600 mg Glucose (Glucose Gel 15 Gm Gel..Gram.) 15 gm PO Q15M PRN; Protocol PRN Reason: per Hypoglycemia Standing Ord. Hydroxyzine HCl (Hydroxyzine Hcl 25 Mg Tablet) 25 mg PO Q6H PRN PRN Reason: mild anxiety Last Admin: 06/24/25 17:53 Dose: 25 mg Insulin Glargine (Insulin Glargine,Hum.Rec.Anlog 100 Unit/Ml 10 Ml Vial) 50 unit SUBCUT BEDTIME [facility] Last Admin: 06/25/25 20:28 Dose: 50 unit Insulin Human Lispro (Insulin Lispro 100 Unit/Ml 3 Ml Vial) 0 unit SUBCUT QIDACHS [facility]; Protocol Last Admin: 06/26/25 08:30 Dose: 10 unit Lamotrigine (Lamotrigine 25 Mg Tablet) 50 mg PO BID [facility] Stop: 06/26/25 21:00 Last Admin: 06/26/25 08:33 Dose: 50 mg Lamotrigine (Lamotrigine 100 Mg Tablet) 100 mg PO BID [facility] Magnesium Hydroxide (Milk Of Magnesia 30 Ml Oral.Susp) 30 ml PO DAILY PRN PRN Reason: Constipation Metformin HCl (Metformin Hcl 500 Mg Tablet) 500 mg PO BIDWM [facility] Last Admin: 06/26/25 08:32 Dose: 500 mg Methadone HCl (Methadone Hcl 20 Mg/2 Ml Oral.Conc) 155 mg PO DAILY@0600 [facility] Last Admin: 06/26/25 05:56 Dose: 155 mg Metoprolol Succinate (Metoprolol Succinate Er 25 Mg Tab.Er.24h) 25 mg PO DAILY [facility]; Protocol Last Admin: 06/26/25 08:31 Dose: 25 mg Mirtazapine (Mirtazapine 15 Mg Tablet) 15 mg PO BEDTIME ADRI[facility]N Last Admin: 06/25/25 20:24 Dose: 15 mg Nicotine (Nicotine 21 Mg Patch.Td24) 21 mg TRANSDERMA DAILY PRN PRN Reason: nicotine craving Nicotine Polacrilex (Nicotine Polacrilex 2 Mg Gum) 2 mg BUCCAL Q2H PRN PRN Reason: Nicotine Cravings Last Admin: 06/26/25 10:58 Dose: 2 mg Olanzapine (Olanzapine 5 Mg Tablet) 5 mg PO TID PRN PRN Reason: agitation Last Admin: 06/25/25 13:07 Dose: 5 mg Prazosin HCl (Prazosin Hcl 1 Mg Capsule) 3 mg PO BEDTIME [facility]N; Protocol Last Admin: 06/25/25 20:23 Dose: 3 mg Trazodone HCl (Trazodone Hcl 50 Mg Tablet) 50 mg PO BEDTIME MRX1 PRN PRN Reason: Insomnia Allergies Allergies Allergy/AdvReac Type Severity Reaction Status Date / Time hernandez (CHERRIES) Allergy Severe Angioedema Verified 06/01/22 10:41 NSAIDS (Non-Steroidal Allergy Unknown NOT Verified 07/29/21 11:00 Anti-Inflamma (NSAIDS SUPPOSED (NON-STEROIDAL ANTI-INFLAMMA) TO TAKE DUE TO LIVER DAMAGE IN THE PAST carisoprodol (From Soma) Allergy Unknown Verified 06/22/25 17:18 ketorolac (From Toradol) Allergy Hives Verified 06/01/22 10:41 codeine (CODEINE) AdvReac Unknown Nausea and Verified 06/01/22 10:41 Vomiting prochlorperazine (From AdvReac lockjaw Verified 06/01/22 10:41 Compazine) tramadol (From Ultram) AdvReac Seizure Verified 06/01/22 10:41 Assessment & Plan Assessment & Plan (1) Bipolar II disorder: Status: Chronic Code(s): F31.81 - Bipolar II disorder (2) Opioid use disorder: Status: Chronic Code(s): F11.99 - Opioid use, unspecified with unspecified opioid-induced disorder (3) Chronic post-traumatic stress disorder (PTSD): Status: Chronic Code(s): F43.12 - Post-traumatic stress disorder, chronic (4) COPD (chronic obstructive pulmonary disease): Status: Chronic Code(s): J44.9 - Chronic obstructive pulmonary disease, unspecified (5) HTN (hypertension): Status: Acute Code(s): I10 - Essential (primary) hypertension Plan Plan COPD, pulmonary embolism on Eliquis, type 2 diabetes, hypertension, congestive heart failure, diabetes, she will hyperlipidemia, GERD, PTSD, diabetic neuropathy and a history of opioid use disorder on methadone, bipolar 1 disorder, anxiety Hospital course: 06/23 Patient reports he is feeling better back on medications; denies any SI or AVH. Patient said that she has been sober for 7 months doing well, in good mood for quite awhile so she wanted to see if perhaps she did not need to be on psychiatric medications. Patient stopped them and for 5 days she became very dysregulated, not sleeping at all and for the 1st time having auditory and visual hallucinations. Discussed read titration of Lamictal, risks/side effects and patient agrees to proposed titration schedule; patient has been on Lamictal for years and no history of rash. Also discussed skin picking disorder which patient says is due to anxiety. Discussed N-acetylcysteine which she would like to try-will see if insurance covers -recommendation for read titrating Lamictal after patient has been off for 5 days is generally 25 mg for 2 days, 50 mg for 2 days, 100 mg for 2 days and then back to 100 mg b.i.d.; Lamictal was restarted in the emergency room at [facility] and after today, will have been on 50 mg for 3-4 days. 06/24: Patient found light in her bed. She notes that her mood is ?good. ? She has been experiencing anxiety which has been a consistent issue but currently manageable.. Her anxiety is mild at the moment. She denies SI/HI/AH/VH. Continue current treatment regimen. 06/25; patient continues to stabilize; seems to be prone to emotional reactivity but has been able to keep herself in control. Agrees to continue titration of Lamictal; discussed skin picking disorder and patient understands N-acetylcysteine not covered. Discussed therapeutic approaches to urges to picks can which she will try -slightly swollen left knee post strenuous exercise about a week ago; hospitalist JOSE examined and patient did not want x-ray 06/26 Patient reports mood remains overall better and wants to discuss dispo for sometime next week. Leasing Manager discussed elevated sugars and her consistent eating of carbs; she knows that this is a problem and understands the consequences if she does not get this under control. She says she will work on eating better during this admission and will see her child specialist on discharge Plan: CV Q 15 minute checks Increase Lamictal to 50 mg b.i.d. for 2-3 days; will continue to titrate Continue Remeron 15 mg q.h.s. Continue prazosin 3 mg q.h.s. Will see if N-acetylcysteine is covered by insurance Patient educated on: diagnosis, medication risk/benefits and medical condition Informed Consent: understands Reason for continued inpatient stay Substantial Risk for: stable for discharge Time Spent With Patient Time: Total time managing care of this patient today ____ minutes.
[2025-06-26 12:02] LABS: Glucose, Whole Blood 291 mg/dL (60-115)
[2025-06-26] MEDS: Milk of Magnesia 30 ML ORAL.SUSP PO (14:42)
[2025-06-26 16:58] LABS: Glucose, Whole Blood 336 mg/dL (60-115)
[2025-06-26 20:00] VITALS: BP 122/60; PULSE 81; TEMP 36.3; O2SAT 94
[2025-06-26 20:52] LABS: Glucose, Whole Blood 320 mg/dL (60-115)
[2025-06-26 21:02] VITALS: BP 122/60
[2025-06-26] MEDS: Insulin Glargine,Hum.rec.anlog 100 UNIT/ML 10 ML VIAL 50 UNIT SUBCUT (21:03)
--- NOTE | 2025-06-26 21:32 | PC.NURSE ---
Patient complained of left knee pain, which hurts when she bends it. Patient declined ice pack and PRN medication. She stated I have a hard time getting in and out of bed.
[2025-06-27] MEDS: methADONE HCl 20 MG/2 ML ORAL.CONC 155 MG PO (06:01)
[2025-06-27 07:53] VITALS: BP 130/59; PULSE 91; RESP 18; TEMP 36.7; O2SAT 96
[2025-06-27 07:58] LABS: Glucose, Whole Blood 306 mg/dL (60-115)
[2025-06-27] MEDS: Metoprolol Succinate ER 25 MG TAB.ER.24H PO (08:30)
[2025-06-27 11:39] LABS: Glucose, Whole Blood 317 mg/dL (60-115)
[2025-06-27] MEDS: Lidocaine 4 % Patch ADH..PATCH 1 PATCH TRANSDERMA (13:44)
--- NOTE | 2025-06-27 16:58 | P.PNPSI_ITS ---
Subjective Subjective Date of Service: 06/27/25 Reason For Visit: SI and AH Interim History: Met with patient; discussed with team Patient feels like she is back to her regular self. Talking about discharge early next week. Patient at 1 point got very dysregulated due to a negative interaction with peer. She felt it was listened to her and threw several trays on the floor. Security was called and she calmed down; patient apologized. Mental Status Exam Mental Status Exam Narrative: Pt is alert and oriented; behavior is cooperative, friendly and calm; prone to emotional reactivity and today patient got very dysregulated and lost behavioral control; patient is not in distress; dressed in casual attire with unkempt hair but adequate hygiene; various scabs healing well on neck, face and arms from skin picking; mood is described as good and affect congruent; eye contact appropriate; Speech is normal rate, volume and prosody and not pressured; no psychomotor agitation/retardation present; thought process is organized and goal directed; Thought content is on tx; otherwise pertinent to relevant topics and without any delusional content, paranoid ideations or grandiosity; denies any SI/HI. Denies AVH and there is no evidence of perceptual disturbance. Patients insight and judgment fair Diagnostics Vital Signs (24Hr): Vital Signs - 24 hr 06/26/25 20:00 06/26/25 21:02 06/27/25 07:53 Temperature 97.4 F 98.1 F Pulse Rate 81 91 Respiratory Rate 18 Blood Pressure 122/60 122/60 130/59 L Pulse Oximetry 94 96 Oxygen Delivery Method Room Air Room Air BMI result Body Mass Index 39.8 Labs 06/23/25 08:05 Labs: Laboratory Results - last 48 hr 06/25/25 06/25/25 06/26/25 17:38 20:09 07:59 POC Glucose 308 H 267 H 372 H* 06/26/25 06/26/25 06/26/25 11:58 16:54 20:48 POC Glucose 291 H 336 H 320 H 06/27/25 06/27/25 07:53 11:34 POC Glucose 306 H 317 H Medications Medications Current Medications Acetaminophen (Acetaminophen 325 Mg Tablet) 650 mg PO Q6H PRN PRN Reason: Headache/Pain, Scale 1-10 Last Admin: 06/26/25 07:52 Dose: 650 mg Al Hydroxide/Mg Hydroxide (Magnesium Hydrox/Alum Hydrox 30 Ml Oral.Susp) 30 ml PO Q6H PRN PRN Reason: Heartburn/Nausea Albuterol Sulfate (Albuterol Sulfate 90 Mcg 8 Gm Inhaler) 2 puff INHALE Q4H PRN PRN Reason: shortness of breath or wheezing Albuterol Sulfate (Albuterol Sulfate (0.083%) 2.5 Mg/3 Ml Vial.Neb) 5 mg INHALE Q4H PRN PRN Reason: shortness of breath or wheezing Apixaban (Apixaban 5 Mg Tablet) 5 mg PO DAILY [facility] Last Admin: 06/27/25 08:30 Dose: 5 mg Atorvastatin Calcium (Atorvastatin Calcium 10 Mg Tablet) 10 mg PO BEDTIME [facility]N Last Admin: 06/26/25 21:02 Dose: 10 mg Bacitracin (Bacitracin Oint 14 Gm Tube) 1 appl TOPICAL BID [facility]; Protocol Last Admin: 06/27/25 08:31 Dose: Not Given Clonazepam (Clonazepam 1 Mg Tablet) 1 mg PO TID PRN PRN Reason: Anxiety Last Admin: 06/27/25 12:24 Dose: 1 mg Dextrose (Dextrose 50 % 25 Gm/50 Ml Syringe) 25 gm IVPUSH Q15M PRN; Protocol PRN Reason: per Hypoglycemia Standing Ord. Furosemide (Furosemide 40 Mg Tablet) 40 mg PO DAILY [facility]; Protocol Last Admin: 06/27/25 08:30 Dose: 40 mg Gabapentin (Gabapentin 600 Mg Tablet) 600 mg PO QID [facility] Last Admin: 06/27/25 12:24 Dose: 600 mg Glucose (Glucose Gel 15 Gm Gel..Gram.) 15 gm PO Q15M PRN; Protocol PRN Reason: per Hypoglycemia Standing Ord. Hydroxyzine HCl (Hydroxyzine Hcl 25 Mg Tablet) 25 mg PO Q6H PRN PRN Reason: mild anxiety Last Admin: 06/24/25 17:53 Dose: 25 mg Insulin Glargine (Insulin Glargine,Hum.Rec.Anlog 100 Unit/Ml 10 Ml Vial) 50 unit SUBCUT BEDTIME [facility] Last Admin: 06/26/25 21:03 Dose: 50 unit Insulin Human Lispro (Insulin Lispro 100 Unit/Ml 3 Ml Vial) 0 unit SUBCUT QIDACHS [facility]; Protocol Last Admin: 06/27/25 12:24 Dose: 8 unit Lamotrigine (Lamotrigine 100 Mg Tablet) 100 mg PO BID [facility] Last Admin: 06/27/25 08:30 Dose: 100 mg Lidocaine (Lidocaine 4 % Patch Adh..Patch) 1 patch TRANSDERMA DAILY PRN; Protocol PRN Reason: left knee Magnesium Hydroxide (Milk Of Magnesia 30 Ml Oral.Susp) 30 ml PO DAILY PRN PRN Reason: Constipation Last Admin: 06/26/25 14:42 Dose: 30 ml Metformin HCl (Metformin Hcl 500 Mg Tablet) 500 mg PO BIDWM [facility] Last Admin: 06/27/25 08:31 Dose: 500 mg Methadone HCl (Methadone Hcl 20 Mg/2 Ml Oral.Conc) 155 mg PO DAILY@0600 [facility] Last Admin: 06/27/25 06:01 Dose: 155 mg Metoprolol Succinate (Metoprolol Succinate Er 25 Mg Tab.Er.24h) 25 mg PO DAILY [facility]; Protocol Last Admin: 06/27/25 08:30 Dose: 25 mg Mirtazapine (Mirtazapine 15 Mg Tablet) 15 mg PO BEDTIME [facility] Last Admin: 06/26/25 21:02 Dose: 15 mg Nicotine (Nicotine 21 Mg Patch.Td24) 21 mg TRANSDERMA DAILY PRN PRN Reason: nicotine craving Nicotine Polacrilex (Nicotine Polacrilex 2 Mg Gum) 2 mg BUCCAL Q2H PRN PRN Reason: Nicotine Cravings Last Admin: 06/26/25 10:58 Dose: 2 mg Olanzapine (Olanzapine 5 Mg Tablet) 5 mg PO TID PRN PRN Reason: agitation Last Admin: 06/27/25 13:32 Dose: 5 mg Prazosin HCl (Prazosin Hcl 1 Mg Capsule) 3 mg PO BEDTIME [facility]; Protocol Last Admin: 06/26/25 21:02 Dose: 3 mg Trazodone HCl (Trazodone Hcl 50 Mg Tablet) 50 mg PO BEDTIME MRX1 PRN PRN Reason: Insomnia Allergies Allergies Allergy/AdvReac Type Severity Reaction Status Date / Time hernandez (CHERRIES) Allergy Severe Angioedema Verified 06/01/22 10:41 NSAIDS (Non-Steroidal Allergy Unknown NOT Verified 07/29/21 11:00 Anti-Inflamma (NSAIDS SUPPOSED (NON-STEROIDAL ANTI-INFLAMMA) TO TAKE DUE TO LIVER DAMAGE IN THE PAST carisoprodol (From Soma) Allergy Unknown Verified 06/22/25 17:18 ketorolac (From Toradol) Allergy Hives Verified 06/01/22 10:41 codeine (CODEINE) AdvReac Unknown Nausea and Verified 06/01/22 10:41 Vomiting prochlorperazine (From AdvReac lockjaw Verified 06/01/22 10:41 Compazine) tramadol (From Ultram) AdvReac Seizure Verified 06/01/22 10:41 Assessment & Plan Assessment & Plan (1) Bipolar II disorder: Status: Chronic Code(s): F31.81 - Bipolar II disorder (2) Opioid use disorder: Status: Chronic Code(s): F11.99 - Opioid use, unspecified with unspecified opioid-induced disorder (3) Chronic post-traumatic stress disorder (PTSD): Status: Chronic Code(s): F43.12 - Post-traumatic stress disorder, chronic (4) COPD (chronic obstructive pulmonary disease): Status: Chronic Code(s): J44.9 - Chronic obstructive pulmonary disease, unspecified (5) HTN (hypertension): Status: Acute Code(s): I10 - Essential (primary) hypertension Plan Plan COPD, pulmonary embolism on Eliquis, type 2 diabetes, hypertension, congestive heart failure, diabetes, she will hyperlipidemia, GERD, PTSD, diabetic neuropathy and a history of opioid use disorder on methadone, bipolar 1 disorder, anxiety Hospital course: 06/23 Patient reports he is feeling better back on medications; denies any SI or AVH. Patient said that she has been sober for 7 months doing well, in good mood for quite awhile so she wanted to see if perhaps she did not need to be on psychiatric medications. Patient stopped them and for 5 days she became very dysregulated, not sleeping at all and for the 1st time having auditory and visual hallucinations. Discussed read titration of Lamictal, risks/side effects and patient agrees to proposed titration schedule; patient has been on Lamictal for years and no history of rash. Also discussed skin picking disorder which patient says is due to anxiety. Discussed N-acetylcysteine which she would like to try-will see if insurance covers -recommendation for read titrating Lamictal after patient has been off for 5 days is generally 25 mg for 2 days, 50 mg for 2 days, 100 mg for 2 days and then back to 100 mg b.i.d.; Lamictal was restarted in the emergency room at [facility] and after today, will have been on 50 mg for 3-4 days. 06/24: Patient found light in her bed. She notes that her mood is ?good. ? She has been experiencing anxiety which has been a consistent issue but currently manageable.. Her anxiety is mild at the moment. She denies SI/HI/AH/VH. Continue current treatment regimen. 06/25; patient continues to stabilize; seems to be prone to emotional reactivity but has been able to keep herself in control. Agrees to continue titration of Lamictal; discussed skin picking disorder and patient understands N- acetylcysteine not covered. Discussed therapeutic approaches to urges to picks can which she will try -slightly swollen left knee post strenuous exercise about a week ago; hospitalist JOSE examined and patient did not want x-ray 06/26 Patient reports mood remains overall better and wants to discuss dispo for sometime next week. Service Order Clerk discussed elevated sugars and her consistent eating of carbs; she knows that this is a problem and understands the consequences if she does not get this under control. She says she will work on eating better during this admission and will see her cardiovascular surgical tech on discharge 06/27 overall remained stable; got very triggered by interaction with peer who is manic and intrusive but patient lost self-control through bunch of trays floor. She recovered and calmed down. Wants to discharge soon -Discussed left knee pain; ordered lidocaine patch. Does not want x-ray Plan: CV Q 15 minute checks Increase Lamictal to 100 mg b.i.d. Continue Remeron 15 mg q.h.s. Continue prazosin 3 mg q.h.s. Will see if N-acetylcysteine is covered by insurance Patient educated on: diagnosis, medication risk/benefits, therapeutic strategies and medical condition Informed Consent: understands Reason for continued inpatient stay Substantial Risk for: stable for discharge Time Spent With Patient Time: Total time managing care of this patient today ____ minutes.
[2025-06-27 17:12] LABS: Glucose, Whole Blood 338 mg/dL (60-115)
[2025-06-27 20:00] VITALS: BP 119/59; PULSE 89; TEMP 36.6; O2SAT 98
[2025-06-27 20:29] LABS: Glucose, Whole Blood 300 mg/dL (60-115)
[2025-06-27 20:41] VITALS: BP 117/59
[2025-06-27] MEDS: Insulin Glargine,Hum.rec.anlog 100 UNIT/ML 10 ML VIAL 50 UNIT SUBCUT (20:41)
[2025-06-28] MEDS: methADONE HCl 20 MG/2 ML ORAL.CONC 155 MG PO (05:56)
[2025-06-28 07:58] LABS: Glucose, Whole Blood 357 mg/dL (60-115)
[2025-06-28 08:00] VITALS: BP 122/61; PULSE 84; RESP 20; TEMP 36.6; O2SAT 94
--- NOTE | 2025-06-28 08:06 | PM.EVENT ---
Event Note Date of Service: 06/28/25 Event Note: Blood glucose remains elevated in 300's. Metformin increased to 850mg BID. Would encourage low sugar low carb diet. Time Spent With Patient Time: Total time managing care of this patient today ____ minutes.
[2025-06-28 08:34] VITALS: BP 122/61
[2025-06-28 08:35] VITALS: PULSE 84
[2025-06-28] MEDS: Metoprolol Succinate ER 25 MG TAB.ER.24H PO (08:35)
--- NOTE | 2025-06-28 10:34 | PC.NURSE ---
pharmacy just brought up metformin 850mg
[2025-06-28 12:08] LABS: Glucose, Whole Blood 390 mg/dL (60-115)
--- NOTE | 2025-06-28 14:06 | P.PNPSI_ITS ---
Subjective Subjective Date of Service: 06/28/25 Reason For Visit: SI and AH Interim History: Met with patient; discussed with team Patient in good behavioral and impulse control. Feels very ready to go home and asks for discharge tomorrow. Says she will take care of her knee as an outpatient and will follow up with her peer health promoter. Discussed medication prescriptions and patient thinks she has refills waiting for her and asks for this to be checked. Patient rescheduled her outpatient provider appointment to July 09 Mental Status Exam Mental Status Exam Narrative: Pt is alert and oriented; behavior is cooperative, friendly and calm; patient is not in distress; dressed in casual attire with unkempt hair but adequate hygiene; mood is described as good and affect congruent; eye contact appropriate; Speech is normal rate, volume and prosody and not pressured; no psychomotor agitation/retardation present; thought process is organized and goal directed; Thought content is on tx; otherwise pertinent to relevant topics and without any delusional content, paranoid ideations or grandiosity; denies any SI/HI. Denies AVH and there is no evidence of perceptual disturbance. Patients insight and judgment appear intact. Diagnostics Vital Signs (24Hr): Vital Signs - 24 hr 06/27/25 20:00 06/27/25 20:41 06/28/25 08:00 Temperature 97.8 F 97.9 F Pulse Rate 89 84 Respiratory Rate 20 Blood Pressure 119/59 L 117/59 L 122/61 Pulse Oximetry 98 94 Oxygen Delivery Method Room Air Room Air 06/28/25 08:34 06/28/25 08:35 Temperature Pulse Rate 84 Respiratory Rate Blood Pressure 122/61 Pulse Oximetry Oxygen Delivery Method BMI result Body Mass Index 39.8 Labs 06/23/25 08:05 Labs: Laboratory Results - last 48 hr 06/26/25 06/26/25 06/27/25 16:54 20:48 07:53 POC Glucose 336 H 320 H 306 H 06/27/25 06/27/25 06/27/25 11:34 17:07 20:25 POC Glucose 317 H 338 H 300 H 06/28/25 06/28/25 07:54 12:04 POC Glucose 357 H* 390 H* Medications Medications Current Medications Acetaminophen (Acetaminophen 325 Mg Tablet) 650 mg PO Q6H PRN PRN Reason: Headache/Pain, Scale 1-10 Last Admin: 06/27/25 20:34 Dose: 650 mg Al Hydroxide/Mg Hydroxide (Magnesium Hydrox/Alum Hydrox 30 Ml Oral.Susp) 30 ml PO Q6H PRN PRN Reason: Heartburn/Nausea Albuterol Sulfate (Albuterol Sulfate 90 Mcg 8 Gm Inhaler) 2 puff INHALE Q4H PRN PRN Reason: shortness of breath or wheezing Albuterol Sulfate (Albuterol Sulfate (0.083%) 2.5 Mg/3 Ml Vial.Neb) 5 mg INHALE Q4H PRN PRN Reason: shortness of breath or wheezing Apixaban (Apixaban 5 Mg Tablet) 5 mg PO DAILY [facility] Last Admin: 06/28/25 08:34 Dose: 5 mg Atorvastatin Calcium (Atorvastatin Calcium 10 Mg Tablet) 10 mg PO BEDTIME [facility] Last Admin: 06/27/25 20:34 Dose: 10 mg Bacitracin (Bacitracin Oint 14 Gm Tube) 1 appl TOPICAL BID [facility]; Protocol Last Admin: 06/28/25 08:37 Dose: Not Given Clonazepam (Clonazepam 1 Mg Tablet) 1 mg PO TID PRN PRN Reason: Anxiety Last Admin: 06/28/25 12:21 Dose: 1 mg Dextrose (Dextrose 50 % 25 Gm/50 Ml Syringe) 25 gm IVPUSH Q15M PRN; Protocol PRN Reason: per Hypoglycemia Standing Ord. Furosemide (Furosemide 40 Mg Tablet) 40 mg PO DAILY [facility]; Protocol Last Admin: 06/28/25 08:34 Dose: 40 mg Gabapentin (Gabapentin 600 Mg Tablet) 600 mg PO QID [facility] Last Admin: 06/28/25 12:21 Dose: 600 mg Glucose (Glucose Gel 15 Gm Gel..Gram.) 15 gm PO Q15M PRN; Protocol PRN Reason: per Hypoglycemia Standing Ord. Hydroxyzine HCl (Hydroxyzine Hcl 25 Mg Tablet) 25 mg PO Q6H PRN PRN Reason: mild anxiety Last Admin: 06/24/25 17:53 Dose: 25 mg Insulin Glargine (Insulin Glargine,Hum.Rec.Anlog 100 Unit/Ml 10 Ml Vial) 50 unit SUBCUT BEDTIME [facility] Last Admin: 06/27/25 20:41 Dose: 50 unit Insulin Human Lispro (Insulin Lispro 100 Unit/Ml 3 Ml Vial) 0 unit SUBCUT QIDACHS [facility]; Protocol Last Admin: 06/28/25 12:21 Dose: 10 unit Lamotrigine (Lamotrigine 100 Mg Tablet) 100 mg PO BID [facility] Last Admin: 06/28/25 08:35 Dose: 100 mg Lidocaine (Lidocaine 4 % Patch Adh..Patch) 1 patch TRANSDERMA DAILY PRN; Protocol PRN Reason: left knee Magnesium Hydroxide (Milk Of Magnesia 30 Ml Oral.Susp) 30 ml PO DAILY PRN PRN Reason: Constipation Last Admin: 06/26/25 14:42 Dose: 30 ml Metformin HCl (Metformin Hcl 850 Mg Tablet) 850 mg PO BIDWM [facility] Methadone HCl (Methadone Hcl 20 Mg/2 Ml Oral.Conc) 155 mg PO DAILY@0600 [facility] Last Admin: 06/28/25 05:56 Dose: 155 mg Metoprolol Succinate (Metoprolol Succinate Er 25 Mg Tab.Er.24h) 25 mg PO DAILY [facility]; Protocol Last Admin: 06/28/25 08:35 Dose: 25 mg Mirtazapine (Mirtazapine 15 Mg Tablet) 15 mg PO BEDTIME [facility] Last Admin: 06/27/25 20:41 Dose: 15 mg Nicotine (Nicotine 21 Mg Patch.Td24) 21 mg TRANSDERMA DAILY PRN PRN Reason: nicotine craving Nicotine Polacrilex (Nicotine Polacrilex 2 Mg Gum) 2 mg BUCCAL Q2H PRN PRN Reason: Nicotine Cravings Last Admin: 06/26/25 10:58 Dose: 2 mg Olanzapine (Olanzapine 5 Mg Tablet) 5 mg PO TID PRN PRN Reason: agitation Last Admin: 06/28/25 11:11 Dose: 5 mg Prazosin HCl (Prazosin Hcl 1 Mg Capsule) 3 mg PO BEDTIME [facility]; Protocol Last Admin: 06/27/25 20:41 Dose: 3 mg Trazodone HCl (Trazodone Hcl 50 Mg Tablet) 50 mg PO BEDTIME MRX1 PRN PRN Reason: Insomnia Allergies Allergies Allergy/AdvReac Type Severity Reaction Status Date / Time hernandez (CHERRIES) Allergy Severe Angioedema Verified 06/01/22 10:41 NSAIDS (Non-Steroidal Allergy Unknown NOT Verified 07/29/21 11:00 Anti-Inflamma (NSAIDS SUPPOSED (NON-STEROIDAL ANTI-INFLAMMA) TO TAKE DUE TO LIVER DAMAGE IN THE PAST carisoprodol (From Soma) Allergy Unknown Verified 10/07/25 17:18 ketorolac (From Toradol) Allergy Hives Verified 06/01/22 10:41 codeine (CODEINE) AdvReac Unknown Nausea and Verified 06/01/22 10:41 Vomiting prochlorperazine (From AdvReac lockjaw Verified 06/01/22 10:41 Compazine) tramadol (From Ultram) AdvReac Seizure Verified 06/01/22 10:41 Assessment & Plan Assessment & Plan (1) Bipolar II disorder: Status: Chronic Code(s): F31.81 - Bipolar II disorder (2) Opioid use disorder: Status: Chronic Code(s): F11.99 - Opioid use, unspecified with unspecified opioid-induced disorder (3) Chronic post-traumatic stress disorder (PTSD): Status: Chronic Code(s): F43.12 - Post-traumatic stress disorder, chronic (4) COPD (chronic obstructive pulmonary disease): Status: Chronic Code(s): J44.9 - Chronic obstructive pulmonary disease, unspecified (5) HTN (hypertension): Status: Acute Code(s): I10 - Essential (primary) hypertension Plan Plan COPD, pulmonary embolism on Eliquis, type 2 diabetes, hypertension, congestive heart failure, diabetes, she will hyperlipidemia, GERD, PTSD, diabetic neuropathy and a history of opioid use disorder on methadone, bipolar 1 disorder, anxiety Hospital course: 06/23 Patient reports he is feeling better back on medications; denies any SI or AVH. Patient said that she has been sober for 7 months doing well, in good mood for quite awhile so she wanted to see if perhaps she did not need to be on psychiatric medications. Patient stopped them and for 5 days she became very dysregulated, not sleeping at all and for the 1st time having auditory and visual hallucinations. Discussed read titration of Lamictal, risks/side effects and patient agrees to proposed titration schedule; patient has been on Lamictal for years and no history of rash. Also discussed skin picking disorder which patient says is due to anxiety. Discussed N-acetylcysteine which she would like to try-will see if insurance covers -recommendation for read titrating Lamictal after patient has been off for 5 days is generally 25 mg for 2 days, 50 mg for 2 days, 100 mg for 2 days and then back to 100 mg b.i.d.; Lamictal was restarted in the emergency room at [facility] and after today, will have been on 50 mg for 3-4 days. 06/24: Patient found light in her bed. She notes that her mood is ?good. ? She has been experiencing anxiety which has been a consistent issue but currently manageable.. Her anxiety is mild at the moment. She denies SI/HI/AH/VH. Continue current treatment regimen. 06/25; patient continues to stabilize; seems to be prone to emotional reactivity but has been able to keep herself in control. Agrees to continue titration of Lamictal; discussed skin picking disorder and patient understands N- acetylcysteine not covered. Discussed therapeutic approaches to urges to picks can which she will try -slightly swollen left knee post strenuous exercise about a week ago; hospitalist JOSE examined and patient did not want x-ray 06/26 Patient reports mood remains overall better and wants to discuss dispo for sometime next week. Reserve Officer discussed elevated sugars and her consistent eating of carbs; she knows that this is a problem and understands the consequences if she does not get this under control. She says she will work on eating better during this admission and will see her peer health promoter on discharge 06/27 overall remained stable; got very triggered by interaction with peer who is manic and intrusive but patient lost self-control through bunch of trays floor. She recovered and calmed down. Wants to discharge soon -Discussed left knee pain; ordered lidocaine patch. Does not want x-ray 06/28 patient stable, at baseline; in good behavioral and impulse control today. Wants discharge and agrees on discharging tomorrow Patient is not in imminent risk for harm to self or others. She has returned to her baseline is appropriate to return to the community for treatment. Her request for discharge honored Plan: CV Q 15 minute checks Increase Lamictal to 100 mg b.i.d. Continue Remeron 15 mg q.h.s. Continue prazosin 3 mg q.h.s. Will see if N-acetylcysteine is covered by insurance Patient educated on: diagnosis, medication risk/benefits and medical condition Informed Consent: understands Reason for continued inpatient stay Substantial Risk for: stable for discharge Time Spent With Patient Time: Total time managing care of this patient today ____ minutes.
[2025-06-28 17:01] LABS: Glucose, Whole Blood 279 mg/dL (60-115)
[2025-06-28 20:00] VITALS: BP 130/78; PULSE 90; RESP 20; TEMP 36.2; O2SAT 95
[2025-06-28 20:18] VITALS: BP 130/78
[2025-06-28] MEDS: Insulin Glargine,Hum.rec.anlog 100 UNIT/ML 10 ML VIAL 50 UNIT SUBCUT (20:35)
[2025-06-29] MEDS: methADONE HCl 20 MG/2 ML ORAL.CONC 155 MG PO (05:59)
[2025-06-29 07:59] LABS: Glucose, Whole Blood 263 mg/dL (60-115)
[2025-06-29 08:00] VITALS: BP 130/71; PULSE 106; TEMP 36.5; O2SAT 95
[2025-06-29] MEDS: Metoprolol Succinate ER 25 MG TAB.ER.24H PO (08:35)
--- NOTE | 2025-06-29 09:16 | P.DS_ITS ---
DS: Providers Provider Date of Service: 06/29/25 Date of admission: 06/22/25 16:20 Date of discharge: 06/29/25 Primary care physician: Gloria Velasquez MD Attending physician on admission: Chace Willis Consults: 06/22/25 16:45 Consult to Hospitalist Routine Comment: Consulting Provider: [facility] [place] Hospitalists Reason For Exam: New external admit H+P Attending physician on discharge: Chace Willis DS: Diagnosis Discharge Diagnosis (1) Bipolar II disorder: Status: Chronic (2) Opioid use disorder: Status: Chronic (3) Chronic post-traumatic stress disorder (PTSD): Status: Chronic (4) COPD (chronic obstructive pulmonary disease): Status: Chronic (5) HTN (hypertension): Status: Acute DS: Medications Discharge Medications Home Medications: Home Medications ?Medication ?Instructions ?Recorded ?Confirmed gabapentin 300 mg capsule 600 mg PO TID 06/22/2506/22 methadone 10 mg/mL oral 155 mg PO DAILY@0600 5 06/22/25 concentrate (Methadose) prazosin 1 mg capsule 3 mg PO BEDTIME 06/22/2504/09 clonazepam 1 mg PO TID PRN Anxiety 05/1006/23/25 Previous Rx's ?Medication ?Instructions ?Recorded albuterol sulfate 2.5 mg/0.5 mL 5 mg inhalation Q4H [place] N shortness 10/08/20 solution for nebulization of breath or wheezing #30 ea albuterol sulfate 90 mcg/actuation 2 puff inhalation Q 4-6H PRN 05/02/21 aerosol inhaler shortness of breath or wheez ing 30 days #6.7 grams furosemide 40 mg tablet 40 mg PO DAILY 30 days #30 t abs 06/08/22 hydroxyzine HCl 25 mg tablet 25 mg PO TID PRN Anxiety 30 days 06/08/22 #90 tabs metoprolol succinate 25 mg 25 mg PO DAILY 30 days #30 tabs 06/08/22 tablet,extended release 24 hr apixaban 5 mg tablet 5 mg PO DAILY 30 days #0 tab s 06/29/25 atorvastatin 10 mg tablet 10 mg PO BEDTIME 30 days #30 tabs 06/29/25 doxepin 10 mg capsule 10 mg PO BEDTIME 30 days #30 caps 06/29/25 insulin glargine 100 unit/mL 50 unit (0.5 mL) subcut B EDTIME #0 06/29/25 subcutaneous solution (Lantus mL U-100 Insulin) insulin lispro 100 unit/mL See Protocol subcut QIDACHS #0 mL 06/29/25 subcutaneous solution (Admelog U-100 Insulin lispro) lamotrigine 100 mg tablet 100 mg PO BID 30 days #60 ta bs 06/29/25 metformin 850 mg tablet 850 mg PO BIDWM #0 tabs 06/16 01/08 mirtazapine 15 mg tablet 15 mg PO BEDTIME 30 days #30 tabs 06/29/25 nicotine (polacrilex) 4 mg gum 4 mg buccal Q2H PRN teo otine 06/29/25 cravings 30 days #100 ea trazodone 50 mg tablet 50 mg PO BEDTIME PRN Insomni a 30 06/29/25 days #30 tabs Data Data Completed and Pending Completed studies during hospitalization [Text1]: 06/22/25 06/23/25 06/23/25 20:05 07:45 08:05 Sodium 136 Potassium 3.9 Chloride 98 Carbon Dioxide 30 H Anion Gap 12 BUN 11 Creatinine 0.61 Estim Creat Clear Calc 128.9 Estimated GFR > 60 POC Glucose 394 H* 303 H Random Glucose 331 H Estimat Average Glucose 303 Hemoglobin A1c % 12.2 H Calcium 8.7 Total Bilirubin 0.2 AST 21 ALT 12 Alkaline Phosphatase 126 H Total Protein 7.0 Albumin 3.8 Triglycerides 202 H Cholesterol 218 H LDL Cholesterol, Calc 148 H HDL Cholesterol 30 L TSH 1.09 Free T4 1.15 06/23/25 06/23/25 06/23/25 11:45 16:45 20:27 Sodium Potassium Chloride Carbon Dioxide Anion Gap BUN Creatinine Estim Creat Clear Calc Estimated GFR POC Glucose 302 H 343 H 283 H Random Glucose Estimat Average Glucose Hemoglobin A1c % Calcium Total Bilirubin AST ALT Alkaline Phosphatase Total Protein Albumin Triglycerides Cholesterol LDL Cholesterol, Calc HDL Cholesterol TSH Free T4 06/24/25 06/24/25 06/24/25 07:42 11:47 17:06 Sodium Potassium Chloride Carbon Dioxide Anion Gap BUN Creatinine Estim Creat Clear Calc Estimated GFR POC Glucose 331 H 261 H 343 H Random Glucose Estimat Average Glucose Hemoglobin A1c % Calcium Total Bilirubin AST ALT Alkaline Phosphatase Total Protein Albumin Triglycerides Cholesterol LDL Cholesterol, Calc HDL Cholesterol TSH Free T4 06/24/25 06/25/25 06/25/25 20:28 07:47 12:09 Sodium Potassium Chloride Carbon Dioxide Anion Gap BUN Creatinine Estim Creat Clear Calc Estimated GFR POC Glucose 229 H 430 H* 321 H Random Glucose Estimat Average Glucose Hemoglobin A1c % Calcium Total Bilirubin AST ALT Alkaline Phosphatase Total Protein Albumin Triglycerides Cholesterol LDL Cholesterol, Calc HDL Cholesterol TSH Free T4 06/25/25 06/25/25 06/26/25 17:38 20:09 07:59 Sodium Potassium Chloride Carbon Dioxide Anion Gap BUN Creatinine Estim Creat Clear Calc Estimated GFR POC Glucose 308 H 267 H 372 H* Random Glucose Estimat Average Glucose Hemoglobin A1c % Calcium Total Bilirubin AST ALT Alkaline Phosphatase Total Protein Albumin Triglycerides Cholesterol LDL Cholesterol, Calc HDL Cholesterol TSH Free T4 06/26/25 06/26/25 06/26/25 11:58 16:54 20:48 Sodium Potassium Chloride Carbon Dioxide Anion Gap BUN Creatinine Estim Creat Clear Calc Estimated GFR POC Glucose 291 H 336 H 320 H Random Glucose Estimat Average Glucose Hemoglobin A1c % Calcium Total Bilirubin AST ALT Alkaline Phosphatase Total Protein Albumin Triglycerides Cholesterol LDL Cholesterol, Calc HDL Cholesterol TSH Free T4 06/27/25 06/27/25 06/27/25 07:53 11:34 17:07 Sodium Potassium Chloride Carbon Dioxide Anion Gap BUN Creatinine Estim Creat Clear Calc Estimated GFR POC Glucose 306 H 317 H 338 H Random Glucose Estimat Average Glucose Hemoglobin A1c % Calcium Total Bilirubin AST ALT Alkaline Phosphatase Total Protein Albumin Triglycerides Cholesterol LDL Cholesterol, Calc HDL Cholesterol TSH Free T4 06/27/25 06/28/25 06/28/25 20:25 07:54 12:04 Sodium Potassium Chloride Carbon Dioxide Anion Gap BUN Creatinine Estim Creat Clear Calc Estimated GFR POC Glucose 300 H 357 H* 390 H* Random Glucose Estimat Average Glucose Hemoglobin A1c % Calcium Total Bilirubin AST ALT Alkaline Phosphatase Total Protein Albumin Triglycerides Cholesterol LDL Cholesterol, Calc HDL Cholesterol TSH Free T4 06/28/25 06/29/25 16:55 07:53 Sodium Potassium Chloride Carbon Dioxide Anion Gap BUN Creatinine Estim Creat Clear Calc Estimated GFR POC Glucose 279 H 263 H Random Glucose Estimat Average Glucose Hemoglobin A1c % Calcium Total Bilirubin AST ALT Alkaline Phosphatase Total Protein Albumin Triglycerides Cholesterol LDL Cholesterol, Calc HDL Cholesterol TSH Free T4 DS: Summary Hospital Course Hospital Course: COPD, pulmonary embolism on Eliquis, type 2 diabetes, hypertension, congestive heart failure, diabetes, she will hyperlipidemia, GERD, PTSD, diabetic neuropathy and a history of opioid use disorder on methadone, bipolar 1 disorder, anxiety Hospital course: 06/23 Patient reports he is feeling better back on medications; denies any SI or AVH. Patient said that she has been sober for 7 months doing well, in good mood for quite awhile so she wanted to see if perhaps she did not need to be on psychiatric medications. Patient stopped them and for 5 days she became very dysregulated, not sleeping at all and for the 1st time having auditory and visual hallucinations. Discussed read titration of Lamictal, risks/side effects and patient agrees to proposed titration schedule; patient has been on Lamictal for years and no history of rash. Also discussed skin picking disorder which patient says is due to anxiety. Discussed N-acetylcysteine which she would like to try-will see if insurance covers -recommendation for read titrating Lamictal after patient has been off for 5 days is generally 25 mg for 2 days, 50 mg for 2 days, 100 mg for 2 days and then back to 100 mg b.i.d.; Lamictal was restarted in the emergency room at [facility] and after today, will have been on 50 mg for 3-4 days. 06/24: Patient found light in her bed. She notes that her mood is ?good. ? She has been experiencing anxiety which has been a consistent issue but currently manageable.. Her anxiety is mild at the moment. She denies SI/HI/AH/VH. Continue current treatment regimen. 06/25; patient continues to stabilize; seems to be prone to emotional reactivity but has been able to keep herself in control. Agrees to continue titration of Lamictal; discussed skin picking disorder and patient understands N- acetylcysteine not covered. Discussed therapeutic approaches to urges to picks can which she will try -slightly swollen left knee post strenuous exercise about a week ago; hospitalist JOSE examined and patient did not want x-ray 06/26 Patient reports mood remains overall better and wants to discuss dispo for sometime next week. Carpenter discussed elevated sugars and her consistent eating of carbs; she knows that this is a problem and understands the consequences if she does not get this under control. She says she will work on eating better during this admission and will see her scalloper on discharge 06/27 overall remained stable; got very triggered by interaction with peer who is manic and intrusive but patient lost self-control through bunch of trays floor. She recovered and calmed down. Wants to discharge soon -Discussed left knee pain; ordered lidocaine patch. Does not want x-ray 06/28 patient stable, at baseline; in good behavioral and impulse control today. Wants discharge and agrees on discharging tomorrow Patient is not in imminent risk for harm to self or others. She has returned to her baseline is appropriate to return to the community for treatment. Her request for discharge honored Plan: CV Q 15 minute checks Increase Lamictal to 100 mg b.i.d. Continue Remeron 15 mg q.h.s. Continue prazosin 3 mg q.h.s. Will see if N-acetylcysteine is covered by insurance Patient educated on: diagnosis, medication risk/benefits and medical co Time Spent with Patient Time attestation: Total time managing care of this patient today ____ minutes. Discharge Plan Discharge Anticipated Discharge Date/Time: 06/29/25 11:00 Patient Disposition: Home, Self-Care Discharge Diagnosis: Bipolar II disorder Ref[facility]: [facility] [Other] - 1 Week Referral Note: [facility] use treatment Patient should follow-up on referral after discharge Department of mental health ([facility]) [Other] - 07/05/25 9:00 am Referral Note: Patient referred to [facility] Patient should follow-up on application within one week with department of mental health [facility]: Dr. Lima (psychiatry) [Other] - 07/09/25 3:00 pm Referral Note: Hospital discharge appointment with psychiatric provider [facility]: Axel (counselor) [Other] - 06/30/25 6:00 am Referral Note: Hospital discharge appointment with counselor at [facility] clinic. Gloria Velasquez MD [Primary Care Provider, Primary Care] - 1 Week Discharge Medications: New lamotrigine 100 mg Tablet 100 mg PO BID 30 Days Qty: 60 0RF apixaban 5 mg Tablet 5 mg PO DAILY 30 Days Qty: 0 0RF insulin glargine [Lantus U-100 Insulin] 100 unit/mL Solution 50 unit subcut BEDTIME Qty: 0 0RF metformin 850 mg Tablet 850 mg PO BIDWM Qty: 0 0RF insulin lispro [Admelog U-100 Insulin lispro] 100 unit/mL Solution See Protocol subcut QIDACHS Qty: 0 0RF Protocol: Insulin Correction Scale Less than or equal to 110 ---- Give (units): 0 111 to 150 Give (units): 0 151 to 200 Give (units): 2 201 to 250 Give (units): 4 251 to 300 Give (units): 6 301 to 350 Give (units): 8 Greater than 350 Give (units): 10 Call MD if Blood Glucose > : 350 atorvastatin 10 mg Tablet 10 mg PO BEDTIME 30 Days Qty: 30 0RF Continued albuterol sulfate 90 mcg/actuation HFA aerosol inhaler 2 puff inhalation Q4-6H PRN (Reason: shortness of breath or wheezing) 30 Days Qty: 6.7 0RF albuterol sulfate 2.5 mg/0.5 mL solution for nebulization 5 mg inhalation Q4H PRN (Reason: shortness of breath or wheezing) Qty: 30 0RF metoprolol succinate 25 mg Tablet Extended Release 24 Hr 25 mg PO DAILY 30 Days Qty: 30 0RF Protocol: Hold for SBP/HR < HOLD for SBP < : 90 HOLD for HR < : 60 furosemide 40 mg Tablet 40 mg PO DAILY 30 Days Qty: 30 0RF Protocol: Hold for SBP< HOLD for SBP < : 90 hydroxyzine HCl 25 mg Tablet 25 mg PO TID PRN (Reason: Anxiety) 30 Days Qty: 90 0RF prazosin 1 mg capsule 3 mg PO BEDTIME Protocol: Hold for SBP< HOLD for SBP < : 90 gabapentin 300 mg capsule 600 mg PO TID methadone [Methadose] 10 mg/mL concentrate 155 mg PO DAILY@0600 Rx Instructions: Partial Fill upon patient request. clonazepam 1 mg PO TID PRN (Reason: Anxiety) doxepin 10 mg capsule 10 mg PO BEDTIME 30 Days Qty: 30 0RF nicotine (polacrilex) 4 mg gum 4 mg buccal Q2H PRN (Reason: nicotine cravings) 30 Days Qty: 100 0RF mirtazapine 15 mg Tablet 15 mg PO BEDTIME 30 Days Qty: 30 0RF Changed trazodone 50 mg tablet 50 mg PO BEDTIME PRN (Reason: Insomnia) 30 Days Qty: 30 0RF Discontinued lamotrigine 25 mg Tablet 25 mg PO BEDTIME 30 Days Qty: 30 0RF bacitracin 500 unit/gram Ointment 1 appl topical BID 30 Days Qty: 1 0RF Protocol: Apply to: Apply to: affected areas of the arms Discharge Orders: Discharge Order (Routine); Ordered 06/29/25 Ordered By: Chace Willis Diet: Diabetic diet Activity on Discharge: As tolerated Stand Alone Forms: Patient Portal Discharge page Print Language: Frisian Care Plan Goals: Maintain mood and safe behaviors Take medications as prescribed Continue to pursue sobriety Practice coping skills Continue with outpatient providers and reach out to them as needed Health Concerns: Mood stability and behaviors Diabetes Hypertension Elevated cholesterol COPD History of PE on Eliquis Plan of Treatment: Follow up with your PCP, psychiatric provider and other outpatient providers regarding above concerns Take medications as prescribed Assessment: Risk assessment at time of discharge:? Patient was interviewed prior to discharge and found to be fully oriented and without any SI or HI. Patient has improved insight and judgment and wants to continue treatment. Patient is not in imminent risk of harm to self or others and has a safety plan that includes presenting to the closest ER or calling 911 if feeling unsafe.? Patient has been observed closely by nursing and unit staff throughout admission; patient has not engaged in any behaviors that suggest dangerousness to self or others and has demonstrated appropriate behaviors and impulse control
== END 2025-06-29 10:42 | disposition home or self-care (01) | DRG 753 ==
PROVIDERS: Nurse Practitioner Psychiatric/Mental Health; Admitting Provider Psychiatry & Neurology Psychiatry; PCP Internal Medicine; Visit Provider Psychiatry & Neurology Psychiatry
DX: F31.81 Bipolar II disorder (principal); R45.851 Suicidal ideations; E11.40 Type 2 diabetes mellitus with diabetic neuropathy, unspecified; I50.9 Heart failure, unspecified; F17.210 Nicotine dependence, cigarettes, uncomplicated; F11.20 Opioid dependence, uncomplicated; Z71.6 Tobacco abuse counseling; E78.5 Hyperlipidemia, unspecified; I11.0 Hypertensive heart disease with heart failure; F43.12 Post-traumatic stress disorder, chronic; J44.9 Chronic obstructive pulmonary disease, unspecified; E11.65 Type 2 diabetes mellitus with hyperglycemia; Z86.711 Personal history of pulmonary embolism; Z79.4 Long term (current) use of insulin; Z79.01 Long term (current) use of anticoagulants; Z79.84 Long term (current) use of oral hypoglycemic drugs; Z79.899 Other long term (current) drug therapy
CPT/HCPCS: 36415; 80053; 80061; 82947; 83036; 84439; 84443

== ENCOUNTER → 2025-06-22 16:20 | Outpatient (BNV) | payer OTHER, SELFPAY | PROVIDERS: Admitting Provider Psychiatry & Neurology Psychiatry; PCP Internal Medicine; Visit Provider Nurse Practitioner Family | DX: E11.65 Type 2 diabetes mellitus with hyperglycemia (principal) | CPT/HCPCS: 99221; 99231; 99499 ==

== ENCOUNTER → 2025-06-22 16:20 | Outpatient (BNV) | payer OTHER, SELFPAY | PROVIDERS: Admitting Provider Psychiatry & Neurology Psychiatry; PCP Internal Medicine; Visit Provider Nurse Practitioner Psychiatric/Mental Health | DX: F31.81 Bipolar II disorder (principal); F11.90 Opioid use, unspecified, uncomplicated; F43.12 Post-traumatic stress disorder, chronic; J44.9 Chronic obstructive pulmonary disease, unspecified; I10 Essential (primary) hypertension | CPT/HCPCS: 90792; 99231; 99232 ==